=== PATIENT | male | born 1935 | race Caucasian/White ===

== ENCOUNTER 2019-06-30 13:07 | Inpatient (IN) | payer MEDICARE, SELFPAY ==
[2019-06-30] VITALS (10 sets, daily range): BP systolic 94–103; BP diastolic 43–60; PULSE 77–111; RESP 14–22; TEMP 36.8–37; O2SAT 92–97; BMI 26.3
--- NOTE | ~2019-06-30 | XR_ITS ---
XR chest 1V portable 06/30/2019 13:33 Indication: Shortness of breath Procedure: AP portable chest Comparison: Comparison to multiple prior studies sequentially, with oldest reviewed study dated 04/2019. Findings: Heart size normal. The lungs are hyperinflated which is consistent with, but not diagnostic of chronic obstructive pulmonary disease. There is atherosclerosis. Left basilar atelectasis/scarrin g. Impression: 1: Left basilar atelectasis/scarring. Reviewed, dictated and finalized at location B. [employer] INSTALLER Impression: 1: Left basilar atelectasis/scarring.
--- NOTE | 2019-06-30 13:13 | ED.SOB ---
HPI - SOB/Dyspnea General Chief Complaint: Shortness of Breath/Dyspnea Stated Complaint: SOB Time Seen by Provider: 06/30/19 13:09 Source: patient, EMS and RN notes reviewed Mode of arrival: EMS Limitations: no limitations History of Present Illness HPI Narrative: A 84 y/o male pt presents to the ED, via EMS from his nursing facility, with c/o sob and weakness x 2 days. Per RN, pt had a fever (102F) at the facility and was given Tylenol x 650mg and a nebulizer treatment prior to calling EMS. EMS also gave nebulizer en route to ED. Pt is complaining of a cough, but denies any CP, N/V/D or muscle aches, but notes he is paralyzed from the waist down. Pt recently had a surgery on his wound on his rt buttocks for mersa performed by Dr. Monroe and had a rectal tube placed. He notes having a PMHx of sepsis and notes NKA. Pt's temperature is 98.6F in the ED. MD elicited complaint: shortness of breath Pertinent past history: sepsis Onset (ago): day(s) (2) Associated symptoms: fever (102F prior to arrival), cough and other (weakness) Treatment prior to arrival: other (nebulizer treatment, Tylenol x 650mg) Related Data Home Medications Medication Instructions Recorded Confirmed Dakin's Solution 1 applic TOPICAL DAILY 04/28/19 06/30/19 Xarelto 20 mg PO DAILY 04/28/19 06/30/19 acetaminophen 325 mg PO Q4-6H PRN 04/28/19 06/30/19 albuterol sulfate See Rx Instructions .ROUTE 04/28/19 06/30/19 .COMPLEX PRN atorvastatin 10 mg PO HS 04/28/19 06/30/19 cyanocobalamin (vitamin B-12) 1,000 mcg PO DAILY 04/28/19 06/30/19 diphenhydramine HCl [Benadryl] 25 mg PO Q6-8H PRN 04/28/19 06/30/19 docusate sodium [Colace] 100 mg PO BID PRN 04/28/19 06/30/19 ergocalciferol (vitamin D2) 50,000 unit PO WEEKLY 04/28/19 06/30/19 [Vitamin D2] ferrous sulfate 325 mg PO DAILY 04/28/19 06/30/19 melatonin 5 mg PO HS 04/28/19 06/30/19 mirtazapine 15 mg PO DAILY 04/28/19 06/30/19 multivitamin 1 cap PO DAILY 04/28/19 06/30/19 sennosides [senna] 8.6 mg PO HS 04/28/19 06/30/19 tizanidine 2 mg PO BID 04/28/19 06/30/19 bisacodyl [Dulcolax (bisacodyl)] 10 mg PO BID 06/30/19 06/30/19 lactulose 10 g PO BID 06/30/19 06/30/19 polyethylene glycol 3350 [Miralax] 17 g PO DAILY 06/30/19 06/30/19 simethicone [Gas Relief 125 mg PO BID 06/30/19 06/30/19 (simethicone)] sulfamethoxazole-trimethoprim 1 tablet PO Q12H 06/30/19 06/30/19 [Bactrim DS] Allergies Allergy/AdvReac Type Severity Reaction Status Date / Time No Known Allergies Allergy Verified 04/26/19 16:06 Review of Systems Review of Systems: All systems reviewed & are unremarkable except as noted in HPI and below Constitutional: Constitutional: Reports fever(s) (102F prior to arrival) and Reports weakness (generalized) Cardiovascular: Cardiovascular: Denies chest pain Respiratory: Respiratory: Reports cough and Reports dyspnea Gastrointestinal: Gastrointestinal: Denies diarrhea, Denies nausea and Denies vomiting Musculoskeletal: Musculoskeletal: Denies myalgias (paralyzed from waist down) PMFSH Past Medical History Medical History (Reviewed 06/30/19 @ 17:33 by [facility] Arm fracture Bacteremia With peptostreptococcus December 2018 due to infected sacral wound Bladder tumor Status post transient urethral resection of bladder tumor (8 cm) August 2017 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
--- NOTE | 2019-06-30 13:22 | ECG_ITS ---
Measurements Intervals [place] Rate: 109 P: 109 WA: 190 QRS: 267 QRSD: 150 T: 54 QT: 360 QTc: 486 Interpretive Statements SINUS TACHYCARDIA RIGHT BUNDLE BRANCH BLOCK LEFT POSTERIOR FASCICULAR BLOCK BASELINE ARTIFACT- I, II, AVR, V3, V5 ABNORMAL ECG Electronically Signed On 06-30-2019 13:28:42 [employer]URN DOWN WORKER by Rodri Wilcox D.O.
[2019-06-30 13:36] LABS: Basophils Percent Auto 0.3 % (0.2-1.2); Eosinophils Percent Auto 0.6 % (0-4.4); Hematocrit 31.8 % (42.0-52.0); Hemoglobin 9.4 g/dL (14.0-18.0); Immature Granulocyte Absolute 0.02 K/mm3 (0.00-0.031); Immature Granulocyte Percent A 0.3 % (0-0.5); Lymphocytes Absolute Auto 1.32 K/mm3 (0.9-3.2); Lymphocytes Percent Auto 18.9 % (18.3-44.2); Mean Corpuscular HGB Conc 29.6 g/dl (32-36); Mean Corpuscular Hemoglobin 22.8 pg (26-34); Mean Corpuscular Volume 77.2 fl (80-100); Mean Platelet Volume 10.3 fl (7.4-10.4); Monocytes Percent Auto 14.8 % (2.6-8.5); Neutrophils Absolute Auto 4.5 K/mm3 (1.3-6.7); Neutrophils Percent Auto 65.1 % (45.5-73.1); Platelet Count Result 246 k/mm3 (150-375); Red Blood Count 4.12 M/mm3 (4.6-6.20); Red Cell Distribution Width 21.7 % (11.5-14.5)
[2019-06-30 13:47] LABS: Prothrombin Time 21.8 Seconds (11.1-14.7)
[2019-06-30 13:48] LABS: Lactic Acid Reflex 3.3 mmol/L (0.7-2.1)
[2019-06-30 13:50] LABS: Hypochromasia 1+ (NORMAL); Ovalocytes 1+ (NORMAL); Platelet Estimate Adequate (Adequate)
[2019-06-30 13:52] LABS: Alanine Aminotransferase 30 U/L (4-50); Alkaline Phosphatase 158 U/L (38-126); Aspartate Amino Transferase 43 U/L (17-59); Bilirubin,Total 0.5 mg/dL (0.2-1.3); Blood Urea Nitrogen 20 mg/dL (9-20); Calcium 7.8 mg/dL (8.4-10.2); Carbon Dioxide 23 mmol/L (22-30); Chloride 95 mmol/L (98-107); Estimated Glomerular Filt Rate > 60; Glucose 132 mg/dL (75-110); Potassium 4.2 mmol/L (3.4-5.0); Sodium 133 mmol/L (137-145)
[2019-06-30] MEDS: SODIUM CHLORIDE 0.9% IV 1,000 ML 999 ML IV CONT (14:22)
[2019-06-30 14:23] LABS: Add Urine Microscopic? YES; Appearance Urine Cloudy (Clear); Bacteria Urine 2+ /hpf; Bilirubin Urine Negative (Negative); Blood Urine 3+ (Negative); Color Urine Red (Yellow); Glucose Urine UA Negative (Negative); Ketones Urine Negative (Negative); Leukocyte Esterase Ur 2+ LEU/UL (Negative); Mucus Urine Few /lpf; Nitrate Urine Negative (Negative); Protein Urine 2+ mg/dL (Negative); RBC Urine >75 /hpf (0-2); Specific Grav Ur 1.021 (1.001-1.035); Urobilinogen Urine Negative mg/dL (<2.0); WBC Urine >75 /hpf
[2019-06-30] MEDS: OSELTAMIVIR PHOSPHATE 75 MG CAP PO ×2 (15:31→20:47)
--- NOTE | 2019-06-30 16:00 | ADMGEN ---
This patient, Wander Prescott, was admitted to Medical Room 249-01. Patient/family oriented to hospital policies and general routines including ID bracelet, bed and alarms, visiting hours, pain management, procedures, bathroom and other care routines, personal items, smoking policy, room service/diet, and visiting hours. Valuables list has been completed. Information on how to activate the Rapid Response Team has been discussed. Patient/Family are encouraged to report perceived risks to care and to ask questions if they do not understand what they are told or what they should do.
[2019-06-30] MEDS: LACTATED RINGERS 1,000 ML 125 ML IV CONT (16:27)
[2019-06-30 16:35] LABS: Reflex Lactic Acid Yes or No Add Lactic
[2019-06-30 17:10] LABS: Lactic Acid 2.8 mmol/L (0.7-2.1)
[2019-06-30] MEDS: methylPREDNISolone SOD SUCC 125 MG VIAL 60 MG IV PUSH ×2 (18:32→23:59)
--- NOTE | 2019-06-30 18:42 | PC.NURSE ---
Sepsis Assessment completed and showed high risk. Octavia Rico will be at bedside to assess patient.
--- NOTE | 2019-06-30 19:55 | PC.NURSE ---
On 06/30/19, the [place], [JUAN DIEGO Damico], provided care and completed [facility] documentation on this patient. I have reviewed her documentation and agree with the findings.
[2019-06-30 19:59] LABS: Glucose Point of Care 90 (65-105)
[2019-06-30 21:03] LABS: Glucose Point of Care 124 (65-105)
[2019-06-30] MEDS: ALBUTEROL SULFATE NEB 2.5 MG/0.5 ML INH 5 MG INHALATION (22:00)
[2019-06-30] MEDS: IPRATROPIUM BR 0.02% INH SOLN 0.5 MG/2.5 ML VIAL INHALATION (22:00)
--- NOTE | 2019-06-30 23:37 | PM.IMHP ---
H&P: HPI History of Present Illness Chief complaint: Acute on chronic respiratory failure/influenza Narrative: Wander Prescott is a 84 year old male who resides at [facility]. The patient came to the emergency room via EMS with complaints of shortness of breath and weakness for 2 days. The patient had T-max of 102? at the facility and was given Tylenol x2 the patient stated that this started about 2 days ago and has been very weak. He does have a history of paraplegia and basically bedbound. Patient has had multiple ulcerations and states that his down to about 2 now he sees a wound care nurse at the facility. He has had MRSA in the right buttocks but I believe that they felt that it was colonized his last admission. He also has a chronic indwelling Cheung catheter. Patient did receive ertapenem back in April. Patient was found to be positive for influenza A while at the hospital today. On IV fluids and Tamiflu. He was also given Tylenol fever. Date of service is 06/30/2019 Review of Systems Review of Systems: Narrative: The patient stated that he felt very fatigued. He also has chills. All systems reviewed & are unremarkable except as noted in HPI and below Constitutional: Constitutional: Reports as per HPI and Reports no additional constitutional complaints Eyes: Eyes: Reports as per HPI and Reports no additional eye complaints ENT: Reports system reviewed and no additional complaints, except as documented and Reports Normal hearing present Cardiovascular: Cardiovascular: Reports no additional cardiovascular complaints Respiratory: Respiratory: Reports no additional respiratory complaints and Reports no additional respiratory complaints Gastrointestinal: Gastrointestinal: Reports as per HPI and Reports no additional gastrointestinal complaints Musculoskeletal: Musculoskeletal: Reports no additional musculoskeletal complaints Integumentary/Breasts: Skin/Breast: Reports system reviewed and no additional complaints, except as docu and Reports as per HPI Neurologic: Reports system reviewed and no additional complaints, except as documented, Reports as per HPI and Reports Normal hearing present Psychiatric: Psychiatric: Reports no additional psychiatric complaints and Reports as per HPI Endocrine: Endocrine: Reports no additional endocrine complaints Hematologic/Lymphatic: Hematologic/Lymphatic: Reports no additional hematologic/lymphatic complaints Allergic/Immunologic: Allergic/Immunologic: Reports no additional allergic/immunologic complaints PMF Past Medical History Medical History (Updated 06/30/19 @ 23:43 by Octavia Rico NP) Arm fracture Asbestosis Bacteremia With peptostreptococcus December 2018 due to infected sacral wound Bladder tumor Status post transient urethral resection of bladder tumor (8 cm) August 2017 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 Julian) Catheter-associated urinary tract infection Chronic indwelling Cheung catheter Due to paraplegia/neurogenic bladder COPD (chronic obstructive pulmonary disease) Diastolic dysfunction without heart failure Echocardiogram March 2017 demonstrated normal left ventricular systolic function with no focal wall motion abnormalities, mild concentric left ventricular hypertrophy, EF of 60-65%, mild pulmonary hypertension with RVSP of 46, diastolic dysfunction, E. 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
[2019-07-01] VITALS (15 sets, daily range): BP systolic 91–96; BP diastolic 45–68; PULSE 68–94; RESP 16–18; TEMP 36.2–36.4; O2SAT 92–99
[2019-07-01] MEDS: LACTATED RINGERS 1,000 ML 125 ML IV CONT ×2 (00:49→13:01)
[2019-07-01] MEDS: MELATONIN 5 MG TABLET PO ×2 (01:26→20:46)
[2019-07-01] MEDS: IPRATROPIUM BR 0.02% INH SOLN 0.5 MG/2.5 ML VIAL INHALATION ×3 (02:40→22:27)
[2019-07-01] MEDS: ALBUTEROL SULFATE NEB 2.5 MG/0.5 ML INH 5 MG INHALATION ×3 (02:40→22:27)
[2019-07-01] MEDS: methylPREDNISolone SOD SUCC 125 MG VIAL 60 MG IV PUSH ×3 (05:20→23:05)
[2019-07-01 06:06] LABS: Hemoglobin 8.9 g/dL (14.0-18.0); Immature Granulocyte Absolute 0.03 K/mm3 (0.00-0.031); Immature Granulocyte Percent A 0.5 % (0-0.5); Lymphocytes Absolute Auto 0.44 K/mm3 (0.9-3.2); Mean Corpuscular HGB Conc 29.7 g/dl (32-36); Mean Corpuscular Hemoglobin 22.3 pg (26-34); Mean Corpuscular Volume 75.2 fl (80-100); Mean Platelet Volume 10.5 fl (7.4-10.4); Monocytes Absolute Auto 0.1 K/mm3 (0.1-0.6); Monocytes Percent Auto 1.3 % (2.6-8.5); Neutrophils Absolute Auto 4.9 K/mm3 (1.3-6.7); Neutrophils Percent Auto 90.2 % (45.5-73.1); Platelet Count Result 246 k/mm3 (150-375); Red Blood Count 3.99 M/mm3 (4.6-6.20); Red Cell Distribution Width 21.1 % (11.5-14.5); White Blood Count 5.5 K/mm3 (4.5-10.0)
[2019-07-01 06:08] LABS: Alanine Aminotransferase 26 U/L (4-50); Albumin Level 2.8 g/dL (3.5-5.1); Alkaline Phosphatase 146 U/L (38-126); Aspartate Amino Transferase 35 U/L (17-59); Bilirubin,Total 0.4 mg/dL (0.2-1.3); Blood Urea Nitrogen 17 mg/dL (9-20); Calcium 7.9 mg/dL (8.4-10.2); Carbon Dioxide 25 mmol/L (22-30); Chloride 96 mmol/L (98-107); Estimated CRCL calculation 79 ml/min; Estimated Glomerular Filt Rate > 60; Glucose 153 mg/dL (75-110); Magnesium 1.8 mg/dL (1.6-2.3); Potassium 4.6 mmol/L (3.4-5.0); Sodium 135 mmol/L (137-145)
[2019-07-01] MEDS: BISACODYL 5 MG TABLET EC 10 MG PO ×2 (08:32→16:54)
[2019-07-01] MEDS: TIZANIDINE HCL 2 MG TABLET PO ×2 (08:32→16:57)
[2019-07-01] MEDS: MIRTAZAPINE 15 MG TABLET PO (08:33)
[2019-07-01] MEDS: MULTIVITAMINS THERAPEUTIC TAB (*BKC) 1 TABLET PO (08:33)
[2019-07-01] MEDS: LACTULOSE 20 GM/30 ML UDC 10 GM PO ×2 (08:33→16:57)
[2019-07-01] MEDS: SIMETHICONE 125 MG CHEW TAB PO ×2 (08:33→16:58)
[2019-07-01] MEDS: polyethylene glycoL 3350 17 GM POWD.PACK PO (08:33)
[2019-07-01] MEDS: CYANOCOBALAMIN 1,000 MCG TABLET 1000 MCG PO (08:33)
[2019-07-01] MEDS: FERROUS SULFATE 324 MG TABLET PO (08:33)
[2019-07-01] MEDS: OSELTAMIVIR PHOSPHATE 75 MG CAP PO ×2 (08:34→20:46)
[2019-07-01] MEDS: COLLAGENASE OINT 30 GM TUBE 1 APPLIC TOPICAL (13:02)
[2019-07-01 15:35] LABS: Glucose Point of Care 154 (65-105)
[2019-07-01 15:35] LABS: Glucose Point of Care 144 (65-105)
--- NOTE | 2019-07-01 15:57 | PM.IMPN ---
Progress Note: A&P Assessment and Plan (1) Influenza A: Code(s): J10.1 - Influenza due to other identified influenza virus with other respiratory manifestations Status: Acute Assessment and Plan: The patient has been brought to the hospital due to 102 fever at his nursing facility. He was found to have influenza a and has been receiving supportive care. Today he reports feeling 100% better. He has been afebrile since arrival, not tachycardic, normal respiration, and resting 95% on room air. Will continue some breathing treatments, Tamiflu, continue with Tylenol for fever. IV fluids were discontinued today. Continue monitoring patient's symptoms. (2) Chronic hypoxemic respiratory failure: Code(s): J96.11 - Chronic respiratory failure with hypoxia Status: Acute Assessment and Plan: The patient was found to be hypoxic via EMS on the way to the ER. Today we have been weaning his oxygen down and he is resting comfortably 95% on room air He denies any shortness of breath, wheezing, chest tightness at this time. Will continue nebulizer treatments and decrease IV Solu-Medrol down over the next few days. (3) Type 2 diabetes mellitus: Qualifiers: Diabetes mellitus shelter insulin use: with shelter use Diabetes mellitus complication status: without complication Qualified Code(s): E11.9 - Type 2 diabetes mellitus without complications; Z79.4 - terminal block assembler (current) use of insulin Code(s): E11.9 - Type 2 diabetes mellitus without complications Status: Acute Assessment and Plan: The patient is not on any medications for his diabetes but the patient is on steroids at this time. Upon review of his past admission he was on Humalog. Serum glucose today was 153. Continue monitoring glucose Accu-Chek ACHS, hypoglycemia statement place. (4) Diastolic dysfunction without heart failure: Code(s): I51.89 - Other ill-defined heart diseases Status: Acute Assessment and Plan: Appears to be euvolemic. Continue with current medications. (5) COPD (chronic obstructive pulmonary disease): Qualifiers: COPD type: unspecified COPD Qualified Code(s): J44.9 - Chronic obstructive pulmonary disease, unspecified Code(s): J44.9 - Chronic obstructive pulmonary disease, unspecified Status: Acute Assessment and Plan: Patient was placed on Solu-Medrol and neb treatments. 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 (7) Essential hypertension: Code(s): I10 - Essential (primary) hypertension Status: Acute Assessment and Plan: Continue to monitor he does not appear to be on any medication at this time. Blood pressure has been stable today. (8) Pressure ulcer: Qualifiers: Laterality: right Pressure injury location: contiguous region involving back and buttock Pressure injury stage: stage 4 Qualified Code(s): L89.44 - Pressure ulcer of contiguous site of back, buttock and hip, stage 4 Code(s): L89.90 - Pressure ulcer of unspecified site, unspecified stage Status: Acute Assessment and Plan: He is receiving care at the wound care clinic. Patient was found to be colonized with MRSA in the past. Time Spent With Patient Time with patient: 25 - 35 minutes Subjective Date/time seen: 07/01/19 15:57 Interval history: Date of service 07/01/2019: The patient report
[2019-07-01] MEDS: RIVAROXABAN 20 MG TABLET PO (16:58)
--- NOTE | 2019-07-01 18:50 | PC.NURSE ---
Pt refused specialty bed. Pt informed of benefits of specialty bed and he said he was comfortable in his current bed.
[2019-07-01 19:06] LABS: Glucose Point of Care 170 (65-105)
[2019-07-01] MEDS: ATORVASTATIN 10 MG TABLET PO (20:45)
[2019-07-01] MEDS: ERTAPENEM 1 GM/NS 50 ML 1 GM/50 ML BAG IVPB (20:45)
[2019-07-01] MEDS: SENNOSIDES 8.6 MG TABLET PO (20:46)
[2019-07-01 21:10] LABS: Glucose Point of Care 217 (65-105)
[2019-07-02] VITALS (18 sets, daily range): BP systolic 96–107; BP diastolic 44–52; PULSE 66–84; RESP 16–20; TEMP 35.6–36.9; O2SAT 87–96; BMI 26.3
[2019-07-02] MEDS: IPRATROPIUM BR 0.02% INH SOLN 0.5 MG/2.5 ML VIAL INHALATION ×3 (03:36→19:47)
[2019-07-02] MEDS: ALBUTEROL SULFATE NEB 2.5 MG/0.5 ML INH 5 MG INHALATION ×3 (03:36→19:48)
[2019-07-02 05:26] LABS: Basophils Percent Auto 0.2 % (0.2-1.2); Hematocrit 31.9 % (42.0-52.0); Hemoglobin 9.5 g/dL (14.0-18.0); Immature Granulocyte Absolute 0.04 K/mm3 (0.00-0.031); Immature Granulocyte Percent A 0.6 % (0-0.5); Lymphocytes Absolute Auto 0.55 K/mm3 (0.9-3.2); Lymphocytes Percent Auto 8.4 % (18.3-44.2); Mean Corpuscular HGB Conc 29.8 g/dl (32-36); Mean Corpuscular Hemoglobin 22.6 pg (26-34); Monocytes Absolute Auto 0.3 K/mm3 (0.1-0.6); Monocytes Percent Auto 5.1 % (2.6-8.5); Neutrophils Absolute Auto 5.6 K/mm3 (1.3-6.7); Neutrophils Percent Auto 85.7 % (45.5-73.1); Platelet Count Result 268 k/mm3 (150-375); Red Cell Distribution Width 21.4 % (11.5-14.5); White Blood Count 6.5 K/mm3 (4.5-10.0)
[2019-07-02 05:49] LABS: Blood Urea Nitrogen 17 mg/dL (9-20); Calcium 8.4 mg/dL (8.4-10.2); Carbon Dioxide 28 mmol/L (22-30); Chloride 102 mmol/L (98-107); Estimated CRCL calculation 93 ml/min; Estimated Glomerular Filt Rate > 60; Glucose 160 mg/dL (75-110); Magnesium 1.9 mg/dL (1.6-2.3); Potassium 4.4 mmol/L (3.4-5.0); Sodium 135 mmol/L (137-145)
[2019-07-02 05:52] LABS: Microcytosis 1+ (NORMAL); Platelet Estimate Adequate (Adequate)
[2019-07-02 05:53] LABS: Macrocytosis 1+ (NORMAL)
[2019-07-02] MEDS: CYANOCOBALAMIN 1,000 MCG TABLET 1000 MCG PO (09:29)
[2019-07-02] MEDS: polyethylene glycoL 3350 17 GM POWD.PACK PO (09:30)
[2019-07-02] MEDS: LACTULOSE 20 GM/30 ML UDC 10 GM PO ×2 (09:30→16:42)
[2019-07-02] MEDS: MULTIVITAMINS THERAPEUTIC TAB (*BKC) 1 TABLET PO (09:30)
[2019-07-02] MEDS: OSELTAMIVIR PHOSPHATE 75 MG CAP PO ×2 (09:30→20:35)
[2019-07-02] MEDS: MIRTAZAPINE 15 MG TABLET PO (09:30)
[2019-07-02] MEDS: FERROUS SULFATE 324 MG TABLET PO (09:30)
[2019-07-02] MEDS: COLLAGENASE OINT 30 GM TUBE 1 APPLIC TOPICAL (09:31)
[2019-07-02] MEDS: BISACODYL 5 MG TABLET EC 10 MG PO ×2 (09:31→16:41)
[2019-07-02] MEDS: TIZANIDINE HCL 2 MG TABLET PO ×2 (09:31→16:41)
[2019-07-02] MEDS: SIMETHICONE 125 MG CHEW TAB PO ×2 (09:31→16:41)
[2019-07-02 11:08] LABS: Glucose Point of Care 138 (65-105)
--- NOTE | 2019-07-02 11:12 | PCRCNOTE ---
Window of time for administration has passed. See next scheduled administration.
[2019-07-02] MEDS: methylPREDNISolone SOD SUCC 125 MG VIAL 60 MG IV PUSH ×2 (11:53→22:41)
--- NOTE | 2019-07-02 12:44 | PM.IMPN ---
Progress Note: A&P Assessment and Plan (1) Influenza A: Code(s): J10.1 - Influenza due to other identified influenza virus with other respiratory manifestations Status: Acute Assessment and Plan: The patient has been brought to the hospital due to 102 fever at his nursing facility. He has been afebrile since admission. He was found to have influenza a and has been receiving supportive care. Today he has no respiratory complaints, but has been placed back on 1 L O2 NC. Will continue with breathing treatments, Tamiflu, continue with Tylenol for fever. Continue monitoring patient's symptoms. (2) Chronic hypoxemic respiratory failure: Code(s): J96.11 - Chronic respiratory failure with hypoxia Status: Acute Assessment and Plan: The patient was found to be hypoxic via EMS on the way to the ER. He is currently on 1L O2 NC. He denies any shortness of breath, wheezing, chest tightness at this time. Will continue nebulizer treatments and decrease IV Solu-Medrol down over the next few days. 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 The patient is not on any medications for his diabetes but the patient is on steroids at this time. Upon review of his past admission he was on Humalog. Continue monitoring glucose Accu-Chek ACHS, hypoglycemia protocol in place (4) Diastolic dysfunction without heart failure: Code(s): I51.89 - Other ill-defined heart diseases Status: Acute Assessment and Plan: Appears to be euvolemic. Continue with current medications. (5) COPD (chronic obstructive pulmonary disease): Qualifiers: COPD type: unspecified COPD Qualified Code(s): J44.9 - Chronic obstructive pulmonary disease, unspecified Code(s): J44.9 - Chronic obstructive pulmonary disease, unspecified Status: Acute Assessment and Plan: Patient was placed on Solu-Medrol and neb treatments. 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 Continue chronic Xarelto (7) Essential hypertension: Code(s): I10 - Essential (primary) hypertension Status: Acute Assessment and Plan: BP reviewed /6; 90s sys. 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 Patient was found to be colonized with MRSA in the past. Continue WC/wound management (9) Positive urine culture: Code(s): R82.79 - Other abnormal findings on microbiological examination of urine Status: Acute Assessment and Plan: Cultures grew ESBL K. pneumoniae. In setting of past
[2019-07-02 13:04] LABS: Glucose Point of Care 142 (65-105)
--- NOTE | 2019-07-02 15:31 | PCNSR ---
On 07/02/19, the student, Margie Betancur, provided care and completed [facility] documentation on this patient. I have reviewed the student's documentation and agree with the findings.
--- NOTE | 2019-07-02 16:27 | WPDINFPN2 ---
Progress Note: A&P Assessment and Plan (1) Influenza A: Code(s): J10.1 - Influenza due to other identified influenza virus with other respiratory manifestations Status: Acute Assessment and Plan: 1. Fever due to flu A 2. Chronic Cheung 3. Asymptomatic bacteriuria 4. Paraplegia REC 5 days oseltamavir. No antibacterials needed. Subjective Date/time seen: 07/02/19 16:27 Objective Data Vital Signs Vital Signs: Vital Signs - 24 hr 07/01/19 20:00 07/01/19 21:56 07/01/19 22:29 Temperature 36.3 C L Pulse Rate 72 72 69 Respiratory Rate 16 18 Blood Pressure 96/53 L Pulse Oximetry 97 07/01/19 22:31 07/01/19 22:40 07/02/19 00:00 Temperature Pulse Rate 73 75 Respiratory Rate 18 Blood Pressure Pulse Oximetry 94 07/02/19 03:39 07/02/19 03:50 07/02/19 04:00 Temperature Pulse Rate 70 72 69 Respiratory Rate 18 18 Blood Pressure Pulse Oximetry 07/02/19 06:28 07/02/19 08:00 07/02/19 12:00 Temperature 35.6 C L Pulse Rate 76 84 76 Respiratory Rate 16 Blood Pressure 96/49 L Pulse Oximetry 96 07/02/19 14:00 07/02/19 14:19 07/02/19 14:22 Temperature 36.4 C Pulse Rate 81 74 Respiratory Rate 16 18 Blood Pressure 97/44 L Pulse Oximetry 92 95 07/02/19 14:26 Temperature Pulse Rate 71 Respiratory Rate 18 Blood Pressure Pulse Oximetry Intake/Output Intake/Output: Intake & Output 06/29/19 06/30/19 07/01/19 07/02/19 23:59 23:59 23:59 23:59 Intake Total 1200 4170 600 Output Total 200 2400 1200 Balance 1000 1770 -600 Meds/Results Medications: Active Medications Generic Name Dose Route Start Last Admin Trade Name Freq PRN Reason Stop Dose Admin Albuterol 5 mg 06/30/19 14:00 07/02/19 14:18 Albuterol Sulf Neb 2.5mg/0.5ml INHALATION 5 mg Q6HRT KEMI Administration Atorvastatin Calcium 10 mg 07/01/19 21:00 07/01/19 20:45 Lipitor PO 10 mg HS KEMI Administration Bisacodyl 10 mg 07/01/19 09:00 07/02/19 09:31 Dulcolax Tab PO 10 mg BID KEMI Administration Collagenase 1 applic 07/01/19 09:00 07/02/19 09:31 Santyl Oint TOPICAL 1 applic DAILY KEMI Administration Cyanocobalamin 1,000 mcg 07/01/19 09:00 07/02/19 09:29 Vitamin B-12 Tab PO 1,000 mcg DAILY KEMI Administration Dextrose 12.5 gm 07/01/19 00:00 Dextrose 50% Syringe IV PUSH PRN PRN Hypoglycemia Protocol Diphenhydramine HCl 25 mg 06/30/19 23:49 Benadryl Cap PO Q6-8H PRN Itching Docusate Sodium 100 mg 06/30/19 23:49 Colace Capsule PO BID PRN Constipation Ergocalciferol 50,000 unit 07/08/19 09:00 Drisdol PO Th@0900 [facility] Ferrous Sulfate 324 mg 07/01/19 08:00 07/02/19 09:30 Ferrous Sulfate PO 324 mg DAILY@0800 [facility] Administration Glucagon 1 mg 07/01/19 00:00 Glucagon For Inj IM PRN PRN Hypoglycemia Protocol Glucose 15 gm 07/01/19 00:00 Glutose 15 PO PRN PRN Hypoglycemia Protocol Dextrose 1,000 mls @ 100 mls/hr 07/01/19 00:00 Dextrose 5% 1,000 Ml IVPB PRN PRN Hypoglycemia Protocol Ertapenem 1 gm in 50 mls @ 100 mls/hr 07/01/19 21:00 07/01/19 21:15 Invanz 1 Gm/Ns 50 Ml IVPB Infused Q24H [facility] Infusion Insulin Aspart 2 - 5 units 07/01/19 08:00 07/02/19 09:29 Novolog SUB-Q Not Given TIDWM [facility] Protocol Ipratropium [place] 0.5 mg 06/30/19 14:00 07/02/19 14:18 Atrovent Neb INHALATION 0.5 mg Q6HRT KEMI Administration Lactulose 10 gm 07/01/19 09:00 07/02/19 09:30 Lactulose PO 07/31/19 09:01 10 gm BID KEMI Administration Melatonin 5 mg 07/01/19 21:00 07/01/19 20:46 Melatonin PO 5 mg HS KEMI Administration Methylprednisolone Sodium Succinate 60 mg 07/01/19 23:30 07/02/19 11:53 Solu-Medrol IV PUSH 07/02/19 23:55 60 mg Q12H KEMI Administration Methylprednisolone Sodium Succinate 60 mg 07/03/19 09:00 Solu-Medrol IV PUSH
[2019-07-02] MEDS: RIVAROXABAN 20 MG TABLET PO (16:42)
[2019-07-02 18:26] LABS: Glucose Point of Care 149 (65-105)
[2019-07-02] MEDS: MELATONIN 5 MG TABLET PO (20:35)
[2019-07-02] MEDS: ATORVASTATIN 10 MG TABLET PO (20:35)
[2019-07-02] MEDS: SENNOSIDES 8.6 MG TABLET PO (20:36)
[2019-07-02 20:45] LABS: Glucose Point of Care 201 (65-105)
--- NOTE | 2019-07-02 22:14 | CONS_ITS ---
DATE OF CONSULTATION: 07/02/2019 REASON FOR CONSULTATION: Abnormal urine culture. 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 He has had a Cheung catheter in place since then. He is followed by Dr. Julian. Last year, he also was found to have bladder tumor and underwent intravesical chemotherapy completed about a year ago. He did have on cystoscopy followup, some mild hyperemia, but no evidence of residual tumor. He was recently here in the hospital with decubitus ulcers and had a rectal tube, flexible, which remains in place. He is a resident of [facility]. He was brought to the hospital here on June 29, with fever into the 39 range along with shortness of breath. Emergency room records here indicate he was found to have a positive swab for influenza A and started on oseltamivir. For unknown reasons, a urinalysis was also obtained, was positive and he was started on ertapenem last evening, consultation now requested. The patient has no further shortness of breath. No chills or sweats. He is unsure if he got the influenza vaccine this season. He has had no cough, sputum production, headache, sore throat. ALLERGIES: NONE KNOWN. PRESENT MEDICATIONS: He is on methylprednisolone here, not over the shelter. He was on prior to admission from the [facility]. HABITS: Quit smoking many years ago. No alcohol. FAMILY HISTORY: Lung cancer, stroke. PAST MEDICAL HISTORY: In addition to the above, appendectomy, lung biopsy, tonsillectomy, vitamin D deficiency, type 2 diabetes mellitus, lumbar and cervical spine stenosis, spinal cord infarction, PAF, MRSA colonization, asbestos exposure, hyperlipidemia, GI hemorrhage, hypertension, previous E coli bacteremia, diastolic heart failure, COPD, arm fracture. SOCIAL HISTORY: No family at the bedside presently. correction resident since his infarction in 2018. Retired from [employer]. 2 children. REVIEW OF SYSTEMS: 14-point review otherwise negative. PHYSICAL EXAMINATION: GENERAL: This is an elderly male, appears his actual age. No acute distress. VITAL SIGNS: He has been afebrile since arrival here 48 hours ago. 97/84, 81, 16, 95%, 1 L now on room air. SKIN: No generalized rashes. EENT: Conjunctivae are normal. Pupils equal, round, reactive. The oropharynx and oral mucosa normal. NECK: No adenopathy trachea deviation, meningismus. LUNGS: Clear to auscultation and percussion. CHEST: Equal expansion. Normal AP diameter. CARDIAC: Regular rate and rhythm. No murmur, gallop, or rub. ABDOMEN: Nontender, soft. No organomegaly. No masses. EXTREMITIES: Muscle wasting. No clubbing, cyanosis, edema. : Cheung catheter draining dark yellow urine with sediment. LABORATORY DATA: Urine culture with ESBL producing Klebsiella. His white count consistently normal. Hemoglobin 9.5, platelets are 268. Differential unremarkable. hyponatremia. Glucose 160. Accu-Cheks variable. Hemoglobin A1c from 6 months ago was 6.8%. CRP is 5.0. His urinalysis greater than 75 white and red cells, 2+ leukocyte esterase, 2+ bacteria, 3+ blood, 2+ protein, red, cloudy. Blood cultures, no growth so far. RADIOLOGY: Chest x-ray performed on admission, atelectasis scarring. ASSESSMENT: 1. Asymptomatic bacteriuria. 2. Chronic indwelling Cheung catheter. 3. Previous spinal cord infarction. 4. Acute influenza A without complication such as viral pneumonitis. RECOMMENDATIONS: 1. Can stop ertapenem. 2. Maintain isolation per protocol, contacted mask. 3. Five days of oseltamivir, then stop. 4. He can be discharged from my standpoint. Thank you very much for asking me to see him. ___
[2019-07-03] VITALS (13 sets, daily range): BP systolic 96–102; BP diastolic 47–56; PULSE 59–83; RESP 16–20; TEMP 36.1–36.6; O2SAT 95–97
[2019-07-03] MEDS: ALBUTEROL SULFATE NEB 2.5 MG/0.5 ML INH 5 MG INHALATION ×3 (02:42→15:23)
[2019-07-03] MEDS: IPRATROPIUM BR 0.02% INH SOLN 0.5 MG/2.5 ML VIAL INHALATION ×3 (02:42→15:24)
[2019-07-03 05:37] LABS: Hematocrit 32.8 % (42.0-52.0); Hemoglobin 9.8 g/dL (14.0-18.0); Immature Granulocyte Absolute 0.07 K/mm3 (0.00-0.031); Immature Granulocyte Percent A 0.9 % (0-0.5); Lymphocytes Absolute Auto 0.55 K/mm3 (0.9-3.2); Lymphocytes Percent Auto 6.9 % (18.3-44.2); Mean Corpuscular HGB Conc 29.9 g/dl (32-36); Mean Corpuscular Volume 76.8 fl (80-100); Mean Platelet Volume 10.5 fl (7.4-10.4); Monocytes Absolute Auto 0.2 K/mm3 (0.1-0.6); Monocytes Percent Auto 1.9 % (2.6-8.5); Neutrophils Absolute Auto 7.3 K/mm3 (1.3-6.7); Neutrophils Percent Auto 90.3 % (45.5-73.1); Platelet Count Result 294 k/mm3 (150-375); Red Blood Count 4.27 M/mm3 (4.6-6.20); Red Cell Distribution Width 21.6 % (11.5-14.5)
[2019-07-03 05:47] LABS: Blood Urea Nitrogen 18 mg/dL (9-20); Calcium 8.1 mg/dL (8.4-10.2); Carbon Dioxide 28 mmol/L (22-30); Chloride 101 mmol/L (98-107); Estimated CRCL calculation 93 ml/min; Estimated Glomerular Filt Rate > 60; Glucose 151 mg/dL (75-110); Potassium 4.1 mmol/L (3.4-5.0); Sodium 134 mmol/L (137-145)
[2019-07-03 07:11] LABS: Hypochromasia 1+ (NORMAL); Ovalocytes 1+ (NORMAL); Platelet Estimate Adequate (Adequate)
[2019-07-03 07:20] LABS: Glucose Point of Care 146 (65-105)
[2019-07-03] MEDS: methylPREDNISolone SOD SUCC 125 MG VIAL 60 MG IV PUSH (09:59)
[2019-07-03] MEDS: LACTULOSE 20 GM/30 ML UDC 10 GM PO (09:59)
[2019-07-03] MEDS: SIMETHICONE 125 MG CHEW TAB PO (10:00)
[2019-07-03] MEDS: polyethylene glycoL 3350 17 GM POWD.PACK PO (10:00)
[2019-07-03] MEDS: TIZANIDINE HCL 2 MG TABLET PO (10:00)
[2019-07-03] MEDS: OSELTAMIVIR PHOSPHATE 75 MG CAP PO (10:00)
[2019-07-03] MEDS: CYANOCOBALAMIN 1,000 MCG TABLET 1000 MCG PO (10:00)
[2019-07-03] MEDS: MIRTAZAPINE 15 MG TABLET PO (10:01)
[2019-07-03] MEDS: MULTIVITAMINS THERAPEUTIC TAB (*BKC) 1 TABLET PO (10:01)
[2019-07-03] MEDS: FERROUS SULFATE 324 MG TABLET PO (10:01)
[2019-07-03] MEDS: COLLAGENASE OINT 30 GM TUBE 1 APPLIC TOPICAL (10:04)
[2019-07-03] MEDS: BISACODYL 5 MG TABLET EC 10 MG PO (10:15)
[2019-07-03 12:43] LABS: Add Urine Microscopic? YES; Appearance Urine Cloudy (Clear); Bilirubin Urine Negative (Negative); Blood Urine 3+ (Negative); Color Urine Yellow (Yellow); Glucose Urine UA Negative (Negative); Ketones Urine Negative (Negative); Leukocyte Esterase Ur 2+ LEU/UL (NEGATIVE); Mucus Urine Rare /lpf; Nitrate Urine Positive (Negative); Protein Urine 2+ mg/dL (Negative); RBC Urine >75 /hpf (0-2); Urobilinogen Urine Negative mg/dL (<2.0); WBC Urine >75 /hpf (0-3)
[2019-07-03 13:03] LABS: Glucose Point of Care 163 (65-105)
--- NOTE | 2019-07-03 13:08 | PM.DS ---
DS: Diagnosis Admitting Diagnosis Admitting Diagnosis: Influenza due to other identified influenza virus with other respiratory manifestations Discharge Diagnosis (1) Positive urine culture: Code(s): R82.79 - Other abnormal findings on microbiological examination of urine Status: Acute Assessment and Plan: The patient's urine culture came back positive for Klebsiella ESBL. The patient recently had E coli ESBL infection April 2019. Infectious disease, Dr. Mayfield, evaluated the patient and believes that he is colonized with this bacteria since he is asymptomatic. The patient was discontinued on any antibiotics and is stable for discharge back to care home at this time for further monitoring of any fevers. (2) Influenza A: Code(s): J10.1 - Influenza due to other identified influenza virus with other respiratory manifestations Status: Acute Assessment and Plan: The patient has been brought to the hospital due to 102 fever at his nursing facility. He was found to have influenza A and has been receiving supportive care. Today he reports feeling much better without any fevers, chills, body aches or any other issues. He has been afebrile since arrival, not tachycardic, normal respiration, and resting 95% on room air. He will be discharged back to his care home to continue Tamiflu, Xopenex breathing treatments as needed for shortness of breath and symptomatic care. The patient understands and agrees with the plan at this time. (3) Chronic hypoxemic respiratory failure: Code(s): J96.11 - Chronic respiratory failure with hypoxia Status: Acute Assessment and Plan: The patient was found to be hypoxic via EMS on the way to the ER. Today the patient has been off oxygen and his saturation was 95% on room air. He denies any shortness of breath, wheezing, chest tightness at this time. Will discharge him on as needed Xopenex breathing treatments and prednisone taper. 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 Upon review of his past admission he was on Humalog. Serum glucose today was 151. Stable at this time while on steroids. (5) Diastolic dysfunction without heart failure: Code(s): I51.89 - Other ill-defined heart diseases Status: Acute Assessment and Plan: Appears to be euvolemic. Continue with current medications. (6) COPD (chronic obstructive pulmonary disease): Qualifiers: COPD type: unspecified COPD Qualified Code(s): J44.9 - Chronic obstructive pulmonary disease, unspecified Code(s): J44.9 - Chronic obstructive pulmonary disease, unspecified Status: Acute Assessment and Plan: Patient was placed on Solu-Medrol and neb treatments. He will continue with a prednisone taper upon discharge. (7) Paraplegic spinal paralysis: Code(s): G82.20 - Paraplegia, unspecified Status: Acute Assessment and Plan: Patient has spinal stroke and is on Xarelto. (8) Essential hypertension: Code(s): I10 - Essential (primary) hypertension Status: Acute Assessment and Plan: Continue to monitor he does not appear to be on any me
--- NOTE | 2019-07-03 15:35 | PC.NURSE ---
Called report to BAL Bermudez at [facility]. All questions and concerns answered at this time.
== END 2019-07-03 16:20 | DRG 193 ==
LOC: ANHED 13:37 → ANH2MED 15:03
PROVIDERS: Nurse Practitioner; Physician Assistant; Admitting Provider Internal Medicine; Emergency Provider Emergency Medicine; PCP Family Medicine; Visit Provider Physician Assistant
DX: J10.1 Influenza due to other identified influenza virus with other respiratory manifestations (principal); L89.44 Pressure ulcer of contiguous site of back, buttock and hip, stage 4; J96.21 Acute and chronic respiratory failure with hypoxia; J96.11 Chronic respiratory failure with hypoxia; I48.92 Unspecified atrial flutter; G82.20 Paraplegia, unspecified; E87.1 Hypo-osmolality and hyponatremia; R82.71 Bacteriuria; B96.1 Klebsiella pneumoniae [K. pneumoniae] as the cause of diseases classified elsewhere; Z22.322 Carrier or suspected carrier of Methicillin resistant Staphylococcus aureus; J44.9 Chronic obstructive pulmonary disease, unspecified; I10 Essential (primary) hypertension; E87.6 Hypokalemia; E11.9 Type 2 diabetes mellitus without complications; E55.9 Vitamin D deficiency, unspecified; Z79.01 Long term (current) use of anticoagulants; Z99.81 Dependence on supplemental oxygen; Z87.891 Personal history of nicotine dependence; Z66 Do not resuscitate; Z79.4 Long term (current) use of insulin; I51.89 Other ill-defined heart diseases; Z77.090 Contact with and (suspected) exposure to asbestos
CPT/HCPCS: 36415; 71045; 80048; 80053; 81001; 83605; 83735; 85025; 85610; 85730; 86140; 87040; 87077; 87081; 87086; 87088; 87186; 87804; 93005; 94640; 96360; 99291; A9270; J1335; J2930; J7030; J7120

== ENCOUNTER 2019-08-10 16:27 | Inpatient (IN) | payer MEDICARE, SELFPAY ==
--- NOTE | ~2019-08-10 | XR_ITS ---
EXAMINATION: XR chest 1V portable DATE: 08/13/2019 10:41 INDICATION: Decreased breath sounds in left lung. TECHNIQUE: A single frontal view of the chest was obtained. COMPARISON: Chest single view 06/30/2019, CT abdomen and pelvis 08/10/2019, chest CT 01/13/2013 FINDINGS: The lungs are hyperexpanded with chronic mild peripheral reticular opacities in the mid and lower lung zones, consistent with emphysema and mild chronic interstitial lung disease. No pleural e ffusion or pneumothorax. The heart size is normal. IMPRESSION: 1. Emphysema and mild chronic interstitial lung disease. Reviewed, dictated and finalized at location A.
--- NOTE | ~2019-08-10 | CT_ITS ---
EXAMINATION: CT abdomen pelvis w con EXAM DATE: 08/10/2019 18:06 INDICATION: Sacral decubitus ulceration. TECHNIQUE: Spiral CT of the abdomen and pelvis was performed following intravenous injection of 100 m L Omnipaque 350. Axial, coronal and sagittal images were reviewed. The dose-length product (DLP) fo r this examination was 1047.25 mGy-cm. The exposure was tailored according to patient size (auto mA exposure control), and iterative reconstruction (ASIR) was used as additional dose reduction techniqu e. Comparison is made to prior examination from 08/28/2017. FINDINGS: There is interval development of sacral decubitus. No adjacent sacral osseous erosion or ch kary identified. No focal abscess. The liver, spleen, adrenal glands and pancreas are unremarkable. Gallbladder is unremarkable. No biliary obstruction. Portal and splenic veins are patent. Kidneys enhance symmetrically. There is no hydronephrosis. There is a right renal cyst measuring 4.7 cm. The re is a left renal stone measuring 6 mm in maximal dimension, and a right inferior calyceal stones al so measuring about 6 mm. The prostate is unremarkable. The bladder is collapsed with Cheung catheter balloon anchor inside. 2 small bladder stones identified. There is no retroperitoneal or pelvic lym phadenopathy. There is moderate scattered arteriosclerotic disease. The appendix is normal. The stomach and small bowel are unremarkable. There is a rectal tube. There is colonic fluid, correlate for diarrhea. No free intraperitoneal gas. The heart is normal in siz e. There are no pericardial or pleural effusions. The lung bases are unremarkable. There are no os teoblastic or osteolytic lesions identified. IMPRESSION: 1. Sacral decubitus ulcer without underlying osseous erosion or abscess. 2. Bilateral nephrolithiasis. Bladder uroliths. 3. Colonic fluid, correlate for diarrhea. Reviewed, dictated and finalized at location A.
[2019-08-10 16:27] VITALS: BP 111/56; PULSE 87; RESP 19; TEMP 36.6; O2SAT 99
--- NOTE | 2019-08-10 16:29 | ED.WOUNDLAC ---
HPI - Wound/Laceration General Chief Complaint: Wound/Laceration Stated Complaint: Wound to buttock Source: patient and EMS Mode of arrival: EMS Limitations: no limitations History of Present Illness HPI narrative: Patient is an 84-year-old male, paraplegic due to spinal cord CVA, history of chronic sacral decubitus ulcers who presents for evaluation of fever, possible decubitus ulcer infection. Patient resides at [facility], reportedly has had low-grade fevers of 99.8 per facility, for which patient was given Tylenol earlier today. Patient has no sensation from his middle waist down, has history of chronic sacral decubitus ulcers which are dressed [facility]. Patient denies any sensation, no pain in this area. He has a chronic indwelling Cheung which intermittently has blood present, as well as a rectal tube to help with his ulcerations. Patient denies any chills, cough, shortness of breath, chest pain. Patient states he has wound care daily. He thought that initially 1 of the ulcers was improving. Patient has seen Dr. Monroe in the past for surgical debridement. Related Data Home Medications Medication Instructions Recorded Confirmed Dakin's Solution 1 applic TOPICAL DAILY 04/28/19 06/30/19 Xarelto 20 mg PO DAILY 04/28/19 06/30/19 acetaminophen 325 mg PO Q4-6H PRN 04/28/19 06/30/19 atorvastatin 10 mg PO HS 04/28/19 06/30/19 cyanocobalamin (vitamin B-12) 1,000 mcg PO DAILY 04/28/19 06/30/19 diphenhydramine HCl [Benadryl] 25 mg PO Q6-8H PRN 04/28/19 06/30/19 docusate sodium [Colace] 100 mg PO BID PRN 04/28/19 06/30/19 ergocalciferol (vitamin D2) 50,000 unit PO WEEKLY 04/28/19 06/30/19 [Vitamin D2] ferrous sulfate 325 mg PO DAILY 04/28/19 06/30/19 melatonin 5 mg PO HS 04/28/19 06/30/19 mirtazapine 15 mg PO DAILY 04/28/19 06/30/19 multivitamin 1 cap PO DAILY 04/28/19 06/30/19 sennosides [senna] 8.6 mg PO HS 04/28/19 06/30/19 tizanidine 2 mg PO BID 04/28/19 06/30/19 bisacodyl [Dulcolax (bisacodyl)] 10 mg PO BID 06/30/19 06/30/19 lactulose 10 g PO BID 06/30/19 06/30/19 polyethylene glycol 3350 [Miralax] 17 g PO DAILY 06/30/19 06/30/19 simethicone [Gas Relief 125 mg PO BID 06/30/19 06/30/19 (simethicone)] Allergies Allergy/AdvReac Type Severity Reaction Status Date / Time No Known Allergies Allergy Verified 04/26/19 16:06 Review of Systems Review of Systems: Narrative: CONSTITUTIONAL: Denies chills, or sweats. ENT: Denies rhinorrhea, congestion, sore throat, or otalgia. CARDIOVASCULAR: Denies chest pain, palpitations, or edema. RESPIRATORY: Denies cough or dyspnea. GASTROINTESTINAL: Denies abdominal pain, nausea, vomiting, or diarrhea. 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 Julian) Catheter-associated urinary tract infection Chronic indwelling Cheung catheter Due to paraplegia/neurogenic bladder COPD (chronic obstructive pulmonary disease) Diastolic dysfunction without heart failure Echocardiogram March 2017 demonstrated normal left ventricular systolic function with no focal wall motion abnormalities, mild concentric left ventricular hypertrophy, EF of 60-65%, mild pulmonary hypertension with RVSP of 46, diastolic dysfunction, E. 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
--- NOTE | 2019-08-10 16:37 | ECG_ITS ---
Measurements Intervals [place] Rate: 86 P: 66 MI: 156 QRS: 262 QRSD: 162 T: 59 QT: 420 QTc: 504 Interpretive Statements SINUS RHYTHM RIGHT BUNDLE BRANCH BLOCK LEFT POSTERIOR FASCICULAR BLOCK BASELINE ARTIFACT- I, III, AVL ABNORMAL ECG Electronically Signed On 08-11-2019 7:12:52 CDT by Rordi Wilcox D.O.
[2019-08-10 17:06] LABS: Basophils Absolute Auto 0.1 K/mm3 (0.0-0.1); Basophils Percent Auto 0.3 % (0.2-1.2); Eosinophils Absolute Auto 0.2 K/mm3 (0-0.3); Hematocrit 35.8 % (42.0-52.0); Hemoglobin 10.6 g/dL (14.0-18.0); Immature Granulocyte Absolute 0.18 K/mm3 (0.00-0.031); Immature Granulocyte Percent A 0.8 % (0-0.5); Lymphocytes Absolute Auto 2.05 K/mm3 (0.9-3.2); Lymphocytes Percent Auto 9.1 % (18.3-44.2); Mean Corpuscular HGB Conc 29.6 g/dl (32-36); Mean Corpuscular Hemoglobin 22.6 pg (26-34); Mean Corpuscular Volume 76.2 fl (80-100); Mean Platelet Volume 10.1 fl (7.4-10.4); Monocytes Absolute Auto 1.2 K/mm3 (0.1-0.6); Monocytes Percent Auto 5.4 % (2.6-8.5); Neutrophils Absolute Auto 18.8 K/mm3 (1.3-6.7); Neutrophils Percent Auto 83.4 % (45.5-73.1); Platelet Count Result 553 k/mm3 (150-375); Red Cell Distribution Width 20.2 % (11.5-14.5); White Blood Count 22.5 K/mm3 (4.5-10.0)
[2019-08-10 17:13] LABS: Platelet Estimate Increased (Adequate)
[2019-08-10 17:14] LABS: Ovalocytes 1+ (NORMAL)
[2019-08-10 17:15] LABS: Hypochromasia 1+ (NORMAL)
[2019-08-10 17:16] LABS: Lactic Acid Reflex 1.5 mmol/L (0.7-2.1)
[2019-08-10 17:17] LABS: Prothrombin Time 38.2 Seconds (11.1-14.7)
[2019-08-10 17:18] LABS: Partial Thromboplastin Time 72.7 SECONDS (22.3-36.8)
[2019-08-10 17:23] LABS: Alanine Aminotransferase 35 U/L (4-50); Albumin Level 3.4 g/dL (3.5-5.1); Alkaline Phosphatase 136 U/L (38-126); Aspartate Amino Transferase 47 U/L (17-59); Bilirubin,Total 0.5 mg/dL (0.2-1.3); Blood Urea Nitrogen 20 mg/dL (9-20); Calcium 8.5 mg/dL (8.4-10.2); Carbon Dioxide 26 mmol/L (22-30); Chloride 97 mmol/L (98-107); Estimated CRCL calculation 82 ml/min; Estimated Glomerular Filt Rate > 60; Glucose 119 mg/dL (75-110); Potassium 3.6 mmol/L (3.4-5.0); Sodium 132 mmol/L (137-145)
[2019-08-10 17:29] LABS: Troponin I < 0.012 ng/mL (0.000-0.034)
[2019-08-10 17:29] LABS: Erythrocyte Sedimentation Rate 35 mm/hr (0-20)
[2019-08-10 17:30] LABS: CRP 20.6 mg/dL (<1.0)
[2019-08-10 17:36] LABS: Add Urine Microscopic? YES; Appearance Urine Cloudy (Clear); Bilirubin Urine Negative (Negative); Blood Urine 3+ (Negative); Color Urine Red (Yellow); Glucose Urine UA Negative (Negative); Ketones Urine Trace mg/dL (Negative); Leukocyte Esterase Ur 2+ LEU/UL (Negative); Mucus Urine Rare /lpf; Nitrate Urine Negative (Negative); Protein Urine 2+ mg/dL (Negative); RBC Urine >75 /hpf (0-2); Specific Grav Ur 1.019 (1.001-1.035); Urobilinogen Urine Negative mg/dL (<2.0); WBC Urine >75 /hpf
[2019-08-10] MEDS: SODIUM CHLORIDE 0.9% IV 1,000 ML 999 ML IV CONT (17:47)
[2019-08-10 19:36] VITALS: BP 101/52; PULSE 88; RESP 18; TEMP 36.8; O2SAT 95
--- NOTE | 2019-08-10 19:42 | PC.NURSE ---
Patient report faxed to 3rd floor.
[2019-08-10 20:35] VITALS: BP 112/62; PULSE 86; RESP 16; TEMP 36.8; O2SAT 96
--- NOTE | 2019-08-10 20:51 | ADMGEN ---
This patient, Wander Prescott, was admitted to Medical Room 340-01. Patient/family oriented to hospital policies and general routines including ID bracelet, bed and alarms, visiting hours, pain management, procedures, bathroom and other care routines, personal items, smoking policy, room service/diet, and visiting hours. Valuables list has been completed. Information on how to activate the Rapid Response Team has been discussed. Patient/Family are encouraged to report perceived risks to care and to ask questions if they do not understand what they are told or what they should do.
[2019-08-10] MEDS: ACETAMINOPHEN 325 MG TABLET 650 MG PO (21:09)
[2019-08-10 22:00] VITALS: BP 100/48; PULSE 83; RESP 18; TEMP 36.7; O2SAT 92
--- NOTE | 2019-08-10 22:00 | PM.IMHP ---
H&P: HPI History of Present Illness Chief complaint: Sepsis/UTI/sacral decubitus ulcers Narrative: Wander Prescott is a 84 year old male who was last admitted here last month for influenza. He resides at [facility]. The patient does have chronic multiple ulcerations to his buttocks bilaterally. The patient stated that his right buttocks is healing but the left 1 is getting worse and has a foul smell. He has had MRSA in the right buttocks before but it was felt that maybe was colonized. The patient was previously here December of 2018 and he had a flexible cystoscopy by Dr. Julian and exchange of Cheung catheter. He does have a chronic indwelling Cheung catheter. He also had excisional debridement skin, subcutaneous muscle the right ischial decubitus ulcer by Dr. clement on January 05, 2019. He was seen by Dr. campos at that time. Patient also had blood cultures that were positive for peptostreptococcus species during that admission in 2018. Patient was found to have MRSA of the nares at that time. He was also here for UTI as well. The patient was discharged on IV Zosyn at that time. He is diabetic. The patient was brought here today to be evaluated for a fever for possible decubitus ulcer infection. He was running low-grade fevers in the 99 today. He has a rectal tube in place to help with the wounds and he has daily wound care. White count was noted to be 22.5. Abdominal CT with contrast was read as sacral decubitus ulcer without underlying osseous erosion or abscess. Bilateral nebulized this. Bladder uro lies. Colonic fluid, correlate for diarrhea. And vancomycin. IV fluids were started. Date of service 08/10/2019 Review of Systems Review of Systems: Narrative: The patient states that he is paraplegic and he can move his upper extremity. He could not tell if he had fever chills or body aches. He has a Cheung catheter that is chronic indwelling and a rectal tube as well. All systems reviewed & are unremarkable except as noted in HPI and below Constitutional: Constitutional: Reports as per HPI and Reports no additional constitutional complaints Eyes: Eyes: Reports as per HPI and Reports no additional eye complaints ENT: Reports system reviewed and no additional complaints, except as documented and Reports Normal hearing present Cardiovascular: Cardiovascular: Reports no additional cardiovascular complaints Respiratory: Respiratory: Reports no additional respiratory complaints and Reports no additional respiratory complaints Gastrointestinal: Gastrointestinal: Reports as per HPI and Reports no additional gastrointestinal complaints Musculoskeletal: Musculoskeletal: Reports no additional musculoskeletal complaints Integumentary/Breasts: Skin/Breast: Reports system reviewed and no additional complaints, except as docu and Reports as per HPI Neurologic: Reports system reviewed and no additional complaints, except as documented, Reports as per HPI and Reports Normal hearing present Psychiatric: Psychiatric: Reports no additional psychiatric complaints and Reports as per HPI Endocrine: Endocrine: Reports no additional endocrine complaints Hematologic/Lymphatic: Hematologic/Lymphatic: Reports no additional hematologic/lymphatic complaints Allergic/Immunologic: Allergic/Immunologic: Reports no additional allergic/immunologic complaints 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 Julian) Catheter-associated urinary tract infection Chronic indwelling Cheung catheter Due to paraplegia/neurogenic bladder COPD (chronic obstructive pulmonary disease) Diastolic dysfunction without heart failure
[2019-08-11 00:07] VITALS: BMI 25.6
[2019-08-11 06:00] VITALS: BP 104/44; PULSE 93; RESP 16; TEMP 36.8; O2SAT 94
[2019-08-11 06:06] LABS: Alanine Aminotransferase 28 U/L (4-50); Albumin Level 2.8 g/dL (3.5-5.1); Alkaline Phosphatase 111 U/L (38-126); Aspartate Amino Transferase 37 U/L (17-59); Basophils Absolute Auto 0.1 K/mm3 (0.0-0.1); Basophils Percent Auto 0.3 % (0.2-1.2); Bilirubin,Total 0.6 mg/dL (0.2-1.3); Blood Urea Nitrogen 15 mg/dL (9-20); Calcium 8.2 mg/dL (8.4-10.2); Carbon Dioxide 28 mmol/L (22-30); Chloride 99 mmol/L (98-107); Eosinophils Absolute Auto 0.3 K/mm3 (0-0.3); Eosinophils Percent Auto 1.7 % (0-4.4); Estimated CRCL calculation 82 ml/min; Estimated Glomerular Filt Rate > 60; Glucose 112 mg/dL (75-110); Hematocrit 32.1 % (42.0-52.0); Hemoglobin 9.6 g/dL (14.0-18.0); Immature Granulocyte Absolute 0.13 K/mm3 (0.00-0.031); Immature Granulocyte Percent A 0.8 % (0-0.5); Lymphocytes Absolute Auto 1.15 K/mm3 (0.9-3.2); Lymphocytes Percent Auto 6.9 % (18.3-44.2); Magnesium 1.9 mg/dL (1.6-2.3); Mean Corpuscular HGB Conc 29.9 g/dl (32-36); Mean Corpuscular Hemoglobin 22.6 pg (26-34); Mean Corpuscular Volume 75.7 fl (80-100); Mean Platelet Volume 10.3 fl (7.4-10.4); Monocytes Percent Auto 5.9 % (2.6-8.5); Neutrophils Absolute Auto 14.1 K/mm3 (1.3-6.7); Neutrophils Percent Auto 84.4 % (45.5-73.1); Platelet Count Result 474 k/mm3 (150-375); Potassium 3.4 mmol/L (3.4-5.0); Red Blood Count 4.24 M/mm3 (4.6-6.20); Red Cell Distribution Width 19.8 % (11.5-14.5); Sodium 134 mmol/L (137-145); White Blood Count 16.7 K/mm3 (4.5-10.0)
[2019-08-11 06:42] LABS: Hypochromasia 1+ (NORMAL); Ovalocytes 1+ (NORMAL); Platelet Estimate Adequate (Adequate)
[2019-08-11 08:02] LABS: Glucose Point of Care 133 (65-105)
[2019-08-11] MEDS: FERROUS SULFATE 324 MG TABLET PO (08:16)
[2019-08-11] MEDS: LACTULOSE 20 GM/30 ML UDC 10 GM PO ×2 (08:17→16:36)
[2019-08-11] MEDS: MULTIVITAMINS THERAPEUTIC TAB (*BKC) 1 TABLET PO (08:17)
[2019-08-11] MEDS: CYANOCOBALAMIN 1,000 MCG TABLET 1000 MCG PO (08:17)
[2019-08-11] MEDS: polyethylene glycoL 3350 17 GM POWD.PACK PO (08:17)
[2019-08-11] MEDS: RIVAROXABAN 20 MG TABLET PO (08:18)
[2019-08-11] MEDS: SIMETHICONE 125 MG CHEW TAB PO ×2 (08:18→16:36)
[2019-08-11] MEDS: TIZANIDINE HCL 2 MG TABLET PO ×2 (08:18→16:36)
[2019-08-11] MEDS: COLLAGENASE OINT 30 GM TUBE 1 APPLIC TOPICAL (08:20)
[2019-08-11] MEDS: SOD HYPOCHLORITE 1/4 STRENGTH 473 ML 1 APPLIC TOPICAL (08:20)
[2019-08-11] MEDS: BISACODYL 5 MG TABLET EC 10 MG PO ×2 (08:32→16:35)
[2019-08-11 10:40] LABS: INR 2.9; Prothrombin Time 29.8 Seconds (11.1-14.7)
[2019-08-11 10:41] LABS: Fibrinogen 478 mg/dl (215-510); Partial Thromboplastin Time 60.9 SECONDS (22.3-36.8)
[2019-08-11 10:44] LABS: D Dimer 1.77 ug/mL (<0.48)
[2019-08-11 11:35] LABS: Glucose Point of Care 117 (65-105)
--- NOTE | 2019-08-11 12:51 | PM.CNGS ---
Assessment and Plan Assessment and plan (1) Decubitus ulcer: Onset Date: Unknown Qualifiers: Laterality: unspecified laterality Pressure injury location: buttock Pressure injury stage: unspecified pressure injury stage Qualified Code(s): L89.309 - Pressure ulcer of unspecified buttock, unspecified stage Code(s): L89.90 - Pressure ulcer of unspecified site, unspecified stage Status: Acute Assessment and Plan: Continue current dressing on these. Will work with the wound care nurses and plan debridement of the left-sided ischial decubitus sometime in the next 2-3 days. This will depend on holding the Xarelto and his coags. Most likely this will be able to be a bedside debridement as the patient does not have feeling in the area. (2) UTI (urinary tract infection): Onset Date: ~08/10/19 Code(s): N39.0 - Urinary tract infection, site not specified Status: Acute Assessment and Plan: Cultures pending and ID consulted. (3) Leukocytosis: Onset Date: ~08/10/19 Qualifiers: Leukocytosis type: other Qualified Code(s): D72.828 - Other elevated white blood cell count Code(s): D72.829 - Elevated white blood cell count, unspecified Status: Acute Assessment and Plan: White count down some today. ID is consulted may be related to either the wounds or his UTI. (4) Pressure ulcer: Onset Date: Unknown Qualifiers: Pressure injury location: sacral region Pressure injury stage: stage 4 Qualified Code(s): L89.154 - Pressure ulcer of sacral region, stage 4 Code(s): L89.90 - Pressure ulcer of unspecified site, unspecified stage Status: Acute Assessment and Plan: See above under decubitus (5) Paroxysmal atrial flutter: Onset Date: Unknown Code(s): I48.92 - Unspecified atrial flutter Status: Chronic Assessment and Plan: I believe this is the reason that he is on Xarelto. History of Present Illness Consult details Consult date: 08/11/19 Reason for consult: wound care Requesting physician: Monica Paul PA-C Narrative: Wander Prescott is an 84 year old male who was last admitted here last month for influenza. He resides at [facility]. The patient does have chronic multiple ulcerations to his buttocks bilaterally. The patient stated that his right buttocks is healing but the wound on the left is getting worse and has a foul smell. He has had MRSA in the right buttock wound before but it was felt that maybe was colonized. The patient was previously here December of 2018 and he had a flexible cystoscopy by Dr. Julian and an exchange of the Cheung catheter. He does have a chronic indwelling Cheung catheter. He also had excisional debridement of skin, subcutaneous tissue , and muscle on the right ischial decubitus ulcer by Dr. Monroe on January 05, 2019. He was also seen by Dr. Mayfield at that time. Patient also had blood cultures that were positive for peptostreptococcus species during that admission in 2018. Patient was found to have MRSA of the nares at that time. He was also here for UTI as well. The patient was discharged on IV Zosyn at that time. He is diabetic. The patient was brought to the ED at [facility] yesterday to be evaluated for a fever possibly related to the decubitus ulcer infection. He was running low-grade fevers in the area of about 99 - 100 F . He has a rectal tube in place to help control his lquid stool and prevent contamination of the wounds. he has been getting daily wound care With dressing changes using Santyl debridement agent on the right and Dakin's solution on the left. His white count was noted to be 22.5. Abdominal CT with contrast was read as sacral decubitus ulcer without underlying osseous erosion or abscess. Patient denies any pain from these as he is paraplegic and does not have much feeling below level of his waist. He is single an
--- NOTE | 2019-08-11 13:18 | WPDINFPN2 ---
Progress Note: A&P Assessment and Plan (1) Leukocytosis: Qualifiers: Leukocytosis type: other Qualified Code(s): D72.828 - Other elevated white blood cell count Code(s): D72.829 - Elevated white blood cell count, unspecified Status: Acute Assessment and Plan: 1. Leukocytosis, C diff vs other 2. Chronic decubitus with superficial necrosis, probably not the cause of his leukocytosis 3. Chronic Cheung, there is no UTI REC PipTazo # 2, oral Vanc #1. Micro in process. Subjective Date/time seen: 08/11/19 13:18 Objective Data Vital Signs Vital Signs: Vital Signs - 24 hr 08/10/19 16:27 08/10/19 19:36 08/10/19 20:35 Temperature 36.6 C 36.8 C 36.8 C Pulse Rate 87 88 86 Respiratory Rate 19 18 16 Blood Pressure 111/56 L 101/52 L 112/62 Pulse Oximetry 99 95 96 08/10/19 22:00 08/11/19 06:00 Temperature 36.7 C 36.8 C Pulse Rate 83 93 Respiratory Rate 18 16 Blood Pressure 100/48 L 104/44 L Pulse Oximetry 92 94 Intake/Output Intake/Output: Intake & Output 08/08/19 08/09/19 08/10/19 08/11/19 23:59 23:59 23:59 23:59 Intake Total 1300 700 Output Total 375 Balance 1300 325 Meds/Results Medications: Active Medications Generic Name Dose Route Start Last Admin Trade Name Freq PRN Reason Stop Dose Admin Acetaminophen 650 mg 08/10/19 18:37 08/10/19 21:09 Tylenol Tablet PO 650 mg Q4H PRN Administration Mild Pain (1-3) or Fever Atorvastatin Calcium 10 mg 08/11/19 21:00 Lipitor PO HS KEMI Bisacodyl 10 mg 08/11/19 09:00 08/11/19 08:32 Dulcolax Tab PO 10 mg BID KEMI Administration Collagenase 1 applic 08/11/19 09:00 08/11/19 08:20 Santyl Oint TOPICAL 1 applic DAILY KEMI Administration Cyanocobalamin 1,000 mcg 08/11/19 09:00 08/11/19 08:17 Vitamin B-12 Tab PO 1,000 mcg DAILY KEMI Administration Dextrose 12.5 gm 08/10/19 22:19 Dextrose 50% Syringe IV PUSH PRN PRN Hypoglycemia Protocol Diphenhydramine HCl 25 mg 08/10/19 23:30 Benadryl Cap PO Q6-8H PRN Itching Docusate Sodium 100 mg 08/10/19 23:30 Colace Capsule PO BID PRN Constipation Ergocalciferol 50,000 unit 08/19/19 09:00 Drisdol PO Th@0900 KEMI Ferrous Sulfate 324 mg 08/11/19 08:00 08/11/19 08:16 Ferrous Sulfate PO 324 mg DAILY@0800 KEMI Administration Glucagon 1 mg 08/10/19 22:19 Glucagon For Inj IM PRN PRN Hypoglycemia Protocol Glucose 15 gm 08/10/19 22:19 Glutose 15 PO PRN PRN Hypoglycemia Protocol Piperacillin/Tazobactam/Dextrose 3.375 gm in 50 mls @ 100 mls/hr 08/11/19 00:00 08/11/19 11:48 Zosyn 3.375 Gm/D5w 50ml Pm IVPB Infused Q6HR KEMI Infusion Vancomycin HCl 1,250 mg in 250 mls @ 200 mls/hr 08/11/19 05:00 08/11/19 06:45 Vancomycin 1,250 Mg/D5w 250 Ml IVPB Infused Q12H KEMI Infusion Dextrose 1,000 mls @ 100 mls/hr 08/10/19 22:19 Dextrose 5% 1,000 Ml IVPB PRN PRN Hypoglycemia Protocol Insulin Aspart 2 - 5 units 08/11/19 08:00 08/11/19 11:22 Novolog SUB-Q Not Given [facility] Protocol Lactulose 10 gm 08/11/19 09:00 08/11/19 08:17 Lactulose PO 09/10/19 09:01 10 gm BID KEMI Administration Levalbuterol HCl 0.63 mg 08/10/19 23:30 Xopenex 1.25 Mg/3 Ml INHALATION Q8H PRN shortness of breath or wheezing Melatonin 5 mg 08/11/19 21:00 Melatonin PO HS [facility] Miconazole Nitrate 1 applic 08/11/19 09:00 08/11/19 08:17 Aloe [place] TOPICAL 1 applic Q12HR KEMI Administration Mirtazapine 30 mg 08/11/19 21:00 Remeron PO HS [facility] Multivitamins Therapeutic 1 tablet 08/11/19 09:00 08/11/19 08:17 Multivitamins Therapeutic(*Bkc PO 1 tablet DAILY KEMI Administration Ondansetron HCl 4 mg 08/10/19 18:37 Zofran Inj IV PUSH Q4H PRN Nausea Polyethylene Glycol 17 gm 08/11/19 09:00 08/11/19 08:17 Miralax PO 17 gm
[2019-08-11] MEDS: VANCOMYCIN ORAL 125 MG/2.5 ML SYRUP PO ×2 (13:56→17:14)
[2019-08-11 14:25] VITALS: BP 97/53; PULSE 90; RESP 20; TEMP 37.1; O2SAT 93
--- NOTE | 2019-08-11 14:25 | CONS_ITS ---
DATE OF CONSULTATION: 08/11/2019 REASON FOR CONSULTATION: Leukocytosis. HISTORY OF PRESENT ILLNESS: I was not notified of this consult until 2 hours ago, contrary to notation in medical record. The patient was here several weeks ago and I saw him then, at which point he had asymptomatic bacteriuria. I stopped his antibiotics. He was discharged the following day to his residential. He returned to the hospital yesterday with a temperature of 37.6. Treatment if any at his residential, or any additional testing, apparently was not done. Here, he was found to have new onset of leukocytosis. He was admitted. He has been given piperacillin and vancomycin. Consultation requested this morning. The patient has no sensation in his pelvic area. Since his discharge, he has had a rectal tube in place. He has no appetite. He denies chills or night sweats. He had no other recent antibiotics apparently. ALLERGIES: NONE KNOWN. PRESENT MEDICATIONS: List reviewed. No systemic immunosuppressants. HABITS: Ex-smoker. Ex-alcohol. 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 REVIEW OF SYSTEMS: Generalized weakness. 14-point review otherwise negative. FAMILY HISTORY: Not pertinent to his present illness. SOCIAL HISTORY: He is residential resident. Two children in [place] and [place], [place], retired. PHYSICAL EXAMINATION: GENERAL: This is an elderly male who appears chronically ill. No respiratory distress. VITAL SIGNS: Afebrile since arrival, 93, 16, 104/44, 94% on room air. SKIN: No generalized rashes. EENT: The conjunctivae are normal. Pupils equal, round, and reactive to light. The oral mucosa is also normal. No thrush. Well hydrated neck without mass, tenderness, meningismus. LUNGS: Clear to auscultation. CARDIAC: Regular rate and rhythm. No murmur, or gallop. ABDOMEN: Mildly distended. Hypoactive bowel sounds. Mildly tender diffusely. No guarding. EXTREMITIES: Some muscle wasting, lower extremities. No clubbing, cyanosis, or edema. BACK: He has a sacral decubitus, 2 cm in diameter with superficial necrosis. No odor. No drainage. No sinus tracts. No surrounding erythema nor tenderness. No warmth. He has scrotal edema and Cheung catheter draining dark yellow urine. LABORATORY DATA: Previous urine culture with Klebsiella pneumoniae. Blood cultures from yesterday, no growth after short incubation. Urine culture also in process. Wound culture also in process. C. diff essay in process. White count on 07/03/2019 was 8, yesterday 22.5, today 16.7, hemoglobin 9.6, platelets are 474. His differential minimal left shift. He has mild hyponatremia. Chemistry panel otherwise normal. Liver function tests normal, except for an albumin 2.8. Urinalysis, multiple abnormalities, which are reviewed. RADIOLOGY: Abdomen and pelvic CT, sacral decubitus ulcer without complication noted, bladder stones, atherosclerosis, kidney stones, pelvic fluid. ASSESSMENT: 1. Leukocytosis, I suspect C. diff infections. Cannot fully exclude infected decubitus ulcer, necrotic decubitus ulcer,noninfectious causes, or UTI as a cause of his elevated white blood cell count. 2. Chronic decubitus ulcer, now with superficial necrosis relatively limited and without abscess or osteomyelitis clinically or by CT. 3. Paraplegia. 4. Chronic Cheung. There is no urinary tract infection clinically. RECOMMENDATIONS: 1. St
--- NOTE | 2019-08-11 15:09 | PM.IMPN ---
Progress Note: A&P Assessment and Plan (1) Leukocytosis: Onset Date: ~08/10/19 Qualifiers: Leukocytosis type: other Qualified Code(s): D72.828 - Other elevated white blood cell count Code(s): D72.829 - Elevated white blood cell count, unspecified Status: Acute Assessment and Plan: -----UTI versus C diff versus wound infection. Patient has no sensation at the waist or below so unable to describe any UTI symptoms which complicates things. UA suspicious for UTI. Patient has a chronic catheter and we will await microbiology. C diff is a concern but the patient is also taking lactulose. C diff is pending. Wounds will likely be debrided per Dr. Pichardo. INR better today at 2.9. No evidence of DIC. Elevated D-dimer likely due to infection. Eliquis on hold. Dr. campos has been consulted and I have reviewed his recommendations. Will continue the oral vancomycin and Zosyn. White blood cell count is trending down. We will continue with those at this time. (2) UTI (urinary tract infection): Onset Date: ~08/10/19 Code(s): N39.0 - Urinary tract infection, site not specified Status: Acute Assessment and Plan: -----see above. (3) Decubitus ulcer: Onset Date: Unknown Qualifiers: Pressure injury location: buttock Pressure injury stage: unspecified pressure injury stage Laterality: unspecified laterality Qualified Code(s): L89.309 - Pressure ulcer of unspecified buttock, unspecified stage Code(s): L89.90 - Pressure ulcer of unspecified site, unspecified stage Status: Acute Assessment and Plan: -----wound care has seen the patient and surgery may do a debridement as stated above. Continue Zosyn. (4) Essential hypertension: Code(s): I10 - Essential (primary) hypertension Status: Acute Assessment and Plan: -----patient has had low blood pressure but looks like he has a history of this. He is asymptomatic. Will watch closely. Because of infection and hypotension I will start fluids but at 80 mils an hour. No indication of severe sepsis at this time. No mention of systolic CHF but will watch fluid balance closely. Echo 2017 showed diastolic dysfunction (5) Type 2 diabetes mellitus: Qualifiers: Diabetes mellitus retirement insulin use: with intermediate manager use Diabetes mellitus complication status: without complication Qualified Code(s): E11.9 - Type 2 diabetes mellitus without complications; Z79.4 - moth exterminator (current) use of insulin Code(s): E11.9 - Type 2 diabetes mellitus without complications Status: Acute Assessment and Plan: -----last glucose 117. A1c was 6.8 last December. Continue SSI (6) COPD (chronic obstructive pulmonary disease): Qualifiers: COPD type: unspecified COPD Qualified Code(s): J44.9 - Chronic obstructive pulmonary disease, unspecified Code(s): J44.9 - Chronic obstructive pulmonary disease, unspecified Status: Acute Assessment and Plan: -----no evidence of exacerbation. Inhalers as needed. (7) Paroxysmal atrial flutter: Onset Date: Unknown Code(s): I48.92 - Unspecified atrial flutter Status: Chronic Assessment and Plan: -----regular rate and rhythm today. Xarelto on hold at this time. 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 He has a chronic indwelling Cheung catheter. Time Spent With Patient Time with patient: 25 - 35 minutes Subjective Date/time seen: 08/11/19 15:09 Interval history: Pt is a 84-year-old male here for low-grade fevers and a history of ulcers. Patient was seen today and was tired and did not want to participate with the exam very much. He has no complaints but says he can't feel anythin
[2019-08-11] MEDS: LACTATED RINGERS 1,000 ML 80 ML IV CONT (16:33)
[2019-08-11 16:45] LABS: Glucose Point of Care 103 (65-105)
[2019-08-11] MEDS: MELATONIN 5 MG TABLET PO (21:59)
[2019-08-11] MEDS: SENNOSIDES 8.6 MG TABLET PO (21:59)
[2019-08-11] MEDS: ATORVASTATIN 10 MG TABLET PO (21:59)
[2019-08-11 22:00] VITALS: BP 110/54; PULSE 99; RESP 22; TEMP 37.3; O2SAT 99
[2019-08-11] MEDS: MIRTAZAPINE 30 MG TABLET PO (22:00)
[2019-08-12] MEDS: VANCOMYCIN ORAL 125 MG/2.5 ML SYRUP PO ×5 (00:45→23:35)
[2019-08-12] MEDS: LACTATED RINGERS 1,000 ML 80 ML IV CONT ×2 (05:34→23:34)
[2019-08-12 06:00] VITALS: BP 100/42; PULSE 88; RESP 20; TEMP 36.7; O2SAT 93
[2019-08-12 06:01] LABS: Alanine Aminotransferase 32 U/L (4-50); Albumin Level 2.6 g/dL (3.5-5.1); Alkaline Phosphatase 104 U/L (38-126); Aspartate Amino Transferase 44 U/L (17-59); Bilirubin,Total 0.5 mg/dL (0.2-1.3); Blood Urea Nitrogen 13 mg/dL (9-20); Calcium 7.8 mg/dL (8.4-10.2); Carbon Dioxide 28 mmol/L (22-30); Chloride 98 mmol/L (98-107); Estimated CRCL calculation 71 ml/min; Estimated Glomerular Filt Rate > 60; Glucose 108 mg/dL (75-110); Potassium 2.9 mmol/L (3.4-5.0); Sodium 131 mmol/L (137-145)
[2019-08-12 06:08] LABS: Prealbumin 5.3 mg/dL (17.6-36.0)
[2019-08-12 07:35] LABS: Glucose Point of Care 112 (65-105)
[2019-08-12 08:26] LABS: Free T4 Free Thyroxine Reflex 1.28 ng/dL (0.78-2.19)
[2019-08-12] MEDS: COLLAGENASE OINT 30 GM TUBE 1 APPLIC TOPICAL (08:55)
[2019-08-12] MEDS: SOD HYPOCHLORITE 1/4 STRENGTH 473 ML 1 APPLIC TOPICAL (08:55)
[2019-08-12] MEDS: MULTIVITAMINS THERAPEUTIC TAB (*BKC) 1 TABLET PO (08:57)
[2019-08-12] MEDS: TIZANIDINE HCL 2 MG TABLET PO ×2 (08:57→17:36)
[2019-08-12] MEDS: LACTULOSE 20 GM/30 ML UDC 10 GM PO (08:57)
[2019-08-12] MEDS: SIMETHICONE 125 MG CHEW TAB PO ×2 (08:57→17:36)
[2019-08-12] MEDS: FERROUS SULFATE 324 MG TABLET PO (08:57)
[2019-08-12] MEDS: POTASSIUM CHLORIDE 20 MEQ TABLET 40 MEQ PO (08:57)
[2019-08-12] MEDS: CYANOCOBALAMIN 1,000 MCG TABLET 1000 MCG PO (08:57)
[2019-08-12] MEDS: polyethylene glycoL 3350 17 GM POWD.PACK PO (08:58)
[2019-08-12] MEDS: BISACODYL 5 MG TABLET EC 10 MG PO ×2 (09:01→17:37)
[2019-08-12 09:33] LABS: Hematocrit 30.5 % (42.0-52.0); Mean Corpuscular HGB Conc 29.5 g/dl (32-36); Mean Corpuscular Hemoglobin 22.3 pg (26-34); Mean Corpuscular Volume 75.5 fl (80-100); Mean Platelet Volume 10.3 fl (7.4-10.4); Platelet Count Result 443 k/mm3 (150-375); Red Blood Count 4.04 M/mm3 (4.6-6.20); Red Cell Distribution Width 19.9 % (11.5-14.5); White Blood Count 13.4 K/mm3 (4.5-10.0)
[2019-08-12 09:39] LABS: Total Triiodothyronine (T3) 0.67 NG/ML (0.97-1.69)
[2019-08-12 11:31] LABS: Glucose Point of Care 106 (65-105)
--- NOTE | 2019-08-12 12:06 | PM.IMPN ---
Progress Note: A&P Assessment and Plan (1) Clostridioides difficile infection: Code(s): A49.8 - Other bacterial infections of unspecified site Status: Acute Assessment and Plan: -----testing came back positive for C diff. He has had leukocytosis and diarrhea. I have stopped his lactulose which could also worsen the diarrhea. Continue oral vancomycin at this time. (2) Leukocytosis: Onset Date: ~08/10/19 Qualifiers: Leukocytosis type: other Qualified Code(s): D72.828 - Other elevated white blood cell count Code(s): D72.829 - Elevated white blood cell count, unspecified Status: Acute Assessment and Plan: -----UTI versus C diff versus wound infection. Patient has no sensation at the waist or below so unable to describe any UTI symptoms which complicates things. UA suspicious for UTI but is only growing a small amount of yeast which is likely colonizer. C diff is also positive and I have stopped his b.i.d. lactulose. Wounds will likely be debrided per Dr. Pichardo. INR still pending today. No evidence of DIC. Elevated D-dimer likely due to infection. Xarelto on hold. Dr. campos has been consulted and I have reviewed his recommendations. Will continue the oral vancomycin and Zosyn. White blood cell count is trending down. We will continue with those at this time. (3) Decubitus ulcer: Onset Date: Unknown Qualifiers: Pressure injury location: buttock Pressure injury stage: unspecified pressure injury stage Laterality: unspecified laterality Qualified Code(s): L89.309 - Pressure ulcer of unspecified buttock, unspecified stage Code(s): L89.90 - Pressure ulcer of unspecified site, unspecified stage Status: Acute Assessment and Plan: -----wound care has seen the patient and surgery may do a debridement as stated above. Continue Zosyn. (4) Essential hypertension: Code(s): I10 - Essential (primary) hypertension Status: Acute Assessment and Plan: -----patient has had low blood pressure but looks like he has a history of this. He is asymptomatic. Will watch closely. Because of infection, hypotension, and diarrhea fluids were started 08/10. No indication of severe sepsis at this time. No mention of systolic CHF but will watch fluid balance closely. Echo 2017 showed diastolic dysfunction (5) Type 2 diabetes mellitus: Qualifiers: Diabetes mellitus [facility] insulin use: with termite inspector use Diabetes mellitus complication status: without complication Qualified Code(s): E11.9 - Type 2 diabetes mellitus without complications; Z79.4 - intermediate (current) use of insulin Code(s): E11.9 - Type 2 diabetes mellitus without complications Status: Acute Assessment and Plan: -----last glucose 106. A1c was 6.8 last December. Continue SSI (6) COPD (chronic obstructive pulmonary disease): Qualifiers: COPD type: unspecified COPD Qualified Code(s): J44.9 - Chronic obstructive pulmonary disease, unspecified Code(s): J44.9 - Chronic obstructive pulmonary disease, unspecified Status: Acute Assessment and Plan: -----no evidence of exacerbation. Inhalers as needed. (7) Paroxysmal atrial flutter: Onset Date: Unknown Code(s): I48.92 - Unspecified atrial flutter Status: Chronic Assessment and Plan: -----regular rate and rhythm today. Xarelto on hold at this time. 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 He has a chronic indwelling Cheung catheter. (9) Elevated INR: Code(s): R79.1 - Abnormal coagulation profile Status: Acute Assessment and Plan: -----INR initially 4.0. He is on Xarelto which can increase the INR but 4.0 cm about high.
--- NOTE | 2019-08-12 12:17 | PM.PNGS ---
Progress Note: A&P Assessment and Plan (1) Decubitus ulcer: Onset Date: Unknown Qualifiers: Laterality: unspecified laterality Pressure injury location: buttock Pressure injury stage: unspecified pressure injury stage Qualified Code(s): L89.309 - Pressure ulcer of unspecified buttock, unspecified stage Code(s): L89.90 - Pressure ulcer of unspecified site, unspecified stage Status: Acute Assessment and Plan: Right: improving with Santyl Left: significant necrotic material which will need further debridement. Will plan to do this tomorrow afternoon. (2) Poor nutrition: Onset Date: Unknown Code(s): E63.9 - Nutritional deficiency, unspecified Status: Acute Assessment and Plan: Pre-albumin checked today and is down to 5. I had an extensive discussion with the patient and encouraged him to begin forcing himself to eat if at all possible. We will add supplements such as the thrive ice cream and have the dietitian talk with him about preference is for the weekend. I hope he now realizes the importance of nutrition in the healing process. (3) Elevated INR: Code(s): R79.1 - Abnormal coagulation profile Status: Acute (4) Clostridioides difficile infection: Onset Date: ~08/12/19 Code(s): A49.8 - Other bacterial infections of unspecified site Status: Acute Assessment and Plan: Patient was already on empiric oral vancomycin. Appreciate ID help. (5) Type 2 diabetes mellitus: Onset Date: Unknown Qualifiers: Diabetes mellitus complication status: without complication Diabetes mellitus assisted insulin use: with intermodal customer service use Qualified Code(s): E11.9 - Type 2 diabetes mellitus without complications; Z79.4 - bed bug exterminator (current) use of insulin Code(s): E11.9 - Type 2 diabetes mellitus without complications Status: Acute Assessment and Plan: Hospitalist's continuing to treat. Additional Plan Will ask for permit and plan to debride down to healthy tissue the decubitus on the left ischial area tomorrow. Subjective Subjective Date/Time Seen: 08/12/19 12:17 Patient seen with his floor nurse. Patient states he does not have much of an appetite. Does not have much pain. Can't remember when his appetite went down at the half-way. Today I looked at his left-sided ischial decubitus. Review of Systems Constitutional: Constitutional: Reports no additional constitutional complaints ENT: Reports other (Mucous Membranes moist.) Cardiovascular: Cardiovascular: Denies dyspnea Respiratory: Respiratory: Denies pain on inspiration and Denies dyspnea Musculoskeletal: Musculoskeletal: Reports other (No calf swelling or edema) Integumentary/Breasts: Skin/Breast: Reports system reviewed and no additional complaints, except as docu Exam Const: General: cooperative, no acute distress, alert and awake Orientation/consciousness: patient oriented x3 HENMT: Mouth: Yes moist mucous membranes Neck: Neck: normal visual inspection GI: Inspection: scaphoid Auscultation: normal bowel sounds Rectal Exam: deferred and other ( Fecal containment system in place in the rectum.) Other: Mild leakage around the fecal containment system of liquid stool noted when turning the patient. Skin: Other: With the help of the nurse I carefully inspected the left ischial wound. This is about a 6 cm circular defect. It had a mushy black surface which probably indicates underlying necrosis. Today at the bedside I trimmed away the lower half of this eschar and excised some of the thick eschar without trying to get to more normal healthy tissue because of his elevated INR and being on Xarelto.(held this AM). This will allow the Dakin's solution to come into better contact with the underlying infected tissue. Mild grayish green pus was identified coming from underneath the eschar prior to the debridement mentioned above. [place]
[2019-08-12 12:48] VITALS: BMI 25.6
--- NOTE | 2019-08-12 12:56 | PCDIET ---
Nutrition kcal Complete for 08/11: Increased kcal and protein needs R/T wound healing and sacral decubitis ulcer as evidence by daily needs of 2000kcals and 97g protein PO intake of 75% of meals and supplements daily to aid in wound healing Goal: New goal started Pt has one intake of 75% in the last 24 hrs: turkey/ham/vietnamese cheese sandwich on wheat bread with applesauce and coke. Total kcal intake is 375kcals. Daily needs are 2000kcals. Ensure compact and Thrive offered BID to help meet needs. One serving of Ensure Clear provides 200 kcal, 7 g protein, and is a good source of 19 essential vitamins and minerals. Thrive provides 9 grams of protein, 24 vitamins and minerals, 6grams of fiber, and 270 kcal per serving. Following daily for kcal count.
[2019-08-12 13:31] LABS: INR 1.5; Prothrombin Time 17.3 Seconds (11.1-14.7)
[2019-08-12 14:55] VITALS: BP 105/65; PULSE 89; RESP 18; TEMP 37.3; O2SAT 95
--- NOTE | 2019-08-12 15:30 | WPDINFPN2 ---
Progress Note: A&P Assessment and Plan (1) Leukocytosis: Onset Date: ~08/10/19 Qualifiers: Leukocytosis type: other Qualified Code(s): D72.828 - Other elevated white blood cell count Code(s): D72.829 - Elevated white blood cell count, unspecified Status: Acute Assessment and Plan: 1. Leukocytosis due to C diff infection 2. Chronic decubitus with superficial necrosis, not the cause of his leukocytosis 3. Chronic Cheung, there is no UTI REC PipTazo # 3, oral Vanc #2 / 14. If no concerning deep space infection at operation tomorrow, stop PipTazo. Subjective Date/time seen: 08/12/19 15:30 Interval history: no new complaints Exam Narrative: Exam Narrative: afebrile Const: General: no acute distress Other: appears chronically ill Eyes: General: appearance normal, both eyes and all related structures Resp: Effort & Inspection: normal respiratory effort Auscultation: clear to auscultation bilaterally Cardio: Rate: regular rate Rhythm: regular rhythm GI: Inspection: non-distended GI Palp: Yes Soft to palpation and No Tenderness to palpation present (GI) Objective Data Vital Signs Vital Signs: Vital Signs - 24 hr 08/11/19 22:00 08/12/19 06:00 08/12/19 14:55 Temperature 37.3 C 36.7 C 37.3 C Pulse Rate 99 88 89 Respiratory Rate 22 H 20 18 Blood Pressure 110/54 L 100/42 L 105/65 Pulse Oximetry 99 93 95 Intake/Output Intake/Output: Intake & Output 08/09/19 08/10/19 08/11/19 08/12/19 23:59 23:59 23:59 23:59 Intake Total 1300 1000 1580 Output Total 700 1030 Balance 1300 300 550 Meds/Results Medications: Active Medications Generic Name Dose Route Start Last Admin Trade Name Freq PRN Reason Stop Dose Admin Acetaminophen 650 mg 08/10/19 18:37 08/10/19 21:09 Tylenol Tablet PO 650 mg Q4H PRN Administration Mild Pain (1-3) or Fever Atorvastatin Calcium 10 mg 08/11/19 21:00 08/11/19 21:59 Lipitor PO 10 mg HS KEMI Administration Bisacodyl 10 mg 08/11/19 09:00 04/16/20 09:01 Dulcolax Tab PO 10 mg BID KEMI Administration Collagenase 1 applic 08/11/19 09:00 08/12/19 08:55 Santyl Oint TOPICAL 1 applic DAILY KEMI Administration Cyanocobalamin 1,000 mcg 08/11/19 09:00 08/12/19 08:57 Vitamin B-12 Tab PO 1,000 mcg DAILY KEMI Administration Dextrose 12.5 gm 08/10/19 22:19 Dextrose 50% Syringe IV PUSH PRN PRN Hypoglycemia Protocol Diphenhydramine HCl 25 mg 08/10/19 23:30 Benadryl Cap PO Q6-8H PRN Itching Docusate Sodium 100 mg 08/10/19 23:30 Colace Capsule PO BID PRN Constipation Ergocalciferol 50,000 unit 08/19/19 09:00 Drisdol PO Th@0900 KEMI Ferrous Sulfate 324 mg 08/11/19 08:00 08/12/19 08:57 Ferrous Sulfate PO 324 mg DAILY@0800 K[facility]I Administration Glucagon 1 mg 08/10/19 22:19 Glucagon For Inj IM PRN PRN Hypoglycemia Protocol Glucose 15 gm 08/10/19 22:19 Glutose 15 PO PRN PRN Hypoglycemia Protocol Piperacillin/Tazobactam/Dextrose 3.375 gm in 50 mls @ 100 mls/hr 08/11/19 00:00 08/12/19 12:44 Zosyn 3.375 Gm/D5w 50ml Pm IVPB Infused Q6HR K[facility]I Infusion Dextrose 1,000 mls @ 100 mls/hr 08/10/19 22:19 Dextrose 5% 1,000 Ml IVPB PRN PRN Hypoglycemia Protocol Lactated Ringer's 1,000 mls @ 80 mls/hr 08/11/19 15:20 08/12/19 05:34 Lr - Lactated Ringers Iv IV CONT 80 mls/hr .[id number] KEMI Administration Insulin Aspart 2 - 5 units 08/11/19 08:00 08/12/19 11:29 Novolog SUB-Q Not Given TIDWM K[facility] Protocol Lactulose 10 gm 08/11/19 09:00 08/12/19 08:57 Lactulose PO 09/10/19 09:01 10 gm BID KEMI Administration Levalbuterol HCl 0.63 mg 08/10/19 23:30 Xopenex 1.25 Mg/3 Ml INHALATION Q8H PRN shortness of breath or wheezing Melatonin 5 mg 08/11/19 21:00 08/11/19 21:59 Melatonin PO 5 mg HS KEMI Administration
--- NOTE | 2019-08-12 16:45 | PC.NURSE ---
Pt refused blood sugar to be checked.
[2019-08-12] MEDS: SENNOSIDES 8.6 MG TABLET PO (20:18)
[2019-08-12] MEDS: MELATONIN 5 MG TABLET PO (20:18)
[2019-08-12] MEDS: ATORVASTATIN 10 MG TABLET PO (20:18)
[2019-08-12] MEDS: MIRTAZAPINE 30 MG TABLET PO (20:19)
--- NOTE | 2019-08-12 20:31 | PC.NURSE ---
I am comfortable and I will not move. You can let the Doctors and everyone know that I am refusing, but I will continue to refuse.
[2019-08-12 20:40] VITALS: BP 97/59; PULSE 89; RESP 18; TEMP 37.7; O2SAT 91
[2019-08-12 22:31] LABS: Glucose Point of Care 136 (65-105)
[2019-08-13 04:44] VITALS: BP 102/50; PULSE 83; RESP 18; TEMP 36.8; O2SAT 91
[2019-08-13] MEDS: VANCOMYCIN ORAL 125 MG/2.5 ML SYRUP PO ×3 (05:27→17:05)
[2019-08-13 05:31] LABS: Hematocrit 28.9 % (42.0-52.0); Hemoglobin 8.6 g/dL (14.0-18.0); Mean Corpuscular HGB Conc 29.8 g/dl (32-36); Mean Corpuscular Hemoglobin 22.3 pg (26-34); Mean Corpuscular Volume 74.9 fl (80-100); Mean Platelet Volume 10.3 fl (7.4-10.4); Platelet Count Result 434 k/mm3 (150-375); Red Blood Count 3.86 M/mm3 (4.6-6.20); Red Cell Distribution Width 19.9 % (11.5-14.5); White Blood Count 13.5 K/mm3 (4.5-10.0)
[2019-08-13 05:48] LABS: INR 1.4; Prothrombin Time 16.4 Seconds (11.1-14.7)
[2019-08-13 05:58] LABS: Blood Urea Nitrogen 9 mg/dL (9-20); Carbon Dioxide 28 mmol/L (22-30); Chloride 100 mmol/L (98-107); Estimated CRCL calculation 82 ml/min; Estimated Glomerular Filt Rate > 60; Glucose 121 mg/dL (75-110); Sodium 133 mmol/L (137-145)
[2019-08-13 08:24] LABS: Glucose Point of Care 127 (65-105)
[2019-08-13] MEDS: CYANOCOBALAMIN 1,000 MCG TABLET 1000 MCG PO (09:27)
[2019-08-13] MEDS: BISACODYL 5 MG TABLET EC 10 MG PO ×2 (09:27→17:06)
[2019-08-13] MEDS: SIMETHICONE 125 MG CHEW TAB PO ×2 (09:27→17:06)
[2019-08-13] MEDS: TIZANIDINE HCL 2 MG TABLET PO ×2 (09:28→17:07)
[2019-08-13] MEDS: MULTIVITAMINS THERAPEUTIC TAB (*BKC) 1 TABLET PO (09:28)
[2019-08-13] MEDS: polyethylene glycoL 3350 17 GM POWD.PACK PO (09:28)
[2019-08-13] MEDS: FERROUS SULFATE 324 MG TABLET PO (09:28)
[2019-08-13] MEDS: POTASSIUM CHLORIDE 20 MEQ TABLET 40 MEQ PO (09:28)
[2019-08-13] MEDS: KCL 20 MEQ/LR 1,000 ML 80 ML IV CONT (10:05)
--- NOTE | 2019-08-13 11:16 | PCNFU ---
Nutrition Follow-Up Complete: Increased kcal and protein needs R/T wound healing and sacral decubitis ulcer as evidence by daily needs of 2000kcals and 97g protein Goal: PO intake of 75% of meals and supplements daily to aid in wound healing Limited progress towards goal. Will continue current goal. Pt current nutrition is Regular . Nutrition recommendation:Agree Last recorded weight is 81 kg. Bowel Motility:Fecal Tube Labs Reviewed:Glu 121,Cr 0.6,Na 133,K 3.0 Meds Noted:Vanco, Remeron, Miralax, B12, MVI, Lactulose Additional Notes: Spoke with nursing today for nutrition follow up due to COVID 19 precautions. Calorie Count was initiated on 08/10. No tickets left to assess patients calorie count. Per diet office patient ordered 08/11 Lunch-Jello,peaches, pears and soda- 40% consumed. 08/11 Dinner-Chicken salad on WW bread, Potato chips, cola, Thrive Ice Cream and Ensure Compact- 80% consumed. 08/12 Breakfast-Refused meal. Banatrol TID was added today 05/30 to CDiff positive, spoke with DARIEL Anderson for diet order. PO intake is encouraged as we are not meeting patients caloric needs with oral intake. Monitoring: po intake, wt, skin, labs every 3 days.
[2019-08-13] MEDS: SOD HYPOCHLORITE 1/4 STRENGTH 473 ML 1 APPLIC TOPICAL (13:36)
[2019-08-13] MEDS: COLLAGENASE OINT 30 GM TUBE 1 APPLIC TOPICAL (13:36)
[2019-08-13 14:00] VITALS: BP 134/96; PULSE 75; RESP 16; TEMP 36.7; O2SAT 95
[2019-08-13] MEDS: SILVER NITRATE (*SP) STICK 1 EACH TOPICAL (14:12)
--- NOTE | 2019-08-13 14:24 | P.OP_ITS ---
Procedure Note - Detailed Date of procedure: 08/13/19 Pre-op diagnosis: Sepsis/UTI/sacral decubitus ulcers Left ischial decubitus pressure ulcer Post-op diagnosis: same Procedure performed: Excisional debridement of soft tissue and muscle but not bone, left ischial area. Description of procedure: Written permit was obtained. Time-out was performed in the room with the patient the wound care nurse, and the patient's floor nurse. Following this the area was prepped with chlorhexidine. With the patient Becky on his right side and the left ischial decubitus well exposed I carefully used sharp debridement with scissors and a scalpel to debride necrotic subcutaneous soft tissue and some underlying muscle that appeared necrotic. I did debride down to healthier somewhat perfused tissue with mild bleeding. Bleeding was controlled with silver nitrate sticks without problem. All areas of necrosis were debrided and I did take a culture of some brownish green purulence that was under some of the eschar. This was sent for a wound culture with Gram stain and C&S. At the end of the debridement the wound was approximately 5.5 x 5 cm in size with a depth of 3.5 cm. Implants: none Anesthesia: none Surgeon: Rafita Pichardo MD Carton Marker Machine: JUAN DIEGO Wagner,COMPUTER GAME PROGRAMMER Estimated blood loss (mL): 3 Drains: No Packing: No Pathology: none sent Complications: No immediate complications Condition: stable Disposition: floor Findings: Dressings to this area were reapplied by the wound care nurse. We will continue to use Dakin's solution unfolded 4 x 4 gauzes covered with a dry gauze and ABD. May consider switching to a standard wound VAC on FridayAugust 15 if the wound appears to be cleaning up further.
--- NOTE | 2019-08-13 14:52 | WPDINFPN2 ---
Progress Note: A&P Assessment and Plan (1) Leukocytosis: Onset Date: ~08/10/19 Qualifiers: Leukocytosis type: other Qualified Code(s): D72.828 - Other elevated white blood cell count Code(s): D72.829 - Elevated white blood cell count, unspecified Status: Acute Assessment and Plan: 1. Leukocytosis due to C diff infection. Flexiseal in, brown liquid. 2. Chronic decubitus with superficial necrosis, not the cause of his leukocytosis. Operative findings discussed 3. Chronic Cheung, there is no UTI REC PipTazo # 4, oral Vanc #3 / 14. Due to SQ fluid, maintain IV rx for 3 days more, until full culture results available. Consider Rx for depression. Subjective Date/time seen: 08/13/19 14:52 Interval history: just placed on his left side. Offers no complaints Exam Narrative: Exam Narrative: t max 37.7 Const: General: no acute distress Resp: Effort & Inspection: normal respiratory effort Auscultation: clear to auscultation bilaterally Cardio: Rate: regular rate Rhythm: regular rhythm Heart sounds: no gallops and Murmur heart sound present GI: Inspection: non-distended GI Palp: Yes Soft to palpation and No Tenderness to palpation present (GI) Objective Data Vital Signs Vital Signs: Vital Signs - 24 hr 08/12/19 14:55 08/12/19 20:40 08/13/19 04:44 Temperature 37.3 C 37.7 C H 36.8 C Pulse Rate 89 89 83 Respiratory Rate 18 18 18 Blood Pressure 105/65 97/59 L 102/50 L Pulse Oximetry 95 91 91 08/13/19 14:00 Temperature 36.7 C Pulse Rate 75 Respiratory Rate 16 Blood Pressure 134/96 H Pulse Oximetry 95 Intake/Output Intake/Output: Intake & Output 08/10/19 08/11/19 08/12/19 08/13/19 23:59 23:59 23:59 23:59 Intake Total 1300 1000 2870 859 Output Total 700 1330 700 Balance 6505 367 3595 159 Meds/Results Medications: Active Medications Generic Name Dose Route Start Last Admin Trade Name Freq PRN Reason Stop Dose Admin Acetaminophen 650 mg 08/10/19 18:37 08/10/19 21:09 Tylenol Tablet PO 650 mg Q4H PRN Administration Mild Pain (1-3) or Fever Atorvastatin Calcium 10 mg 08/11/19 21:00 08/12/19 20:18 Lipitor PO 10 mg HS KEMI Administration Bisacodyl 10 mg 08/11/19 09:00 08/13/19 09:27 Dulcolax Tab PO 10 mg BID KEMI Administration Collagenase 1 applic 08/11/19 09:00 08/13/19 13:36 Santyl Oint TOPICAL 1 applic DAILY KEMI Administration Cyanocobalamin 1,000 mcg 08/11/19 09:00 08/13/19 09:27 Vitamin B-12 Tab PO 1,000 mcg DAILY KEMI Administration Dextrose 12.5 gm 08/10/19 22:19 Dextrose 50% Syringe IV PUSH PRN PRN Hypoglycemia Protocol Diphenhydramine HCl 25 mg 08/10/19 23:30 Benadryl Cap PO Q6-8H PRN Itching Docusate Sodium 100 mg 08/10/19 23:30 Colace Capsule PO BID PRN Constipation Ergocalciferol 50,000 unit 08/19/19 09:00 Drisdol PO Th@0900 [facility] Ferrous Sulfate 324 mg 08/11/19 08:00 08/13/19 09:28 Ferrous Sulfate PO 324 mg DAILY@0800 KEMI Administration Glucagon 1 mg 08/10/19 22:19 Glucagon For Inj IM PRN PRN Hypoglycemia Protocol Glucose 15 gm 08/10/19 22:19 Glutose 15 PO PRN PRN Hypoglycemia Protocol Piperacillin/Tazobactam/Dextrose 3.375 gm in 50 mls @ 100 mls/hr 08/11/19 00:00 08/13/19 12:16 Zosyn 3.375 Gm/D5w 50ml Pm IVPB Infused Q6HR KEMI Infusion Dextrose 1,000 mls @ 100 mls/hr 08/10/19 22:19 Dextrose 5% 1,000 Ml IVPB PRN PRN Hypoglycemia Protocol Potassium Cl/Dextrose/Lact Ringer's 1,000 mls @ 80 mls/hr 08/13/19 09:00 08/13/19 10:05 Kcl 20 Meq/Lr IV CONT 80 mls/hr .[id number] KEMI Administration Insulin Aspart 2 - 5 units 08/11/19 08:00 08/13/19 11:46 Novolog SUB-Q Not Given TIDWM [facility] Protocol Lactulose 10 gm 08/11/19 09:00 08/12/19 08:57 Lactulose PO 09/10/19 09:01 10 gm BID KEMI Administration Levalbuter
--- NOTE | 2019-08-13 14:55 | PM.PNGS ---
Progress Note: A&P Assessment and Plan (1) Decubitus ulcer: Onset Date: Unknown Qualifiers: Pressure injury location: buttock Pressure injury stage: unspecified pressure injury stage Laterality: unspecified laterality Qualified Code(s): L89.309 - Pressure ulcer of unspecified buttock, unspecified stage Code(s): L89.90 - Pressure ulcer of unspecified site, unspecified stage Status: Acute Assessment and Plan: Right: improving with Santyl Left: significant necrotic material which was further debrided today. After thorough discussion of options with the wound care nurse we decided to continue with Dakin's solution dressings over the weekend and re-evaluate on Friday for possible use of a standard wound VAC to this area. (2) Poor nutrition: Onset Date: Unknown Code(s): E63.9 - Nutritional deficiency, unspecified Status: Acute Assessment and Plan: Pre-albumin checked yesterday and was down to 5. I encouraged him to begin forcing himself to eat if at all possible. We will add supplements such as the thrive ice cream and have the dietitian talk with him about preference is for the weekend. I hope he now realizes the importance of nutrition in the healing process. (3) Elevated INR: Code(s): R79.1 - Abnormal coagulation profile Status: Acute Assessment and Plan: INR normal today. Okay to resume his Xarelto tomorrow morning if there is not bleeding from the debrided wound in view of his paroxysmal atrial flutter. (4) Clostridioides difficile infection: Onset Date: ~08/12/19 Code(s): A49.8 - Other bacterial infections of unspecified site Status: Acute Assessment and Plan: Patient was already on empiric oral vancomycin. Appreciate ID help. (5) Type 2 diabetes mellitus: Onset Date: Unknown Qualifiers: Diabetes mellitus fci insulin use: with fci use Diabetes mellitus complication status: without complication Qualified Code(s): E11.9 - Type 2 diabetes mellitus without complications; Z79.4 - exterminator termite (current) use of insulin Code(s): E11.9 - Type 2 diabetes mellitus without complications Status: Acute Assessment and Plan: Hospitalist's continuing to treat. Additional Plan Will plan for Daily dressing changes this , & encourage patient's nutrition. Recheck pre-albumin on Friday and re-evaluate wound for possible use of standard wound VAC in the left ischial area if wound is cleaning up well. Discussed and agreed with Dr. Mayfield that we would continue Zosyn over the weekend until we get cultures back from this wound. I will be off over the weekend will ask Dr. Davenport to check patient 1 day this weekend. Please call if there is any surgical issues. Subjective Subjective Date/Time Seen: 08/13/19 14:55 Patient seen this date at the time of left ischial debridement. Patient states his appetite still was not very good. He did enjoy the thrive ice cream supplement last evening. Encouraged him to try to eat more over the weekend and we are doing a calorie count. Review of Systems Constitutional: Constitutional: Reports as per HPI, Reports no additional constitutional complaints and Denies headache(s) Eyes: Eyes: Denies loss of vision and Denies eye pain ENT: Reports Normal hearing present, Denies change in voice, Denies dizziness, Denies headache(s) and Reports other (Mucous Membranes moist.) Cardiovascular: Cardiovascular: Denies chest pain and Denies dyspnea Respiratory: Respiratory: Denies pain on inspiration, Denies dyspnea and Denies wheezing Gastrointestinal: Gastrointestinal: Denies abdominal pain and Reports fecal incontinence ( As a indwelling stool containment system in the rectum.) Musculoskeletal: Musculoskeletal: Denies back pain, Denies arthralgias and Reports other (No calf swelling or edema) Integumentary/Breasts: Skin/Breast: Reports system reviewed a
--- NOTE | 2019-08-13 15:04 | PC.NURSE ---
Patient requests information r/t hospice. Monica Paul notified, Daija Ibrahim notified, patient's sister Michelle notified. Monica updated that patient refuses IV access to be re-started and will not/cannot keep his arm straight, thus is not receiving IVF at present. Per Monica, staff is to continue to attempt keeping arm straight and to encourage patient to maintain this position to ensure that IVF can be infused. Multiple attempts to reposition by staff, all unsuccessful with current left side-lying position. RN will continue to attempt infusion.
--- NOTE | 2019-08-13 15:25 | PM.IMPN ---
Progress Note: A&P Assessment and Plan (1) Clostridioides difficile infection: Onset Date: ~08/12/19 Code(s): A49.8 - Other bacterial infections of unspecified site Status: Acute Assessment and Plan: -----testing came back positive for C diff. He has had leukocytosis and diarrhea. I have stopped his lactulose which could also worsen the diarrhea. Continue oral vancomycin at this time. Patient is also interested in speaking with hospice (2) Leukocytosis: Onset Date: ~08/10/19 Qualifiers: Leukocytosis type: other Qualified Code(s): D72.828 - Other elevated white blood cell count Code(s): D72.829 - Elevated white blood cell count, unspecified Status: Acute Assessment and Plan: -----C diff versus wound infection. Patient has no sensation at the waist or below so unable to describe any UTI symptoms which complicates things. Wounds to be managed by Dr. Pichardo. Elevated D-dimer likely due to infection. Allento on hold. Dr. campos has been consulted and I have reviewed his recommendations. Will continue the oral vancomycin and Zosyn. White blood cell count is trending down. (3) Decubitus ulcer: Onset Date: Unknown Qualifiers: Pressure injury location: buttock Pressure injury stage: unspecified pressure injury stage Laterality: unspecified laterality Qualified Code(s): L89.309 - Pressure ulcer of unspecified buttock, unspecified stage Code(s): L89.90 - Pressure ulcer of unspecified site, unspecified stage Status: Acute Assessment and Plan: -----wound debrided 08/12. Continue Zosyn. (4) Essential hypertension: Code(s): I10 - Essential (primary) hypertension Status: Acute Assessment and Plan: -----patient has had low blood pressure but looks like he has a history of this. He is asymptomatic. Will watch closely. Fluids were started and his blood pressure is better 134/96. (5) Type 2 diabetes mellitus: Onset Date: Unknown Qualifiers: Diabetes mellitus terminal make up operator insulin use: with terminal make up operator use Diabetes mellitus complication status: without complication Qualified Code(s): E11.9 - Type 2 diabetes mellitus without complications; Z79.4 - [facility] (current) use of insulin Code(s): E11.9 - Type 2 diabetes mellitus without complications Status: Acute Assessment and Plan: -----patient is refusing Accu-Cheks. A1c was 6.8 last December. (6) COPD (chronic obstructive pulmonary disease): Qualifiers: COPD type: unspecified COPD Qualified Code(s): J44.9 - Chronic obstructive pulmonary disease, unspecified Code(s): J44.9 - Chronic obstructive pulmonary disease, unspecified Status: Acute Assessment and Plan: -----no evidence of exacerbation. Inhalers as needed. (7) Paroxysmal atrial flutter: Onset Date: Unknown Code(s): I48.92 - Unspecified atrial flutter Status: Chronic Assessment and Plan: -----regular rate and rhythm today. Xarelto on hold at this time. 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 He has a chronic indwelling Cheung catheter. (9) Elevated INR: Code(s): R79.1 - Abnormal coagulation profile Status: Acute Assessment and Plan: -----improved now 1.4. (10) Poor nutrition: Onset Date: Unknown Code(s): E63.9 - Nutritional deficiency, unspecified Status: Acute Assessment and Plan: -----low Pre albumin. Supplements started (11) Hypokalemia: Code(s): E87.6 - Hypokalemia Status: Acute Assessment and Plan: -----patient is not eating. I have added potassium to his fluids and have given him oral potassium as well. Monitor daily
[2019-08-13] MEDS: MELATONIN 5 MG TABLET PO (21:58)
[2019-08-13] MEDS: ATORVASTATIN 10 MG TABLET PO (21:58)
[2019-08-13] MEDS: SENNOSIDES 8.6 MG TABLET PO (21:58)
[2019-08-13] MEDS: MIRTAZAPINE 30 MG TABLET PO (21:59)
[2019-08-13 22:11] VITALS: BP 97/48; PULSE 56; RESP 14; TEMP 36.8; O2SAT 97
--- NOTE | 2019-08-13 22:37 | PC.NURSE ---
Pt is refusing turning and accuchecks at this moment, will reevaluate in 2 hours.
[2019-08-14] MEDS: VANCOMYCIN ORAL 125 MG/2.5 ML SYRUP PO ×5 (00:09→23:03)
[2019-08-14 05:43] VITALS: BP 101/51; PULSE 84; RESP 13; TEMP 36.6; O2SAT 93
[2019-08-14] MEDS: KCL 20 MEQ/LR 1,000 ML 80 ML IV CONT (05:43)
[2019-08-14 05:54] LABS: Alanine Aminotransferase 35 U/L (4-50); Albumin Level 2.7 g/dL (3.5-5.1); Alkaline Phosphatase 105 U/L (38-126); Aspartate Amino Transferase 45 U/L (17-59); Bilirubin,Total 0.3 mg/dL (0.2-1.3); Blood Urea Nitrogen 6 mg/dL (9-20); Carbon Dioxide 28 mmol/L (22-30); Chloride 102 mmol/L (98-107); Estimated CRCL calculation 82 ml/min; Estimated Glomerular Filt Rate > 60; Glucose 107 mg/dL (75-110); Potassium 3.4 mmol/L (3.4-5.0); Sodium 134 mmol/L (137-145)
--- NOTE | 2019-08-14 06:19 | PC.NURSE ---
Pt refused turning all night. Pt states he will continue to refuse accuchecks and turns. He wishes to be left alone.
[2019-08-14] MEDS: FERROUS SULFATE 324 MG TABLET PO (09:14)
[2019-08-14] MEDS: CYANOCOBALAMIN 1,000 MCG TABLET 1000 MCG PO (09:14)
[2019-08-14] MEDS: BISACODYL 5 MG TABLET EC 10 MG PO ×2 (09:14→16:59)
[2019-08-14] MEDS: SIMETHICONE 125 MG CHEW TAB PO ×2 (09:14→17:00)
[2019-08-14] MEDS: TIZANIDINE HCL 2 MG TABLET PO ×2 (09:14→16:59)
[2019-08-14] MEDS: MULTIVITAMINS THERAPEUTIC TAB (*BKC) 1 TABLET PO (09:14)
[2019-08-14] MEDS: polyethylene glycoL 3350 17 GM POWD.PACK PO (09:15)
[2019-08-14] MEDS: COLLAGENASE OINT 30 GM TUBE 1 APPLIC TOPICAL (09:15)
[2019-08-14] MEDS: SOD HYPOCHLORITE 1/4 STRENGTH 473 ML 1 APPLIC TOPICAL (09:15)
[2019-08-14 09:20] LABS: Basophils Absolute Auto 0.1 K/mm3 (0.0-0.1); Basophils Percent Auto 0.4 % (0.2-1.2); Eosinophils Absolute Auto 0.3 K/mm3 (0-0.3); Hematocrit 30.1 % (42.0-52.0); Hemoglobin 8.8 g/dL (14.0-18.0); Immature Granulocyte Absolute 0.05 K/mm3 (0.00-0.031); Immature Granulocyte Percent A 0.4 % (0-0.5); Lymphocytes Percent Auto 11.6 % (18.3-44.2); Mean Corpuscular HGB Conc 29.2 g/dl (32-36); Mean Corpuscular Hemoglobin 22.4 pg (26-34); Mean Corpuscular Volume 76.6 fl (80-100); Mean Platelet Volume 10.8 fl (7.4-10.4); Monocytes Absolute Auto 0.8 K/mm3 (0.1-0.6); Monocytes Percent Auto 7.2 % (2.6-8.5); Neutrophils Absolute Auto 8.6 K/mm3 (1.3-6.7); Neutrophils Percent Auto 77.4 % (45.5-73.1); Platelet Count Result 430 k/mm3 (150-375); Red Blood Count 3.93 M/mm3 (4.6-6.20); Red Cell Distribution Width 19.8 % (11.5-14.5); White Blood Count 11.2 K/mm3 (4.5-10.0)
[2019-08-14 10:13] LABS: Ovalocytes 1+ (NORMAL); Platelet Estimate Adequate (Adequate)
--- NOTE | 2019-08-14 13:03 | PM.PNGS ---
Progress Note: A&P Assessment and Plan (1) Pressure ulcer: Onset Date: Unknown Qualifiers: Pressure injury location: sacral region Pressure injury stage: stage 4 Qualified Code(s): L89.154 - Pressure ulcer of sacral region, stage 4 Code(s): L89.90 - Pressure ulcer of unspecified site, unspecified stage Status: Acute Assessment and Plan: status post debridement yesterday, continue local wound care with daily dressing changes and Dankin's solution, await culture results Subjective Subjective Date/Time Seen: 08/14/19 13:03 Interval history: Patient sitting in bed eating without complaints of. Patient reports dressing change earlier today without issue. Review of Systems Constitutional: Constitutional: Denies chills and Denies night sweats Cardiovascular: Cardiovascular: Denies chest pain Respiratory: Respiratory: Denies dyspnea Exam Const: General: no acute distress Skin: Other: Left ischial wound dressing clean dry and intact Objective Data Vital Signs Vital Signs: Vital Signs - 24 hr 08/13/19 14:00 08/13/19 22:11 08/14/19 05:43 Temperature 36.7 C 36.8 C 36.6 C Pulse Rate 75 56 L 84 Respiratory Rate 16 14 13 Blood Pressure 134/96 H 97/48 L 101/51 L Pulse Oximetry 95 97 93 Intake/Output Intake/Output: Intake & Output 08/11/19 08/12/19 08/13/19 08/14/19 23:59 23:59 23:59 23:59 Intake Total 1000 2870 1289 950 Output Total 700 1330 870 400 Balance 300 1540 419 550 Meds/Results Medications: Active Medications Generic Name Dose Route Start Last Admin Trade Name Freq PRN Reason Stop Dose Admin Acetaminophen 650 mg 08/10/19 18:37 08/10/19 21:09 Tylenol Tablet PO 650 mg Q4H PRN Administration Mild Pain (1-3) or Fever Atorvastatin Calcium 10 mg 08/11/19 21:00 08/13/19 21:58 Lipitor PO 10 mg HS KEMI Administration Bisacodyl 10 mg 08/11/19 09:00 08/14/19 09:14 Dulcolax Tab PO 10 mg BID KEMI Administration Collagenase 1 applic 08/11/19 09:00 08/14/19 09:15 Santyl Oint TOPICAL 1 applic DAILY KEMI Administration Cyanocobalamin 1,000 mcg 08/11/19 09:00 08/14/19 09:14 Vitamin B-12 Tab PO 1,000 mcg DAILY KEMI Administration Dextrose 12.5 gm 08/10/19 22:19 Dextrose 50% Syringe IV PUSH PRN PRN Hypoglycemia Protocol Diphenhydramine HCl 25 mg 08/10/19 23:30 Benadryl Cap PO Q6-8H PRN Itching Docusate Sodium 100 mg 08/10/19 23:30 Colace Capsule PO BID PRN Constipation Ergocalciferol 50,000 unit 08/19/19 09:00 Drisdol PO Th@0900 KEMI Ferrous Sulfate 324 mg 08/11/19 08:00 08/14/19 09:14 Ferrous Sulfate PO 324 mg DAILY@0800 KEMI Administration Glucagon 1 mg 08/10/19 22:19 Glucagon For Inj IM PRN PRN Hypoglycemia Protocol Glucose 15 gm 08/10/19 22:19 Glutose 15 PO PRN PRN Hypoglycemia Protocol Piperacillin/Tazobactam/Dextrose 3.375 gm in 50 mls @ 100 mls/hr 08/11/19 00:00 08/14/19 11:53 Zosyn 3.375 Gm/D5w 50ml Pm IVPB 100 mls/hr Q6HR KEMI Administration Dextrose 1,000 mls @ 100 mls/hr 08/10/19 22:19 Dextrose 5% 1,000 Ml IVPB PRN PRN Hypoglycemia Protocol Potassium Cl/Dextrose/Lact Ringer's 1,000 mls @ 80 mls/hr 08/13/19 09:00 08/14/19 05:43 Kcl 20 Meq/Lr IV CONT 80 mls/hr .[id number] KEMI Administration Insulin Aspart 2 - 5 units 08/11/19 08:00 08/14/19 11:53 Novolog SUB-Q Not Given TIDWM KEMI Protocol Lactulose 10 gm 08/11/19 09:00 08/12/19 08:57 Lactulose PO 09/10/19 09:01 10 gm BID KEMI Administration Levalbuterol HCl 0.63 mg 08/10/19 23:30 Xopenex 1.25 Mg/3 Ml INHALATION Q8H PRN shortness of breath or wheezing Melatonin 5 mg 08/11/19 21:00 08/13/19 21:58 Melatonin PO 5 mg HS KEMI Administration Miconazole Nitrate 1 applic 08/11/19 09:00 08/14/19 09:15 [place] TOPICAL 1 appli
--- NOTE | 2019-08-14 13:25 | PM.IMPN ---
Progress Note: A&P Assessment and Plan (1) Clostridioides difficile infection: Onset Date: ~08/12/19 Code(s): A49.8 - Other bacterial infections of unspecified site Status: Acute Assessment and Plan: -----testing came back positive for C diff. He has had leukocytosis and diarrhea which is improving. His lactulose has been stopped earlier in the stay. Continue oral vancomycin. Patient is also interested in speaking with hospice on friday. (2) Leukocytosis: Onset Date: ~08/10/19 Qualifiers: Leukocytosis type: other Qualified Code(s): D72.828 - Other elevated white blood cell count Code(s): D72.829 - Elevated white blood cell count, unspecified Status: Acute Assessment and Plan: -----C diff versus wound infection. Wounds to be managed by Dr. Pichardo. Pt is still on zosyn. Elevated D-dimer likely due to infection. Xarelto on hold and will ask sx when okay to restart. Possibly tomorrow since he had a debridement yesterday. Dr. campos has been consulted and I have reviewed his recommendations. Will continue the oral vancomycin and Zosyn. White blood cell count is trending down. (3) Decubitus ulcer: Onset Date: Unknown Qualifiers: Pressure injury location: buttock Pressure injury stage: unspecified pressure injury stage Laterality: unspecified laterality Qualified Code(s): L89.309 - Pressure ulcer of unspecified buttock, unspecified stage Code(s): L89.90 - Pressure ulcer of unspecified site, unspecified stage Status: Acute Assessment and Plan: -----wound debrided 08/12. Continue Zosyn. (4) Essential hypertension: Code(s): I10 - Essential (primary) hypertension Status: Acute Assessment and Plan: -----patient has had low blood pressure but looks like he has a history of this. He is asymptomatic. Will watch closely. Fluids were started and his blood pressure is better 101/51. (5) Type 2 diabetes mellitus: Onset Date: Unknown Qualifiers: Diabetes mellitus intermediate project manager insulin use: with prison use Diabetes mellitus complication status: without complication Qualified Code(s): E11.9 - Type 2 diabetes mellitus without complications; Z79.4 - [facility] (current) use of insulin Code(s): E11.9 - Type 2 diabetes mellitus without complications Status: Acute Assessment and Plan: -----patient is refusing Accu-Cheks. Glucose on BMP 127. A1c was 6.8 last December. (6) COPD (chronic obstructive pulmonary disease): Qualifiers: COPD type: unspecified COPD Qualified Code(s): J44.9 - Chronic obstructive pulmonary disease, unspecified Code(s): J44.9 - Chronic obstructive pulmonary disease, unspecified Status: Acute Assessment and Plan: -----no evidence of exacerbation. Inhalers as needed. (7) Paroxysmal atrial flutter: Onset Date: Unknown Code(s): I48.92 - Unspecified atrial flutter Status: Chronic Assessment and Plan: -----regular rate and rhythm today. Xarelto on hold at this time. 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 He has a chronic indwelling Cheung catheter. (9) Elevated INR: Code(s): R79.1 - Abnormal coagulation profile Status: Acute Assessment and Plan: -----improved now 1.4. (10) Poor nutrition: Onset Date: Unknown Code(s): E63.9 - Nutritional deficiency, unspecified Status: Acute Assessment and Plan: -----low Pre albumin. Supplements started (11) Hypokalemia: Code(s): E87.6 - Hypokalemia Status: Acute Assessment and Plan: -----Poor appetite. Will continue K20 in LR. Monitor daily Subjective Date/time seen: 08/14/19
[2019-08-14 14:00] VITALS: BP 106/62; PULSE 68; RESP 16; TEMP 36.8; O2SAT 98
[2019-08-14] MEDS: SENNOSIDES 8.6 MG TABLET PO (20:04)
[2019-08-14] MEDS: MELATONIN 5 MG TABLET PO (20:05)
[2019-08-14] MEDS: ATORVASTATIN 10 MG TABLET PO (20:05)
[2019-08-14] MEDS: MIRTAZAPINE 30 MG TABLET PO (20:05)
[2019-08-14 20:06] VITALS: BP 101/50; PULSE 91; RESP 18; TEMP 36.8; O2SAT 95
[2019-08-15] MEDS: KCL 20 MEQ/LR 1,000 ML 80 ML IV CONT ×2 (02:20→17:33)
[2019-08-15] MEDS: VANCOMYCIN ORAL 125 MG/2.5 ML SYRUP PO ×4 (05:16→23:23)
[2019-08-15 06:13] LABS: Hematocrit 28.7 % (42.0-52.0); Hemoglobin 8.6 g/dL (14.0-18.0); Mean Corpuscular Hemoglobin 22.5 pg (26-34); Mean Corpuscular Volume 75.1 fl (80-100); Platelet Count Result 427 k/mm3 (150-375); Red Blood Count 3.82 M/mm3 (4.6-6.20); Red Cell Distribution Width 19.8 % (11.5-14.5); White Blood Count 12.5 K/mm3 (4.5-10.0)
[2019-08-15 06:14] LABS: INR 1.2; Prothrombin Time 14.4 Seconds (11.1-14.7)
[2019-08-15 06:27] LABS: Blood Urea Nitrogen 8 mg/dL (9-20); Carbon Dioxide 29 mmol/L (22-30); Chloride 102 mmol/L (98-107); Estimated CRCL calculation 82 ml/min; Estimated Glomerular Filt Rate > 60; Glucose 118 mg/dL (75-110); Phosphorus 2.9 mg/dL (2.5-4.5); Potassium 3.3 mmol/L (3.4-5.0); Sodium 135 mmol/L (137-145)
[2019-08-15] MEDS: SIMETHICONE 125 MG CHEW TAB PO ×2 (07:46→17:29)
[2019-08-15] MEDS: TIZANIDINE HCL 2 MG TABLET PO ×2 (07:46→17:29)
[2019-08-15] MEDS: MULTIVITAMINS THERAPEUTIC TAB (*BKC) 1 TABLET PO (07:46)
[2019-08-15] MEDS: CYANOCOBALAMIN 1,000 MCG TABLET 1000 MCG PO (07:46)
[2019-08-15] MEDS: FERROUS SULFATE 324 MG TABLET PO (07:46)
[2019-08-15] MEDS: SOD HYPOCHLORITE 1/4 STRENGTH 473 ML 1 APPLIC TOPICAL (07:47)
[2019-08-15] MEDS: polyethylene glycoL 3350 17 GM POWD.PACK PO (07:47)
[2019-08-15] MEDS: COLLAGENASE OINT 30 GM TUBE 1 APPLIC TOPICAL (07:48)
--- NOTE | 2019-08-15 09:24 | PC.NURSE ---
Pt continues to refuse turning and accuchecks.
[2019-08-15] MEDS: POTASSIUM CHLORIDE 20 MEQ TABLET PO (11:06)
--- NOTE | 2019-08-15 13:38 | PM.IMPN ---
Progress Note: A&P Assessment and Plan (1) Clostridioides difficile infection: Onset Date: ~08/12/19 Code(s): A49.8 - Other bacterial infections of unspecified site Status: Acute Assessment and Plan: -----testing came back positive for C diff. White blood cell count a little more elevated today 12.5. No fevers. His lactulose has been stopped earlier in the stay. Continue oral vancomycin. Patient is also interested in speaking with hospice on friday. (2) Leukocytosis: Onset Date: ~08/10/19 Qualifiers: Leukocytosis type: other Qualified Code(s): D72.828 - Other elevated white blood cell count Code(s): D72.829 - Elevated white blood cell count, unspecified Status: Acute Assessment and Plan: -----C diff versus wound infection. Wounds to be managed by Dr. Pichardo. Pt is still on zosyn. Elevated D-dimer likely due to infection. Xarelto will be restarted as does not appear that surgery is going to have any more interventions. Dr. campos has been consulted and I have reviewed his recommendations. Will continue the oral vancomycin and Zosyn. White blood cell count is trending down. (3) Decubitus ulcer: Onset Date: Unknown Qualifiers: Pressure injury location: buttock Pressure injury stage: unspecified pressure injury stage Laterality: unspecified laterality Qualified Code(s): L89.309 - Pressure ulcer of unspecified buttock, unspecified stage Code(s): L89.90 - Pressure ulcer of unspecified site, unspecified stage Status: Acute Assessment and Plan: -----wound debrided 08/12. Continue Zosyn. (4) Essential hypertension: Code(s): I10 - Essential (primary) hypertension Status: Acute Assessment and Plan: -----patient has had low blood pressure but looks like he has a history of this. He is asymptomatic. Will watch closely. He has been getting fluids and eating 100% of his meal. Last blood pressure 101/50. (5) Type 2 diabetes mellitus: Onset Date: Unknown Qualifiers: Diabetes mellitus shelter insulin use: with rodent exterminator use Diabetes mellitus complication status: without complication Qualified Code(s): E11.9 - Type 2 diabetes mellitus without complications; Z79.4 - emt intermediate (current) use of insulin Code(s): E11.9 - Type 2 diabetes mellitus without complications Status: Acute Assessment and Plan: -----patient is refusing Accu-Cheks. Glucose on BMP 118. A1c was 6.8 last December. (6) COPD (chronic obstructive pulmonary disease): Qualifiers: COPD type: unspecified COPD Qualified Code(s): J44.9 - Chronic obstructive pulmonary disease, unspecified Code(s): J44.9 - Chronic obstructive pulmonary disease, unspecified Status: Acute Assessment and Plan: -----no evidence of exacerbation. Inhalers as needed. (7) Paroxysmal atrial flutter: Onset Date: Unknown Code(s): I48.92 - Unspecified atrial flutter Status: Chronic Assessment and Plan: -----regular rate and rhythm today. 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 He has a chronic indwelling Cheung catheter. (9) Elevated INR: Code(s): R79.1 - Abnormal coagulation profile Status: Acute Assessment and Plan: -----improved now 1.2. (10) Poor nutrition: Onset Date: Unknown Code(s): E63.9 - Nutritional deficiency, unspecified Status: Acute Assessment and Plan: -----low Pre albumin. Supplements started (11) Hypokalemia: Code(s): E87.6 - Hypokalemia Status: Acute Assessment and Plan: -----low again today. Will continue K20 in LR. Monitor daily Subjective Date/
[2019-08-15 14:00] VITALS: BP 104/56; PULSE 68; RESP 16; TEMP 36.7; O2SAT 96
[2019-08-15] MEDS: RIVAROXABAN 20 MG TABLET PO (17:30)
[2019-08-15] MEDS: BISACODYL 5 MG TABLET EC 10 MG PO (17:30)
[2019-08-15 20:22] VITALS: BP 126/46; PULSE 83; RESP 16; TEMP 36.7; O2SAT 92
[2019-08-15] MEDS: MIRTAZAPINE 30 MG TABLET PO (21:12)
[2019-08-15] MEDS: ATORVASTATIN 10 MG TABLET PO (21:12)
[2019-08-15] MEDS: SENNOSIDES 8.6 MG TABLET PO (21:12)
[2019-08-15] MEDS: MELATONIN 5 MG TABLET PO (21:13)
[2019-08-16] MEDS: VANCOMYCIN ORAL 125 MG/2.5 ML SYRUP PO ×2 (05:14→11:15)
[2019-08-16 05:55] VITALS: BP 137/70; PULSE 79; RESP 16; TEMP 36.6; O2SAT 91
[2019-08-16] MEDS: KCL 20 MEQ/LR 1,000 ML 80 ML IV CONT (08:45)
[2019-08-16] MEDS: CYANOCOBALAMIN 1,000 MCG TABLET 1000 MCG PO (08:47)
[2019-08-16] MEDS: BISACODYL 5 MG TABLET EC 10 MG PO ×2 (08:47→16:31)
[2019-08-16] MEDS: MULTIVITAMINS THERAPEUTIC TAB (*BKC) 1 TABLET PO (08:47)
[2019-08-16] MEDS: FERROUS SULFATE 324 MG TABLET PO (08:47)
[2019-08-16] MEDS: SIMETHICONE 125 MG CHEW TAB PO ×2 (08:47→16:31)
[2019-08-16] MEDS: polyethylene glycoL 3350 17 GM POWD.PACK PO (08:48)
[2019-08-16] MEDS: COLLAGENASE OINT 30 GM TUBE 1 APPLIC TOPICAL (08:48)
[2019-08-16] MEDS: RIVAROXABAN 20 MG TABLET PO (08:49)
[2019-08-16] MEDS: SOD HYPOCHLORITE 1/4 STRENGTH 473 ML 1 APPLIC TOPICAL (08:49)
[2019-08-16] MEDS: TIZANIDINE HCL 2 MG TABLET PO ×2 (08:49→16:31)
--- NOTE | 2019-08-16 10:10 | PM.PNGS ---
Progress Note: A&P Assessment and Plan (1) Pressure ulcer: Onset Date: Unknown Qualifiers: Pressure injury location: sacral region Pressure injury stage: stage 4 Qualified Code(s): L89.154 - Pressure ulcer of sacral region, stage 4 Code(s): L89.90 - Pressure ulcer of unspecified site, unspecified stage Status: Acute Assessment and Plan: Status post debridement last Friday, continue local wound care with daily dressing changes to the right ischial area with Santyl debriding agent and will now use a wound VAC at the left ischial area. Will re-evaluate with wound VAC change and perhaps do a little bit more debridement on the edges of this wound. Final culture results from the area the left ischial decubitus are now available. Mixed jalyn was found at this site without a prominent pathogenic bacteria. I suspect that ID will now stop the Zosyn and continue treatment of the C diff. (2) Poor nutrition: Onset Date: Unknown Code(s): E63.9 - Nutritional deficiency, unspecified Status: Acute Assessment and Plan: Calorie count should be available soon Will recheck pre-albumin 5:00 p.m. this afternoon So that we can compare it to the one from last week. (Hopefully he will allow full bottom E to accesses vein at that time another labs will also be done then). (3) Clostridioides difficile infection: Onset Date: ~08/12/19 Code(s): A49.8 - Other bacterial infections of unspecified site Status: Acute Assessment and Plan: Seems to be improved. , appetite improved over the weekend some period patient still doing okay with supplement such as the thrive ice cream. Needs to complete treatment. (4) Type 2 diabetes mellitus: Onset Date: Unknown Qualifiers: Diabetes mellitus complication status: without complication Diabetes mellitus prison insulin use: with prison use Qualified Code(s): E11.9 - Type 2 diabetes mellitus without complications; Z79.4 - nursing home (current) use of insulin Code(s): E11.9 - Type 2 diabetes mellitus without complications Status: Acute Assessment and Plan: Although not allowing finger per X 4 blood glucose checking his standard labs usually show his glucose to be okay. Subjective Subjective Date/Time Seen: 08/16/19 10:10 Patient seen with wound care nurse. Patient states he is not having any significant pain. Feels like he ate better over the weekend. Appetite is returning to some degree. Nurses report that the stool contained the system had to be readjusted once over the last 24 hours. Otherwise still having loose stools. Review of Systems Constitutional: Constitutional: Reports as per HPI, Reports no additional constitutional complaints, Denies chills, Denies headache(s) and Denies night sweats Eyes: Eyes: Denies loss of vision and Denies eye pain ENT: Reports Normal hearing present, Denies change in voice, Denies dizziness, Denies headache(s) and Reports other (Mucous Membranes moist.) Cardiovascular: Cardiovascular: Denies chest pain and Denies dyspnea Respiratory: Respiratory: Denies pain on inspiration, Denies dyspnea and Denies wheezing Gastrointestinal: Gastrointestinal: Denies abdominal pain and Reports fecal incontinence ( As a indwelling stool containment system in the rectum.) Musculoskeletal: Musculoskeletal: Denies back pain, Denies arthralgias and Reports other (No calf swelling or edema) Integumentary/Breasts: Skin/Breast: Reports wounds ( Coccyx superficial, ischial decubiti, deep) Comments: patient does not note any pain related elated to his wounds. Neurologic: Reports Normal hearing present, Denies dizziness, Denies headache(s), Denies loss of vision and Denies memory loss Psychiatric: Psychiatric: Denies memory loss and Denies panic attacks Endocrine: Endocrine: Reports no additional endocrine complaints Hematologic/Lymphatic: Hematologic/Lympha
--- NOTE | 2019-08-16 11:19 | PCNFU ---
Nutrition Follow-Up Complete: Increased kcal and protein needs R/T wound healing and sacral decubitis ulcer as evidence by daily needs of 2000kcals and 97g protein Goal: PO intake of 75% of meals and supplements daily to aid in wound healing limited progress towards goal. Pt current nutrition is Regular. Nutrition recommendation: Agree Last recorded weight is 81 kg. Bowel Motility:Fecal Tube Labs Reviewed:Na 135,K 3.3,BUN 8,Cr 0.6,Glu 118 Meds Noted:Vanco, Remeron, B12, Lactulose. Additional Notes: Spoke with nursing today for patient's nutrition follow up due to COVID 19 precautions. Patient has a wound vac and is +CdIff. Diet order regular with Thrive Ice cream BID, Banatrol BID and Compact BID. Oral intakes vary from refusing to 100% of meals. Possible Hospice discussion today per MD notes. Agree with diet orders at this time and encourage PO intake. Monitor: po intake, wt, skin, labs every 3 days.
--- NOTE | 2019-08-16 12:37 | WPDINFPN2 ---
Progress Note: A&P Assessment and Plan (1) Leukocytosis: Onset Date: ~08/10/19 Qualifiers: Leukocytosis type: other Qualified Code(s): D72.828 - Other elevated white blood cell count Code(s): D72.829 - Elevated white blood cell count, unspecified Status: Acute Assessment and Plan: 1. Leukocytosis due to C diff infection. Flexiseal in, brown liquid. 2. Chronic decubitus with superficial necrosis, not the cause of his leukocytosis. Culture reveals no pathogens 3. Chronic Cheung, no UTI REC PipTazo # 7, stop. oral Vanc #6 / 14 minimum. He has been receiving Miralax, will stop. Following WBC over time. Local care of his ulcer. Ok discharge planning. If his diarrhea does not slow down without the Milralax, I am inclined to taper his Vancomycin over time, as he is at substantial risk for relapsed C diff infection otherwise. Subjective Date/time seen: 08/16/19 12:37 Interval history: flexiseal in place. No abd pain, no n/v. Poor appetite Exam Narrative: Exam Narrative: afebrile Const: General: no acute distress Eyes: General: appearance normal, both eyes and all related structures Resp: Effort & Inspection: normal respiratory effort Auscultation: clear to auscultation bilaterally Cardio: Rate: regular rate Rhythm: regular rhythm Heart sounds: no gallops GI: Inspection: non-distended GI Palp: Yes Soft to palpation, Yes Tenderness to palpation present (GI) and No Guarding due to palpation present (GI) Other: mild tenderness RLQ Skin: General skin exam: normal color and no rashes or lesions noted Objective Data Vital Signs Vital Signs: Vital Signs - 24 hr 08/15/19 14:00 08/15/19 20:22 08/16/19 05:55 Temperature 36.7 C 36.7 C 36.6 C Pulse Rate 68 83 79 Respiratory Rate 16 16 16 Blood Pressure 104/56 L 126/46 L 137/70 Pulse Oximetry 96 92 91 Intake/Output Intake/Output: Intake & Output 08/13/19 08/14/19 08/15/19 08/16/19 23:59 23:59 23:59 23:59 Intake Total 1289 3020 2160 1450 Output Total 870 032 044 0960 Balance 419 2320 1860 50 Meds/Results Medications: Active Medications Generic Name Dose Route Start Last Admin Trade Name Freq PRN Reason Stop Dose Admin Acetaminophen 650 mg 08/10/19 18:37 08/10/19 21:09 Tylenol Tablet PO 650 mg Q4H PRN Administration Mild Pain (1-3) or Fever Atorvastatin Calcium 10 mg 08/11/19 21:00 08/15/19 21:12 Lipitor PO 10 mg HS KEMI Administration Bisacodyl 10 mg 08/11/19 09:00 08/16/19 08:47 Dulcolax Tab PO 10 mg BID KEMI Administration Collagenase 1 applic 08/11/19 09:00 08/16/19 08:48 Santyl Oint TOPICAL 1 applic DAILY [facility] Administration Cyanocobalamin 1,000 mcg 08/11/19 09:00 08/16/19 08:47 Vitamin B-12 Tab PO 1,000 mcg DAILY [facility] Administration Dextrose 12.5 gm 08/10/19 22:19 Dextrose 50% Syringe IV PUSH PRN PRN Hypoglycemia Protocol Diphenhydramine HCl 25 mg 08/10/19 23:30 Benadryl Cap PO Q6-8H PRN Itching Docusate Sodium 100 mg 08/10/19 23:30 Colace Capsule PO BID PRN Constipation Ergocalciferol 50,000 unit 08/19/19 09:00 Drisdol PO Th@0900 [facility] Ferrous Sulfate 324 mg 08/11/19 08:00 08/16/19 08:47 Ferrous Sulfate PO 324 mg DAILY@0800 [facility] Administration Glucagon 1 mg 08/10/19 22:19 Glucagon For Inj IM PRN PRN Hypoglycemia Protocol Glucose 15 gm 08/10/19 22:19 Glutose 15 PO PRN PRN Hypoglycemia Protocol Dextrose 1,000 mls @ 100 mls/hr 08/10/19 22:19 Dextrose 5% 1,000 Ml IVPB PRN PRN Hypoglycemia Protocol Potassium Cl/Dextrose/Lact Ringer's 1,000 mls @ 80 mls/hr 08/13/19 09:00 08/16/19 11:13 Kcl 20 Meq/Lr IV CONT Not Given .[id number] [facility] Insulin Aspart 2 - 5 units 08/11/19 08:00 08/16/19 11:08 Novolog SUB-Q Not Given TIDWM [facility] Protocol Lactulose 10 gm 08/11/19 09:00 08/12/19 08:57 [place]
[2019-08-16 13:07] LABS: Basophils Percent Auto 0.4 % (0.2-1.2); Eosinophils Absolute Auto 0.3 K/mm3 (0-0.3); Hematocrit 30.3 % (42.0-52.0); Hemoglobin 8.8 g/dL (14.0-18.0); Immature Granulocyte Absolute 0.03 K/mm3 (0.00-0.031); Immature Granulocyte Percent A 0.3 % (0-0.5); Lymphocytes Absolute Auto 1.43 K/mm3 (0.9-3.2); Lymphocytes Percent Auto 15.4 % (18.3-44.2); Mean Corpuscular Hemoglobin 22.1 pg (26-34); Mean Corpuscular Volume 76.1 fl (80-100); Mean Platelet Volume 9.8 fl (7.4-10.4); Monocytes Absolute Auto 0.7 K/mm3 (0.1-0.6); Monocytes Percent Auto 7.4 % (2.6-8.5); Neutrophils Absolute Auto 6.8 K/mm3 (1.3-6.7); Neutrophils Percent Auto 73.5 % (45.5-73.1); Platelet Count Result 401 k/mm3 (150-375); Red Blood Count 3.98 M/mm3 (4.6-6.20); Red Cell Distribution Width 19.6 % (11.5-14.5); White Blood Count 9.3 K/mm3 (4.5-10.0)
[2019-08-16 13:29] LABS: Blood Urea Nitrogen 5 mg/dL (9-20); Calcium 7.9 mg/dL (8.4-10.2); Carbon Dioxide 29 mmol/L (22-30); Chloride 101 mmol/L (98-107); Estimated CRCL calculation 82 ml/min; Estimated Glomerular Filt Rate > 60; Glucose 101 mg/dL (75-110); Magnesium 1.6 mg/dL (1.6-2.3); Potassium 3.7 mmol/L (3.4-5.0); Sodium 134 mmol/L (137-145)
[2019-08-16 13:36] LABS: Prealbumin 5.5 mg/dL (17.6-36.0)
[2019-08-16 13:38] LABS: Hypochromasia 2+ (NORMAL); Ovalocytes 1+ (NORMAL); Platelet Estimate Increased (Adequate); Tear Drop Cells 1+ (NORMAL)
--- NOTE | 2019-08-16 14:12 | PM.IMPN ---
Progress Note: A&P Assessment and Plan (1) Comfort measures only status: Code(s): Z51.5 - Encounter for palliative care Status: Acute Assessment and Plan: -----Pt will discharge to [facility] with hospice tomorrow 08/16. We spoke about his home medications and which one he wanted to stay on. IV fluids, accuchecks, abx, and wound care will be stopped. (2) Clostridioides difficile infection: Onset Date: ~08/12/19 Code(s): A49.8 - Other bacterial infections of unspecified site Status: Acute Assessment and Plan: -----testing came back positive for C diff. WBC normal today. pt requests hospice. he understands the complications of not treating an infection and says he is 'ready to go'. (3) Leukocytosis: Onset Date: ~08/10/19 Qualifiers: Leukocytosis type: other Qualified Code(s): D72.828 - Other elevated white blood cell count Code(s): D72.829 - Elevated white blood cell count, unspecified Status: Acute Assessment and Plan: -----secondary to C diff, see above. (4) Decubitus ulcer: Onset Date: Unknown Qualifiers: Pressure injury location: buttock Pressure injury stage: unspecified pressure injury stage Laterality: unspecified laterality Qualified Code(s): L89.309 - Pressure ulcer of unspecified buttock, unspecified stage Code(s): L89.90 - Pressure ulcer of unspecified site, unspecified stage Status: Acute Assessment and Plan: -----wound debrided 08/12. abx stopped (5) Essential hypertension: Code(s): I10 - Essential (primary) hypertension Status: Acute Assessment and Plan: -----Comfort care measures (6) Type 2 diabetes mellitus: Onset Date: Unknown Qualifiers: Diabetes mellitus terminal press operator insulin use: with terminal press operator use Diabetes mellitus complication status: without complication Qualified Code(s): E11.9 - Type 2 diabetes mellitus without complications; Z79.4 - group home (current) use of insulin Code(s): E11.9 - Type 2 diabetes mellitus without complications Status: Acute Assessment and Plan: -----does not want his accuchecks evaluated. Comfort care only. (7) COPD (chronic obstructive pulmonary disease): Qualifiers: COPD type: unspecified COPD Qualified Code(s): J44.9 - Chronic obstructive pulmonary disease, unspecified Code(s): J44.9 - Chronic obstructive pulmonary disease, unspecified Status: Acute Assessment and Plan: -----no evidence of exacerbation. Inhalers as needed. (8) Paroxysmal atrial flutter: Onset Date: Unknown Code(s): I48.92 - Unspecified atrial flutter Status: Chronic Assessment and Plan: -----Xarelto stopped. (9) Paraplegic spinal paralysis: Code(s): G82.20 - Paraplegia, unspecified Status: Acute Assessment and Plan: ------Patient is able to move his upper extremities without difficulty. He has a chronic indwelling Cheung catheter. (10) Elevated INR: Code(s): R79.1 - Abnormal coagulation profile Status: Acute Assessment and Plan: -----improved (11) Poor nutrition: Onset Date: Unknown Code(s): E63.9 - Nutritional deficiency, unspecified Status: Acute Assessment and Plan: -----low Pre albumin. Supplements started (12) Hypokalemia: Code(s): E87.6 - Hypokalemia Status: Acute Assessment and Plan: -----comfort care. Subjective Date/time seen: 08/16/19 14:13 Interval history: Pt is a 84-year-old male here for C diff and chronic wounds. Patient was seen today with the hospice nurse. The patient's wishes are to stop everything that would prolong his life. He does not want anti-biotics or wound treatment specifically. He has not had a good quality of life since his stroke last year. He wants to keep the rectal tube in (since he can't f
[2019-08-16 14:15] VITALS: BP 134/51; PULSE 72; RESP 16; TEMP 36.2; O2SAT 95
--- NOTE | 2019-08-16 15:15 | PCWOUND ---
WOCN NOTE received call from Kira ADAMSON that patient has decided to go hospice at this time. Instructed RN to remove wound vac dressing and apply 1/4 Dakin's moistened gauze to wound. Wound vac picked up and brought back to wound center.
[2019-08-16 20:22] VITALS: BP 119/50; PULSE 81; RESP 16; TEMP 36.9; O2SAT 99
[2019-08-16] MEDS: MELATONIN 5 MG TABLET PO (20:38)
[2019-08-16] MEDS: MIRTAZAPINE 30 MG TABLET PO (20:38)
[2019-08-17] MEDS: SIMETHICONE 125 MG CHEW TAB PO (08:11)
[2019-08-17] MEDS: BISACODYL 5 MG TABLET EC 10 MG PO (08:11)
[2019-08-17] MEDS: SOD HYPOCHLORITE 1/4 STRENGTH 473 ML 1 APPLIC TOPICAL (08:11)
[2019-08-17] MEDS: COLLAGENASE OINT 30 GM TUBE 1 APPLIC TOPICAL (08:11)
[2019-08-17] MEDS: TIZANIDINE HCL 2 MG TABLET PO (08:11)
--- NOTE | 2019-08-17 10:57 | PM.DS ---
DS: Diagnosis Admitting Diagnosis Admitting Diagnosis: Other elevated white blood cell count Discharge Diagnosis (1) Comfort measures only status: Code(s): Z51.5 - Encounter for palliative care Status: Acute Assessment and Plan: Date of Service 08/17/19 Mr. Prescott is an 84yo M with history of paraplegia, chronic indwelling Cheung catheter, type 2 diabetes mellitus, history of bladder cancer, chronic sacral ulcer with previous excisional debridement who presented to the emergency department with possible infection of his chronic ulcers. General surgery was consulted and he was seen by Dr Pichardo. Infectious disease, Dr Mayfield was consulted as well. Patient also had diarrhea and stool was positive for C diff. He has a chronic indwelling Cheung catheter in addition to a rectal tube. He was treated with IV Zosyn and oral vancomycin. He did undergo excisional debridement of left ischial wound on 08/13/[address] Pichardo. Wound care was continued with Dakin solution dressings. Patient was interested and speaking with hospice and met with [facility] while here in the hospital. Patient opted to proceed with hospice and was discharged back to [facility] 08/17/2019 on hospice. Patient did not wish to be treated further with antibiotics at time of discharge. Prognosis is guarded. (2) Clostridioides difficile infection: Onset Date: ~08/12/19 Code(s): A49.8 - Other bacterial infections of unspecified site Status: Acute Assessment and Plan: Testing came back positive for C diff. WBC normal today. Pt requests hospice. He understands the complications of not treating an infection and says he is 'ready to go'. (3) Leukocytosis: Onset Date: ~08/10/19 Qualifiers: Leukocytosis type: other Qualified Code(s): D72.828 - Other elevated white blood cell count Code(s): D72.829 - Elevated white blood cell count, unspecified Status: Acute Assessment and Plan: Secondary to C diff. (4) Decubitus ulcer: Onset Date: Unknown Qualifiers: Pressure injury location: buttock Pressure injury stage: unspecified pressure injury stage Laterality: unspecified laterality Qualified Code(s): L89.309 - Pressure ulcer of unspecified buttock, unspecified stage Code(s): L89.90 - Pressure ulcer of unspecified site, unspecified stage Status: Chronic Assessment and Plan: -----wound debrided 08/12. abx stopped (5) Essential hypertension: Code(s): I10 - Essential (primary) hypertension Status: Chronic (6) Type 2 diabetes mellitus: Onset Date: Unknown Qualifiers: Diabetes mellitus [facility] insulin use: with longwall headgate operator use Diabetes mellitus complication status: without complication Qualified Code(s): E11.9 - Type 2 diabetes mellitus without complications; Z79.4 - solder leveler printed circuit boards (current) use of insulin Code(s): E11.9 - Type 2 diabetes mellitus without complications Status: Acute Assessment and Plan: Did not wish to continue Accu-Cheks. Comfort care only. (7) COPD (chronic obstructive pulmonary disease): Qualifiers: COPD type: unspecified COPD Qualified Code(s): J44.9 - Chronic obstructive pulmonary disease, unspecified Code(s): J44.9 - Chronic obstructive pulmonary disease, unspecified Status: Acute Assessment and Plan: No evidence of respiratory distress. Inhalers as needed. (8) Paroxysmal atrial flutter: Onset Date: Unknown Code(s): I48.92 - Unspecified atrial flutter Status: Chronic Assessment and Plan: Xarelto stopped. (9) Paraplegic spinal paralysis: Code(s): G82.20 - Paraplegia, unspecified Status: Chronic Assessment and Plan: Patient i
--- NOTE | 2019-08-17 12:43 | WPDINFPN2 ---
Progress Note: A&P Assessment and Plan (1) Leukocytosis: Onset Date: ~08/10/19 Qualifiers: Leukocytosis type: other Qualified Code(s): D72.828 - Other elevated white blood cell count Code(s): D72.829 - Elevated white blood cell count, unspecified Status: Acute Assessment and Plan: 1. Leukocytosis due to C diff infection. Flexiseal in, brown liquid. 2. Chronic decubitus with superficial necrosis, not the cause of his leukocytosis. Culture reveals no pathogens 3. Chronic Cheung, no UTI REC oral Vanc #7 / minimum. I think Vancomycin is palliative in this patient, but will defer to his Hospice team whether or not to continue. Ok discharge. Subjective Date/time seen: 08/17/19 12:43 Interval history: no abd pain Exam Narrative: Exam Narrative: afebrile Const: General: no acute distress GI: Inspection: non-distended GI Palp: Yes Soft to palpation, No Tenderness to palpation present (GI) and No Guarding due to palpation present (GI) Objective Data Vital Signs Vital Signs: Vital Signs - 24 hr 08/16/19 14:15 08/16/19 20:22 Temperature 36.2 C L 36.9 C Pulse Rate 72 81 Respiratory Rate 16 16 Blood Pressure 134/51 L 119/50 L Pulse Oximetry 95 99 Intake/Output Intake/Output: Intake & Output 08/14/19 08/15/19 08/16/19 08/17/19 23:59 23:59 23:59 23:59 Intake Total 3020 2160 2437 240 Output Total 193 070 3673 800 Balance 2320 1860 737 -560 Meds/Results Medications: Active Medications Generic Name Dose Route Start Last Admin Trade Name Freq PRN Reason Stop Dose Admin Acetaminophen 650 mg 08/10/19 18:37 08/10/19 21:09 Tylenol Tablet PO 650 mg Q4H PRN Administration Mild Pain (1-3) or Fever Bisacodyl 10 mg 08/11/19 09:00 08/17/19 08:11 Dulcolax Tab PO 10 mg BID KEMI Administration Collagenase 1 applic 08/11/19 09:00 08/17/19 08:11 Santyl Oint TOPICAL 1 applic DAILY KEMI Administration Dextrose 12.5 gm 08/10/19 22:19 Dextrose 50% Syringe IV PUSH PRN PRN Hypoglycemia Protocol Diphenhydramine HCl 25 mg 08/10/19 23:30 Benadryl Cap PO Q6-8H PRN Itching Docusate Sodium 100 mg 08/10/19 23:30 Colace Capsule PO BID PRN Constipation Glucagon 1 mg 08/10/19 22:19 Glucagon For Inj IM PRN PRN Hypoglycemia Protocol Glucose 15 gm 08/10/19 22:19 Glutose 15 PO PRN PRN Hypoglycemia Protocol Dextrose 1,000 mls @ 100 mls/hr 08/10/19 22:19 Dextrose 5% 1,000 Ml IVPB PRN PRN Hypoglycemia Protocol Levalbuterol HCl 0.63 mg 08/10/19 23:30 Xopenex 1.25 Mg/3 Ml INHALATION Q8H PRN shortness of breath or wheezing Melatonin 5 mg 08/11/19 21:00 08/16/19 20:38 Melatonin PO 5 mg HS KEMI Administration Miconazole Nitrate 1 applic 08/11/19 09:00 08/17/19 08:12 Aloe [place] TOPICAL 1 applic Q12HR KEMI Administration Mirtazapine 30 mg 08/11/19 21:00 08/16/19 20:38 Remeron PO 30 mg HS KEMI Administration Ondansetron HCl 4 mg 08/10/19 18:37 Zofran Inj IV PUSH Q4H PRN Nausea Simethicone 125 mg 08/11/19 09:00 08/17/19 08:11 Phazyme PO 125 mg BID KEMI Administration Sodium Hypochlorite 1 applic 08/11/19 09:00 08/17/19 08:11 Dakin's Quarter Strength TOPICAL 1 applic DAILY KEMI Administration Tizanidine HCl 2 mg 08/11/19 09:00 08/17/19 08:11 Zanaflex PO 2 mg BID KEMI Administration Radiology Results: ITS Impressions Abdomen/Pelvis CT 08/10/19 18:13 IMPRESSION: 1. Sacral decubitus ulcer without underlying osseous erosion or abscess. 2. Bilateral nephrolithiasis. Bladder uroliths. 3. Colonic fluid, correlate for diarrhea. Chest X-Ray 08/13/19 10:48 IMPRESSION: 1. Emphysema and mild chronic interstitial lung disease. Labs Labs: Laboratory Results - last 24 hr 08/16/19 08/16/19 13:01 13:01 WBC 9.3 RBC 3.98 L
== END 2019-08-17 14:22 | disposition hospice, home (50) | DRG 580 ==
LOC: ANHED 18:42 → ANH3MED 19:09
PROVIDERS: Nurse Practitioner; Physician Assistant; Surgery; Admitting Provider Internal Medicine; Emergency Provider Emergency Medicine; PCP Family Medicine; Visit Provider Physician Assistant
DX: L89.159 Pressure ulcer of sacral region, unspecified stage (principal); A04.72 Enterocolitis due to Clostridium difficile, not specified as recurrent; I48.92 Unspecified atrial flutter; G82.20 Paraplegia, unspecified; L89.324 Pressure ulcer of left buttock, stage 4; L89.314 Pressure ulcer of right buttock, stage 4; D72.828 Other elevated white blood cell count; E11.9 Type 2 diabetes mellitus without complications; J44.9 Chronic obstructive pulmonary disease, unspecified; I10 Essential (primary) hypertension; E87.6 Hypokalemia; E63.9 Nutritional deficiency, unspecified; R79.1 Abnormal coagulation profile; M48.02 Spinal stenosis, cervical region; M48.061 Spinal stenosis, lumbar region without neurogenic claudication; E55.9 Vitamin D deficiency, unspecified; Z85.51 Personal history of malignant neoplasm of bladder; I69.398 Other sequelae of cerebral infarction; Z99.81 Dependence on supplemental oxygen; Z79.01 Long term (current) use of anticoagulants; Z79.4 Long term (current) use of insulin; Z87.891 Personal history of nicotine dependence; Z66 Do not resuscitate
CPT/HCPCS: 36415; 71045; 74177; 80048; 80053; 81001; 83605; 83735; 84100; 84134; 84439; 84443; 84480; 84484; 85025; 85027; 85380; 85384; 85610; 85652; 85730; 86140; 87040; 87070; 87086; 87205; 87324; 93005; 96361; 96365; 96375; 99285; A9270; J2543; J3370; J7030; J7120; Q9967

== ENCOUNTER 2020-11-24 18:29 | Inpatient (IN) | payer MEDICARE, MEDICAID, SELFPAY ==
[2020-11-24] VITALS (9 sets, daily range): BP systolic 103–113; BP diastolic 51–58; PULSE 102–122; RESP 18–21; TEMP 37.1; O2SAT 90–93
--- NOTE | ~2020-11-24 | XR_ITS ---
EXAMINATION: XR chest 1V portable INDICATION: Shortness of breath TECHNIQUE: Portable AP chest at 1013 hours COMPARISON: 11/24/2020 FINDINGS: There are patchy opacities of right upper lung zone. Atelectasis is present in the lung bas es. There is no pleural effusion or pneumothorax. The cardiomediastinal silhouette is normal. IMPRESSION: 1. Right upper lobe airspace opacities, consistent with atelectasis versus pneumonia versus pulmonary edema. Reviewed, dictated and finalized at location A. IMPRESSION: 1. Right upper lobe airspace opacities, consistent with atelectasis versus pneu monia versus pulmonary edema.
--- NOTE | ~2020-11-24 | XR_ITS ---
EXAMINATION: XR chest 1V portable INDICATION: Cough TECHNIQUE: Portable AP chest at 1934 hours COMPARISON: 08/13/2019 FINDINGS: The lungs are free of acute opacities. There is no pleural effusion or pneumothorax. The he art size is normal. Subtle chronic peripheral reticular opacities are noted. IMPRESSION: 1. No acute cardiopulmonary abnormality. Reviewed, dictated and finalized at location A.
--- NOTE | ~2020-11-24 | XR_ITS ---
EXAMINATION: XR chest 1V portable DATE: 12/01/2020 05:51 INDICATION: Respiratory failure TECHNIQUE: frontal view of the chest was obtained. COMPARISON: Chest radiograph dated 11/30/2020 FINDINGS: No significant interval change in opacities throughout the right lung. Increasing opacities in the le ft lower lung zone with more dense retrocardiac opacity blunting the left cardiophrenic angle. Likely small bilateral pleural effusions. The cardiomediastinal silhouette is normal. Dense mitral annular calcification. IMPRESSION: 1. Increasing opacity at the medial left lower lung zone consistent with increasing atelectasis and/o r pneumonia in the right lower lobe. 2. Additional unchanged opacities scattered throughout the right lung also consistent with atelectasi s or pneumonia, pulmonary edema or some combination thereof. 3. Likely small bilateral pleural effusions. Reviewed, dictated and finalized at location A. IMPRESSION: 1. Increasing opacity at the medial left lower lung zone consistent with increa sing atelectasis and/or pneumonia in the right lower lobe. 2. Additional unchanged opacities scattered throughout the right lung also cons istent with atelectasis or pneumonia, pulmonary edema or some combination there of. 3. Likely small bilateral pleural effusions.
--- NOTE | ~2020-11-24 | XR_ITS ---
EXAMINATION: XR chest 1V portable DATE: 11/30/2020 05:55 INDICATION: Respiratory failure TECHNIQUE: frontal view of the chest was obtained. COMPARISON: Chest radiograph dated 11/29/2020 FINDINGS: No significant interval change in patchy airspace opacities scattered throughout the right lung and i n the left lower lung zone. No pneumothorax or definitive pleural effusion. The cardiomediastinal julián houette is normal. IMPRESSION: 1. Unchanged mild patchy airspace opacity throughout the right lung and in the left lower lung zone w hich could represent pneumonia, atelectasis, pulmonary edema or some combination thereof. Reviewed, dictated and finalized at location A. IMPRESSION: 1. Unchanged mild patchy airspace opacity throughout the right lung and in the left lower lung zone which could represent pneumonia, atelectasis, pulmonary ed rashid or some combination thereof.
--- NOTE | ~2020-11-24 | XR_ITS ---
EXAMINATION: XR chest 1V portable DATE: 11/29/2020 05:49 INDICATION: Respiratory failure TECHNIQUE: frontal view of the chest was obtained. COMPARISON: Chest radiograph dated 11/28/2020 FINDINGS: There is been some interval progression in patchy airspace opacities throughout the right lung and in the left lower lung zone. No pleural effusion or pneumothorax. The cardiomediastinal silhouette is n ormal. IMPRESSION: 1. Mild increase in patchy airspace opacities throughout the right lung and in the left lower lung zo ne which could represent pneumonia, atelectasis, pulmonary edema or some combination thereof. Reviewed, dictated and finalized at location A. IMPRESSION: 1. Mild increase in patchy airspace opacities throughout the right lung and in the left lower lung zone which could represent pneumonia, atelectasis, pulmonar y edema or some combination thereof.
--- NOTE | ~2020-11-24 | XR_ITS ---
XR chest 1V portable 12/02/2020 06:00 Indication: Respiratory failure Procedure: AP portable chest Comparison: Comparison to multiple prior studies sequentially, with oldest reviewed study dated 06/2020. Findings: Heart size normal. Diffuse bilateral airspace disease. Small pleural effusions. No pneumoth orax. No acute osseous abnormality. Impression: 1: Diffuse bilateral airspace disease which may represent edema or pneumonia. 2: Small pleural effusions. Reviewed, dictated and finalized at location A. Impression: 1: Diffuse bilateral airspace disease which may represent edema or pneumonia. 2: Small pleural effusions.
--- NOTE | ~2020-11-24 | XR_ITS ---
EXAMINATION: XR chest 1V portable DATE: 11/28/2020 05:44 INDICATION: Respiratory failure TECHNIQUE: frontal view of the chest was obtained. COMPARISON: Chest radiograph dated 11/27/2020 FINDINGS: Persistent opacities in the right upper lung zone and streaky opacities at the bilateral lung bases. No pleural effusion or pneumothorax. The cardiomediastinal silhouette is normal. IMPRESSION: 1. Persistent mild opacities in the right upper lung zone which could represent atelectasis or pneumo joshua. 2. More streaky opacities at the bilateral lung bases and favor atelectasis. Reviewed, dictated and finalized at location A. IMPRESSION: 1. Persistent mild opacities in the right upper lung zone which could represent atelectasis or pneumonia. 2. More streaky opacities at the bilateral lung bases and favor atelectasis.
--- NOTE | 2020-11-24 18:44 | ECG_ITS ---
Measurements Intervals [place] Rate: 102 P: 60 CA: 161 QRS: 269 QRSD: 157 T: 63 QT: 354 QTc: 463 Interpretive Statements SINUS TACHYCARDIA RIGHT AXIS DEVIATION RIGHT BUNDLE BRANCH BLOCK BASELINE ARTIFACT- II, III, AVR, AVF, V1, V3-V6 ABNORMAL ECG Electronically Signed On 11-25-2020 7:29:40 CDT by Rodri Wilcox D.O.
--- NOTE | 2020-11-24 19:29 | PC.NURSE ---
assumed care of pt at this time. Report from JUAN DIEGO Alberts.
--- NOTE | 2020-11-24 19:35 | ED.GENADULT ---
HPI - General Adult General Chief complaint: Recheck/Abnormal Lab/Rx Stated complaint: sepsis Time Seen by Provider: 11/24/20 18:34 History of Present Illness HPI narrative: Patient is an 85-year-old male who presents ER from his assisted with concerns for possible sepsis. Patient was found to have an outpatient white blood cell count of 20,000. Patient reports he has been feeling weak and fatigued. He has been having subjective fevers. No chills. Reports productive cough that has been chronic. No chest pain or chest pressure. 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 Patient has a known sacral decubitus ulcer. Related Data Home Medications Medication Instructions Recorded Confirmed Dakin's Solution 1 applic TOPICAL DAILY 04/28/19 08/10/19 acetaminophen 325 mg PO Q4-6H PRN 04/28/19 08/10/19 diphenhydramine HCl [Benadryl] 25 mg PO Q6-8H PRN 04/28/19 08/10/19 melatonin 5 mg PO HS 04/28/19 08/10/19 tizanidine 2 mg PO BID 04/28/19 08/10/19 acetaminophen 500 mg PO Q6H PRN 11/24/20 albuterol sulfate 11/24/20 ascorbic acid (vitamin C) 500 mg PO DAILY 11/24/20 bisacodyl 10 mg RECTAL DAILY PRN 11/24/20 collagenase clostridium histo. TOPICAL 11/24/20 [Santyl] cyanocobalamin (vitamin B-12) 1,000 mcg PO DAILY 11/24/20 dextromethorphan HBr 10 mg PO Q4-6H PRN 11/24/20 [Dextromethorphan Cough] ferrous sulfate 325 mg PO BID 11/24/20 furosemide [Lasix] 20 mg PO DAILY 11/24/20 gentamicin 1 applic TOPICAL DAILY 11/24/20 magnesium hydroxide [Milk of 400 mg PO DAILY PRN 11/24/20 Magnesia] mirtazapine 15 mg 11/24/20 algujnostefy-sdc-ptjv-FA-vit K tablet PO 11/24/20 [Adults Multivitamin] omeprazole 20 mg PO DAILY 11/24/20 ondansetron 4 mg PO Q6H PRN 11/24/20 Allergies Allergy/AdvReac Type Severity Reaction Status Date / Time No Known Allergies Allergy Verified 11/24/20 18:34 Review of Systems Review of Systems: All systems reviewed & are unremarkable except as noted in HPI and below Constitutional: Constitutional: Denies chills, Reports fatigue and Reports fever(s) ENT: Denies nasal congestion and Denies sore throat Cardiovascular: Cardiovascular: Denies chest pain and Denies radiating jaw, neck or arm pain Respiratory: Respiratory: Reports chest congestion, Reports cough, Denies dyspnea and Denies wheezing Gastrointestinal: Gastrointestinal: Denies abdominal pain, Denies nausea and Denies vomiting [facility] Past Medical History Medical History (Updated 11/24/20 @ 23:38 by Forrest Chacon MD) Anemia of chronic disease Arm fracture Asbestosis Bacteremia With peptostreptococcus December 2018 due to infected sacral wound Bladder tumor Status post transient urethral resection of bladder tumor (8 cm) August 2017 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 Julian) Catheter-associated urinary tract infection Chronic indwelling Cheung catheter Due to paraplegia/neurogenic bladder COPD (chronic obstructive pulmonary disease) Diastolic dysfunction without heart failure Echocardiogram March 2017 demonstrated normal left ventricular systolic function with no focal wall motion abnormalities, mild concentric left ventricular hypertrophy, EF of 60-65%, mild pulmonary hypertension with RVSP of 46, diastolic dysfunction, DNR (do not resuscitate) E. 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
[2020-11-24 19:59] LABS: Basophils Percent Auto 0.2 % (0.2-1.2); Eosinophils Absolute Auto 0.1 K/mm3 (0-0.3); Eosinophils Percent Auto 0.3 % (0-4.4); Hematocrit 28.6 % (42.0-52.0); Hemoglobin 8.5 g/dL (14.0-18.0); Immature Granulocyte Absolute 0.44 K/mm3 (0.00-0.031); Immature Granulocyte Percent A 1.9 % (0-0.5); Lymphocytes Absolute Auto 1.15 K/mm3 (0.9-3.2); Lymphocytes Percent Auto 4.9 % (18.3-44.2); Mean Corpuscular HGB Conc 29.7 g/dl (32-36); Mean Corpuscular Volume 77.3 fl (80-100); Mean Platelet Volume 11.2 fl (7.4-10.4); Monocytes Absolute Auto 1.8 K/mm3 (0.1-0.6); Monocytes Percent Auto 7.6 % (2.6-8.5); Neutrophils Percent Auto 85.1 % (45.5-73.1); Platelet Count Result 322 k/mm3 (150-375); White Blood Count 23.5 K/mm3 (4.5-10.0)
[2020-11-24 20:13] LABS: Lactic Acid Reflex 1.1 mmol/L (0.7-2.1)
[2020-11-24 20:14] LABS: Anion Gap 13 mmol/L (8-16); Blood Urea Nitrogen 63 mg/dL (9-20); Calcium 9.2 mg/dL (8.4-10.2); Carbon Dioxide 21 mmol/L (22-30); Chloride 96 mmol/L (98-107); Estimated CRCL calculation 30 ml/min; Estimated Glomerular Filt Rate 39; Glucose 105 mg/dL (65-110); Hypochromasia 1+ (NORMAL); Platelet Estimate Adequate (Adequate); Sodium 130 mmol/L (137-145)
[2020-11-24 20:15] LABS: Ovalocytes 1+ (NORMAL)
[2020-11-24] MEDS: SODIUM CHLORIDE 0.9% IV 1,000 ML 999 ML IV CONT (21:13)
--- NOTE | 2020-11-24 21:31 | PC.NURSE ---
urine sent down to lab
[2020-11-24 21:46] LABS: Add Urine Microscopic? YES; Appearance Urine Cloudy (Clear); Bacteria Urine Trace /hpf; Bilirubin Urine Negative (Negative); Blood Urine 1+ (Negative); Color Urine Yellow (Yellow); Glucose Urine UA Negative (Negative); Ketones Urine Negative (Negative); Leukocyte Esterase Ur 3+ LEU/UL (Negative); Mucus Urine Rare /lpf; Nitrate Urine Negative (Negative); Protein Urine 2+ mg/dL (Negative); Specific Grav Ur 1.016 (1.001-1.035); Urobilinogen Urine Negative mg/dL (<2.0); WBC Clumps Urine Present /HPF; WBC Urine >75 /hpf
--- NOTE | 2020-11-24 23:48 | PM.IMHP ---
H&P: HPI History of Present Illness Date/Time: 11/24/20 23:48 Chief Complaint: ABNORMAL LAB Narrative: THIS IS AN 85-YEAR-OLD MALE WITH PAST MEDICAL HISTORY SIGNIFICANT FOR PARAPLEGIA COMA NEUROGENIC BLADDER, CHRONIC INDWELLING BRODERICK CATHETER, CLOSTRIDIUM C DIFFICILE COLITIS, CHRONIC SACRAL DECUBITUS ULCER. 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 AT THE TIME OF MY VISIT PATIENT IS IN THE EMERGENCY ROOM IN THE [facility] AND HE DENIES ANY ISSUES HE KNOWS THAT HIS AT [facility]. PRELIMINARY WORKUP WAS SIGNIFICANT FOR URINALYSIS WITH SIGNIFICANT WBC'S. A REPEATED QUITE COUNT WAS AGAIN ELEVATED AT 23,000 BMP WAS SIGNIFICANT FOR ELEVATION OF BUN AND CREATININE AND MILD HYPONATREMIA. A CHEST X-RAY WAS CLEAR. Review of Systems Review of Systems: PATIENT CAN'T REALLY TELL ME WHY HIS IN THE EMERGENCY ROOM STATES THAT HE HAS BEEN THERE FOR 12 HOURS AND HE WANTS TO GO TO BED WHEN ASKED IF HE HAD ANY PAIN HE RESPONDED THAT THE ONLY PAIN WAS BEING THERE FOR SUCH A LONG TIME All systems reviewed & are unremarkable except as noted in HPI and below ( HPI) [facility] Past Medical History Medical History (Updated 11/25/20 @ 00:03 by Edna Tanner MD) Anemia of chronic disease Arm fracture Asbestosis Bacteremia With peptostreptococcus December 2018 due to infected sacral wound Bladder tumor Status post transient urethral resection of bladder tumor (8 cm) August 2017 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 Julian) Catheter-associated urinary tract infection Chronic indwelling Broderick catheter Due to paraplegia/neurogenic bladder COPD (chronic obstructive pulmonary disease) Diastolic dysfunction without heart failure Echocardiogram March 2017 demonstrated normal left ventricular systolic function with no focal wall motion abnormalities, mild concentric left ventricular hypertrophy, EF of 60-65%, mild pulmonary hypertension with RVSP of 46, diastolic dysfunction, DNR (do not resuscitate) E. 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 Clement. 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 On chronic anticoagulation with Xarelto Spinal stenosis in cervical region Severe C3-C4 Spinal stenosis of lumbar region Severe l3-L4 Type 2 diabetes mellitus (Unknown) With long-term insulin use hemoglobin A1c 6.03 January 2019 UTI (urinary tract infection) (~08/10/19) Vitamin D deficiency Surgical History Surgical History (Updated 08/10/19 @ 22:09 by Octavia Rico NP) H/O cystoscopy By Dr. Julian with exchange of Broderick catheter December 31, 2018 History of appendectomy 1951 History of lung biopsy for lung nodule History of rectal surgery Hx of tonsillectomy Hx of transurethral destruction of bladder lesion Trans urethral resection of bladder tumor August 2017 Status post debridement Excisional debridement of right ischial decubitus by Dr. clement on January 01, 2019. Excisional debridement skin, subcutaneous muscle of the right ischial decubitus ulcer by Dr. clement on January 05, 2019 Family History Family History (Reviewed 08/10/19 @
[2020-11-25] VITALS (8 sets, daily range): BP systolic 93–109; BP diastolic 43–59; PULSE 87–112; RESP 16–20; TEMP 35.9–37.2; O2SAT 92–94; BMI 26.9
--- NOTE | 2020-11-25 01:26 | PC.NURSE ---
This patient, Wander Prescott, was admitted to 2 Medical Room 254-01. Patient/family oriented to hospital policies and general routines including ID bracelet, bed and alarms, visiting hours, pain management, procedures, bathroom and other care routines, personal items, smoking policy, room service/diet, and visiting hours. Information on how to activate the Rapid Response Team has been discussed. Patient/Family are encouraged to report perceived risks to care and to ask questions if they do not understand what they are told or what they should do. Multiple wounds noted and photographed and culture of Rt and Lt buttock obtained with wet to dry dressings placed and wound consult placed.
[2020-11-25] MEDS: FERROUS SULFATE 324 MG TABLET PO ×2 (09:47→18:08)
[2020-11-25] MEDS: TIZANIDINE HCL 2 MG TABLET PO ×2 (09:47→18:08)
[2020-11-25] MEDS: ACETAMINOPHEN 500 MG TABLET PO (09:50)
[2020-11-25] MEDS: GENTAMICIN SULFATE 0.1% CR 15 GM TUBE 1 APPLIC TOPICAL (11:45)
[2020-11-25] MEDS: ACETAMINOPHEN 500 MG TABLET 1000 MG PO ×2 (15:32→23:03)
--- NOTE | 2020-11-25 16:27 | P.PNIM_ITS ---
Progress Note: A&P Assessment and Plan (1) Acute UTI: Code(s): N39.0 - Urinary tract infection, site not specified Status: Acute Assessment and Plan: * PATIENT STARTED ON ROCEPHIN * AWAIT CULTURES * deescalate antibiotics when cultures results * change antibiotics according to sensitivity report * SUPPORTIVE CARE (2) Chronic indwelling Cheung catheter: Code(s): Z97.8 - Presence of other specified devices Status: Acute Assessment and Plan: * CONTINUE CATHETER CARE * Desiree care q2hr (3) CIELO (acute kidney injury): Code(s): N17.9 - Acute kidney failure, unspecified Status: Acute Assessment and Plan: * BUN creatinine 63/1.7 * WILL HOLD LASIX * WILL GIVE FLUIDS NORMAL SALINE 0.9 AT 75 CC AN/HOUR * trend labs * labs in a.m. (4) Paroxysmal atrial flutter: Onset Date: Unknown Code(s): I48.92 - Unspecified atrial flutter Status: Chronic Assessment and Plan: * APPEARS TO BE ON NORMAL SINUS RHYTHM * EKG shows ST (5) Diastolic dysfunction without heart failure: Code(s): I51.89 - Other ill-defined heart diseases Status: Acute Assessment and Plan: * APPEARS TO BE DRY * CONTINUE TO MONITOR DAILY INTAKE AND OUTPUT * Holding diuretics for now * Will get BNP (6) Decubitus ulcer: Onset Date: Unknown Qualifiers: Laterality: unspecified laterality Pressure injury location: buttock Pressure injury stage: unspecified pressure injury stage Qualified Code(s): L89.309 - Pressure ulcer of unspecified buttock, unspecified stage Code(s): L89.90 - Pressure ulcer of unspecified site, unspecified stage Status: Chronic Assessment and Plan: * paraplegic at baseline * Refuses to get up to chair most days * AROUND THE CLOCK TURNING SCHEDULE * LOCAL CARE * Wound culture found E coli * Other wound cultures are pending * currently on Ceftriaxone 1gm * Will change antibiotics when sensitivities come back * Consider general surgery consult for possible debridement Subjective Date/time seen: 11/25/20 15:00 Interval history: 85-year-old male with past medical history significant for paraplegic, neurogenic bladder, chronic indwelling Cheung catheter, and sacral decubitus ulcer who presented to the ED due to elevated white count. It was also found that the patient was having some fevers with chills and sweats. Patient does have a cough that is clear patient also has many different decubitus ulcers that have been debrided and are currently still tunneling with a wet to dry dressing. Patient denies chest pain, shortness of breath, nausea vomiting diarrhea constipation. Review of Systems Review of Systems: All systems reviewed & are unremarkable except as noted in HPI and below Exam Const: General: comfortable, no acute distress, well developed, alert and awake Nutritional Appearance: average body habitus Orientation/consciousness: patient oriented x3 HENMT: Head: normal to inspection, normocephalic and atraumatic Ears: hearing grossly normal bilaterally General nose exam: Normal external nose present Face and sinus: normal facial exam Eyes: General: appearance normal, both eyes and all related structures Alignment and Position: alignment normal Sclera: sclerae normal Pupils: Equal, round and reactive pupils present EOM: EOMs intact bi
--- NOTE | 2020-11-25 16:27 | PM.IMPN ---
Progress Note: A&P Assessment and Plan (1) Acute UTI: Code(s): N39.0 - Urinary tract infection, site not specified Status: Acute Assessment and Plan: PATIENT STARTED ON ROCEPHIN AWAIT CULTURES deescalate antibiotics when cultures results change antibiotics according to sensitivity report SUPPORTIVE CARE (2) Chronic indwelling Cheung catheter: Code(s): Z97.8 - Presence of other specified devices Status: Acute Assessment and Plan: CONTINUE CATHETER CARE Desiree care q2hr (3) CIELO (acute kidney injury): Code(s): N17.9 - Acute kidney failure, unspecified Status: Acute Assessment and Plan: BUN creatinine 63/1.7 WILL HOLD LASIX WILL GIVE FLUIDS NORMAL SALINE 0.9 AT 75 CC AN/HOUR trend labs labs in a.m. (4) Paroxysmal atrial flutter: Onset Date: Unknown Code(s): I48.92 - Unspecified atrial flutter Status: Chronic Assessment and Plan: APPEARS TO BE ON NORMAL SINUS RHYTHM EKG shows ST (5) Diastolic dysfunction without heart failure: Code(s): I51.89 - Other ill-defined heart diseases Status: Acute Assessment and Plan: APPEARS TO BE DRY CONTINUE TO MONITOR DAILY INTAKE AND OUTPUT Holding diuretics for now Will get BNP (6) Decubitus ulcer: Onset Date: Unknown Qualifiers: Laterality: unspecified laterality Pressure injury location: buttock Pressure injury stage: unspecified pressure injury stage Qualified Code(s): L89.309 - Pressure ulcer of unspecified buttock, unspecified stage Code(s): L89.90 - Pressure ulcer of unspecified site, unspecified stage Status: Chronic Assessment and Plan: paraplegic at baseline Refuses to get up to chair most days AROUND THE CLOCK TURNING SCHEDULE LOCAL CARE Wound culture found E coli Other wound cultures are pending currently on Ceftriaxone 1gm Will change antibiotics when sensitivities come back Consider general surgery consult for possible debridement Subjective Date/time seen: 11/25/20 15:00 Interval history: 85-year-old male with past medical history significant for paraplegic, neurogenic bladder, chronic indwelling Cheung catheter, and sacral decubitus ulcer who presented to the ED due to elevated white count. It was also found that the patient was having some fevers with chills and sweats. Patient does have a cough that is clear patient also has many different decubitus ulcers that have been debrided and are currently still tunneling with a wet to dry dressing. Patient denies chest pain, shortness of breath, nausea vomiting diarrhea constipation. Review of Systems Review of Systems: All systems reviewed & are unremarkable except as noted in HPI and below Exam Const: General: comfortable, no acute distress, well developed, alert and awake Nutritional Appearance: average body habitus Orientation/consciousness: patient oriented x3 HENMT: Head: normal to inspection, normocephalic and atraumatic Ears: hearing grossly normal bilaterally General nose exam: Normal external nose present Face and sinus: normal facial exam Eyes: General: appearance normal, both eyes and all related structures Alignment and Position: alignment normal Sclera: sclerae normal Pupils: Equal, round and reactive pupils present EOM: EOMs intact bilaterally Neck: Neck: full ROM, no lymphadenopathy and no JVD Thyroid: thyroid normal Lymphatic: no lymphadenopathy noted Resp: Effort & Inspection: normal respiratory effort and able to speak in complete sentences Auscultation: clear to auscultation bilaterally, no crackles and no rales Cardio: Jugular venous distension: no JVD Rate: regular rate Rhythm: regular rhythm Heart sounds: S1 normal heart sound present and S2 normal heart sound present GI: Inspection: non-distended : General: Yes deferred Skin: General skin exam: nor
[2020-11-25 20:50] LABS: Glucose Point of Care 175 mg/dl (65-105)
[2020-11-25] MEDS: MELATONIN 5 MG TABLET PO (21:07)
[2020-11-25] MEDS: MIRTAZAPINE SOLTAB 15 MG TAB.DISPER BY MOUTH (21:07)
[2020-11-26] VITALS: BP 98/46; PULSE 67; RESP 18; TEMP 36.9; O2SAT 92
[2020-11-26] MEDS: guaiFENesin/DEXTROMETHORPHAN 10 ML UDC PO ×5 (01:22→23:24)
[2020-11-26 04:00] VITALS: BP 113/58; PULSE 55; RESP 18; TEMP 36.3; O2SAT 93
[2020-11-26] MEDS: ACETAMINOPHEN 500 MG TABLET 1000 MG PO ×2 (04:10→23:29)
[2020-11-26 04:52] VITALS: BP 115/66; PULSE 92; RESP 20; TEMP 36.1; O2SAT 96
[2020-11-26 05:25] LABS: Hemoglobin 8.6 g/dL (14.0-18.0); Mean Corpuscular HGB Conc 29.7 g/dl (32-36); Mean Corpuscular Hemoglobin 22.6 pg (26-34); Mean Corpuscular Volume 76.1 fl (80-100); Mean Platelet Volume 10.6 fl (7.4-10.4); Platelet Count Result 342 k/mm3 (150-375); Red Blood Count 3.81 M/mm3 (4.6-6.20); White Blood Count 18.7 K/mm3 (4.5-10.0)
[2020-11-26 05:40] LABS: Alanine Aminotransferase 24 U/L (4-50); Albumin Level 2.9 g/dL (3.5-5.1); Alkaline Phosphatase 150 U/L (38-126); Anion Gap 12 mmol/L (8-16); Aspartate Amino Transferase 37 U/L (17-59); Bilirubin,Total 0.3 mg/dL (0.2-1.3); Blood Urea Nitrogen 57 mg/dL (9-20); Calcium 8.9 mg/dL (8.4-10.2); Carbon Dioxide 20 mmol/L (22-30); Chloride 101 mmol/L (98-107); Estimated CRCL calculation 36 ml/min; Estimated Glomerular Filt Rate 48; Glucose 124 mg/dL (65-110); Magnesium 1.8 mg/dL (1.6-2.3); Potassium 4.8 mmol/L (3.4-5.0); Sodium 133 mmol/L (137-145)
[2020-11-26 08:00] VITALS: BP 134/67; PULSE 74; RESP 18; TEMP 36.1; O2SAT 94
[2020-11-26 08:13] LABS: NT Pro B Type Natriuretic Pept 4420 pg/mL (5-100)
[2020-11-26] MEDS: COLLAGENASE OINT 30 GM TUBE 1 APPLIC TOPICAL (08:24)
[2020-11-26] MEDS: GENTAMICIN SULFATE 0.1% CR 15 GM TUBE 1 APPLIC TOPICAL (08:24)
[2020-11-26] MEDS: FUROSEMIDE INJ 40 MG/4 ML VIAL IV PUSH (09:18)
[2020-11-26] MEDS: FERROUS SULFATE 324 MG TABLET PO ×2 (09:18→17:36)
[2020-11-26] MEDS: TIZANIDINE HCL 2 MG TABLET PO ×2 (09:18→17:36)
[2020-11-26] MEDS: ENOXAPARIN 40 MG/0.4 ML SYRINGE SUB-Q (09:19)
--- NOTE | 2020-11-26 10:31 | P.PNIM_ITS ---
Progress Note: A&P Assessment and Plan (1) Acute UTI: Code(s): N39.0 - Urinary tract infection, site not specified Status: Acute Assessment and Plan: * PATIENT STARTED ON ROCEPHIN in ed * E. Coli (ESBL) found in cultures * deescalate antibiotics when possible * Change antibiotics to imipenem 500mg Q6hr IV * SUPPORTIVE CARE (2) Chronic indwelling Cheung catheter: Code(s): Z97.8 - Presence of other specified devices Status: Acute Assessment and Plan: * CONTINUE CATHETER CARE * Desiree care q2hr (3) CIELO (acute kidney injury): Code(s): N17.9 - Acute kidney failure, unspecified Status: Acute Assessment and Plan: * BUN creatinine 57/1.40 * gave one dose of lasix 40mg IV once * DC'd fluids * trend labs * labs in a.m. (4) Paroxysmal atrial flutter: Onset Date: Unknown Code(s): I48.92 - Unspecified atrial flutter Status: Chronic Assessment and Plan: * APPEARS TO BE ON NORMAL SINUS RHYTHM * EKG shows ST (5) Diastolic dysfunction without heart failure: Code(s): I51.89 - Other ill-defined heart diseases Status: Acute Assessment and Plan: * BNP 4420 * 2+ pitting edema in the bilateral lower extremities * NA is 133, creatnine is a bit elevated but trending down * CONTINUE TO MONITOR DAILY INTAKE AND OUTPUT * trend labs * labs in the am (6) Decubitus ulcer: Onset Date: Unknown Qualifiers: Laterality: unspecified laterality Pressure injury location: buttock Pressure injury stage: unspecified pressure injury stage Qualified Code(s): L89.309 - Pressure ulcer of unspecified buttock, unspecified stage Code(s): L89.90 - Pressure ulcer of unspecified site, unspecified stage Status: Chronic Assessment and Plan: * paraplegic at baseline * Refuses to get up to chair most days * AROUND THE CLOCK TURNING SCHEDULE * LOCAL CARE * Wound culture found E coli * Other wound cultures are pending * Ceftriaxone 1gm changed to imipenem 300 mg IV * Will change antibiotics when sensitivities come back * Consider general surgery consult for possible debridement (7) Sepsis: Qualifiers: Sepsis acute organ dysfunction status: without acute organ dysfunction Sepsis type: sepsis due to unspecified organism Qualified Code(s): A41.9 - Sepsis, unspecified organism Code(s): A41.9 - Sepsis, unspecified organism Status: Acute Assessment and Plan: * white blood cell count upon admission was 23.5 * vital signs on 11/25/2020 show temperature of 36.1? C, heart rate 94, respiratory rate 18, and blood pressure 93/43 with a saturation 93% * source of infections include multiple wound sites, chronic urinary catheter * urine culture came up with E coli ESBL blood culture came back with E coli as well wound cultures are pending * lactate was 1.1 * BUN and creatinine was 63 and 1.7 * patient started on ceftriaxone which was changed to imipenem 300 mg IV q.6 * trend labs * trend vital signs Subjective Date/time seen: 11/26/20 09:25 Interval history: 85-year-old male with past medical history significant for paraplegic, neurogenic bladder, chronic indwelling Cheung catheter, and sacral decubitus ulcer who presented to the ED due to elevated white count. Patient stated that he is feeling a lot better today however he is tired. Is point of t
--- NOTE | 2020-11-26 10:31 | PM.IMPN ---
Progress Note: A&P Assessment and Plan (1) Acute UTI: Code(s): N39.0 - Urinary tract infection, site not specified Status: Acute Assessment and Plan: PATIENT STARTED ON ROCEPHIN in ed E. Coli (ESBL) found in cultures deescalate antibiotics when possible Change antibiotics to imipenem 500mg Q6hr IV SUPPORTIVE CARE (2) Chronic indwelling Cheung catheter: Code(s): Z97.8 - Presence of other specified devices Status: Acute Assessment and Plan: CONTINUE CATHETER CARE Desiree care q2hr (3) CIELO (acute kidney injury): Code(s): N17.9 - Acute kidney failure, unspecified Status: Acute Assessment and Plan: BUN creatinine 57/1.40 gave one dose of lasix 40mg IV once DC'd fluids trend labs labs in a.m. (4) Paroxysmal atrial flutter: Onset Date: Unknown Code(s): I48.92 - Unspecified atrial flutter Status: Chronic Assessment and Plan: APPEARS TO BE ON NORMAL SINUS RHYTHM EKG shows ST (5) Diastolic dysfunction without heart failure: Code(s): I51.89 - Other ill-defined heart diseases Status: Acute Assessment and Plan: BNP 4420 2+ pitting edema in the bilateral lower extremities NA is 133, creatnine is a bit elevated but trending down CONTINUE TO MONITOR DAILY INTAKE AND OUTPUT trend labs labs in the am (6) Decubitus ulcer: Onset Date: Unknown Qualifiers: Laterality: unspecified laterality Pressure injury location: buttock Pressure injury stage: unspecified pressure injury stage Qualified Code(s): L89.309 - Pressure ulcer of unspecified buttock, unspecified stage Code(s): L89.90 - Pressure ulcer of unspecified site, unspecified stage Status: Chronic Assessment and Plan: paraplegic at baseline Refuses to get up to chair most days AROUND THE CLOCK TURNING SCHEDULE LOCAL CARE Wound culture found E coli Other wound cultures are pending Ceftriaxone 1gm changed to imipenem 300 mg IV Will change antibiotics when sensitivities come back Consider general surgery consult for possible debridement (7) Sepsis: Qualifiers: Sepsis acute organ dysfunction status: without acute organ dysfunction Sepsis type: sepsis due to unspecified organism Qualified Code(s): A41.9 - Sepsis, unspecified organism Code(s): A41.9 - Sepsis, unspecified organism Status: Acute Assessment and Plan: white blood cell count upon admission was 23.5 vital signs on 11/25/2020 show temperature of 36.1? C, heart rate 94, respiratory rate 18, and blood pressure 93/43 with a saturation 93% source of infections include multiple wound sites, chronic urinary catheter urine culture came up with E coli ESBL blood culture came back with E coli as well wound cultures are pending lactate was 1.1 BUN and creatinine was 63 and 1.7 patient started on ceftriaxone which was changed to imipenem 300 mg IV q.6 trend labs trend vital signs Subjective Date/time seen: 11/26/20 09:25 Interval history: 85-year-old male with past medical history significant for paraplegic, neurogenic bladder, chronic indwelling Cheung catheter, and sacral decubitus ulcer who presented to the ED due to elevated white count. Patient stated that he is feeling a lot better today however he is tired. Is point of the patient coughed all night long which the patient states is chronic. He stated that he is also getting some stuff but could not tell me any characteristics or color was. Patient also had a large bowel movement this morning which was darker and brown formed in nature. Nursing stated that his to gluteal wounds are looking better have less drainage however they still tunnel pretty deep. The foot wounds also look better however the right foot wound is bleeding. Patient complains of no pain at this time but states that the 1000
[2020-11-26 12:00] VITALS: BP 139/55; PULSE 97; RESP 16; TEMP 36.1; O2SAT 93
--- NOTE | 2020-11-26 16:00 | PC.NURSE ---
Patient transferred to specialty air mattress.
[2020-11-26] MEDS: MIRTAZAPINE SOLTAB 15 MG TAB.DISPER BY MOUTH (21:39)
[2020-11-26] MEDS: MELATONIN 5 MG TABLET PO (21:39)
[2020-11-26 22:00] VITALS: BP 127/50; PULSE 100; RESP 16; TEMP 37.6; O2SAT 94
[2020-11-27] VITALS (31 sets, daily range): BP systolic 71–122; BP diastolic 36–77; PULSE 59–177; RESP 14–33; TEMP 36.1–37.9; O2SAT 92–100; BMI 26.9
--- NOTE | 2020-11-27 02:41 | ECG_ITS ---
Measurements Intervals [place] Rate: 81 P: 72 CT: 161 QRS: 269 QRSD: 154 T: 53 QT: 401 QTc: 466 Interpretive Statements SINUS RHYTHM FREQUENT ATRIAL COUPLETS RIGHT AXIS DEVIATION RIGHT BUNDLE BRANCH BLOCK ABNORMAL ECG Electronically Signed On 11-27-2020 8:31:44 CDT by Rodri Wilcox D.O.
--- NOTE | 2020-11-27 02:45 | PC.NURSE ---
Dr Chin came to assess patient. Lopressor given as ordered. Pt still has no complaints of chest pain,light headiness, dizziness. Pt alert and oriented.
[2020-11-27] MEDS: METOPROLOL TARTRATE INJ 5 MG/5 ML VIAL IV PUSH ×2 (02:48→10:47)
[2020-11-27] MEDS: SODIUM CHLORIDE 0.9% IV 500 ML (03:17)
[2020-11-27 03:25] LABS: Basophils Absolute Auto 0.1 K/mm3 (0.0-0.1); Basophils Percent Auto 0.4 % (0.2-1.2); Eosinophils Absolute Auto 0.2 K/mm3 (0-0.3); Eosinophils Percent Auto 1.5 % (0-4.4); Hematocrit 29.8 % (42.0-52.0); Hemoglobin 8.7 g/dL (14.0-18.0); Immature Granulocyte Absolute 0.26 K/mm3 (0.00-0.031); Immature Granulocyte Percent A 1.6 % (0-0.5); Lymphocytes Absolute Auto 1.54 K/mm3 (0.9-3.2); Lymphocytes Percent Auto 9.7 % (18.3-44.2); Mean Corpuscular HGB Conc 29.2 g/dl (32-36); Mean Corpuscular Hemoglobin 22.5 pg (26-34); Mean Platelet Volume 10.1 fl (7.4-10.4); Monocytes Absolute Auto 1.6 K/mm3 (0.1-0.6); Monocytes Percent Auto 10.2 % (2.6-8.5); Neutrophils Absolute Auto 12.1 K/mm3 (1.3-6.7); Neutrophils Percent Auto 76.6 % (45.5-73.1); Platelet Count Result 384 k/mm3 (150-375); Red Blood Count 3.87 M/mm3 (4.6-6.20); Red Cell Distribution Width 19.9 % (11.5-14.5); White Blood Count 15.8 K/mm3 (4.5-10.0)
[2020-11-27 03:44] LABS: Alanine Aminotransferase 32 U/L (4-50); Albumin Level 2.9 g/dL (3.5-5.1); Alkaline Phosphatase 149 U/L (38-126); Anion Gap 10 mmol/L (8-16); Aspartate Amino Transferase 45 U/L (17-59); Bilirubin,Total 0.5 mg/dL (0.2-1.3); Blood Urea Nitrogen 52 mg/dL (9-20); Carbon Dioxide 24 mmol/L (22-30); Chloride 97 mmol/L (98-107); Estimated CRCL calculation 39 ml/min; Estimated Glomerular Filt Rate 53; Glucose 134 mg/dL (65-110); Magnesium 1.8 mg/dL (1.6-2.3); Potassium 4.3 mmol/L (3.4-5.0); Sodium 131 mmol/L (137-145)
[2020-11-27 03:46] LABS: Troponin I < 0.012 ng/mL (0.000-0.034)
[2020-11-27] MEDS: METOPROLOL TARTRATE 12.5 MG TABLET PO (04:47)
[2020-11-27] MEDS: guaiFENesin/DEXTROMETHORPHAN 10 ML UDC PO (04:47)
[2020-11-27] MEDS: ACETAMINOPHEN 500 MG TABLET 1000 MG PO (06:52)
[2020-11-27] MEDS: FERROUS SULFATE 324 MG TABLET PO ×2 (08:41→16:57)
[2020-11-27] MEDS: TIZANIDINE HCL 2 MG TABLET PO ×2 (08:41→16:57)
[2020-11-27] MEDS: ENOXAPARIN 40 MG/0.4 ML SYRINGE SUB-Q (08:41)
[2020-11-27] MEDS: GENTAMICIN SULFATE 0.1% CR 15 GM TUBE 1 APPLIC TOPICAL (08:42)
[2020-11-27] MEDS: COLLAGENASE OINT 30 GM TUBE 1 APPLIC TOPICAL (08:42)
--- NOTE | 2020-11-27 09:52 | ECG_ITS ---
Measurements Intervals [place] Rate: 155 P: [place]: 0 QRS: 265 QRSD: 146 T: 73 QT: 298 QTc: 480 Interpretive Statements ATRIAL FIBRILLATION WITH RAPID VENTRICULAR RESPONSE RIGHT AXIS DEVIATION RIGHT BUNDLE BRANCH BLOCK BASELINE ARTIFACT- I, II, III, AVL, V1-V3 ABNORMAL ECG Electronically Signed On 11-27-2020 11:10:44 CDT by Rodri Wilcox D.O.
[2020-11-27 10:11] LABS: Alveolar/Arterial O2 Gradient 131.6 mmHg; Base Excess ABG -6.4 mEq/l (+/-2.0); Fractional Inspired Oxygen 36 %; HCO3 ABG 20.3 mEq/l (22.0-26.0); Oxygen Saturation ABG 92.5 % (95.0-100.0); Oxyhemoglobin 91.1 % THb (90.0-100.0); PCO2 ABG 45.2 mmHg (35.0-45.0); PO2 ABG 72.7 mmHg (80.0-100.0); PO2 FiO2 Ratio Arterial Blood 2.02 %; Total Hemoglobin 11.7 g/dL (12.0-18.0)
[2020-11-27 10:12] LABS: Device NASAL CANNULA; Modified Allen's Test Pass; Site Drawn LEFT RADIAL
[2020-11-27 10:20] LABS: Glucose Point of Care 159 mg/dl (65-105)
[2020-11-27] MEDS: AMIODARONE 360 MG/D5W 200 ML 360 MG/200 ML BAG 33.33 MG IV CONT (10:20)
--- NOTE | 2020-11-27 10:22 | WPDCNINT ---
Assessment and Plan Assessment and plan (1) Atrial fibrillation with rapid ventricular response: Code(s): I48.91 - Unspecified atrial fibrillation Status: Acute Assessment and Plan: patient currently in AFib with RVR. He was given 5 mg of Lopressor IV at the rapid response and started on amiodarone bolus continue amiodarone infusion add aspirin patient is not on anticoagulation at baseline (2) Acute respiratory failure: Code(s): J96.00 - Acute respiratory failure, unspecified whether with hypoxia or hypercapnia Status: Acute Assessment and Plan: patient appears in respiratory distress ABG shows hypoxia and mixed acidosis with hypercarbia appears to be in acute exacerbation of COPD + CHF will initiate BiPAP for work of breathing Lasix 40 mg IV short course of Solu-Medrol bronchodilators patient is already on broad-spectrum antibiotics for his sepsis (3) COPD exacerbation: Code(s): J44.1 - Chronic obstructive pulmonary disease with (acute) exacerbation Status: Acute Assessment and Plan: see above (4) Acute UTI: Code(s): N39.0 - Urinary tract infection, site not specified Status: Acute Assessment and Plan: PATIENT STARTED ON ROCEPHIN in ed E. Coli (ESBL) found in cultures patient is currently on imipenem 500mg Q6hr IV (5) Chronic indwelling Cheung catheter: Code(s): Z97.8 - Presence of other specified devices Status: Acute Assessment and Plan: CONTINUE CATHETER CARE Desiree care q2hr (6) CIELO (acute kidney injury): Code(s): N17.9 - Acute kidney failure, unspecified Status: Acute Assessment and Plan: BUN creatinine 57/1.40 on presentation and was given fluids of fluids will give Lasix at this time monitor urine output and electrolytes (7) Diastolic dysfunction without heart failure: Code(s): I51.89 - Other ill-defined heart diseases Status: Acute Assessment and Plan: BNP 4420 2+ pitting edema in the bilateral lower extremities chest x-ray reviewed Lasix IV (8) Decubitus ulcer: Onset Date: Unknown Qualifiers: Laterality: unspecified laterality Pressure injury location: buttock Pressure injury stage: unspecified pressure injury stage Qualified Code(s): L89.309 - Pressure ulcer of unspecified buttock, unspecified stage Code(s): L89.90 - Pressure ulcer of unspecified site, unspecified stage Status: Chronic Assessment and Plan: paraplegic at baseline and Refuses to get up to chair most days patient evaluated by wound care Wound culture growing staph aureus on vancomycin and imipenem 300 (9) Sepsis: Qualifiers: Sepsis acute organ dysfunction status: without acute organ dysfunction Sepsis type: sepsis due to unspecified organism Qualified Code(s): A41.9 - Sepsis, unspecified organism Code(s): A41.9 - Sepsis, unspecified organism Status: Acute Assessment and Plan: secondary to bacteremia with E coli which is secondary to UTI along with staph aureus in wound vancomycin and imipenem local wound care not on IV fluids at this time due to congestive heart failure Additional Plan DVT prophylaxis - SC lovenox Nutrition - NPO at this time Code Status - patient is DNR and DNI which I confirmed with patient Total Critical Care Time - 40 minutes Due to a high probability of clinically significant, life threatening deterioration, the patient required my highest level of preparedness to intervene emergently and I personally spent this critical care time directly and personally managing the patient. This critical care time included obtaining a history; examining the patient; pulse oximetry; ordering and review of studies; arranging urgent treatment with development of a management plan; evaluation of patient's response to treatment; frequent reasses
--- NOTE | 2020-11-27 10:45 | ECG_ITS ---
Measurements Intervals [place] Rate: 99 P: 68 [place]: 163 QRS: 266 QRSD: 145 T: 59 QT: 360 QTc: 462 Interpretive Statements SINUS RHYTHM RIGHT AXIS DEVIATION RIGHT BUNDLE BRANCH BLOCK BASELINE WANDER- V5 ABNORMAL ECG Electronically Signed On 11-27-2020 12:43:26 CDT by Rodri Wilcox D.O.
[2020-11-27] MEDS: AMIODARONE 150 MG/D5W 100 ML 150 MG/100 ML BAG 600 MG IV CONT (10:46)
[2020-11-27] MEDS: methylPREDNISolone SOD SUCC 125 MG VIAL 60 MG IV PUSH (11:04)
[2020-11-27] MEDS: FUROSEMIDE INJ 40 MG/4 ML VIAL IV PUSH (11:04)
[2020-11-27] MEDS: SODIUM CHLORIDE 0.9% IV 500 ML IV CONT ×3 (12:07→21:34)
--- NOTE | 2020-11-27 13:09 | PM.CNCAR ---
Assessment and Plan Additional Plan this is an 85-year-old man with complex medical problems stemming from the fact that he has a longstanding paraplegia condition has a deep sacral decubitus ulcer and some heel decubiti I as well. He enters the hospital with with looks like sepsis and has gram-negative rods growing in the blood. This morning he went atrial fibrillation with rapid ventricular response which has been converted back to sinus with intravenous amiodarone. He is currently in the ICU and receiving fluid resuscitation hopefully with quaker of sinus rhythm his blood pressure will improve. Because of his age comorbidities and DNR status it would seem that a conservative approach will be taken to his case. Jian Sanford MD [facility] History of Present Illness History of Present Illness Consult date/time: 11/27/20 13:09 Consult reason: atrial fibrillation Reason For Visit: uti Narrative: This is an unfortunate medically complex 85-year-old man I am seeing at the request of the hospitalist to assist with the management of atrial fibrillation with RVR that occurred earlier this morning. The patient was admitted to [facility] over the weekend with concern regarding infection because of an elevated white blood cell count that was noted at the long-term where he resides. 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 Sadly he has chronic relatively deep advanced sacral decubitus ulcer as well as a heel decubitus ulcer as well. He has multi bacterial growth from his decubiti I and has gram-negative rods growing from the blood. This morning he became more unstable when he was in sinus rhythm and then became very tachycardic with an irregular heart rate. I was contacted by the hospital staff and I was not immediately able to see him since of scrubbed into the procedure in the cardiac clinical lab specialist. I ordered some intravenous amiodarone. The patient was transferred to the ICU for further care and evaluation. He is currently in sinus rhythm with a right bundle branch block. Review of the electrocardiogram from the event earlier today demonstrated atrial fibrillation with rapid ventricular response. According to the chart he has a stated history of atrial flutter in the past the patient does not remember anything about this. He does also have DNR orders on his chart. His blood pressure in the ICU is low he is receiving some intravenous fluid at the moment. Despite hypotension he has a positive pressure mask in place but is responding and appropriately in asking me questions. He denies any symptoms of chest pain. 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
[2020-11-27 13:12] LABS: Alveolar/Arterial O2 Gradient 93.1 mmHg; Base Excess ABG -2.2 mEq/l (+/-2.0); Fractional Inspired Oxygen 30 %; Oxygen Content ABG 13.5 %vol (16.0-22.0); Oxygen Saturation ABG 95.9 % (95.0-100.0); Oxyhemoglobin 95.3 % THb (90.0-100.0); PCO2 ABG 35.4 mmHg (35.0-45.0); PO2 ABG 79.2 mmHg (80.0-100.0); PO2 FiO2 Ratio Arterial Blood 2.64 %; pH ABG 7.411 (7.350-7.450)
[2020-11-27 13:13] LABS: Device NON-INVASIVE VENT; Modified Allen's Test Pass; Site Drawn LEFT RADIAL
[2020-11-27 13:14] LABS: Non-Invasive Expiratory Pressure 6 CMH2O; Non-Invasive Inspiratory Pressure 12 CMH2O; Non-Invasive Vent Rate 12 /MIN
--- NOTE | 2020-11-27 14:52 | P.PNIM_ITS ---
Progress Note: A&P Assessment and Plan (1) Acute UTI: Code(s): N39.0 - Urinary tract infection, site not specified Status: Acute Assessment and Plan: * PATIENT STARTED ON ROCEPHIN in ed * E. Coli (ESBL) found in cultures * deescalate antibiotics when possible * Change antibiotics to imipenem 500mg Q6hr IV from sensitivities * SUPPORTIVE CARE (2) Chronic indwelling Cheung catheter: Code(s): Z97.8 - Presence of other specified devices Status: Acute Assessment and Plan: * CONTINUE CATHETER CARE * Desiree care q2hr (3) CIELO (acute kidney injury): Code(s): N17.9 - Acute kidney failure, unspecified Status: Acute Assessment and Plan: * BUN creatinine 52/1.30 * one dose of lasix 40mg IV * DC'd fluids * trend labs * labs in a.m. (4) Paroxysmal atrial flutter: Onset Date: Unknown Code(s): I48.92 - Unspecified atrial flutter Status: Chronic Assessment and Plan: * EKG shows ST * Patient went into afib rate of 170 overnight * 5mg IV Lopressor x 1 and 12.5mg PO Lopressor Q12 * Repeat EKG showed Afib rate of 200 * 5mg IV lopressor, amiodarone bolus given * IMU transfer * Telemonitor (5) Diastolic dysfunction without heart failure: Code(s): I51.89 - Other ill-defined heart diseases Status: Acute Assessment and Plan: * BNP 4420 * 2+ pitting edema in the bilateral lower extremities * NA is 131, creatnine is a bit elevated but trending down * CONTINUE TO MONITOR DAILY INTAKE AND OUTPUT * trend labs * labs in the am (6) Decubitus ulcer: Onset Date: Unknown Qualifiers: Pressure injury location: buttock Pressure injury stage: unspecified pressure injury stage Laterality: unspecified laterality Qualified Code(s): L89.309 - Pressure ulcer of unspecified buttock, unspecified stage Code(s): L89.90 - Pressure ulcer of unspecified site, unspecified stage Status: Chronic Assessment and Plan: * paraplegic at baseline * Refuses to get up to chair most days * AROUND THE CLOCK TURNING SCHEDULE * LOCAL CARE * Wound culture found E coli * Other wound cultures found staphylococcus aureus * Ceftriaxone 1gm changed to imipenem 300 mg IV * Vancomycin added per pharmacy * Will change antibiotics when sensitivities come back * Wound care consult * Dressing orders (7) Sepsis: Qualifiers: Sepsis acute organ dysfunction status: without acute organ dysfunction Sepsis type: sepsis due to unspecified organism Qualified Code(s): A41.9 - Sepsis, unspecified organism Code(s): A41.9 - Sepsis, unspecified organism Status: Acute Assessment and Plan: * white blood cell count upon admission was 23.5 * vital signs on 11/25/2020 show temperature of 36.1? C, heart rate 94, respiratory rate 18, and blood pressure 93/43 with a saturation 93% * source of infections include multiple wound sites, chronic urinary catheter * urine culture came up with E coli ESBL blood culture came back with E coli as well wound cultures staph aureus * lactate was 1.1 * BUN and creatinine was 52 and 1.3 * patient started on ceftriaxone which was changed to imipenem 300 mg IV q.6 Vancomycin added * trend labs * trend vital signs (8) COPD exacerbation: Code(s): J44.1 - Chronic obstructive pulmonary disease with (acute) exacerbation
--- NOTE | 2020-11-27 14:52 | PM.IMPN ---
Progress Note: A&P Assessment and Plan (1) Acute UTI: Code(s): N39.0 - Urinary tract infection, site not specified Status: Acute Assessment and Plan: PATIENT STARTED ON ROCEPHIN in ed E. Coli (ESBL) found in cultures deescalate antibiotics when possible Change antibiotics to imipenem 500mg Q6hr IV from sensitivities SUPPORTIVE CARE (2) Chronic indwelling Cheung catheter: Code(s): Z97.8 - Presence of other specified devices Status: Acute Assessment and Plan: CONTINUE CATHETER CARE Desiree care q2hr (3) CIELO (acute kidney injury): Code(s): N17.9 - Acute kidney failure, unspecified Status: Acute Assessment and Plan: BUN creatinine 52/1.30 one dose of lasix 40mg IV DC'd fluids trend labs labs in a.m. (4) Paroxysmal atrial flutter: Onset Date: Unknown Code(s): I48.92 - Unspecified atrial flutter Status: Chronic Assessment and Plan: EKG shows ST Patient went into afib rate of 170 overnight 5mg IV Lopressor x 1 and 12.5mg PO Lopressor Q12 Repeat EKG showed Afib rate of 200 5mg IV lopressor, amiodarone bolus given IMU transfer Telemonitor (5) Diastolic dysfunction without heart failure: Code(s): I51.89 - Other ill-defined heart diseases Status: Acute Assessment and Plan: BNP 4420 2+ pitting edema in the bilateral lower extremities NA is 131, creatnine is a bit elevated but trending down CONTINUE TO MONITOR DAILY INTAKE AND OUTPUT trend labs labs in the am (6) Decubitus ulcer: Onset Date: Unknown Qualifiers: Pressure injury location: buttock Pressure injury stage: unspecified pressure injury stage Laterality: unspecified laterality Qualified Code(s): L89.309 - Pressure ulcer of unspecified buttock, unspecified stage Code(s): L89.90 - Pressure ulcer of unspecified site, unspecified stage Status: Chronic Assessment and Plan: paraplegic at baseline Refuses to get up to chair most days AROUND THE CLOCK TURNING SCHEDULE LOCAL CARE Wound culture found E coli Other wound cultures found staphylococcus aureus Ceftriaxone 1gm changed to imipenem 300 mg IV Vancomycin added per pharmacy Will change antibiotics when sensitivities come back Wound care consult Dressing orders (7) Sepsis: Qualifiers: Sepsis acute organ dysfunction status: without acute organ dysfunction Sepsis type: sepsis due to unspecified organism Qualified Code(s): A41.9 - Sepsis, unspecified organism Code(s): A41.9 - Sepsis, unspecified organism Status: Acute Assessment and Plan: white blood cell count upon admission was 23.5 vital signs on 11/25/2020 show temperature of 36.1? C, heart rate 94, respiratory rate 18, and blood pressure 93/43 with a saturation 93% source of infections include multiple wound sites, chronic urinary catheter urine culture came up with E coli ESBL blood culture came back with E coli as well wound cultures staph aureus lactate was 1.1 BUN and creatinine was 52 and 1.3 patient started on ceftriaxone which was changed to imipenem 300 mg IV q.6 Vancomycin added trend labs trend vital signs (8) COPD exacerbation: Code(s): J44.1 - Chronic obstructive pulmonary disease with (acute) exacerbation Status: Acute Assessment and Plan: ABG showed Acidosis patient placed on CPAP (9) Acute respiratory failure: Code(s): J96.00 - Acute respiratory failure, unspecified whether with hypoxia or hypercapnia Status: Acute Assessment and Plan: CPAP Supplemental oxygen Subjective Date/time seen: 11/27/20 07:35 Interval history: 85-year-old male with past medical history significant for paraplegic, neurogenic bladder, chronic indwelling Cheung catheter, and sacral decubitus ulcer who presented to
[2020-11-27] MEDS: AMIODARONE 360 MG/D5W 200 ML 360 MG/200 ML BAG 16.67 MG IV CONT (16:55)
[2020-11-27] MEDS: ALBUMIN HUMAN 25% 25 GM/100 ML 100 ML IVPB (21:35)
[2020-11-27] MEDS: MELATONIN 5 MG TABLET PO (21:38)
[2020-11-27] MEDS: MIRTAZAPINE SOLTAB 15 MG TAB.DISPER BY MOUTH (21:38)
[2020-11-27] MEDS: SODIUM CHLORIDE 0.9% IV 1,000 ML 100 ML IV CONT (23:05)
[2020-11-28] VITALS (17 sets, daily range): BP systolic 92–137; BP diastolic 52–71; PULSE 57–100; RESP 17–26; TEMP 36.4–36.6; O2SAT 92–100
[2020-11-28] MEDS: ALBUMIN HUMAN 25% 25 GM/100 ML 100 ML IVPB ×5 (01:09→23:23)
[2020-11-28 04:17] LABS: Alveolar/Arterial O2 Gradient 19.1 mmHg; Base Excess ABG -2.7 mEq/l (+/-2.0); Carboxyhemoglobin 0.4 % THb (0-2.0); Fractional Inspired Oxygen 22 %; HCO3 ABG 23.8 mEq/l (22.0-26.0); Methemoglobin ABG 0.4 %THb (0-1.5); Oxygen Content ABG 19.1 %vol (16.0-22.0); Oxygen Saturation ABG 94.9 % (95.0-100.0); Oxyhemoglobin 94.1 % THb (90.0-100.0); PCO2 ABG 47.9 mmHg (35.0-45.0); PO2 ABG 80.5 mmHg (80.0-100.0); PO2 FiO2 Ratio Arterial Blood 3.66 %; Reduced Hemoglobin 5.1 %THb (0-5.0); Total Hemoglobin 14.4 g/dL (12.0-18.0); pH ABG 7.314 (7.350-7.450)
[2020-11-28 04:18] LABS: Device NASAL CANNULA; Liters per Minute 0.5 LPM; Modified Allen's Test Pass; Site Drawn RIGHT RADIAL
[2020-11-28 05:55] LABS: Alanine Aminotransferase 24 U/L (4-50); Albumin Level 3.9 g/dL (3.5-5.1); Alkaline Phosphatase 131 U/L (38-126); Anion Gap 17 mmol/L (8-16); Aspartate Amino Transferase 29 U/L (17-59); Bilirubin,Total 0.4 mg/dL (0.2-1.3); Blood Urea Nitrogen 52 mg/dL (9-20); Carbon Dioxide 21 mmol/L (22-30); Chloride 99 mmol/L (98-107); Estimated CRCL calculation 46 ml/min; Estimated Glomerular Filt Rate > 60; Glucose 138 mg/dL (65-110); Magnesium 1.7 mg/dL (1.6-2.3); Potassium 4.6 mmol/L (3.4-5.0); Sodium 137 mmol/L (137-145)
[2020-11-28 06:06] LABS: Hematocrit 30.5 % (42.0-52.0); Hemoglobin 8.8 g/dL (14.0-18.0); Mean Corpuscular HGB Conc 28.9 g/dl (32-36); Mean Corpuscular Hemoglobin 22.7 pg (26-34); Mean Corpuscular Volume 78.6 fl (80-100); Mean Platelet Volume 10.6 fl (7.4-10.4); Platelet Count Result 439 k/mm3 (150-375); Red Blood Count 3.88 M/mm3 (4.6-6.20); White Blood Count 21.8 K/mm3 (4.5-10.0)
[2020-11-28] MEDS: guaiFENesin/DEXTROMETHORPHAN 10 ML UDC PO ×4 (06:30→22:42)
[2020-11-28] MEDS: MAGNESIUM SULF 2 GM/WATER 50ML 2 GM/50 ML BAG IVPB (08:18)
[2020-11-28] MEDS: TIZANIDINE HCL 2 MG TABLET PO ×2 (08:24→17:12)
[2020-11-28] MEDS: ENOXAPARIN 40 MG/0.4 ML SYRINGE SUB-Q (08:24)
[2020-11-28] MEDS: ASPIRIN 325 MG TABLET PO (08:24)
[2020-11-28] MEDS: methylPREDNISolone SOD SUCC 125 MG VIAL 60 MG IV PUSH (08:24)
[2020-11-28] MEDS: FERROUS SULFATE 324 MG TABLET PO ×2 (08:24→17:12)
[2020-11-28] MEDS: GENTAMICIN SULFATE 0.1% CR 15 GM TUBE 1 APPLIC TOPICAL (08:30)
[2020-11-28] MEDS: SILVERGEL (ELTA) 45 ML 1 APPLIC TOPICAL (08:30)
[2020-11-28] MEDS: COLLAGENASE OINT 30 GM TUBE 1 APPLIC TOPICAL (08:30)
--- NOTE | 2020-11-28 09:59 | P.CDI_ITS ---
CDI Query Clarification Request -Acute UTI, E Coli (ESBL) has been documented -Chronic indwelling rajan catheter has been documented Please clarify if the UTI is: * Due to/associated with the chronic indwelling catheter * Not due to/ associated with the chronic indwelling catheter * Unable to determine <Macy Flowers RN - Last Filed: 11/28/20 10:02> Provider Comments please send to engineer byproduct, I am not managing yesterday or today <Srinivasa Whaley DO - Last Filed: 11/29/20 09:33>
--- NOTE | 2020-11-28 09:59 | WPDCDIQUERY2 ---
CDI Query Clarification Request -Acute UTI, E Coli (ESBL) has been documented -Chronic indwelling rajan catheter has been documented Please clarify if the UTI is: Due to/associated with the chronic indwelling catheter Not due to/ associated with the chronic indwelling catheter Unable to determine <Macy Flowers RN - Last Filed: 11/28/20 10:02> Provider Comments please send to [employer] network engineer, I am not managing yesterday or today <Srinivasa Whaley DO - Last Filed: 11/29/20 09:33>
[2020-11-28] MEDS: LACTATED RINGERS 1,000 ML 50 ML IV CONT (10:29)
--- NOTE | 2020-11-28 11:00 | PCFNICU ---
ICU Rounding Note: Patient reports feeling better today. Taking 90-100% of meals on heart healthy diet with Bj BID. Reports liking the Bj supplement in fruit punch flavor and says the food has been good. Last recorded weight is 85.2kg. Recommend obtaining new weight. Bowel Motility: Last documented BM on 11/26/20 x 1. 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 Sacral deep tissue ulcer. Right foot diabetic ulcer. Scrotal skin folds macerated. Following daily in ICU rounds. Assessing/reassessing every 3 days.
--- NOTE | 2020-11-28 11:08 | WPDINTPN ---
Progress Note: A&P Assessment and Plan (1) Atrial fibrillation with rapid ventricular response: Code(s): I48.91 - Unspecified atrial fibrillation Status: Acute Assessment and Plan: Converted to normal sinus rhythm overnight. Patient was on amiodarone infusion which was discontinued as patient is bradycardic Currently in normal sinus rhythm heart rate in 70s Monitor Continue aspirin patient is not on anticoagulation at baseline (2) Acute respiratory failure: Code(s): J96.00 - Acute respiratory failure, unspecified whether with hypoxia or hypercapnia Status: Acute Assessment and Plan: patient appears in respiratory distress ABG shows hypoxia and mixed acidosis with hypercarbia appears to be in acute exacerbation of COPD BiPAP has been weaned off will use p.r.n. as needed Continue short course of Solu-Medrol bronchodilators patient is already on broad-spectrum antibiotics for his sepsis (3) COPD exacerbation: Code(s): J44.1 - Chronic obstructive pulmonary disease with (acute) exacerbation Status: Acute Assessment and Plan: see above (4) Acute UTI: Code(s): N39.0 - Urinary tract infection, site not specified Status: Acute Assessment and Plan: PATIENT STARTED ON ROCEPHIN in ed E. Coli (ESBL) found in cultures patient is currently on imipenem 500mg Q6hr IV (5) Chronic indwelling Cheung catheter: Code(s): Z97.8 - Presence of other specified devices Status: Acute Assessment and Plan: CONTINUE CATHETER CARE Desiree care q2hr (6) CIELO (acute kidney injury): Code(s): N17.9 - Acute kidney failure, unspecified Status: Acute Assessment and Plan: BUN creatinine 57/1.40 on presentation and was given fluids Creatinine improved to 1.1 today Off Lasix and on cautious IV fluid monitor urine output and electrolytes (7) Diastolic dysfunction without heart failure: Code(s): I51.89 - Other ill-defined heart diseases Status: Acute Assessment and Plan: BNP 4420 2+ pitting edema in the bilateral lower extremities Lasix IV was given earlier yesterday but due to hypotension patient had to be given fluids (8) Decubitus ulcer: Onset Date: Unknown Qualifiers: Pressure injury location: buttock Pressure injury stage: unspecified pressure injury stage Laterality: unspecified laterality Qualified Code(s): L89.309 - Pressure ulcer of unspecified buttock, unspecified stage Code(s): L89.90 - Pressure ulcer of unspecified site, unspecified stage Status: Chronic Assessment and Plan: paraplegic at baseline and Refuses to get up to chair most days patient evaluated by wound care Wound culture growing MRSA Patient is on vancomycin and imipenem 300 (9) Sepsis: Qualifiers: Sepsis acute organ dysfunction status: without acute organ dysfunction Sepsis type: sepsis due to unspecified organism Qualified Code(s): A41.9 - Sepsis, unspecified organism Code(s): A41.9 - Sepsis, unspecified organism Status: Acute Assessment and Plan: secondary to bacteremia with E coli which is secondary to UTI along with staph aureus in wound vancomycin and imipenem local wound care Cautious IV for (10) Shock: Code(s): R57.9 - Shock, unspecified Status: Acute Assessment and Plan: Patient became hypotensive after given Lasix yesterday Patient was given IV fluid bolus and started on Mike-Synephrine infusion Patient is now on a very small rate and and will be weaned off. Continue to monitor I spoke to patient regarding central venous catheter. He does not want a central venous catheter at this time. He states that he does not want any aggressive or invasive procedure. I explained him and he verbalized understanding of risks of using vasopressors to peripheral IV and states that he is fine with
[2020-11-28] MEDS: MIRTAZAPINE SOLTAB 15 MG TAB.DISPER BY MOUTH (20:34)
[2020-11-28] MEDS: MELATONIN 5 MG TABLET PO (20:37)
[2020-11-29] VITALS (16 sets, daily range): BP systolic 100–155; BP diastolic 56–92; PULSE 78–110; RESP 14–27; TEMP 35.7–36.5; O2SAT 91–100
[2020-11-29 04:49] LABS: Hematocrit 27.3 % (42.0-52.0); Hemoglobin 7.7 g/dL (14.0-18.0); Mean Corpuscular HGB Conc 28.2 g/dl (32-36); Mean Corpuscular Hemoglobin 23.2 pg (26-34); Mean Corpuscular Volume 82.2 fl (80-100); Mean Platelet Volume 10.9 fl (7.4-10.4); Platelet Count Result 240 k/mm3 (150-375); Red Blood Count 3.32 M/mm3 (4.6-6.20); Red Cell Distribution Width 20.3 % (11.5-14.5); White Blood Count 15.8 K/mm3 (4.5-10.0)
[2020-11-29 05:00] LABS: Alanine Aminotransferase 18 U/L (4-50); Albumin Level 4.2 g/dL (3.5-5.1); Alkaline Phosphatase 103 U/L (38-126); Anion Gap 13 mmol/L (8-16); Aspartate Amino Transferase 25 U/L (17-59); Bilirubin,Total 0.2 mg/dL (0.2-1.3); Blood Urea Nitrogen 57 mg/dL (9-20); Calcium 9.2 mg/dL (8.4-10.2); Carbon Dioxide 22 mmol/L (22-30); Chloride 100 mmol/L (98-107); Estimated CRCL calculation 62 ml/min; Estimated Glomerular Filt Rate > 60; Glucose 135 mg/dL (65-110); Potassium 4.6 mmol/L (3.4-5.0); Sodium 135 mmol/L (137-145)
[2020-11-29] MEDS: ALBUMIN HUMAN 25% 25 GM/100 ML 100 ML IVPB (05:55)
[2020-11-29] MEDS: COLLAGENASE OINT 30 GM TUBE 1 APPLIC TOPICAL (08:14)
[2020-11-29] MEDS: SILVERGEL (ELTA) 45 ML 1 APPLIC TOPICAL (08:14)
[2020-11-29] MEDS: GENTAMICIN SULFATE 0.1% CR 15 GM TUBE 1 APPLIC TOPICAL (08:14)
[2020-11-29] MEDS: TIZANIDINE HCL 2 MG TABLET PO ×2 (08:14→17:44)
[2020-11-29] MEDS: FERROUS SULFATE 324 MG TABLET PO ×2 (08:14→17:44)
[2020-11-29] MEDS: ASPIRIN 325 MG TABLET PO (08:14)
[2020-11-29] MEDS: ENOXAPARIN 40 MG/0.4 ML SYRINGE SUB-Q (08:14)
[2020-11-29] MEDS: methylPREDNISolone SOD SUCC 125 MG VIAL 60 MG IV PUSH (08:17)
[2020-11-29] MEDS: FUROSEMIDE INJ 40 MG/4 ML VIAL IV PUSH (08:25)
--- NOTE | 2020-11-29 08:25 | WPDINTPN ---
Progress Note: A&P Assessment and Plan (1) Septic shock: Code(s): A41.9 - Sepsis, unspecified organism; R65.21 - Severe sepsis with septic shock Status: Acute Assessment and Plan: Patient was transferred from the medical floor for being hypotensive, tachycardia with AFib RVR - started on vasopressors in the ICU but has been off since the morning of 11/28/2020 -likely due to ESBL E coli in urine, MRSA in decubitus ulcer -continue imipenem and vancomycin - Dr Childress spoke to the patient regarding central venous catheter. He does not want a central venous catheter at this time. He states that he does not want any aggressive or invasive procedure. He explained to him and the pt verbalized understanding of risks of using vasopressors thru peripheral IV and states that he is fine with it. (2) Atrial fibrillation with rapid ventricular response: Code(s): I48.91 - Unspecified atrial fibrillation Status: Acute Assessment and Plan: Converted to normal sinus rhythm overnight. Patient was on amiodarone infusion which was discontinued as patient is bradycardic Currently in normal sinus rhythm heart rate in 90s Monitor Continue aspirin patient is not on anticoagulation at baseline -cardiology following the patient (3) Acute respiratory failure: Code(s): J96.00 - Acute respiratory failure, unspecified whether with hypoxia or hypercapnia Status: Acute Assessment and Plan: Upon admission to the ICU pt was in respiratory distress ABG shows hypoxia and mixed acidosis with hypercarbia appears to be in acute exacerbation of COPD BiPAP has been weaned off will use p.r.n. as needed Continue short course of Solu-Medrol patient is already on broad-spectrum antibiotics for his sepsis -patient had shortness of breath this morning, likely due to pulmonary edema, will diurese place patient on BiPAP (4) COPD exacerbation: Code(s): J44.1 - Chronic obstructive pulmonary disease with (acute) exacerbation Status: Acute Assessment and Plan: Continue Solu-Medrol, antibiotics, add bronchodilators (5) Acute UTI: Code(s): N39.0 - Urinary tract infection, site not specified Status: Acute Assessment and Plan: PATIENT STARTED ON ROCEPHIN in ed E. Coli (ESBL) found in cultures patient is currently on imipenem 500mg Q6hr IV (6) Chronic indwelling Cheung catheter: Code(s): Z97.8 - Presence of other specified devices Status: Acute Assessment and Plan: CONTINUE CATHETER CARE Desiree care q2hr (7) CIELO (acute kidney injury): Code(s): N17.9 - Acute kidney failure, unspecified Status: Acute Assessment and Plan: BUN creatinine 57/1.40 on presentation and was given fluids Creatinine improved to 0.8 today Off IV fluids monitor urine output and electrolytes (8) Diastolic dysfunction without heart failure: Code(s): I51.89 - Other ill-defined heart diseases Status: Acute Assessment and Plan: BNP 4420 2+ pitting edema in the bilateral lower extremities Given Lasix this morning (9) Decubitus ulcer: Onset Date: Unknown Qualifiers: Laterality: unspecified laterality Pressure injury location: buttock Pressure injury stage: unspecified pressure injury stage Qualified Code(s): L89.309 - Pressure ulcer of unspecified buttock, unspecified stage Code(s): L89.90 - Pressure ulcer of unspecified site, unspecified stage Status: Chronic Assessment and Plan: paraplegic at baseline and Refuses to get up to chair most days patient evaluated by wound care Wound culture growing MRSA Patient is on vancomycin and imipenem Additional Plan DVT prophylaxis - SC lovenox Nutrition -heart healthy diet Code Status - patient is DNR and DNI which I confirmed with patient Total Critical Care Time - 32 minutes Due to a high probability of clinically significant, life
--- NOTE | 2020-11-29 11:13 | PCDIET ---
ICU Rounding Note: Patient has been on bipap this morning. Consumed around 60% of recorded meals on 11/29/20 with Bj BID. Continues on heart healthy diet. Last recorded weight is 87.1kg which is increased from last review. Bowel Motility: +BM today x 1. Labs Reviewed: WBC (15.8), RBC (3.32), Hgb (7.7), Hct (27.3), Glu (135), BUN (57), Na (135) Meds Noted: Ferrous Sulfate, Imipenem, Solu Medrol, Remeron, Vancomycin, Lasix Additional Notes: No change in skin reported; patient with multiple wounds. Following daily in ICU rounds. Assessing/reassessing every 3 days.
--- NOTE | 2020-11-29 13:11 | PM.PNCARD ---
Progress Note: A&P Additional Plan 85-year-old man with: Paroxysmal atrial fib in the setting of stress of hemodynamic septic shock. The patient is back in sinus rhythm after being given amiodarone intravenously yesterday. Will observe him with you and if no arrhythmias recur we will not initiate long-term antiarrhythmic therapy in this setting. Jian Sanford MD [facility] Subjective Date/time seen: Date of service: 11/29/20 13:11 Interval history: Follow-up visit in this 85-year-old man with: Paroxysmal atrial fibrillation occurring in the setting of sepsis with hypotension and septic shock. This was corrected/restored to sinus rhythm with amiodarone. The IV infusion has been stopped he is now hemodynamically improving with antibiotics. Patient has both large sacral decubitus as well urosepsis as etiology of this. He is resting comfortably in ICU 11 appears to be in no distress today. Exam Const: General: comfortable and no acute distress Other: Chronically ill-appearing elderly man offers no complaints very weak in appearance HENMT: Mouth: Yes dry mucous membranes Eyes: Sclera: sclerae normal Pupils: Equal, round and reactive pupils present Neck: Neck: supple and no JVD Thyroid: thyroid normal Resp: Effort & Inspection: normal respiratory effort Cardio: Rate: regular rate Rhythm: regular rhythm GI: GI Palp: Yes Soft to palpation Auscultation: normal bowel sounds Skin: General skin exam: normal color Extrem: General: normal to inspection Objective Data Vital Signs Vital Signs: Vital Signs - 24 hr 11/28/20 14:00 11/28/20 16:00 11/28/20 18:00 Temperature 36.5 C Pulse Rate 80 100 99 Respiratory Rate 22 H 22 H 24 H Blood Pressure 117/65 126/64 137/68 Pulse Oximetry 98 98 95 11/28/20 20:00 11/28/20 22:00 11/29/20 00:00 Temperature 36.5 C 36.2 C L Pulse Rate 85 88 83 Respiratory Rate 21 H 19 16 Blood Pressure 112/68 121/71 117/66 Pulse Oximetry 96 96 99 11/29/20 01:16 11/29/20 02:00 11/29/20 04:00 Temperature 36.3 C L Pulse Rate 90 86 78 Respiratory Rate 19 16 14 Blood Pressure 120/69 117/70 Pulse Oximetry 96 100 97 11/29/20 06:00 11/29/20 08:00 11/29/20 08:02 Temperature 36.5 C Pulse Rate 90 110 H Respiratory Rate 22 H 27 H Blood Pressure 132/74 155/82 H Pulse Oximetry 98 91 91 11/29/20 10:00 11/29/20 12:00 Temperature 35.7 C L Pulse Rate 79 84 Respiratory Rate 17 20 Blood Pressure 120/56 L 122/78 Pulse Oximetry 94 100 Intake/Output Intake/Output: Intake & Output 11/26/20 11/27/20 11/28/20 11/29/20 23:59 23:59 23:59 23:59 Intake Total 1600 2303 3984.9 1404 Output Total 1999 1200 2275 2950 Balance -400 1103 1709.9 -1546 Meds/Results Medications: Active Medications Generic Name Dose Route Start Last Admin Trade Name Freq PRN Reason Stop Dose Admin Acetaminophen 1,000 mg 11/25/20 12:54 11/27/20 06:52 Acetaminophen 500 Mg Tablet PO 1,000 mg Q6H PRN Administration Pain Rated 1-3 Aspirin 325 mg 11/28/20 08:00 11/29/20 08:14 Aspirin 325 Mg Tablet PO 325 mg DAILY@0800 KEMI Administration Bisacodyl 10 mg 11/24/20 23:44 Bisacodyl 10 Mg Suppository RECTAL DAILY PRN Constipation Collagenase 1 applic 11/26/20 09:00 11/29/20 08:14 Collagenase Oint 30 Gm Tube TOPICAL 1 applic QAM KEMI Administration Enoxaparin Sodium 40 mg 11/26/20 09:00 11/29/20 08:14 Enoxaparin 40 Mg/0.4 Ml Syringe SUB-Q 40 mg DAILY KEMI Administration Ferrous Sulfate 324 mg 11/25/20 08:00 11/29/20 08:14 Ferrous Sulfate 324 Mg Tablet PO 324 mg BIDWM KEMI Administration Gentamicin Sulfate 1 applic 11/25/20 09:00 11/29/20 08:14 Gentamicin Sulfate 0.1% Cr 15 Gm Tube TOPICAL 1 applic DAILY KEMI Administration Guaifenesin/Dextromethorphan 10 ml 11/26/20 00:54 11/28/20 22:42 Guaifenesin/Dextromethorphan 10 Ml Udc PO 10 ml Q4H PRN Administration Cough Imipenem/Cilastatin Sodium 300
[2020-11-29] MEDS: MELATONIN 5 MG TABLET PO (20:09)
[2020-11-29] MEDS: MIRTAZAPINE SOLTAB 15 MG TAB.DISPER BY MOUTH (20:10)
[2020-11-29] MEDS: LEVALBUTEROL NEB 1.25 MG/3 ML 0.63 MG INHALATION (20:33)
[2020-11-29] MEDS: IPRATROPIUM BR 0.02% INH SOLN 0.5 MG/2.5 ML VIAL INHALATION (20:33)
[2020-11-29] MEDS: guaiFENesin/DEXTROMETHORPHAN 10 ML UDC PO (22:15)
--- NOTE | 2020-11-29 22:38 | PC.NURSE ---
This patient, Wander Prescott, was transferred to [241 ] on 11/29/20 at 2230. Personal belongings sent with patient. Report given to [ Terrie ADAMSON]. Appropriate documentation sent with patient.
--- NOTE | 2020-11-29 22:48 | PC.NURSE ---
GenieWander was transferred from ICU to room 241 at 22:49.
[2020-11-30] VITALS (17 sets, daily range): BP systolic 116–135; BP diastolic 50–74; PULSE 78–94; RESP 18–22; TEMP 36.2–36.8; O2SAT 91–100
[2020-11-30] MEDS: IPRATROPIUM BR 0.02% INH SOLN 0.5 MG/2.5 ML VIAL INHALATION ×4 (03:31→21:24)
[2020-11-30] MEDS: LEVALBUTEROL NEB 1.25 MG/3 ML 0.63 MG INHALATION ×4 (03:32→21:25)
[2020-11-30] MEDS: guaiFENesin/DEXTROMETHORPHAN 10 ML UDC PO ×4 (03:40→23:24)
[2020-11-30 04:31] LABS: Alanine Aminotransferase 16 U/L (4-50); Albumin Level 4.2 g/dL (3.5-5.1); Alkaline Phosphatase 92 U/L (38-126); Anion Gap 12 mmol/L (8-16); Aspartate Amino Transferase 21 U/L (17-59); Bilirubin,Total 0.4 mg/dL (0.2-1.3); Blood Urea Nitrogen 58 mg/dL (9-20); Calcium 9.6 mg/dL (8.4-10.2); Carbon Dioxide 24 mmol/L (22-30); Chloride 104 mmol/L (98-107); Estimated CRCL calculation 62 ml/min; Estimated Glomerular Filt Rate > 60; Glucose 155 mg/dL (65-110); Magnesium 1.7 mg/dL (1.6-2.3); Potassium 4.3 mmol/L (3.4-5.0); Sodium 140 mmol/L (137-145)
--- NOTE | 2020-11-30 04:33 | PCRCNOTE ---
Pt refuses a.m. ABG. Nurse notified.
[2020-11-30 04:40] LABS: Vancomycin Trough 17.2 ug/mL (10.0-20.0)
[2020-11-30] MEDS: ASPIRIN 325 MG TABLET PO (07:55)
[2020-11-30] MEDS: FERROUS SULFATE 324 MG TABLET PO ×2 (07:55→17:14)
[2020-11-30] MEDS: ENOXAPARIN 40 MG/0.4 ML SYRINGE SUB-Q (07:56)
[2020-11-30] MEDS: methylPREDNISolone SOD SUCC 125 MG VIAL 60 MG IV PUSH (07:56)
[2020-11-30] MEDS: TIZANIDINE HCL 2 MG TABLET PO ×2 (07:57→17:14)
[2020-11-30] MEDS: GENTAMICIN SULFATE 0.1% CR 15 GM TUBE 1 APPLIC TOPICAL (07:59)
[2020-11-30] MEDS: SILVERGEL (ELTA) 45 ML 1 APPLIC TOPICAL (07:59)
[2020-11-30] MEDS: COLLAGENASE OINT 30 GM TUBE 1 APPLIC TOPICAL (07:59)
--- NOTE | 2020-11-30 08:22 | PM.PNCARD ---
Progress Note: A&P Assessment and Plan (1) Atrial fibrillation with rapid ventricular response: Code(s): I48.91 - Unspecified atrial fibrillation Status: Acute Assessment and Plan: Paroxysmal atrial fib in the setting of stress of hemodynamic septic shock. He was given IV amiodarone and subsequently converted to sinus rhythm. He remains in normal sinus rhythm today. We will continue to monitor his rhythm during this hospitalization. Subjective Date/time seen: 11/30/20 08:22 Cardiology follow up for atrial fibrillation Interval history: Follow-up visit in this 85-year-old man with: Paroxysmal atrial fibrillation occurring in the setting of sepsis with hypotension and septic shock. This was corrected/restored to sinus rhythm with amiodarone. The IV infusion has been stopped he is now hemodynamically improving with antibiotics. Patient has both large sacral decubitus as well urosepsis as etiology of this. He is resting comfortably in ICU 11 appears to be in no distress today. Date of service 11/30/2020: He is resting comfortably in bed this morning. He is complaining of not being able to get any sleep last night. He denies any palpitations, shortness of breath. Breathing comfortably on 2 L oxygen per nasal cannula. Review of Systems Constitutional: Constitutional: Reports difficulty sleeping, Reports fatigue and Reports weakness Eyes: Eyes: Denies blurry vision and Denies change in vision ENT: Reports Normal hearing present Cardiovascular: Cardiovascular: Denies chest pain, Reports pedal edema and Denies palpitations Respiratory: Respiratory: Denies cough, Denies dyspnea and Denies dyspnea on exertion Gastrointestinal: Gastrointestinal: Denies abdominal pain, Denies nausea and Denies vomiting Genitourinary: Genitourinary: Denies hematuria Integumentary/Breasts: Skin/Breast: Reports wounds Neurologic: Denies confusion Psychiatric: Psychiatric: Denies confusion and Denies depression Endocrine: Endocrine: Denies excessive sweating, Reports fatigue and Denies palpitations Hematologic/Lymphatic: Hematologic/Lymphatic: Denies easy bleeding and Denies easy bruising Exam Const: General: comfortable and no acute distress HENMT: Head: normal to inspection Mouth: Yes dry mucous membranes Eyes: Sclera: sclerae normal Pupils: Equal, round and reactive pupils present Neck: Neck: supple and no JVD Resp: Effort & Inspection: normal respiratory effort Auscultation: wheezes expiratory wheezes Cardio: Rate: regular rate Rhythm: regular rhythm Heart sounds: no murmurs GI: GI Palp: Yes Soft to palpation Auscultation: normal bowel sounds Skin: General skin exam: normal color Wounds: wounds noted Other: Sacral decubitus ulcer Neuro: Cranial nerves: Yes Equal, round and reactive pupils present Cognition (Neuro): normal cognition Speech: normal speech Extrem: General: normal to inspection and edema bilateral Psych: Mental Status: mental status grossly normal Affect: normal affect Objective Data Vital Signs Vital Signs: Vital Signs - 24 hr 11/29/20 10:00 11/29/20 12:00 11/29/20 16:00 Temperature 35.7 C L 36.4 C L Pulse Rate 79 84 92 Respiratory Rate 17 20 22 H Blood Pressure 120/56 L 122/78 151/73 H Pulse Oximetry 94 100 100 11/29/20 20:00 11/29/20 20:33 11/29/20 20:35 Temperature 36.0 C L Pulse Rate 96 91 91 Respiratory Rate 21 H 17 17 Blood Pressure 127/92 H Pulse Oximetry 94 94 11/29/20 20:43 11/29/20 22:26 11/29/20 22:44 Temperature 36.1 C L Pulse Rate 87 90 88 Respiratory Rate 16 20 Blood Pressure 100/76 Pulse Oximetry 92 11/30/20 00:00 11/30/20 03:48 11/30/20 04:00 Temperature Pulse Rate 80 93 89 Respiratory Rate 20 Blood Pressure Pulse Oximetry 11/30/20 07:31 Temperature 36.2 C L Pulse Rate 84 Respiratory Rate 22 H Blood Pressure 116/50 L Pulse Oximetry 100 Intake/Output Intake/Output: Intake & Output
--- NOTE | 2020-11-30 09:23 | PM.IMPN ---
Progress Note: A&P Assessment and Plan (1) Septic shock: Code(s): A41.9 - Sepsis, unspecified organism; R65.21 - Severe sepsis with septic shock Status: Acute Assessment and Plan: -secondary to ESBL UTI and MRSA decubitus ulcers -antibiotics vancomycin for ulcers, imipenem for UTI -shock resolved moved out of ICU yesterday evening (2) Atrial fibrillation with rapid ventricular response: Code(s): I48.91 - Unspecified atrial fibrillation Status: Acute Assessment and Plan: cardiology was consulted, no recommendations for rate control medications as he converted to normal sinus and etiology was AFib was likely from infection which we are treating (3) COPD exacerbation: Code(s): J44.1 - Chronic obstructive pulmonary disease with (acute) exacerbation Status: Acute Assessment and Plan: - 60 mg daily Solu-Medrol plan to continue to the , then reconsider for weaning - DuoNebs breathing treatments q.6 hours scheduled - BiPAP p.r.n. (4) Acute respiratory failure: Code(s): J96.00 - Acute respiratory failure, unspecified whether with hypoxia or hypercapnia Status: Acute Assessment and Plan: secondary to COPD exacerbation, no home oxygen (5) MRSA (methicillin resistant Staphylococcus aureus) infection: Code(s): A49.02 - Methicillin resistant Staphylococcus aureus infection, unspecified site Status: Acute Assessment and Plan: From decubitus ulcers present on admission, continue vancomycin. (6) Infection due to ESBL-producing Escherichia coli: Code(s): A49.8 - Other bacterial infections of unspecified site; Z16.12 - Extended spectrum beta lactamase (ESBL) resistance Status: Acute Assessment and Plan: as above, on imipenem Additional Plan Diet:heart healthy DVT prophylaxis: Lovenox Code status: do not resuscitate, pressors were given peripherally Disposition: Pending clinical course Time Spent With Patient Time with patient: 25 - 35 minutes Subjective Date/time seen: 11/30/20 09:23 patient seen examined. He appears to be doing much better today thinner last couple days. He was temporarily on vasopressors from ESBL E coli UTI and MRSA decubitus on imipenem and vancomycin. He had been on atrial fibrillation thought to be secondary to sepsis, now currently converted to normal sinus rhythm. Cardiology did not recommend long-term rate control medications. Of note is also getting Solu-Medrol for COPD. 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 Review of Systems Review of Systems: All systems reviewed & are unremarkable except as noted in HPI and below Exam Narrative: - GENERAL: No acute distress. Well-nourished. supplemental oxygen - EYES: EOMI. Anicteric. - HENT: no pharyngeal erythema - LUNGS: coarse lung sounds, diminished lung bases, expiratory wheezes - CARDIOVASCULAR: Regular rate and rhythm. No murmur. - ABDOMEN: Soft, non-tender and non-distended. No palpable masses. - EXTREMITIES: trace edema. Paraplegic from waist down. - NEUROLOGIC: No focal neurological deficits. CN II-XII grossly intact. - PSYCHIATRIC: Awake, Alert and oriented. Appropriate mood and affect. - SKIN: No rashes or lesions. Warm. decubitus ulcers heels and sacrum which are dressed Objective Data Vital Signs Vital Signs: Vital Signs - 24 hr 11/29/20 10:00 11/29/20 12:00 11/29/20 16:00 Temperature 35.7 C L 36.4 C L Pulse Rate 79 84 92 Respiratory Rate 17 20 22 H Blood Pressure 120/56 L 122/78 151/73 H Pulse Oximetry 94 100 100 11/29/20 20:00 11/29/20 20:33 11/29/20 20:35 Temperature 36.0 C L Pulse Rate 96 91 91 Respiratory Rate 21 H 17 17 Blood Pressure 127/92 H Pulse Oximetry 94 94 11/29/20 20:43 11/29/20 22:26 11/29/20 22:44 Temperature 36.1 C L Pulse Rate 87 90 88 Respiratory Rate 16 20 Blood Pressure 100/76
[2020-11-30 13:49] LABS: Hematocrit 29.6 % (42.0-52.0); Hemoglobin 8.5 g/dL (14.0-18.0); Mean Corpuscular HGB Conc 28.7 g/dl (32-36); Mean Corpuscular Hemoglobin 22.6 pg (26-34); Mean Corpuscular Volume 78.7 fl (80-100); Mean Platelet Volume 10.3 fl (7.4-10.4); Platelet Count Result 409 k/mm3 (150-375); Red Blood Count 3.76 M/mm3 (4.6-6.20)
[2020-11-30] MEDS: MELATONIN 5 MG TABLET PO (21:39)
[2020-11-30] MEDS: MIRTAZAPINE SOLTAB 15 MG TAB.DISPER BY MOUTH (21:39)
[2020-12-01] VITALS (18 sets, daily range): BP systolic 133–150; BP diastolic 62–65; PULSE 73–91; RESP 16–20; TEMP 36.2–36.4; O2SAT 94–98
[2020-12-01] MEDS: LEVALBUTEROL NEB 1.25 MG/3 ML 0.63 MG INHALATION ×4 (03:00→20:03)
[2020-12-01] MEDS: IPRATROPIUM BR 0.02% INH SOLN 0.5 MG/2.5 ML VIAL INHALATION ×4 (03:00→20:03)
--- NOTE | 2020-12-01 07:11 | PCRCNOTE ---
patient continues to refuse use of NIV; also, patient refused abg; RN aware and stated that she would have the abg's cancelled
[2020-12-01 07:51] LABS: Hematocrit 27.9 % (42.0-52.0); Hemoglobin 8.2 g/dL (14.0-18.0); Mean Corpuscular HGB Conc 29.4 g/dl (32-36); Mean Corpuscular Hemoglobin 22.5 pg (26-34); Mean Corpuscular Volume 76.6 fl (80-100); Mean Platelet Volume 10.2 fl (7.4-10.4); Platelet Count Result 453 k/mm3 (150-375); Red Blood Count 3.64 M/mm3 (4.6-6.20); Red Cell Distribution Width 19.9 % (11.5-14.5); White Blood Count 17.3 K/mm3 (4.5-10.0)
[2020-12-01 08:02] LABS: Alanine Aminotransferase 13 U/L (4-50); Albumin Level 3.7 g/dL (3.5-5.1); Alkaline Phosphatase 78 U/L (38-126); Anion Gap 6 mmol/L (8-16); Aspartate Amino Transferase 16 U/L (17-59); Bilirubin,Total 0.4 mg/dL (0.2-1.3); Blood Urea Nitrogen 50 mg/dL (9-20); Calcium 9.4 mg/dL (8.4-10.2); Carbon Dioxide 32 mmol/L (22-30); Chloride 101 mmol/L (98-107); Estimated CRCL calculation 62 ml/min; Estimated Glomerular Filt Rate > 60; Glucose 146 mg/dL (65-110); Magnesium 1.5 mg/dL (1.6-2.3); Potassium 4.2 mmol/L (3.4-5.0); Sodium 139 mmol/L (137-145)
[2020-12-01 08:48] LABS: Vancomycin Trough 16.8 ug/mL (10.0-20.0)
--- NOTE | 2020-12-01 09:04 | ECG_ITS ---
Measurements Intervals [place] Rate: 95 P: 38 ND: 161 QRS: 267 QRSD: 155 T: 58 QT: 393 QTc: 496 Interpretive Statements SINUS RHYTHM RIGHT AXIS DEVIATION RIGHT BUNDLE BRANCH BLOCK ABNORMAL ECG Electronically Signed On 12-01-2020 10:01:55 CDT by Rodri Wilcox D.O.
[2020-12-01] MEDS: ENOXAPARIN 40 MG/0.4 ML SYRINGE SUB-Q (09:30)
[2020-12-01] MEDS: GENTAMICIN SULFATE 0.1% CR 15 GM TUBE 1 APPLIC TOPICAL (09:30)
[2020-12-01] MEDS: COLLAGENASE OINT 30 GM TUBE 1 APPLIC TOPICAL (09:30)
[2020-12-01] MEDS: methylPREDNISolone SOD SUCC 125 MG VIAL 60 MG IV PUSH (09:30)
[2020-12-01] MEDS: ASPIRIN 325 MG TABLET PO (09:30)
[2020-12-01] MEDS: FERROUS SULFATE 324 MG TABLET PO ×2 (09:30→17:12)
[2020-12-01] MEDS: SILVERGEL (ELTA) 45 ML 1 APPLIC TOPICAL (09:31)
[2020-12-01] MEDS: TIZANIDINE HCL 2 MG TABLET PO ×2 (09:31→17:12)
--- NOTE | 2020-12-01 09:38 | PC.NURSE ---
call to pharm for vanco dose due after trough result
--- NOTE | 2020-12-01 09:38 | PM.PNCARD ---
Progress Note: A&P Assessment and Plan (1) Atrial fibrillation with rapid ventricular response: Code(s): I48.91 - Unspecified atrial fibrillation Status: Acute Assessment and Plan: Paroxysmal atrial fib in the setting of stress of hemodynamic septic shock. He was given IV amiodarone and subsequently converted to sinus rhythm. On telemetry last night he had two episodes AFib with RVR with a rate in the 120s. low-dose IV metoprolol was ordered p.r.n. but it does not look like this was given and he converted back to sinus rhythm spontaneously. He remains in sinus rhythm today. We will continue to monitor his rhythm during this hospitalization - If he reverts back to a sustained tachyarrhythmia we will initiate anti arrhythmic therapy. Subjective Date/time seen: 12/01/20 09:38 Interval history: Follow-up visit in this 85-year-old man with: Paroxysmal atrial fibrillation occurring in the setting of sepsis with hypotension and septic shock. This was corrected/restored to sinus rhythm with amiodarone. The IV infusion has been stopped he is now hemodynamically improving with antibiotics. Patient has both large sacral decubitus as well urosepsis as etiology of this. He is resting comfortably in ICU 11 appears to be in no distress today. Date of service 11/30/2020: He is resting comfortably in bed this morning. He is complaining of not being able to get any sleep last night. He denies any palpitations, shortness of breath. Breathing comfortably on 2 L oxygen per nasal cannula. Date of service 12/01/2020: Overnight he had to episodes of AFib with RVR with a rate in the 120s. Currently, he is in normal sinus rhythm with a rate in the 90s. He denies having any awareness of tachycardia last night as this occurred around midnight and he was probably sleeping. Today, he denies any palpitations, chest pain, shortness of breath. Review of Systems Review of Systems: ROS unobtainable: Yes unobtainable due to medical condition Constitutional: Constitutional: Reports difficulty sleeping, Denies excessive sweating, Reports fatigue and Reports weakness Eyes: Eyes: Denies blurry vision and Denies change in vision ENT: Reports Normal hearing present Cardiovascular: Cardiovascular: Denies chest pain, Reports pedal edema, Denies palpitations, Denies dyspnea and Denies dyspnea on exertion Respiratory: Respiratory: Denies cough, Denies dyspnea and Denies dyspnea on exertion Gastrointestinal: Gastrointestinal: Denies abdominal pain, Denies nausea and Denies vomiting Genitourinary: Genitourinary: Denies hematuria Integumentary/Breasts: Skin/Breast: Reports wounds Neurologic: Reports Normal hearing present, Denies confusion and Reports weakness Psychiatric: Psychiatric: Denies confusion and Denies depression Endocrine: Endocrine: Denies excessive sweating, Reports fatigue and Denies palpitations Hematologic/Lymphatic: Hematologic/Lymphatic: Denies easy bleeding and Denies easy bruising Exam Const: General: comfortable and no acute distress; No confusion Orientation/consciousness: No confusion HENMT: Head: normal to inspection Mouth: Yes dry mucous membranes Eyes: Sclera: sclerae normal Pupils: Equal, round and reactive pupils present Neck: Neck: supple and no JVD Thyroid: thyroid normal Resp: Effort & Inspection: normal respiratory effort Auscultation: rhonchi (central) and wheezes expiratory wheezes Cardio: Rate: regular rate Rhythm: regular rhythm Heart sounds: no murmurs GI: GI Palp: Yes Soft to palpation Auscultation: normal bowel sounds Skin: General skin exam: normal color Wounds: wounds noted Other: Sacral decubitus ulcer Neuro: General: No confusion Cranial nerves: Yes Equal, round and reactive pupils present and Yes Normal hearing present Cognition (Neuro): normal cognition Speech: normal speech Extrem: General: normal to inspection, edema and pedal edema (mild) Psych: Mental S
--- NOTE | 2020-12-01 12:45 | PM.IMPN ---
Progress Note: A&P Assessment and Plan (1) Infection due to ESBL-producing Escherichia coli: Code(s): A49.8 - Other bacterial infections of unspecified site; Z16.12 - Extended spectrum beta lactamase (ESBL) resistance Status: Acute Assessment and Plan: continue imipenem (2) MRSA (methicillin resistant Staphylococcus aureus) infection: Code(s): A49.02 - Methicillin resistant Staphylococcus aureus infection, unspecified site Status: Acute Assessment and Plan: continue vancomycin (3) Septic shock: Code(s): A41.9 - Sepsis, unspecified organism; R65.21 - Severe sepsis with septic shock Status: Acute Assessment and Plan: shock resolved, continue antibiotics. persistent leukocytosis may be secondary to steroids as well. Clinically improving, no fevers. (4) Atrial fibrillation with rapid ventricular response: Code(s): I48.91 - Unspecified atrial fibrillation Status: Acute Assessment and Plan: converted to normal sinus rhythm, AFib appears to have resolved while treating infection - keeping potassium greater than 4, magnesium greater than 2. 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 He is doing well with no new complaints. Patient will complete his steroid short course tomorrow. clinically feels well. No problems with arrhythmias. He is continuing on vanc and imipenem antibiotics for his ESBL UTI and MRSA wounds. WBC about 17,000 partially secondary to steroids. His magnesium is low 1.5, will replete. Patient denies fever, chills, nausea, vomiting, diarrhea, chest pain, abdominal pain. Review of Systems Review of Systems: All systems reviewed & are unremarkable except as noted in HPI and below Exam Narrative: - GENERAL: No acute distress. Well-nourished. supplemental oxygen by nasal cannula - EYES: EOMI. Anicteric. - HENT: moist oral mucosa - LUNGS: persistent expiratory wheezes, diminished in lung bases. - CARDIOVASCULAR: Regular rate and rhythm. No murmur. - ABDOMEN: Soft, non-tender and non-distended. No palpable masses. - EXTREMITIES: trace edema. Paraplegic from waist down. - NEUROLOGIC: No new focal neurological deficits. CN II-XII grossly intact. - PSYCHIATRIC: Awake, Alert and oriented. Appropriate mood and affect. - SKIN: No rashes or lesions. Warm. decubitus ulcers heels and sacrum which are dressed Objective Data Vital Signs Vital Signs: Vital Signs - 24 hr 11/30/20 14:04 11/30/20 14:35 11/30/20 14:43 Temperature 36.4 C L Pulse Rate 85 90 88 Respiratory Rate 18 18 18 Blood Pressure 135/74 Pulse Oximetry 98 11/30/20 16:00 11/30/20 20:00 11/30/20 21:25 Temperature Pulse Rate 79 88 94 Respiratory Rate 20 Blood Pressure Pulse Oximetry 91 91 11/30/20 21:31 11/30/20 21:33 11/30/20 22:00 Temperature 36.8 C Pulse Rate 80 83 Respiratory Rate 20 20 Blood Pressure 129/65 Pulse Oximetry 91 98 12/01/20 00:00 12/01/20 03:01 12/01/20 04:00 Temperature Pulse Rate 82 79 79 Respiratory Rate 20 Blood Pressure Pulse Oximetry 97 12/01/20 07:28 12/01/20 07:29 12/01/20 07:39 Temperature Pulse Rate 80 76 Respiratory Rate 18 18 Blood Pressure Pulse
[2020-12-01] MEDS: MAGNESIUM SULF 4 GM/WATER100ML 4 GM/100 ML BAG IVPB (13:50)
[2020-12-01] MEDS: guaiFENesin/DEXTROMETHORPHAN 10 ML UDC PO (14:45)
--- NOTE | 2020-12-01 15:43 | PCDIET ---
Nutrition Follow-Up Complete: Increased protein needs as related to wounds as evidenced by Pressure Ulcers reported on buttock/coccyx. Adequate Intake of at least 75% of meals/supplements Goal:Goal met. Continue goal. Pt current nutrition is Heart Healthy with JEYSON BID Nutrition recommendation: agree Last recorded weight is 88.5 kg up from 85.2kg Bowel Motility: Labs Reviewed:Mg 1.5, AST 16, Glucose 146, Hgb/Hct 8.2, 27.9 Meds Noted: Solumedrol, Remeron, Lopressor, Vanc, Mg, Dulcolax, Fe Additional Notes: Pt is on heart healthy diet. PO intakes better at 100%, 50%, 50%. On JEYSON BID to aid in skin adventism. Remeron noted and should work to help increase appetite. We will continue to follow supplement compliance, skin, and PO intake every five days.
[2020-12-01] MEDS: MIRTAZAPINE SOLTAB 15 MG TAB.DISPER BY MOUTH (20:15)
[2020-12-01] MEDS: MELATONIN 5 MG TABLET PO (20:15)
[2020-12-02] VITALS (16 sets, daily range): BP systolic 126–143; BP diastolic 60–74; PULSE 73–93; RESP 14–20; TEMP 36.1–36.3; O2SAT 93–98
[2020-12-02] MEDS: LEVALBUTEROL NEB 1.25 MG/3 ML 0.63 MG INHALATION ×3 (02:21→20:03)
[2020-12-02] MEDS: IPRATROPIUM BR 0.02% INH SOLN 0.5 MG/2.5 ML VIAL INHALATION ×3 (02:21→20:04)
--- NOTE | 2020-12-02 03:49 | PC.NURSE ---
Pt refused to let Respiratory therapist draw ordered ABG this morning.
--- NOTE | 2020-12-02 03:50 | PCRCNOTE ---
Pt refused morning JOSE Pulido aware
[2020-12-02] MEDS: ASPIRIN 325 MG TABLET PO (08:22)
[2020-12-02] MEDS: TIZANIDINE HCL 2 MG TABLET PO ×2 (08:22→16:34)
[2020-12-02] MEDS: FERROUS SULFATE 324 MG TABLET PO ×2 (08:22→16:34)
[2020-12-02] MEDS: ENOXAPARIN 40 MG/0.4 ML SYRINGE SUB-Q (08:22)
[2020-12-02] MEDS: methylPREDNISolone SOD SUCC 125 MG VIAL 60 MG IV PUSH (08:22)
[2020-12-02] MEDS: guaiFENesin/DEXTROMETHORPHAN 10 ML UDC PO ×2 (08:27→16:34)
[2020-12-02] MEDS: COLLAGENASE OINT 30 GM TUBE 1 APPLIC TOPICAL (09:15)
[2020-12-02] MEDS: GENTAMICIN SULFATE 0.1% CR 15 GM TUBE 1 APPLIC TOPICAL (09:15)
[2020-12-02] MEDS: SILVERGEL (ELTA) 45 ML 1 APPLIC TOPICAL (09:16)
--- NOTE | 2020-12-02 10:47 | PCRCNOTE ---
Updraft treatment not given past window of treatment time..
--- NOTE | 2020-12-02 11:40 | PM.IMPN ---
Progress Note: A&P Assessment and Plan (1) Infection due to ESBL-producing Escherichia coli: Code(s): A49.8 - Other bacterial infections of unspecified site; Z16.12 - Extended spectrum beta lactamase (ESBL) resistance Status: Acute Assessment and Plan: Patient started imipenem on 11/26/2020, will re-evaluate tomorrow will be 1 week (2) Septic shock: Code(s): A41.9 - Sepsis, unspecified organism; R65.21 - Severe sepsis with septic shock Status: Acute Assessment and Plan: Unable to get lab state patient refused, blood pressure stable, no fevers. Antibiotics as above. (3) Atrial fibrillation with rapid ventricular response: Code(s): I48.91 - Unspecified atrial fibrillation Status: Acute Assessment and Plan: Heart rate regular rate, continue medications, no problems with RVR since leaving the ICU (4) COPD exacerbation: Code(s): J44.1 - Chronic obstructive pulmonary disease with (acute) exacerbation Status: Acute Assessment and Plan: -Last dose steroid today for COPD exacerbation, 5 day course -continue DuoNebs q.6 hours (5) MRSA (methicillin resistant Staphylococcus aureus) infection: Code(s): A49.02 - Methicillin resistant Staphylococcus aureus infection, unspecified site Status: Acute Assessment and Plan: On vancomycin q.36 hours, will re-evaluate tomorrow after a week of antibiotics Additional Plan Diet:heart healthy DVT prophylaxis: Lovenox Code status: do not resuscitate Disposition: Will continue watching over the weekend for COPD exacerbation, weaning oxygen and IV antibiotics for resistant organisms Time Spent With Patient Time with patient: 25 - 35 minutes Subjective Date/time seen: 12/02/20 11:40 Patient examined. He has no new complaints disease doing well, does not want labs today. We will give him through the weekend for IV antibiotics. 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 He is on any home oxygen therapy, will continue wean oxygen as tolerated. Patient denies fever, chills, nausea, vomiting, diarrhea, chest pain, abdominal pain. Review of Systems Review of Systems: All systems reviewed & are unremarkable except as noted in HPI and below Exam Narrative: - GENERAL: No acute distress,pleasant gentleman breathing comfortably with nasal cannula 2 L - EYES: EOMI. Anicteric. - HENT: moist oral mucosa - LUNGS: Persistent wheezing inspiratory and expiratory today, diminished in lung bases. - CARDIOVASCULAR: Regular rate and rhythm. No murmur. - ABDOMEN: Soft, non-tender and non-distended. No palpable masses. - EXTREMITIES: trace edema. Paraplegic from waist down. - NEUROLOGIC: No new focal neurological deficits. CN II-XII grossly intact. Chronic lower extremity paraplegia. - PSYCHIATRIC: Awake, Alert and oriented. Appropriate mood and affect. - SKIN: No rashes or lesions. Warm. decubitus ulcers heels and sacrum which are dressed Objective Data Vital Signs Vital Signs: Vital Signs - 24 hr 12/01/20 12:00 12/01/20 13:16 12/01/20 13:26 Temperature Pulse Rate 83 75 73 Respiratory Rate 20 20 Blood Pressure Pulse Oximetry 12/01/20 16:00 12/01/20 20:00 12/01/20 20:03 Temperature 36.3 C L Pulse Rate 87 87 73 Respiratory Rate 20 18 Blood Pressure 137/62 Pulse Oximetry 96 12/01/20 20:04 12/01/20 20:18 12/01/20 21:33 Temperature 36.4 C L Pulse Rate 77 91 Respiratory Rate 18 16 Blood Pressure 150/65 H Pulse Oximetry 96 97 12/02/20 00:00 12/02/20 02:22 12/02/20 02:32 Temperature Pulse Rate 77 73 75 Respiratory Rate 18 18 Blood Pressure Pulse Oximetry 12/02/20 02:38 12/02/20 04:00 12/02/20 05:32 Temperature 36.3 C L Pulse Rate 92 80 84 Respiratory Rate 16 Blood Pressure 126/60 Pulse Oximetry 98 12/02/20 08:00 12/02/20 10:42 12/02/20 10:45 Temperature 36.2 C
[2020-12-02] MEDS: MIRTAZAPINE SOLTAB 15 MG TAB.DISPER BY MOUTH (20:00)
[2020-12-02] MEDS: MELATONIN 5 MG TABLET PO (20:01)
[2020-12-03] VITALS (16 sets, daily range): BP systolic 117–153; BP diastolic 65–86; PULSE 77–189; RESP 14–20; TEMP 36–36.2; O2SAT 92–97
--- NOTE | 2020-12-03 | ECG_ITS ---
Measurements Intervals [place] Rate: 175 P: [place]: 0 QRS: 247 QRSD: 141 T: 20 QT: 284 QTc: 485 Interpretive Statements SUPRAVENTRICULAR TACHYCARDIA, CONSIDER ATRIAL TACHYCARDIA RIGHT AXIS DEVIATION RIGHT BUNDLE BRANCH BLOCK ABNORMAL ECG Electronically Signed On 12-03-2020 16:26:08 CDT by Rodri Wilcox D.O.
[2020-12-03] MEDS: IPRATROPIUM BR 0.02% INH SOLN 0.5 MG/2.5 ML VIAL INHALATION (08:03)
[2020-12-03] MEDS: LEVALBUTEROL NEB 1.25 MG/3 ML 0.63 MG INHALATION (08:03)
--- NOTE | 2020-12-03 09:04 | ECG_ITS ---
Measurements Intervals [place] Rate: 92 P: 50 [place]: 152 QRS: 261 QRSD: 155 T: 54 QT: 393 QTc: 488 Interpretive Statements SINUS RHYTHM ATRIAL COUPLET AND SUPRVENTRICULAR TRIGEMINY RIGHT AXIS DEVIATION RIGHT BUNDLE BRANCH BLOCK ABNORMAL ECG Electronically Signed On 12-03-2020 16:24:06 CDT by Rodri Wilcox D.O.
[2020-12-03] MEDS: TIZANIDINE HCL 2 MG TABLET PO (09:22)
[2020-12-03] MEDS: ASPIRIN 325 MG TABLET PO (09:23)
[2020-12-03] MEDS: ENOXAPARIN 40 MG/0.4 ML SYRINGE SUB-Q (09:23)
[2020-12-03] MEDS: FERROUS SULFATE 324 MG TABLET PO (09:23)
[2020-12-03] MEDS: MAGNESIUM SULF 2 GM/WATER 50ML 2 GM/50 ML BAG IVPB (09:37)
[2020-12-03 10:03] LABS: Vancomycin Trough 12.3 ug/mL (10.0-20.0)
[2020-12-03] MEDS: AMIODARONE 150 MG/D5W 100 ML 150 MG/100 ML BAG 600 MG IV CONT (11:04)
--- NOTE | 2020-12-03 11:59 | PC.NURSE ---
Rapid response called at 0900. Dr. Whaley and Rapid Response team came to the bedside. Patient HR was in 180s. See Rapid reponse note. Patient is a DNR/DNI. Dr. Whaley confirmed the patient wished to be DNR/DNI. See Dr. Whaley's note. At 0957 Spoke with Sister/POA and explained what had happened during the rapid response and the patients wishes. She would like to respect his wishes. Patient is OK with receiving the amiodarone bolus that was ordered by Dr. Whaley. ICU charge, Juaquin ADAMSON, administered this medication. Dr. Whaley notified of completion.
--- NOTE | 2020-12-03 12:11 | PC.NURSE ---
This RN administered amiodarone IV bolus to this patient. I was in the room for the entire administration and able to monitor telemetry and assessed blood pressure before and after. No adverse affects notified and both vitals and telemetry were stable for infusion.
--- NOTE | 2020-12-03 12:56 | PM.IMPN ---
Progress Note: A&P Assessment and Plan (1) Infection due to ESBL-producing Escherichia coli: Code(s): A49.8 - Other bacterial infections of unspecified site; Z16.12 - Extended spectrum beta lactamase (ESBL) resistance Status: Acute Assessment and Plan: completed 7 days of imipenem (2) MRSA (methicillin resistant Staphylococcus aureus) infection: Code(s): A49.02 - Methicillin resistant Staphylococcus aureus infection, unspecified site Status: Acute Assessment and Plan: completed 7 days of vanc (3) Septic shock: Code(s): A41.9 - Sepsis, unspecified organism; R65.21 - Severe sepsis with septic shock Status: Acute Assessment and Plan: result (4) Atrial fibrillation with rapid ventricular response: Code(s): I48.91 - Unspecified atrial fibrillation Status: Acute Assessment and Plan: resolved (5) COPD exacerbation: Code(s): J44.1 - Chronic obstructive pulmonary disease with (acute) exacerbation Status: Acute (6) Chronic indwelling Cheung catheter: Code(s): Z97.8 - Presence of other specified devices Status: Acute (7) Ventricular tachycardia, sustained: Code(s): I47.2 - Ventricular tachycardia Status: Acute Assessment and Plan: status post amiodarone bolus, no more intervention, goals hospice Additional Plan - comfort measures only, stopping non-essential medications. Only medications for symptom management - consulting [facility] for disposition hospice at the [facility] Time Spent With Patient Time with patient: Greater than 35 minutes Subjective Date/time seen: 12/03/20 12:56 Patient examined. He had a rapid response called for patient going into asymptomatic ventricular tachycardia sustained for 4 minutes. We do not have any lab work in the last 2 days because patient has been refusing. I ordered 2 g of magnesium and a amiodarone 150 mg bolus. I discussed extensively with patient that we either continue treatment with lab work in appropriate medications or to consider hospice. Family meeting was done with patient and sister and they decided to go to [facility] on hospice with [facility]. He was with [facility] in the past. Review of Systems Review of Systems: All systems reviewed & are unremarkable except as noted in HPI and below Exam Narrative: - GENERAL: No acute distress,pleasant gentleman breathing comfortably with nasal cannula 2 L - EYES: EOMI. Anicteric. - HENT: moist oral mucosa - LUNGS: diminished lung sounds, on 2 L oxygen breathing comfortably regular rate - CARDIOVASCULAR: went into ventricular tachycardic rhythm, tachycardic rate 180. - ABDOMEN: Soft, non-tender and non-distended. - : Chronic Cheung - EXTREMITIES: trace edema. Paraplegic from waist down. - NEUROLOGIC: No new focal neurological deficits. CN II-XII grossly intact. Chronic lower extremity paraplegia. - PSYCHIATRIC: Awake, Alert and oriented. Appropriate mood and affect. - SKIN: No rashes or lesions. Warm. decubitus ulcers heels and sacrum which are dressed Objective Data Vital Signs Vital Signs: Vital Signs - 24 hr 12/02/20 16:00 12/02/20 20:00 12/02/20 20:05 Temperature 36.3 C L Pulse Rate 93 86 81 Respiratory Rate 20 14 Blood Pressure 131/74 Pulse Oximetry 93 94 12/02/20 20:13 12/02/20 21:57 12/03/20 00:00 Temperature 36.1 C L Pulse Rate 80 85 77 Respiratory Rate 14 16 Blood Pressure 143/74 H Pulse Oximetry 95 12/03/20 04:00 12/03/20 05:12 12/03/20 08:00 Temperature 36.1 C L Pulse Rate 79 84 189 H Respiratory Rate 16 14 Blood Pressure 137/70 117/86 Pulse Oximetry 92 93 12/03/20 08:10 12/03/20 09:11 12/03/20 09:20 Temperature Pulse Rate 80 Respiratory Rate 14 Blood Pressure Pulse Oximetry 93 93 12/03/20 09:21 12/03/20 11:04 12/03/20 11:15 Temperature Pulse Rate 189 H 98 89 Respiratory Rate 18 Blood Pressure 119/76 125/67 131/66 Pulse
[2020-12-03] MEDS: GENTAMICIN SULFATE 0.1% CR 15 GM TUBE 1 APPLIC TOPICAL (14:22)
[2020-12-03] MEDS: SILVERGEL (ELTA) 45 ML 1 APPLIC TOPICAL (14:23)
[2020-12-03] MEDS: COLLAGENASE OINT 30 GM TUBE 1 APPLIC TOPICAL (14:30)
[2020-12-03] MEDS: MELATONIN 5 MG TABLET PO (20:59)
[2020-12-04 05:00] VITALS: BP 143/71; PULSE 97; RESP 16; TEMP 36.1; O2SAT 96
[2020-12-04 09:13] VITALS: PULSE 100; O2SAT 99
[2020-12-04] MEDS: TIZANIDINE HCL 2 MG TABLET PO (09:15)
[2020-12-04] MEDS: SILVERGEL (ELTA) 45 ML 1 APPLIC TOPICAL (10:30)
[2020-12-04] MEDS: GENTAMICIN SULFATE 0.1% CR 15 GM TUBE 1 APPLIC TOPICAL (10:30)
[2020-12-04] MEDS: COLLAGENASE OINT 30 GM TUBE 1 APPLIC TOPICAL (10:30)
--- NOTE | 2020-12-04 10:32 | PM.DS ---
DS: Admitting Diagnosis Admitting Diagnosis Urinary tract infection DS: Discharge Diagnosis Discharge Diagnosis (1) Ventricular tachycardia, sustained: Code(s): I47.2 - Ventricular tachycardia Status: Acute Assessment and Plan: Tachyarrhythmia, ventricular tachycardia for 4 minutes seen. Patient did not want any more intervention, hospice (2) Infection due to ESBL-producing Escherichia coli: Code(s): A49.8 - Other bacterial infections of unspecified site; Z16.12 - Extended spectrum beta lactamase (ESBL) resistance Status: Acute Assessment and Plan: Treated with 1 week of imipenem (3) MRSA (methicillin resistant Staphylococcus aureus) infection: Code(s): A49.02 - Methicillin resistant Staphylococcus aureus infection, unspecified site Status: Acute Assessment and Plan: Treated with 1 week of vancomycin (4) Septic shock: Code(s): A41.9 - Sepsis, unspecified organism; R65.21 - Severe sepsis with septic shock Status: Acute Assessment and Plan: Likely secondary to UTI and wound infections (5) Shock: Code(s): R57.9 - Shock, unspecified Status: Acute Assessment and Plan: Resolved (6) Atrial fibrillation with rapid ventricular response: Code(s): I48.91 - Unspecified atrial fibrillation Status: Acute Assessment and Plan: Secondary to sepsis, resolved (7) CHF (congestive heart failure): Code(s): I50.9 - Heart failure, unspecified Status: Acute Assessment and Plan: May admitted been overloaded with the IV fluids from shock (8) COPD exacerbation: Code(s): J44.1 - Chronic obstructive pulmonary disease with (acute) exacerbation Status: Acute Assessment and Plan: Treated with steroid taper for COPD exacerbation (9) Acute respiratory failure: Code(s): J96.00 - Acute respiratory failure, unspecified whether with hypoxia or hypercapnia Status: Acute Assessment and Plan: Secondary to COPD (10) Chronic indwelling Cheung catheter: Code(s): Z97.8 - Presence of other specified devices Status: Acute Assessment and Plan: Secondary to paraplegia from old stroke DS: Summary Hospital Course Reason for hospitalization: Sepsis from UTI and decubitus ulcers Hospital Course: Patient is an 85-year-old male past medical history of paraplegia from a CVA, neurogenic bladder with chronic indwelling Cheung catheter, history of C diff colitis, chronic sacral decubitus ulcers who presents to ED from retirement with leukocytosis. He was found to have ESBL UTI treated with imipenem, MRSA wound infections treated with IV vancomycin. He had a total of 1 week of IV antibiotics. He had developed septic shock and was moved into the ICU needing vasopressors peripherally. He explained he is do not resuscitate and do not intubate. He did not want central line or any aggressive measures. He went to an AFib rhythm which was secondary to sepsis which is treated with amiodarone. He appeared to improved and amiodarone was stopped. Later in his hospitalization he developed of V-tach episode with pulse for which he was bolused amiodarone. Patient had denied lab work and we read evaluated goals of care considering patient wants minimal treatments and now a new problematic rhythm. He decided along with sister at bedside that he would like to go comfort care measures only and to go home with hospice. [facility] was consulted and patient will go home on hospice with medications for comfort only. Patient was of sound mind making this decision and family was in agreement. Time of discharge patient appeared to be comfortable. Patient to be discharged today to [facility] with hospice. Status at Discharge Cognitive/behavioral status at discharge: Baseline Functional status at discharge: wheelchair bound Overall status at discharge: patient is not back to baseline Time Spent with Patient Time attes
[2020-12-04 12:00] VITALS: BP 146/74; PULSE 102; RESP 20; TEMP 36.1; O2SAT 94
== END 2020-12-04 12:15 | disposition hospice, inpatient (51) | DRG 871 ==
LOC: ANHED 23:38 → ANH2MED 23:40 → ANHICU 11-28 09:07 → ANH2MED 12-04 10:32 → ANHICU 12-07 09:58
PROVIDERS: Internal Medicine; Nurse Practitioner; Admitting Provider Internal Medicine; Emergency Provider Emergency Medicine; PCP Family Medicine; Visit Provider Student in an Organized Health Care Education/Training Program
DX: A41.9 Sepsis, unspecified organism (principal); J96.02 Acute respiratory failure with hypercapnia; J96.01 Acute respiratory failure with hypoxia; R65.21 Severe sepsis with septic shock; T83.511A Infection and inflammatory reaction due to indwelling urethral catheter, initial encounter; N17.9 Acute kidney failure, unspecified; N39.0 Urinary tract infection, site not specified; I48.92 Unspecified atrial flutter; E87.2 Acidosis; J44.1 Chronic obstructive pulmonary disease with (acute) exacerbation; I47.2 Ventricular tachycardia; Z16.12 Extended spectrum beta lactamase (ESBL) resistance; L89.159 Pressure ulcer of sacral region, unspecified stage; D63.8 Anemia in other chronic diseases classified elsewhere; E78.00 Pure hypercholesterolemia, unspecified; Z86.14 Personal history of Methicillin resistant Staphylococcus aureus infection; M48.02 Spinal stenosis, cervical region; M48.061 Spinal stenosis, lumbar region without neurogenic claudication; E11.9 Type 2 diabetes mellitus without complications; E55.9 Vitamin D deficiency, unspecified; F17.210 Nicotine dependence, cigarettes, uncomplicated; N31.9 Neuromuscular dysfunction of bladder, unspecified; Z66 Do not resuscitate; Z85.51 Personal history of malignant neoplasm of bladder; L89.309 Pressure ulcer of unspecified buttock, unspecified stage; B96.20 Unspecified Escherichia coli [E. coli] as the cause of diseases classified elsewhere; Y73.1 Therapeutic (nonsurgical) and rehabilitative gastroenterology and urology devices associated with adverse incidents; Y92.129 Unspecified place in nursing home as the place of occurrence of the external cause; I11.0 Hypertensive heart disease with heart failure; I50.9 Heart failure, unspecified; Z51.5 Encounter for palliative care; L89.609 Pressure ulcer of unspecified heel, unspecified stage; I48.0 Paroxysmal atrial fibrillation; I69.369 Other paralytic syndrome following cerebral infarction affecting unspecified side
CPT/HCPCS: 36415; 36600; 71045; 80048; 80053; 80202; 81001; 82375; 82805; 82948; 83050; 83605; 83735; 83880; 84484; 85025; 85027; 87040; 87070; 87077; 87086; 87088; 87147; 87186; 87205; 93005; 94002; 94003; 94640; 94660; 96361; 96365; 99285; A9270; G0378; J0282; J0696; J0743; J1650; J1940; J2370; J2930; J3370; J3475; J7030; J7040; J7060; J7120; P9047

== ENCOUNTER 2021-08-29 17:09 | Emergency (ER) | payer OTHER, SELFPAY ==
[2021-08-29] VITALS (21 sets, daily range): BP systolic 85–115; BP diastolic 50–64; PULSE 83–135; RESP 17–29; TEMP 37.4; O2SAT 90–96
--- NOTE | ~2021-08-29 | CT_ITS ---
EXAMINATION: CTA chest PE protocol DATE: 08/29/2021 19:32 INDICATION: Pulmonary embolism TECHNIQUE: Computed tomography angiography (CTA) of the chest was performed with 100 mL Omnipaque-350 intravenous contrast timed to evaluate the pulmonary arteries. Coronal maximum intensity projection 3D-reconstructions were created by the technologist. The dose-length product (DLP) was 722.20 mGy-cm. Automated exposure control and iterative reconstruction technique were employed. COMPARISON: None. FINDINGS: Study quality: Adequate. Pulmonary arteries: No pulmonary emboli detected. Thoracic aorta: Atherosclerosis. Lung parenchyma and airways: Apical scarring, senescent changes. Thoracic inlet, axillae and chest wall: Unremarkable. Mediastinum: Normal. Heart and pericardium: Mitral annulus calcification. Coronary artery calcifications: Heavy. Pleura: Unremarkable. Upper abdomen: No significant finding. Bones: No acute osseous finding. IMPRESSION: No CT evidence of acute pulmonary embolus. Reviewed, dictated and finalized at location K.
--- NOTE | ~2021-08-29 | XR_ITS ---
EXAMINATION: XR chest 1V portable Exam Date/Time: 08/29/2021 17:40 CDT CLINICAL HISTORY: SOB, HX HTN, HX COPD Comparison: 12/02/20. RESULT: Lines, tubes, and devices: None. Lungs and pleura: Clear. Cardiomediastinal silhouette: Stable cardiomediastinal silhouette. Other: No acute osseous or upper abdominal finding. IMPRESSION: No acute cardiopulmonary process Reviewed, dictated and finalized at location K.
--- NOTE | 2021-08-29 17:39 | ECG_ITS ---
Measurements Intervals [place] Rate: 133 P: [place]: 0 QRS: 258 QRSD: 146 T: 37 QT: 321 QTc: 479 Interpretive Statements SINUS OR ECTOPIC ATRIAL TACHYCARDIA FREQUENT ATRIAL PREMATURE COMPLEXES RIGHT AXIS DEVIATION RIGHT BUNDLE BRANCH BLOCK ABNORMAL ECG Electronically Signed On 08-29-2021 19:20:24 CDT by Rodri Wilcox D.O.
--- NOTE | 2021-08-29 18:14 | ED.SOB ---
HPI - SOB/Dyspnea General Chief Complaint: Shortness of Breath/Dyspnea Stated Complaint: SOB Time Seen by Provider: 08/29/21 17:58 Source: patient, EMS and RN notes reviewed Mode of arrival: EMS Limitations: no limitations History of Present Illness HPI Narrative: Patient is 86 years old white female came from [place] by ambulance for shortness of breath evaluation. Patient reports that he had a panic attack caused him sudden onset of shortness of breath resolved on arrival to the emergency room. Currently feeling much better and ready to go back home. He denies any fever, chills, nausea, vomiting, chest pain, back pain. History of A. fib, congestive heart failure, COPD on chronic 3 L oxygen by nasal cannula, chronic hypoxemic respiratory failure, paraplegic spinal paralysis, hypertension, decubitus ulcer, chronic indwelling Cheung catheter, renal failure, and DO NOT RESUSCITATE Related Data Home Medications Medication Instructions Recorded Confirmed Dakin's Solution 1 applic TOPICAL DAILY 04/28/19 11/25/20 acetaminophen 325 mg PO Q4-6H PRN 04/28/19 11/25/20 diphenhydramine HCl [Benadryl] 25 mg PO Q6-8H PRN 04/28/19 11/25/20 melatonin 5 mg PO HS 04/28/19 11/25/20 tizanidine 2 mg PO BID 04/28/19 11/25/20 Adults Multivitamin 1 tablet PO DAILY 11/24/20 11/25/20 Santyl See Rx Instructions .ROUTE .COMPLEX 11/24/20 11/25/20 acetaminophen 500 mg PO Q6H PRN 11/24/20 11/25/20 albuterol sulfate 2.5 mg INHALATION Q4H PRN 11/24/20 11/25/20 ascorbic acid (vitamin C) 500 mg PO DAILY 11/24/20 11/25/20 bisacodyl 10 mg RECTAL DAILY PRN 11/24/20 11/25/20 cyanocobalamin (vitamin B-12) 1,000 mcg PO DAILY 11/24/20 11/25/20 dextromethorphan HBr 10 mg PO Q4-6H PRN 11/24/20 11/25/20 ferrous sulfate 325 mg PO BID 11/24/20 11/25/20 furosemide [Lasix] 20 mg PO DAILY 11/24/20 11/25/20 gentamicin 1 applic TOPICAL DAILY 11/24/20 11/25/20 magnesium hydroxide [Milk of 400 mg PO DAILY PRN 11/24/20 11/25/20 Magnesia] mirtazapine 15 mg PO HS 11/24/20 11/25/20 omeprazole 20 mg PO DAILY 11/24/20 11/25/20 ondansetron 4 mg PO Q6H PRN 11/24/20 11/25/20 ergocalciferol (vitamin D2) 1,250 mcg PO WEEKLY 11/25/20 11/25/20 polyethylene glycol 3350 [Miralax] 17 g PO DAILY PRN 11/25/20 11/25/20 Allergies Allergy/AdvReac Type Severity Reaction Status Date / Time No Known Allergies Allergy Verified 08/29/21 17:36 Review of Systems Review of Systems: All systems reviewed & are unremarkable except as noted in HPI and below PMFSH Past Medical History Medical History Anemia of chronic disease Arm fracture Asbestosis Bacteremia With peptostreptococcus December 2018 due to infected sacral wound Bladder tumor Status post transient urethral resection of bladder tumor (8 cm) August 2017 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 Julian) Catheter-associated urinary tract infection Chronic indwelling Cheung catheter Due to paraplegia/neurogenic bladder COPD (chronic obstructive pulmonary disease) Diastolic dysfunction without heart failure Echocardiogram March 2017 demonstrated normal left ventricular systolic function with no focal wall motion abnormalities, mild concentric left ventricular hypertrophy, EF of 60-65%, mild pulmonary hypertension with RVSP of 46, diastolic dysfunction, DNR (do not resuscitate) E. 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
[2021-08-29 18:22] LABS: Alveolar/Arterial O2 Gradient 80.2 mmHg; Base Excess ABG 4.8 mEq/l (+/-2.0); Fractional Inspired Oxygen 28 %; HCO3 ABG 29.7 mEq/l (22.0-26.0); Oxygen Content ABG 12.9 %vol (16.0-22.0); Oxygen Saturation ABG 93.2 % (95.0-100.0); Oxyhemoglobin 91.4 % THb (90.0-100.0); PCO2 ABG 45.9 mmHg (35.0-45.0); PO2 ABG 65.3 mmHg (80.0-100.0); PO2 FiO2 Ratio Arterial Blood 2.33 %; pH ABG 7.429 (7.350-7.450)
[2021-08-29 18:23] LABS: Device NASAL CANNULA; Liters per Minute 2.5 LPM; Modified Allen's Test Pass; Site Drawn RIGHT RADIAL
[2021-08-29] MEDS: dilTIAZem HCl INJ 25 MG/5 ML VIAL 10 MG IV PUSH (18:25)
[2021-08-29] MEDS: dilTIAZem 100 MG/100 ML 100 MG/100 ML BAG IV CONT (18:27)
[2021-08-29 18:32] LABS: Basophils Absolute Auto 0.1 K/mm3 (0.0-0.1); Basophils Percent Auto 0.4 % (0.2-1.2); Eosinophils Absolute Auto 0.2 K/mm3 (0-0.3); Eosinophils Percent Auto 0.9 % (0-4.4); Hematocrit 31.7 % (42.0-52.0); Hemoglobin 8.9 g/dL (14.0-18.0); Immature Granulocyte Percent A 0.6 % (0-0.5); Lymphocytes Absolute Auto 0.53 K/mm3 (0.9-3.2); Lymphocytes Percent Auto 3.2 % (18.3-44.2); Mean Corpuscular HGB Conc 28.1 g/dl (32-36); Mean Corpuscular Hemoglobin 21.5 pg (26-34); Mean Corpuscular Volume 76.8 fl (80-100); Mean Platelet Volume 9.7 fl (7.4-10.4); Monocytes Absolute Auto 0.7 K/mm3 (0.1-0.6); Monocytes Percent Auto 4.5 % (2.6-8.5); Neutrophils Absolute Auto 14.7 K/mm3 (1.3-6.7); Neutrophils Percent Auto 90.4 % (45.5-73.1); Platelet Count Result 329 k/mm3 (150-375); Red Blood Count 4.13 M/mm3 (4.6-6.20); Red Cell Distribution Width 19.5 % (11.5-14.5); White Blood Count 16.3 K/mm3 (4.5-10.0)
[2021-08-29 18:34] LABS: SARS-CoV-2 RNA PCR Negative
[2021-08-29 18:46] LABS: Alanine Aminotransferase 16 U/L (4-50); Albumin Level 3.6 g/dL (3.5-5.1); Alkaline Phosphatase 195 U/L (38-126); Anion Gap 7 mmol/L (8-16); Aspartate Amino Transferase 28 U/L (17-59); Bilirubin,Total 0.4 mg/dL (0.2-1.3); Blood Urea Nitrogen 32 mg/dL (9-20); Calcium 8.7 mg/dL (8.4-10.2); Carbon Dioxide 32 mmol/L (22-30); Chloride 97 mmol/L (98-107); Estimated CRCL calculation 53 ml/min; Estimated Glomerular Filt Rate > 60; Glucose 179 mg/dL (65-110); Potassium 3.8 mmol/L (3.4-5.0); Sodium 136 mmol/L (137-145)
[2021-08-29 18:48] LABS: D Dimer 1.54 ug/mL (<0.48)
[2021-08-29 18:57] LABS: NT Pro B Type Natriuretic Pept 2270 pg/mL (5-100); Troponin I 0.032 ng/mL (0.000-0.034)
[2021-08-29 19:06] LABS: INR 1.3; Prothrombin Time 15.6 Seconds (11.1-14.7)
[2021-08-29 19:08] LABS: Partial Thromboplastin Time 39.3 SECONDS (22.3-36.8)
[2021-08-29 19:26] LABS: Anisocytosis 2+ (NORMAL); Hypochromasia 1+ (NORMAL); Platelet Estimate Adequate (Adequate)
[2021-08-29 20:49] LABS: Troponin I 0.068 ng/mL (0.000-0.034)
[2021-08-29 21:08] LABS: Appearance Urine Slightly Cloudy (Clear); Bilirubin Urine Negative (Negative); Color Urine Yellow (Yellow); Glucose Urine UA Negative (Negative); Ketones Urine Negative (Negative); Leukocyte Esterase Ur 1+ LEU/UL (Negative); Nitrate Urine Negative (Negative); Protein Urine 2+ mg/dL (Negative); Urobilinogen Urine 0.2 mg/dL (<2.0); pH Urine 5.5 (5.0-9.0)
[2021-08-29 21:08] LABS: Lactic Acid Reflex 1.5 mmol/L (0.7-2.0)
[2021-08-29 21:11] LABS: Add Urine Microscopic? YES; Blood Urine Trace-Intact (Negative)
[2021-08-29 21:13] LABS: Bacteria Urine 2+ /hpf; Mucus Urine Rare /lpf; Squamous Epithelial Cell Urine Rare /hpf (Few); WBC Urine >75 /hpf
== END 2021-08-29 22:22 ==
PROVIDERS: Emergency Medicine; Family Medicine; Emergency Provider Emergency Medicine; PCP Family Medicine
DX: R00.0 Tachycardia, unspecified (principal); Z20.822 Contact with and (suspected) exposure to COVID-19; I50.9 Heart failure, unspecified; I11.0 Hypertensive heart disease with heart failure; J44.9 Chronic obstructive pulmonary disease, unspecified; Z99.81 Dependence on supplemental oxygen; J96.11 Chronic respiratory failure with hypoxia; J61 Pneumoconiosis due to asbestos and other mineral fibers; G82.21 Paraplegia, complete; I48.91 Unspecified atrial fibrillation; E11.9 Type 2 diabetes mellitus without complications; I48.92 Unspecified atrial flutter; M48.02 Spinal stenosis, cervical region; M48.061 Spinal stenosis, lumbar region without neurogenic claudication; N19 Unspecified kidney failure; D63.8 Anemia in other chronic diseases classified elsewhere; E55.9 Vitamin D deficiency, unspecified; E78.00 Pure hypercholesterolemia, unspecified; Z79.4 Long term (current) use of insulin; Z79.01 Long term (current) use of anticoagulants; Z86.14 Personal history of Methicillin resistant Staphylococcus aureus infection; Z87.891 Personal history of nicotine dependence; Z66 Do not resuscitate; I45.10 Unspecified right bundle-branch block
CPT/HCPCS: 36415; 36600; 71045; 71275; 80053; 81001; 82805; 83605; 83880; 84484; 85025; 85380; 85610; 85730; 87040; 87086; 87088; 93005; 96374; 99284; C9803; Q9967; U0003; U0005

== ENCOUNTER 2021-12-10 11:20 | Inpatient (IN) | payer OTHER, SELFPAY ==
[2021-12-10] VITALS (65 sets, daily range): BP systolic 64–115; BP diastolic 23–82; PULSE 74–152; RESP 15–28; TEMP 36.4–36.5; O2SAT 89–100; BMI 28.0
--- NOTE | ~2021-12-10 | XR_ITS ---
EXAMINATION: XR retrograde pyelo w/stent RT DATE: 12/10/2021 15:55 INDICATION: Right ureteral stone. TECHNIQUE: 9 intraoperative fluoroscopic views of the abdomen and pelvis were obtained. I was not pre sent. Fluoroscopy exposure time was 32 seconds. COMPARISON: CT abdomen and pelvis 12/10/2021 FINDINGS: The right-sided retrograde pyelogram demonstrates a 7 mm filling defect, consistent with a stone. The final images demonstrate a right internal ureteral stent in expected position. IMPRESSION: 1. 7 mm stone in right ureter with right internal ureteral stent in expected position. Reviewed, dictated and finalized at location A. IMPRESSION: 1. 7 mm stone in right ureter with right internal ureteral stent in expected po sition.
--- NOTE | ~2021-12-10 | XR_ITS ---
XR chest 1V portable 12/10/2021 12:28 Indication: Cough. COPD. Procedure: AP portable chest Comparison: 08/29/2021 Findings: Heart size normal. Diffuse bilateral interstitial infiltrates. No pleural effusion or pneum othorax. No acute osseous abnormality. Impression: 1: Diffuse bilateral interstitial infiltrates may represent edema or pneumonia. Reviewed, dictated and finalized at location B. Impression: 1: Diffuse bilateral interstitial infiltrates may represent edema or pneumonia.
--- NOTE | ~2021-12-10 | XR_ITS ---
XR abdomen obstructive series 12/13/2021 11:12 Indication: Distended abdomen Procedure: Supine and upright views of abdomen Comparison: 07/07/2017 Findings: There is a nonobstructive bowel gas pattern. There is a right internal ureteral stent in ex pected position. There is a right femoral vascular catheter. There is bibasilar infiltrates with smal l pleural effusions. Moderate lumbar spondylosis with dextroscoliosis. Impression: 1: Nonobstructive bowel gas pattern. Reviewed, dictated and finalized at location B. Impression: 1: Nonobstructive bowel gas pattern.
--- NOTE | ~2021-12-10 | XR_ITS ---
EXAMINATION: XR chest 1V portable DATE: 12/15/2021 06:00 INDICATION: Hypoxia. TECHNIQUE: A single frontal view of the chest was obtained. COMPARISON: Chest single view 12/13/2021, CT abdomen and pelvis 12/10/2021, chest CT 08/29/2021 FINDINGS: There is chronic mild scarring in right upper lobe. There is a diffuse interstitial pattern in the lungs. There are airspace opacities at the lung bases. There are small pleural effusions. No pneumothorax. The heart size is normal. A right upper extremity peripherally inserted central venous catheter (PICC) is seen with tip at the superior cavoatrial junction. IMPRESSION: 1. Diffuse interstitial pattern in the lungs, consistent with mild pulmonary edema and/or chronic leanne g disease. 2. Small pleural effusions with improvement on the left. 3. Stable airspace opacities at the lung bases, consistent with atelectasis or less likely pneumonia. Reviewed, dictated and finalized at location A. IMPRESSION: 1. Diffuse interstitial pattern in the lungs, consistent with mild pulmonary ed rashid and/or chronic lung disease. 2. Small pleural effusions with improvement on the left. 3. Stable airspace opacities at the lung bases, consistent with atelectasis or less likely pneumonia.
--- NOTE | ~2021-12-10 | MR_ITS ---
EXAMINATION: MR pelvis wo/w con DATE: 12/14/2021 16:00 INDICATION: Pelvic osteomyelitis. TECHNIQUE: Magnetic resonance imaging (MRI) of the pelvis was performed without and with 17 mL MultiH ance intravenous contrast. COMPARISON: CT abdomen and pelvis 12/10/2021, 08/10/2019 FINDINGS: There are no dilated loops of bowel. The bladder is decompressed by a Cheung catheter. There is a righ t inguinal hernia containing fat. There are variable degrees of fatty atrophy of most of the musculat ure. There is increased T2-weighted signal intensity involving much of the musculature, consistent wi th subacute denervation. There are decubitus ulcers overlying the sacrum and bilateral ischia. There are erosions and sclerosis involving the posterior sacrum and ischial tuberosities, consistent with o steomyelitis. There is mild osteoarthritis of the hips. IMPRESSION: 1. Decubitus ulcers with osteomyelitis involving the posterior sacrum and ischial tuberosities. Reviewed, dictated and finalized at location A. IMPRESSION: 1. Decubitus ulcers with osteomyelitis involving the posterior sacrum and ischi al tuberosities.
--- NOTE | ~2021-12-10 | CT_ITS ---
EXAMINATION: CT abdomen pelvis wo con DATE: 12/10/2021 13:36 INDICATION: Hematuria TECHNIQUE: Computed tomography (CT) of the abdomen and pelvis was performed without intravenous contr ast. The dose-length product (DLP) was 973.85 mGy-cm. Automated exposure control and iterative recons truction technique were employed. COMPARISON: 08/10/2019 FINDINGS: Minimal dependent atelectasis is present in the lung bases. The heart size is normal. The l iver, spleen, pancreas, gallbladder, and adrenal glands are normal. There is an 8 mm nonobstructing s tone of the left kidney. A rim calcified cyst of the right kidney has collapsed since the prior exami [employer] [facility]. There is an 8 mm stone in the urinary bladder near the right ureterovesicular junction. There is mild right hydroureteronephrosis. Stones previously seen in the urinary bladder are no longer kavon dent. The bladder is decompressed by Cheung catheter. No pathologically enlarged abdominal or pelvic l ymph nodes are identified. There is no free intraperitoneal gas or evidence of bowel obstruction. The re is mild gaseous distention of the stomach. There is severe lumbar spondylosis. There are decubitus ulceration penetrating into the posterior ischii bilaterally. There is adjacent sclerosis of the isc hii. IMPRESSION: 1. 8 mm stone in the urinary bladder near the right ureterovesicular junction. Mild right hydroureter onephrosis suggests recent passage. 2. Nonobstructing left nephrolithiasis. 3. Bilateral sacral decubitus ulcers with possible underlying osteomyelitis of the ischii. Reviewed, dictated and finalized at location A. IMPRESSION: 1. 8 mm stone in the urinary bladder near the right ureterovesicular junction. Mild right hydroureteronephrosis suggests recent passage. 2. Nonobstructing left nephrolithiasis. 3. Bilateral sacral decubitus ulcers with possible underlying osteomyelitis of the ischii.
--- NOTE | ~2021-12-10 | XR_ITS ---
XR chest 1V portable 12/12/2021 09:15 Indication: Shortness of breath Procedure: AP portable chest Comparison: Comparison to multiple prior studies sequentially, with oldest reviewed study dated 09/2022. Findings: Heart size normal. Diffuse bilateral airspace disease has progressed since prior examinatio n. Small pleural effusions. No pneumothorax. Impression: 1: Interval progression of diffuse bilateral airspace disease which may represent edema or pneumonia. Reviewed, dictated and finalized at location B. Impression: 1: Interval progression of diffuse bilateral airspace disease which may represe nt edema or pneumonia.
--- NOTE | ~2021-12-10 | XR_ITS ---
EXAMINATION: XR chest 1V portable DATE: 12/13/2021 05:31 INDICATION: Bilateral pulmonary infiltrates TECHNIQUE: frontal view of the chest was obtained. COMPARISON: Chest radiograph dated 12/12/2021 FINDINGS: No significant change in diffuse bilateral interstitial prominent lung disease. Small bilateral pleur al effusions. No pneumothorax. The cardiomediastinal silhouette is normal with dense mitral annular c alcification. IMPRESSION: 1. No significant change in diffuse bilateral lung disease which could represent pulmonary edema or p neumonia. 2. Small bilateral pleural effusions. Reviewed, dictated and finalized at location A. IMPRESSION: 1. No significant change in diffuse bilateral lung disease which could represen t pulmonary edema or pneumonia. 2. Small bilateral pleural effusions.
--- NOTE | 2021-12-10 11:40 | ED.MALEGU ---
HPI - Male Genitourinary General Chief complaint: Urogenital-Male <Abraham Torres APRN - Last Filed: 12/10/21 13:15> Stated complaint: hematuria <Abraham Torres APRN - Last Filed: 12/10/21 13:15> Time Seen by Provider: 12/10/21 11:27 <Abraham Torres APRN - Last Filed: 12/10/21 13:15> History of Present Illness HPI Narrative: 86-year-old male with a history of paraplegia, neurogenic bladder, and chronic Cheung catheter presents emergency room for evaluation of bleeding around his Cheung catheter site. Patient states he gets his catheter changed monthly, and employee with inoculator changing Cheung catheter is changed since yesterday. Patient has a hypospadias, with the opening at the base of the penis. Patient presented to the emergency room with no Cheung catheter present. <Abraham Torres APRN - Last Filed: 12/10/21 13:15> Related Data Home medications: Home Medications Medication Instructions Recorded Confirmed acetaminophen 325 mg capsule 325 mg PO Q4-6H PRN Pain (Scale 04/28/19 11/25/20 Score 1-3) diphenhydramine HCl 25 mg capsule 25 mg PO Q6-8H PRN Itching 04/28/19 11/25/20 (Benadryl) melatonin 5 mg tablet 5 mg PO HS 04/28/19 11/25/20 sodium hypochlorite 0.125 % 1 applic topical DAILY 04/28/19 11/25/20 solution (Dakin's Solution) tizanidine 2 mg tablet 2 mg PO BID 04/28/19 11/25/20 acetaminophen 500 mg tablet 500 mg PO Q6H PRN Pain (Scale 11/24/20 11/25/20 Score 4-6) albuterol sulfate 2.5 mg/3 mL 2.5 mg inhalation Q4H PRN 11/24/20 11/25/20 (0.083 %) solution for nebulization Shortness Of Breath ascorbic acid (vitamin C) 500 mg 500 mg PO DAILY 11/24/20 11/25/20 tablet bisacodyl 10 mg rectal suppository 10 mg RECTAL DAILY PRN Constipation 11/24/20 11/25/20 collagenase clostridium histo. 250 See Rx Instructions .Route .COMPLEX 11/24/20 11/25/20 unit/gram topical ointment (Santyl) cyanocobalamin (vitamin B-12) 1,000 mcg PO DAILY 11/24/20 11/25/20 1,000 mcg capsule dextromethorphan HBr 10 mg/5 mL 10 mg PO Q4-6H PRN Cough 11/24/20 11/25/20 oral syrup ferrous sulfate 325 mg (65 mg 325 mg PO BID 11/24/20 11/25/20 iron) tablet furosemide 20 mg tablet (Lasix) 20 mg PO DAILY 11/24/20 11/25/20 gentamicin 0.1 % topical cream 1 applic topical DAILY 11/24/20 11/25/20 magnesium hydroxide 400 mg/5 mL 400 mg PO DAILY PRN Constipation 11/24/20 11/25/20 oral suspension (Milk of Magnesia) mirtazapine 30 mg tablet 15 mg PO HS 11/24/20 11/25/20 multivit with minerals-iron 18 1 tablet PO DAILY 11/24/20 11/25/20 mg-folic ac 400 mcg-vit K 25 mcg tablet (Adults Multivitamin) omeprazole 20 mg capsule,delayed 20 mg PO DAILY 11/24/20 11/25/20 release ondansetron 4 mg oral soluble film 4 mg PO Q6H PRN Vomiting 11/24/20 11/25/20 ergocalciferol (vitamin D2) 1,250 1,250 mcg PO WEEKLY 11/25/20 11/25/20 mcg (50,000 unit) capsule polyethylene glycol 3350 17 gram 17 g PO DAILY PRN Constipation 11/25/20 11/25/20 oral powder packet (Miralax) <Abraham Torres, CORPORATE RESPONSIBILITY OFFICER - Last Filed: 12/10/21 13:15> Allergies/Adverse reactions: Allergies Allergy/AdvReac Type Severity Reaction Status Date / Time No Known Allergies Allergy Verified 12/10/21 12:52 <Abraham Torres, CORPORATE RESPONSIBILITY OFFICER - Last Filed: 12/10/21 13:15> Review of Systems Review of Systems: CONSTITUTIONAL: Denies fever, chills, or sweats. EYES: Denies visual changes, redness, or discharge. ENT: Denies rhinorrhea, congestion, sore throat, or otalgia. CARDIOVASCULAR: Denies chest pain, palpitations, or edema. RESPIRATORY: Denies cough or dyspnea. GASTROINTESTINAL: Denies abdominal pain, nausea, vomiting, or diarrhea. GENITOURINARY: Reports hematuria. SKIN: Denies rash or itching. MUSCULOSKELETAL: Denies back pain, joint pain, or myalgia. NEUROLOGIC: Denies headache, numbness, dizziness, or weakness. PSYCHIATRIC: Denies anxiety or depression. <Abraham Torres, CORPORATE RESPONSIBILITY OFFICER - Last Filed: 12/10/21 13:15> FORMERLY [facility], 1928–1983 Past Medical History Medical
[2021-12-10] MEDS: SODIUM CHLORIDE 0.9% IV 1,000 ML 999 ML IV CONT ×4 (12:00→21:33)
[2021-12-10 12:02] LABS: Add Urine Microscopic? YES; Appearance Urine Cloudy (Clear); Bilirubin Urine 1+ (Negative); Blood Urine 3+ (Negative); Color Urine Red (Yellow); Glucose Urine UA Negative (Negative); Ketones Urine Trace mg/dL (Negative); Leukocyte Esterase Ur 3+ LEU/UL (Negative); Nitrate Urine Negative (Negative); Protein Urine 3+ mg/dL (Negative)
[2021-12-10 12:09] LABS: RBC Urine >75 /hpf (0-2); WBC Urine >75 /hpf
[2021-12-10 12:13] LABS: Hematocrit 31.1 % (42.0-52.0); Hemoglobin 8.7 g/dL (14.0-18.0); Mean Corpuscular Hemoglobin 22.3 pg (26-34); Mean Corpuscular Volume 79.7 fl (80-100); Platelet Count Result 357 k/mm3 (150-375); Red Cell Distribution Width 19.5 % (11.5-14.5); White Blood Count 19.1 K/mm3 (4.5-10.0)
[2021-12-10 12:33] LABS: Alanine Aminotransferase 43 U/L (6-50); Albumin Level 3.8 g/dL (3.5-5.1); Alkaline Phosphatase 208 U/L (38-126); Anion Gap 11 mmol/L (8-16); Aspartate Amino Transferase 48 U/L (17-59); Bilirubin,Total 0.5 mg/dL (0.2-1.3); Blood Urea Nitrogen 39 mg/dL (9-20); Calcium 8.8 mg/dL (8.4-10.2); Carbon Dioxide 34 mmol/L (22-30); Chloride 94 mmol/L (98-107); Estimated CRCL calculation 31 ml/min; Estimated Glomerular Filt Rate 41; Glucose 177 mg/dL (65-110); Lactic Acid Reflex 4.8 mmol/L (0.7-2.0); Potassium 3.6 mmol/L (3.4-5.0); Sodium 139 mmol/L (137-145)
--- NOTE | 2021-12-10 12:52 | PM.IMHP ---
H&P: HPI History of Present Illness Date/Time: 12/10/21 12:52 Chief Complaint: Hematuria Narrative: This is a 86-year-old male patient from [facility]. The patient has a history of paraplegia, neurogenic bladder and chronic Cheung catheter. The patient was bleeding from the Cheung catheter site the patient has hypo status and gets his catheter changed monthly. A new employee change the Cheung catheter yesterday. The patient presented to the emergency room with out any Cheung catheter present. Cheung catheter was placed here in the emergency room and then was switched to his CBI because of the hematuria. Patient's white counts 19.0 H&H is 8.6 and 30.9. Creatinine is 1.6 which is typically normal. Glucose 177. Lactic 4.8. Magnesium low at 1.5. Troponin was noted to be 0.344 but it had been 0.068 on 08/29/2021. Urine is positive for UTI and negative for COVID. Abdomen CT of the pelvis was read as the following 1. 8 mm stone in the urinary bladder near the right ureterovesicular junction. Mild right hydroureteronephrosis suggests recent passage. 2. Nonobstructing left nephrolithiasis. 3. Bilateral sacral decubitus ulcers with possible underlying osteomyelitis of the ischii. Urology has been consulted. The patient was started on Primaxin and vancomycin due to a past history of ESBL. The patient was started on amiodarone because he went into AFib with RVR. He also was started on vasopressin after started a central line due to a map less than 60. Last blood pressure 75/51. Patient would only temporarily respond to fluid boluses. The patient had 4 no most saline boluses. The cuffer has been consulted and has already came down to see the patient. Chest x-ray was read as diffuse bilateral interstitial infiltrates may represent edema or pneumonia. The patient was supplemented with magnesiumThe patient is being admitted to ICU observation status on 12/10/2021. Now the patient is changed to inpatient status on 12/10/2021. Review of Systems Review of Systems: See history of present illness All systems reviewed & are unremarkable except as noted in HPI and below Constitutional: Constitutional: Reports as per HPI and Reports no additional constitutional complaints Eyes: Eyes: Reports as per HPI and Reports no additional eye complaints ENT: Reports system reviewed and no additional complaints, except as documented and Reports Normal hearing present Cardiovascular: Cardiovascular: Reports no additional cardiovascular complaints Respiratory: Respiratory: Reports no additional respiratory complaints and Reports no additional respiratory complaints Gastrointestinal: Gastrointestinal: Reports as per HPI and Reports no additional gastrointestinal complaints Musculoskeletal: Musculoskeletal: Reports no additional musculoskeletal complaints Integumentary/Breasts: Skin/Breast: Reports system reviewed and no additional complaints, except as docu and Reports as per HPI Neurologic: Reports system reviewed and no additional complaints, except as documented, Reports as per HPI and Reports Normal hearing present Psychiatric: Psychiatric: Reports no additional psychiatric complaints and Reports as per HPI Endocrine: Endocrine: Reports no additional endocrine complaints Hematologic/Lymphatic: Hematologic/Lymphatic: Reports no additional hematologic/lymphatic complaints Allergic/Immunologic: Allergic/Immunologic: Reports no additional allergic/immunologic complaints PMFSH Past Medical History Medical History Anemia of chronic disease Anxiety disorder, unspecified Arm fracture Asbestosis Bacteremia With peptostreptococcus December 2018 due to infected sacral wound Bladder tumor Status post transient urethral resection of bladder tumor (8 cm) August 2017 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 Julian) Catheter-associated urinary tract infection Chr
[2021-12-10 13:03] LABS: Basophils Absolute Auto 0.1 K/mm3 (0.0-0.1); Basophils Percent Auto 0.3 % (0.2-1.2); Hematocrit 30.9 % (42.0-52.0); Hemoglobin 8.6 g/dL (14.0-18.0); Immature Granulocyte Percent A 0.5 % (0-0.5); Lymphocytes Absolute Auto 0.53 K/mm3 (0.9-3.2); Lymphocytes Percent Auto 2.8 % (18.3-44.2); Mean Corpuscular HGB Conc 27.8 g/dl (32-36); Mean Corpuscular Hemoglobin 22.3 pg (26-34); Mean Corpuscular Volume 80.3 fl (80-100); Mean Platelet Volume 10.2 fl (7.4-10.4); Monocytes Absolute Auto 0.2 K/mm3 (0.1-0.6); Monocytes Percent Auto 1.2 % (2.6-8.5); Neutrophils Absolute Auto 18.1 K/mm3 (1.3-6.7); Neutrophils Percent Auto 95.2 % (45.5-73.1); Platelet Count Result 359 k/mm3 (150-375); Red Blood Count 3.85 M/mm3 (4.6-6.20); Red Cell Distribution Width 19.6 % (11.5-14.5)
[2021-12-10 13:05] LABS: Anisocytosis 1+ (NORMAL); Hypochromasia 1+ (NORMAL); Platelet Estimate Adequate (Adequate)
--- NOTE | 2021-12-10 13:29 | ECG_ITS ---
Measurements Intervals [place] Rate: 116 P: MA: 0 QRS: 262 QRSD: 154 T: 61 QT: 394 QTc: 548 Interpretive Statements SINUS TACHYCARDIA WITH FREQUENT PACS MARKED RIGHT AXIS DEVIATION [QRS AXIS > 100] RIGHT BUNDLE BRANCH BLOCK [120+ ms QRS DURATION, UPRIGHT V1, 40+ ms S IN I/aVL/V4/V5/V6] POSSIBLE ANTERIOR MYOCARDIAL INFARCTION , PROBABLY OLD [30 ms Q WAVE IN V3/V4, OR R < 0.2 mV IN V4] COMPARED TO ECG 08/29/2021 17:18:16 MORE ATRIAL ECTOPIC ACTIVITY OTHERWISE NO DIFFERENCE Electronically Signed On 12-10-2021 14:13:10 CDT by Jian Sanford M.D.
[2021-12-10 13:51] LABS: SARS-CoV-2 RNA PCR Negative
[2021-12-10 14:23] LABS: Magnesium 1.5 mg/dL (1.6-2.3)
[2021-12-10] MEDS: AMIODARONE 150 MG/D5W 100 ML 150 MG/100 ML BAG 600 MG IV CONT (14:25)
--- NOTE | 2021-12-10 14:25 | WPDCNINT ---
Assessment and Plan Assessment and plan (1) Septic shock: Code(s): A41.9 - Sepsis, unspecified organism; R65.21 - Severe sepsis with septic shock Status: Acute Assessment and Plan: Septic shock secondary to UTI and possible osteomyelitis Patient has history of ESBL UTI Empiric broad spectrum antibiotics with imipenem and vancomycin CT abdomen pelvis review Blood and urine Cultures sent and pending. Patient received 3 L IV fluid bolus. Continue IV fluids but at lower rate considering history of congestive heart failure Phenylephrine and vasopressin drips ordered to maintain MAP CVC being placed in ER (2) Acute UTI: Code(s): N39.0 - Urinary tract infection, site not specified Status: Acute Assessment and Plan: See above (3) Kidney stone on right side: Code(s): N20.0 - Calculus of kidney Status: Acute Assessment and Plan: CT scan showed 1. 8 mm stone in the urinary bladder near the right ureterovesicular junction. Mild right hydroureteronephrosis suggests recent passage. 2. Nonobstructing left nephrolithiasis. Urology was consulted in the ER. He may be going to OR. (4) Acute kidney injury: Code(s): N17.9 - Acute kidney failure, unspecified Status: Acute Assessment and Plan: Likely secondary to sepsis possibly obstructing right stone Check CK CT scan reviewed IV fluids Monitor urine output electrolytes and creatinine (5) Atrial fibrillation with RVR: Code(s): I48.91 - Unspecified atrial fibrillation Status: Acute Assessment and Plan: Patient has history of proximal AFib Amiodarone bolus and infusion No anticoagulation due to hematuria (6) CHF (congestive heart failure): Code(s): I50.9 - Heart failure, unspecified Status: Acute Assessment and Plan: Conservative IV fluids history of congestive heart failure (7) Chronic indwelling Cheung catheter: Code(s): Z97.8 - Presence of other specified devices Status: Acute Assessment and Plan: Cheung was replaced with [address] way Cheung for CBI (8) Hematuria: Code(s): R31.9 - Hematuria, unspecified Status: Acute Assessment and Plan: Likely traumatic from Cheung insertion Three way Cheung placed and CBI ordered Urology consulted Monitor hemoglobin Hold anticoagulation (9) Decubitus ulcer: Onset Date: Unknown Qualifiers: Laterality: unspecified laterality Pressure injury location: buttock Pressure injury stage: unspecified pressure injury stage Qualified Code(s): L89.309 - Pressure ulcer of unspecified buttock, unspecified stage Code(s): L89.90 - Pressure ulcer of unspecified site, unspecified stage Status: Chronic Assessment and Plan: Patient has a decubitus ulcer which is chronic. CT scan suggests possible underlying osteomyelitis Consult wound care service evaluation of the wound Local wound care Check blood cultures Check MRI once patient is stabilized Empiric vancomycin and imipenem at this time (10) Osteomyelitis: Code(s): M86.9 - Osteomyelitis, unspecified Status: Acute Assessment and Plan: See above Plan DVT prophylaxis -SCDs at this time due to hematuria Stress ulcer prophylaxis -continue home PPI Nutrition -heart healthy diet Code Status -patient is DNR DNI which I confirmed again with patient on this admission Total Critical Care Time - 35 minutes Due to a high probability of clinically significant, life threatening deterioration, the patient required my highest level of preparedness to intervene emergently and I personally spent this critical care time directly and personally managing the patient. This critical care time included obtaining a history; examining the patient; pulse oximetry; ordering and review of studies; arranging urgent treatment with development of a management plan; evaluation of patient's response to treatment; frequent reassessment; and discu
[2021-12-10 14:38] LABS: NT Pro B Type Natriuretic Pept 11000 pg/mL (5-100); Troponin I 0.344 ng/mL (0.000-0.034)
[2021-12-10] MEDS: AMIODARONE 360 MG/D5W 200 ML 360 MG/200 ML BAG 33.33 MG IV CONT (14:39)
[2021-12-10 14:50] LABS: Hemoglobin A1C 6.1 % (<5.7)
--- NOTE | 2021-12-10 14:52 | WPDANESEPPF ---
Anes - Initial Pre Proc Eval Procedure: Operation Date: 12/10/21 15:00 Proposed Procedures p Cystoscopy, Right Stent Placement - Adama Guo MD Date/Time: 12/10/21 14:52 Pre Op Diagnosis: Severe Sepsis/UTI Patient Data Age: 86 Gender: M Height: 1.78 m Weight: 83.63 kg Last Vital Signs Temp 36.4 C L 12/10/21 12:56 Pulse 112 H 12/10/21 14:40 Resp 27 H 12/10/21 14:01 BP 75/51 L 12/10/21 14:40 Pulse Ox 98 12/10/21 14:01 O2 Del Method Room Air 12/10/21 11:22 Allergies Allergy/AdvReac Type Severity Reaction Status Date / Time No Known Allergies Allergy Verified 12/10/21 12:52 Home Medications Medication Instructions Recorded Confirmed Type acetaminophen 325 mg capsule 325 mg PO Q4H PRN Pain (Scale 04/28/19 12/10/21 History Score 1-3) diphenhydramine HCl 25 mg capsule 25 mg PO Q6H PRN Itching 04/28/19 12/10/21 History (Benadryl) melatonin 5 mg tablet 5 mg PO HS 04/28/19 12/10/21 History tizanidine 2 mg tablet 2 mg PO BID 04/28/19 12/10/21 History acetaminophen 500 mg tablet 500 mg PO Q6H PRN Pain (Scale 11/24/20 12/10/21 History Score 4-6) albuterol sulfate 2.5 mg/3 mL 2.5 mg inhalation Q4H PRN 11/24/20 12/10/21 History (0.083 %) solution for nebulization Shortness Of Breath ascorbic acid (vitamin C) 500 mg 500 mg PO DAILY 11/24/20 12/10/21 History tablet bisacodyl 10 mg rectal suppository 10 mg RECTAL DAILY PRN Constipation 11/24/20 12/10/21 History ferrous sulfate 325 mg (65 mg 325 mg PO BID 11/24/20 12/10/21 History iron) tablet furosemide 20 mg tablet (Lasix) 40 mg PO DAILY 11/24/20 12/10/21 History magnesium hydroxide 400 mg/5 mL 400 mg PO DAILY PRN Constipation 11/24/20 12/10/21 History oral suspension (Milk of Magnesia) mirtazapine 30 mg tablet 15 mg PO HS 11/24/20 12/10/21 History multivit with minerals-iron 18 1 tablet PO DAILY 11/24/20 12/10/21 History mg-folic ac 400 mcg-vit K 25 mcg tablet (Adults Multivitamin) omeprazole 20 mg capsule,delayed 20 mg PO DAILY 11/24/20 12/10/21 History release ondansetron 4 mg oral soluble film 4 mg PO Q6H PRN Vomiting 11/24/20 12/10/21 History polyethylene glycol 3350 17 gram 17 g PO DAILY PRN Constipation 11/25/20 12/10/21 History oral powder packet (Miralax) albuterol sulfate 90 mcg/actuation 2 puff inhalation Q4H PRN sob 12/10/21 12/10/21 History aerosol inhaler calcium carbonate 320 mg calcium 600 mg PO DAILY 12/10/21 12/10/21 History (750 mg) chewable tablet hyoscyamine sulfate 0.125 mg tablet 0.125 mg PO Q6H PRN Secretions 12/10/21 12/10/21 History metoprolol succinate 25 mg 25 mg PO DAILY 12/10/21 12/10/21 History tablet,extended release 24 hr tamsulosin 0.4 mg capsule 0.4 mg PO DAILY 12/10/21 12/10/21 History Laboratory Tests 12/10/21 12/10/21 12/10/21 11:50 12:07 12:08 WBC 19.1 K/mm3 H K/mm3 (4.5-10.0) RBC 3.90 M/mm3 L M/mm3 (4.6-6.20) Hgb 8.7 g/dL L g/dL (14.0-18.0) Hct 31.1 % L % (42.0-52.0) MCV 79.7 fl L fl (80-100) MCH 22.3 pg L pg (26-34) MCHC 28.0 g/dl L g/dl (32-36) RDW 19.5 % H % (11.5-14.5) Plt Count 357 k/mm3 k/mm3 (150-375) MPV 10.0 fl fl (7.4-10.4) Immature Gran % (Auto) Not Reportable Neut % (Auto) Not Reportable Lymph % (Auto) Not Reportable [place] % (Auto) Not Reportable Eos % (Auto) Not Reportable Baso % (Auto) Not Reportable Lymph # (Auto) Not Reportable [place] # (Auto) Not Reportable Eos # (Auto) Not Reportable Baso # (Auto) Not Reportable Abs Immat Gran (auto) Not Reportable Absolute Neuts (auto) Not Reportable Absolute Nucleated RBC Not Reportable Nucleated RBC % Not Reportable Platelet Estimate Hypochromasia Anisocytosis Sodium
[2021-12-10] MEDS: VASOPRESSIN INJ 100 UNITS in DEXTROSE 5% 95 ML IV CONT (14:54)
--- NOTE | 2021-12-10 15:00 | WPDURCON ---
Assessment and Plan Assessment and plan (1) Septic shock: Code(s): A41.9 - Sepsis, unspecified organism; R65.21 - Severe sepsis with septic shock Status: Acute (2) Infection due to ESBL-producing Escherichia coli: Code(s): A49.8 - Other bacterial infections of unspecified site; Z16.12 - Extended spectrum beta lactamase (ESBL) resistance Status: Acute (3) Septic shock: Code(s): A41.9 - Sepsis, unspecified organism; R65.21 - Severe sepsis with septic shock Status: Acute (4) Kidney stone on right side: Code(s): N20.0 - Calculus of kidney Status: Acute Plan He looks to have a right ureteral stone versus bladder stone. At any rate if he has ureteral stone I cannot leave this under evaluated. If he has obstructive uropathy due to ureteral stone he will get worsening sepsis it is very likely of a poor outcome. I will plan on cystoscopy to evaluate his bladder. If a stone is present in the bladder then it will be extracted. If no stone is seen I will attempt to place a right ureteral stent. Due to his spinal cord injury anesthesia does not intend to provide any significant sedation and less necessary. Patient understands the risks of clinical deterioration. He also understands risks of bleeding, infection, inability to place the stent. This may be a difficult case due to the bladder this morphologies due to chronic indwelling Cheung catheter. Urology Consult Note HPI Date Seen: 12/10/21 Requesting Physician: Emergency room Primary Care Provider: Rudolph Cueto MD Consult Narrative Narrative: Wander Prescott is a 86 year old male. He resides in a shelter. 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 He has a chronic indwelling catheter for years. He gets catheter changes at his shelter. They had some issues change his catheter yesterday he was brought to the emergency room for hematuria. He also endorses not feeling well. Vital signs showed him to be hypotensive and tachycardic consistent with sepsis. Urinalysis is positive for possible infection. He has no decubitus ulcers. All this prompted a CT scan which shows an 8 mm calcification in the pelvis. It is very difficult to discern whether this is in the right distal ureter or already in the bladder. He does have mild right hydronephrosis which would be suspicious to be still in the ureter. I reviewed the CT scan myself and honestly I cannot tell the exact location of this stone. In light of the fact that he is hypotensive and tachycardic I do not feel that I can leave him with a possible ureteral stone as this will likely lead to worsening sepsis and possible . I will plan on cystoscopy to see if the stone is in the bladder. If no stone is seen in the bladder I will plan on a right ureteral stent. The patient is awake and conversive. He agrees to this plan. He understands that manipulation of his urinary tract could actually worsen his clinical condition before he improves. 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
[2021-12-10 15:11] LABS: Reflex Lactic Acid Yes or No Add Lactic
--- NOTE | 2021-12-10 15:17 | WPDPROCEDUR ---
Procedures Central Line Placement Right Femoral: Central Line Date: 12/10/21 Central Line Time: 14:20 The patient/family/POA understand(s) and acknowledge(s) the need to proceed with central venous catheter insertion as an important element of the patient's clinical management.: Yes Consent: I have discussed with the patient and/or surrogate, the non-emergent placement of a central venous catheter, including its clinical necessity/indication and associated potential risks and complications. The patient and/or surrogate understand(s) and acknowledge(s) the need to proceed with central venous catheter insertion as an important element of the patient's clinical management. Time Out Performed: Yes Patient Position: supine Patient placed on monitor/pulse ox: Yes Provider Prep: Max. sterile barrier precautions Central line prep: 2% Chlorhexidine scrub Local anesthesia used: lidocaine 1% Amount of anesthesia used (ml): 10 Sterile US Technique with sterile gel/sterile probe covers: Yes Central line lumen inserted: triple Czech: 7 Length (cm): 16 Depth of Insertion (cm): 15 Post Procedure: sutured in place, good blood return, all ports aspirated, flushed, capped, transparent dressing and antimicrobial product Post procedure x-ray: other (Not needed as this is a femoral central line) Patient tolerated procedure: well Additional comments: I had the patient's power employment attorney Michelle on speaker when we discussed the central line. Both the patient and the power employment attorney agreed to the central line.
--- NOTE | 2021-12-10 15:28 | PC.NURSE ---
Patient report called to [facility]. Patient in the OR at this time.
--- NOTE | 2021-12-10 15:56 | W.PM.PROC2 ---
Procedure Note - Detailed Date of Procedure 12/10/21 Pre-op Diagnosis Severe Sepsis/UTI Right ureteral stone Post-op Diagnosis Same Procedure Performed Cystoscopy, right retrograde pyelogram, right ureteral stent Surgeon Adama Guo MD Word Processor Technician None Anesthesia None Indications This is a gentleman who presented the emergency room with sepsis. CT scan shows a possible right distal ureteral stone versus bladder stone. There is mild hydronephrosis. He is acutely ill and will plan on intervention for this possible right ureteral stone Findings No stone in bladder. Stone in distal ureter. Stent placed Description of Procedure His correctly identified. Informed consent obtained. From the operating room. He was placed in dorsal thigh position. He was prepped and draped in a sterile fashion. Time-out performed. He is insensate and we did this under no anesthesia. I performed cystoscopy. He is extremely high bladder neck. The cystoscopy was difficult due to his high bladder neck and his iatrogenic hypospadias. He had mild trabeculations. I difficulty evaluating the dome of the bladder. There was no stone within the bladder. Identified his right ureteral orifice. I placed a guidewire into the right ureteral orifice. There was some resistance to guidewire placement. I placed a open-ended ureteral catheter over the guidewire. I shot a retrograde pyelogram to define anatomy. There was mild hydronephrosis. I placed a guidewire back into the kidney. I then placed a variable length ureteral stent. The size was 4.8 Monegasque. There was purulent urine seen to be coming from the ureteral orifice. I then placed a 20 Monegasque Chenug catheter. 20 cc were placed in the balloon. It was placed to gravity drainage. He was awakened transferred to PACU in stable condition. Implants Ureteral stent Estimated Blood Loss 0 Drains Yes (Ureteral stent) Pathology None sent Complications No immediate complications
--- NOTE | 2021-12-10 16:17 | PC.NURSE ---
This patient, Wander Prescott, was admitted to Intensive Care Unit-2. Patient/family oriented to hospital policies and general routines including ID bracelet, bed and alarms, visiting hours, pain management, procedures, bathroom and other care routines, personal items, smoking policy, room service/diet, and visiting hours. Information on how to activate the Rapid Response Team has been discussed. Patient/Family are encouraged to report perceived risks to care and to ask questions if they do not understand what they are told or what they should do.
[2021-12-10] MEDS: SODIUM CHLORIDE 0.9% IV 1,000 ML 80 ML IV CONT (16:54)
[2021-12-10] MEDS: MAGNESIUM SULF 2 GM/WATER 50ML 2 GM/50 ML BAG IVPB (16:54)
[2021-12-10 16:55] LABS: Glucose Point of Care 149 mg/dl (65-105)
[2021-12-10] MEDS: POTASSIUM CHLORIDE 20 MEQ PACKET (FOR LIQUID) PO (16:55)
[2021-12-10 17:24] LABS: Hemoglobin 8.5 g/dL (14.0-18.0)
[2021-12-10 17:37] LABS: Lactic Acid Reflex 2.9 mmol/L (0.7-2.0)
[2021-12-10 17:51] LABS: Troponin I 0.584 ng/mL (0.000-0.034)
[2021-12-10] MEDS: ACETAMINOPHEN 325 MG TABLET 650 MG PO (18:20)
[2021-12-10] MEDS: INSULIN ASPART (*BKC) 100 UNITS/ML SUB-Q (20:24)
[2021-12-10 20:25] LABS: Glucose Point of Care 232 mg/dl (65-105)
[2021-12-10 22:40] LABS: Hematocrit 28.5 % (42.0-52.0); Hemoglobin 7.8 g/dL (14.0-18.0)
[2021-12-10 23:15] LABS: Troponin I 0.706 ng/mL (0.000-0.034)
[2021-12-11] VITALS (16 sets, daily range): BP systolic 76–105; BP diastolic 46–64; PULSE 72–87; RESP 15–24; TEMP 36.3–36.9; O2SAT 95–100; BMI 29.4
--- NOTE | 2021-12-11 | ECHO_ITS ---
Patient Info Name: Wander Prescott Age: 86 years : 1935 Gender: Male Ht: 69 in Wt: 199 lbs BSA: 2.12 m2 HR: 75 bpm BP: 76 / 54 mmHg Heart Rhythm: Sinus Rhythm Exam Date: 12/11/2021 11:20 AM Exam Location: [facility] Patient Status: Inpatient Admit Date: 12/10/2021 Staff Ordering Physician: Janet Verma MD Blow Mold Operator: Jhony Camarillo RDCS, RT Attending Provider: Ivna Chin MD Referring Physician: Luci BERRIOS; Exam Type: CA echo dop color flow w con Study Info Indications R65.21 - Severe sepsis with septic shock Complete two-dimensional, color flow and Doppler transthoracic echocardiogram is performed with contrast to opacify the left ventricle and to improve the deliniation of the left ventricle endocardial borders. Strain analysis performed. Summary 1. Left ventricular chamber dimension is normal. 2. Left ventricular systolic function is mildly reduced, estimated at 45-50%. 3. There is mildly increased left ventricular wall thickness. 4. The left ventricular diastolic function is normal. 5. Global longitudinal strain is abnormal at -11 %. 6. The apical cap is hypokinetic. 7. Right ventricular chamber dimension is moderately enlarged. 8. Right ventricular systolic function is reduced. 9. Right atrial chamber dimension is mildly enlarged. 10. Left atrial chamber dimension is mildly enlarged. 11. The mitral valve has thickened leaflets and calcified annulus. 12. There is moderate mitral valve regurgitation. 13. There is moderate tricuspid valve regurgitation. 14. Severe pulmonary hypertension, estimated pulmonary arterial systolic pressure is 64 mmHg. 15. There is mild pulmonic regurgitation. 16. The aortic root size at the sinus of Valsalva is mildly dilated. Left Ventricle Left ventricular chamber dimension is normal. Left ventricular systolic function is mildly reduced, estimated at 45-50%. There is mildly increased left ventricular wall thickness. The left ventricular diastolic function is normal. Global longitudinal strain is abnormal at -11 %. The apical cap is hypokinetic. Right Ventricle Right ventricular chamber dimension is moderately enlarged. Right ventricular systolic function is reduced. Left Atria Left atrial chamber dimension is mildly enlarged. Right Atria Right atrial chamber dimension is mildly enlarged. Atrial Septum Intact interatrial septum visualized by color flow imaging. Aortic Valve The aortic valve is trileaflet. There is mild aortic valve sclerosis. There is no aortic valve stenosis. There is trace aortic valve regurgitation. Pulmonic Valve The pulmonic valve is normal. There is no pulmonic valve stenosis. There is mild pulmonic regurgitation. Mitral Valve The mitral valve has thickened leaflets and calcified annulus. There is no mitral valve stenosis. There is moderate mitral valve regurgitation. Tricuspid Valve The tricuspid valve leaflets are normal. There is no significant tricuspid valve stenosis. There is moderate tricuspid valve regurgitation. Severe pulmonary hypertension, estimated pulmonary arterial systolic pressure is 64 mmHg. Pericardium/Pleural The pericardium appears normal. There is no pericardial effusion. Inferior Vena Cava Dilated inferior vena cava with <50% collapse upon inspiration consistent with elevated right atrial pressure, 15 mmHg. Aorta The aortic root size at the sinus of Valsalva is mildly dilated. Left Ve
[2021-12-11 05:23] LABS: Basophils Percent Auto 0.2 % (0.2-1.2); Eosinophils Percent Auto 0.2 % (0-4.4); Hematocrit 27.6 % (42.0-52.0); Hemoglobin 7.7 g/dL (14.0-18.0); Immature Granulocyte Absolute 0.22 K/mm3 (0.00-0.031); Immature Granulocyte Percent A 1.3 % (0-0.5); Lymphocytes Absolute Auto 1.09 K/mm3 (0.9-3.2); Lymphocytes Percent Auto 6.2 % (18.3-44.2); Mean Corpuscular HGB Conc 27.9 g/dl (32-36); Mean Corpuscular Hemoglobin 22.4 pg (26-34); Mean Corpuscular Volume 80.5 fl (80-100); Mean Platelet Volume 9.7 fl (7.4-10.4); Monocytes Absolute Auto 1.3 K/mm3 (0.1-0.6); Monocytes Percent Auto 7.2 % (2.6-8.5); Neutrophils Absolute Auto 14.9 K/mm3 (1.3-6.7); Neutrophils Percent Auto 84.9 % (45.5-73.1); Platelet Count Result 214 k/mm3 (150-375); Red Blood Count 3.43 M/mm3 (4.6-6.20); Red Cell Distribution Width 19.5 % (11.5-14.5); White Blood Count 17.6 K/mm3 (4.5-10.0)
[2021-12-11 05:44] LABS: Alanine Aminotransferase 36 U/L (6-50); Albumin Level 3.1 g/dL (3.5-5.1); Alkaline Phosphatase 185 U/L (38-126); Anion Gap 7 mmol/L (8-16); Aspartate Amino Transferase 53 U/L (17-59); Bilirubin,Total 0.3 mg/dL (0.2-1.3); Blood Urea Nitrogen 43 mg/dL (9-20); Carbon Dioxide 29 mmol/L (22-30); Chloride 99 mmol/L (98-107); Estimated CRCL calculation 40 ml/min; Estimated Glomerular Filt Rate 58; Glucose 148 mg/dL (65-110); Magnesium 2.1 mg/dL (1.6-2.3); Potassium 3.7 mmol/L (3.4-5.0); Sodium 135 mmol/L (137-145)
[2021-12-11 05:52] LABS: CRP 25.6 mg/dL (<1.0)
[2021-12-11 06:03] LABS: Troponin I 0.544 ng/mL (0.000-0.034)
[2021-12-11 07:21] LABS: Glucose Point of Care 137 mg/dl (65-105)
[2021-12-11 08:00] LABS: Lactic Acid Reflex 1.1 mmol/L (0.7-2.0)
[2021-12-11 08:15] LABS: INR 1.4; Prothrombin Time 16.2 Seconds (11.1-14.7)
[2021-12-11 08:16] LABS: Partial Thromboplastin Time 43.8 SECONDS (22.3-36.8)
--- NOTE | 2021-12-11 08:55 | WPDANESPN ---
Anes - Prog Note Post-Op Date/Time: 12/11/21 08:55 Vital Signs: Last Vital Signs Temp 36.5 C 12/11/21 06:00 Pulse 73 12/11/21 06:00 Resp 16 12/11/21 06:00 BP 76/54 L 12/11/21 06:00 Pulse Ox 100 12/11/21 08:03 O2 Del Method Nasal Cannula 12/11/21 08:03 O2 Flow Rate 2 12/11/21 08:03 Pain Score (VAS): 0 I/O: Intake & Output 12/10/21 12/11/21 12/11/21 23:59 07:59 15:59 Intake Total 1640 Output Total 100 275 Balance 1540 -275 Laboratory Tests 12/11/21 05:11 12/11/21 05:11 12/10/21 12/10/21 12/10/21 11:50 12:07 12:08 WBC 19.1 H RBC 3.90 L Hgb 8.7 L Hct 31.1 L MCV 79.7 L MCH 22.3 L MCHC 28.0 L RDW 19.5 H Plt Count 357 MPV 10.0 Immature Gran % (Auto) Not Reportable Neut % (Auto) Not Reportable Lymph % (Auto) Not Reportable [place] % (Auto) Not Reportable Eos % (Auto) Not Reportable Baso % (Auto) Not Reportable Lymph # (Auto) Not Reportable [place] # (Auto) Not Reportable Eos # (Auto) Not Reportable Baso # (Auto) Not Reportable Abs Immat Gran (auto) Not Reportable Absolute Neuts (auto) Not Reportable Absolute Nucleated RBC Not Reportable Nucleated RBC % Not Reportable Platelet Estimate Hypochromasia Anisocytosis PT INR APTT Sodium Potassium Chloride Carbon Dioxide Anion Gap BUN Creatinine Estim Creat Clear Calc Estimated GFR Glucose POC Capillary Glucose Hemoglobin A1c 6.1 H Lactic Acid Calcium Magnesium Total Bilirubin AST ALT Alkaline Phosphatase Troponin I C-Reactive Protein NT-Pro-B Natriuret Pep Total Protein Albumin Urine Color Red H Urine Appearance Cloudy H Urine pH 6.0 Ur Specific [place] 1.010 Urine Protein 3+ H Urine Glucose (UA) Negative Urine Ketones Trace Ur Blood (Man) 3+ H Urine Nitrate Negative Urine Bilirubin 1+ H Urine Urobilinogen 1.0 Leukocyte Esterase Rfl 3+ H Urine RBC >75 H Urine WBC >75 H SARS-CoV-2 RNA (RT-PCR) Blood Type Antibody Screen 12/10/21 12/10/21 12/10/21 12:08 12:08 12:08 WBC 19.0 H RBC 3.85 L Hgb 8.6 L Hct 30.9 L MCV 80.3 MCH 22.3 L MCHC 27.8 L RDW 19.6 H Plt Count 359 MPV 10.2 Immature Gran % (Auto) 0.5 Neut % (Auto) 95.2 H Lymph % (Auto) 2.8 L [place] % (Auto) 1.2 L Eos % (Auto) 0.0 Baso % (Auto) 0.3 Lymph # (Auto) 0.53 L [place] # (Auto) 0.2 Eos # (Auto) 0.0 Baso # (Auto) 0.1 Abs Immat Gran (auto) 0.10 H Absolute Neuts (auto) 18.1 H Absolute Nucleated RBC 0.0 Nucleated RBC % 0.0 Platelet Estimate Adequate Hypochromasia 1+ Anisocytosis 1+ PT INR APTT Sodium 139 Potassium 3.6 Chloride 94 L Carbon Dioxide 34 H Anion Gap 11 BUN 39 H Creatinine 1.60 H Estim Creat Clear Calc 31 Estimated GFR 41 L Glucose 177 H POC Capillary Glucose Hemoglobin A1c Lactic Acid 4.8 H* Calcium 8.8 Magnesium Total Bilirubin 0.5 AST 48 ALT 43 Alkaline Phosphatase 208 H Troponin I C-Reactive Protein NT-Pro-B Natriuret Pep Total Protein 8.0 Albumin 3.8 Urine Color Urine Appearance Urine pH Ur Specific [place] Urine Protein Urine Glucose (UA) Urine Ketones Ur Blood (Man) Urine Nitrate Urine Bilirubin Urine Urobilinogen Leukocyte Esterase Rfl Urine RBC Urine WBC SARS-CoV-2 RNA (RT-PCR) Blood Type Antibody Screen 12/10/21 12/10/21 12/10/21 12:08 13:00 13:00 WBC RBC Hgb Hct MCV MCH MCHC RDW Plt Count MPV Immature Gran % (Auto) Neut % (Auto) Lymph % (Auto) [place] % (Auto) Eos % (Auto) Baso % (Auto) Lymph # (Auto) [place] # (Auto) Eos # (Auto) Baso # (Auto) Abs Immat Gran (auto) Absolute Neuts (auto) Abs
[2021-12-11] MEDS: FERROUS SULFATE 324 MG TABLET PO ×2 (09:33→18:19)
[2021-12-11] MEDS: PANTOPRAZOLE 40 MG TABLET PO (09:34)
[2021-12-11 09:44] LABS: Hematocrit 26.7 % (42.0-52.0); Hemoglobin 7.4 g/dL (14.0-18.0)
[2021-12-11] MEDS: SODIUM CHLORIDE 0.9% IV 1,000 ML 75 ML IV CONT ×2 (10:21→23:44)
--- NOTE | 2021-12-11 10:25 | PM.IMPN ---
Progress Note: A&P Assessment and Plan (1) Elevated troponin: Code(s): R77.8 - Other specified abnormalities of plasma proteins Status: Acute (2) Low magnesium level: Code(s): R79.0 - Abnormal level of blood mineral Status: Acute (3) Bladder stone: Code(s): N21.0 - Calculus in bladder Status: Acute (4) Pneumonia: Code(s): J18.9 - Pneumonia, unspecified organism Status: Acute (5) Osteomyelitis: Code(s): M86.9 - Osteomyelitis, unspecified Status: Acute (6) Hematuria: Code(s): R31.9 - Hematuria, unspecified Status: Acute (7) Atrial fibrillation with RVR: Code(s): I48.91 - Unspecified atrial fibrillation Status: Acute (8) Acute UTI: Code(s): N39.0 - Urinary tract infection, site not specified Status: Acute (9) Acute kidney injury: Code(s): N17.9 - Acute kidney failure, unspecified Status: Acute (10) Septic shock: Code(s): A41.9 - Sepsis, unspecified organism; R65.21 - Severe sepsis with septic shock Status: Acute (11) Kidney stone on right side: Code(s): N20.0 - Calculus of kidney Status: Acute (12) Anemia: Code(s): D64.9 - Anemia, unspecified Status: Acute (13) Anxiety disorder, unspecified: Code(s): F41.9 - Anxiety disorder, unspecified Status: Acute (14) CHF (congestive heart failure): Code(s): I50.9 - Heart failure, unspecified Status: Acute (15) COPD exacerbation: Code(s): J44.1 - Chronic obstructive pulmonary disease with (acute) exacerbation Status: Acute (16) Acute UTI: Code(s): N39.0 - Urinary tract infection, site not specified Status: Acute (17) Decubitus ulcer: Onset Date: Unknown Qualifiers: Pressure injury location: buttock Pressure injury stage: unspecified pressure injury stage Laterality: unspecified laterality Qualified Code(s): L89.309 - Pressure ulcer of unspecified buttock, unspecified stage Code(s): L89.90 - Pressure ulcer of unspecified site, unspecified stage Status: Chronic (18) Essential hypertension: Code(s): I10 - Essential (primary) hypertension Status: Chronic (19) 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 Patient required a central line due to hypotension. -lactic was noted to be 4.8.? Patient was given 4 L of normal saline. -patient is going to be placed on amiodarone for Afib rVR. -repeat lactic -patient had fluid boluses x4 without any improvement and his blood pressure. -blood and urine cultures pending -the patient is on Primaxin and vancomycin. -the patient test the 3 way CBI. -urology has been consulted and the patient may require surgery.? See Urology note. -monitor H&H every 6 hours -gently hydrate the patient as he has a history of CHF -avoid nephrotoxic substances -anemia of chronic disease microcytic -patient's blood pressure is low at this time.? We will not be able to give him any lorazepam at this time.? The patient is calm and does not appear to be anxious at this time. -patient is hypotensive sore not able to give him any Lasix at this time. -the patient is chronically on oxygen at 2 L per nasal cannula -resume inhaler -Hold antihypertensive medications. -Accu-Cheks AC and HS with sliding scale insulin -patient has no complaints of chest pain at this time. 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
--- NOTE | 2021-12-11 10:58 | WPDUROPN2 ---
Progress Note: A&P Assessment and Plan (1) Bladder stone: Code(s): N21.0 - Calculus in bladder Status: Acute Assessment and Plan: NO stone seen on Cystoscopy. Will need a repeat cystoscopy, with right ureteroscopy and possible right stent exchange when he is more stable and infection is improved/resolved. (2) Acute kidney injury: Code(s): N17.9 - Acute kidney failure, unspecified Status: Acute Assessment and Plan: Improving with stent placement, continue to monitor creatinine. (3) Acute UTI: Code(s): N39.0 - Urinary tract infection, site not specified Status: Acute Assessment and Plan: Continue IV antibiotics, urine cultures pending, tailor antibiotics to culture results. Subjective Subjective Date/Time Seen: 12/11/21 10:58 Cystoscopy, right retrograde pyelogram, right ureteral stent The patient is in stable condition today in the ICU. He is alert and responsive to my exam and questions. He states his pain is tolerable at this time and he is not bothered by his stent. Post Op day: 1 Review of Systems Cardiovascular: Cardiovascular: Denies chest pain Respiratory: Respiratory: Reports no additional respiratory complaints Gastrointestinal: Gastrointestinal: Denies abdominal pain, Denies nausea and Denies vomiting Genitourinary: Genitourinary: Denies hematuria and Denies flank pain Exam Const: General: cooperative Resp: Effort & Inspection: normal respiratory effort Cardio: Rate: bradycardic GI: GI Palp: Yes Soft to palpation and No Tenderness to palpation present (GI) : General: Yes no CVA tenderness Urinary Catheter: Urinary Catheter: patent and draining, urine clear and urine with clots Extrem: Right lower extremity: edema Details: 1+ Left lower extremity: edema Details: 1+ Objective Data Vital Signs Vital Signs: Vital Signs - 24 hr 12/10/21 11:22 12/10/21 11:36 12/10/21 11:42 Temperature 97.5 F L Pulse Rate 92 Respiratory Rate 16 Blood Pressure 89/47 L Pulse Oximetry 100 99 100 Oxygen Delivery Room Air Oxygen Flow Rate 12/10/21 11:43 12/10/21 11:45 12/10/21 11:46 Temperature Pulse Rate Respiratory Rate Blood Pressure 103/82 69/47 L Pulse Oximetry 89 L 100 99 Oxygen Delivery Oxygen Flow Rate 12/10/21 11:55 12/10/21 12:00 12/10/21 12:01 Temperature Pulse Rate 88 87 Respiratory Rate 18 20 Blood Pressure 64/23 L 82/49 L 76/45 L Pulse Oximetry 99 97 96 Oxygen Delivery Oxygen Flow Rate 12/10/21 12:02 12/10/21 12:08 12/10/21 12:11 Temperature Pulse Rate 87 88 87 Respiratory Rate 26 H 17 19 Blood Pressure 76/46 L 82/46 L Pulse Oximetry 96 97 98 Oxygen Delivery Oxygen Flow Rate 12/10/21 12:38 12/10/21 12:12 12/10/21 12:15 Temperature Pulse Rate 89 87 Respiratory Rate 17 18 Blood Pressure 88/56 L Pulse Oximetry 98 98 Oxygen Delivery Oxygen Flow Rate 12/10/21 12:21 12/10/21 12:24 12/10/21 12:30 Temperature Pulse Rate 88 87 87 Respiratory Rate 22 H 18 19 Blood Pressure 85/52 L 84/52 L Pulse Oximetry 98 100 95 Oxygen Delivery Oxygen Flow Rate 12/10/21 12:31 12/10/21 12:32 12/10/21 12:41 Temperature Pulse Rate 85 89 88 Respiratory Rate 17 20 19 Blood Pressure 86/52 L 83/45 L Pulse Oximetry 98 96 99 Oxygen Delivery Oxygen Flow Rate 12/10/21 12:45 12/10/21 12:56 12/10/21 13:02 Temperature 97.5 F L Pulse Rate 91 94 Respiratory Rate 24 H 26 H Blood Pressure Pulse Oximetry 99 Oxygen Delivery Oxygen Flow Rate 12/10/21 13:04 12/10/21 13:15 12/10/21 13:21 Temperature Pulse Rate 93 150 H 152 H Respiratory Rate 18 21 H 26 H Blood Pressure 89/47 L 115/64 Pulse Oximetry Oxygen Delivery Oxygen Flow Rate 12/10/21 13:37 12/10/21 13:38 12/10/21 13:41 Temperature Pulse Rate 147 H 147 H 140 H Respiratory Rate 27 H 22 H 19 Blood Pressure 88/51 L 83/50 L Pulse Oxim
[2021-12-11] MEDS: PERFLUTREN LIPID MICROSPHERES 1.5 ML VIAL DILUTED TO 10 ML TOTAL VOLUME IV PUSH (11:30)
[2021-12-11 11:39] LABS: Glucose Point of Care 222 mg/dl (65-105)
--- NOTE | 2021-12-11 12:28 | PM.CNCAR ---
Assessment and Plan Assessment and plan (1) Elevated troponin: Code(s): R77.8 - Other specified abnormalities of plasma proteins Status: Acute Assessment and Plan: Likely secondary to a combination of atrial fibrillation with rapid ventricular response in addition to marked hypotension from shock (2) Low magnesium level: Code(s): R79.0 - Abnormal level of blood mineral Status: Acute Assessment and Plan: Replaced. Will repeat a magnesium in the morning (3) Atrial fibrillation with RVR: Code(s): I48.91 - Unspecified atrial fibrillation Status: Acute Assessment and Plan: DC amiodarone. Back in sinus rhythm. No anticoagulation secondary to hematuria. From a cardiac perspective supportive care. Resume metoprolol when able (4) CIELO (acute kidney injury): Code(s): N17.9 - Acute kidney failure, unspecified Status: Acute (5) Chronic indwelling Cheung catheter: Code(s): Z97.8 - Presence of other specified devices Status: Acute Assessment and Plan: Secondary to neurogenic bladder (6) Acute UTI: Code(s): N39.0 - Urinary tract infection, site not specified Status: Acute Assessment and Plan: With associated shock. Improved today. (7) Septic shock: Code(s): A41.9 - Sepsis, unspecified organism; R65.21 - Severe sepsis with septic shock Status: Acute Assessment and Plan: Still on pressors but titrate down as able. History of Present Illness History of Present Illness Consult date/time: 12/11/21 12:28 Requesting physician: Wander Rebolledo DO Consult reason: atrial fibrillation Reason For Visit: Severe Sepsis/UTI Narrative: Date of service 12/11/2021 Reason consultation: Atrial fibrillation Requesting provider: Dr. Rebolledo History: Patient 86-year-old male who resides at [facility]. He has a history of paraplegia, neurogenic bladder and chronic indwelling Cheung. Patient was bleeding from the Cheung catheter. He was brought to the hospital because continuous bleeding, urosepsis. He was also found to be in atrial fibrillation with rapid ventricular response and started on amiodarone. He was given boluses of normal saline for hypotension. He was started on pressor agents and admitted to the ICU. He has since converted back to sinus rhythm. He has a history of atrial fibrillation not on anticoagulation previously because recurrent hematuria. Patient is chronically short of breath but denies any chest pain. No syncope, presyncope, paroxysmal nocturnal dyspnea, orthopnea. Review of Systems Review of Systems: All systems reviewed & are unremarkable except as noted in HPI and below Constitutional: Constitutional: Denies body ache(s) and Reports weakness Eyes: Eyes: Denies blurry vision ENT: Reports Normal hearing present Cardiovascular: Cardiovascular: Denies chest pain Respiratory: Respiratory: Reports dyspnea Gastrointestinal: Gastrointestinal: Denies abdominal pain Genitourinary: Genitourinary: Reports hematuria Musculoskeletal: Musculoskeletal: Denies back pain Integumentary/Breasts: Skin/Breast: Denies unusual bruising Neurologic: Denies Abnormal speech present and Reports abnormal gait Psychiatric: Psychiatric: Denies anxiety and Denies confusion Endocrine: Endocrine: Denies excessive sweating Hematologic/Lymphatic: Hematologic/Lymphatic: Denies easy bleeding Allergic/Immunologic: Allergic/Immunologic: Denies GI upset with certain foods PMFSH Past Medical History Medical History Anemia of chronic disease Anxiety disorder, unspecified Arm fracture Asbestosis Bacteremia With peptostreptococcus December 2018 due to infected sacral wound Bladder tumor Status post transient urethral resection of bladder tumor (8 cm) August 2017 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 Calvo
--- NOTE | 2021-12-11 12:37 | WPDINTPN ---
Progress Note: A&P Assessment and Plan (1) Septic shock: Code(s): A41.9 - Sepsis, unspecified organism; R65.21 - Severe sepsis with septic shock Status: Acute Assessment and Plan: Septic shock secondary to UTI and possible pyelonephritis Patient has history of ESBL UTI Empiric broad spectrum antibiotics with imipenem and vancomycin CT abdomen pelvis reviewed -lactic acid has normalized 12/10/2021: Blood cultures growing Gram-negative bacilli 1/2 bottles, urine cultures pending. Patient did receive adequate amount of IV fluids in the ER and OR. Urine output has been good Phenylephrine is off -continue vasopressin, maintain MAP > 65 mmHg for adequate end organ perfusion CVC was placed in the ER (2) Acute UTI: Code(s): N39.0 - Urinary tract infection, site not specified Status: Acute Assessment and Plan: See above (3) Kidney stone on right side: Code(s): N20.0 - Calculus of kidney Status: Acute Assessment and Plan: CT scan showed 1. 8 mm stone in the urinary bladder near the right ureterovesicular junction. Mild right hydroureteronephrosis suggests recent passage. 2. Nonobstructing left nephrolithiasis. -12/10/2021: Status post Cystoscopy, right retrograde pyelogram, right ureteral stent -Urology following the patient. (4) Acute kidney injury: Code(s): N17.9 - Acute kidney failure, unspecified Status: Acute Assessment and Plan: Likely secondary to sepsis possibly obstructing right stone, pyelonephritis Patient has received adequate IV fluids, urine output has been good -creatinine is improved -will start maintenance IV fluids -Monitor urine output electrolytes and renal function (5) Atrial fibrillation with RVR: Code(s): I48.91 - Unspecified atrial fibrillation Status: Acute Assessment and Plan: Patient has history of paroxysmal AFib -patient had an episode of AFib RVR likely related to septic shock, patient was given amiodarone bolus and infusion. Was bradycardic, immune infusion was stopped .-currently in sinus rhythm, rate controlled -No anticoagulation due to hematuria (6) CHF (congestive heart failure): Code(s): I50.9 - Heart failure, unspecified Status: Acute Assessment and Plan: Conservative IV fluids history of congestive heart failure 12/11/2021: Echocardiogram shows EF of 45-50%, left ventricular diastolic function is normal, LV dimension is normal, RV dimension is moderately enlarged, moderate mitral valve regurg, moderate tricuspid valve regurg severe pulmonary hypertension with RVSP of 64 mmHg Will be gentle in hydrating the patient (7) Chronic indwelling Cheung catheter: Code(s): Z97.8 - Presence of other specified devices Status: Acute Assessment and Plan: Cheung was replaced with 3 way Cheung for CBI (8) Hematuria: Code(s): R31.9 - Hematuria, unspecified Status: Acute Assessment and Plan: Likely traumatic from Cheung insertion Three way Cheung placed and CBI ordered Urology following the patient Monitor hemoglobin Hold anticoagulation (9) Decubitus ulcer: Onset Date: Unknown Qualifiers: Laterality: unspecified laterality Pressure injury location: buttock Pressure injury stage: unspecified pressure injury stage Qualified Code(s): L89.309 - Pressure ulcer of unspecified buttock, unspecified stage Code(s): L89.90 - Pressure ulcer of unspecified site, unspecified stage Status: Chronic Assessment and Plan: Patient has a decubitus ulcer which is chronic. CT scan suggests possible underlying osteomyelitis Consult wound care service evaluation of the wound Local wound care Check blood cultures Check MRI once patient is stabilized Empiric vancomycin and imipenem at this time (10) Osteomyelitis: Code(s): M86.9 - Osteomyelitis, unspecified Status: Acute Assessment and Plan: See above Plan DVT prophy
[2021-12-11] MEDS: ALBUMIN HUMAN 25% 25 GM/100 ML 100 ML IVPB ×3 (12:45→23:35)
[2021-12-11] MEDS: INSULIN ASPART (*BKC) 100 UNITS/ML SUB-Q (13:35)
[2021-12-11] MEDS: CENTRAL LINE FLUSH 10 ML IV PUSH ×2 (14:23→20:41)
[2021-12-11 16:07] LABS: Glucose Point of Care 148 mg/dl (65-105)
[2021-12-11] MEDS: ACETAMINOPHEN 325 MG TABLET 650 MG PO (18:20)
[2021-12-11] MEDS: guaiFENesin/DEXTROMETHORPHAN 10 ML UDC PO (20:40)
[2021-12-11 20:57] LABS: Glucose Point of Care 150 mg/dl (65-105)
[2021-12-11] MEDS: ACETAMINOPHEN 500 MG TABLET PO (23:40)
[2021-12-12] VITALS (36 sets, daily range): BP systolic 87–130; BP diastolic 49–83; PULSE 74–144; RESP 14–26; TEMP 35.6–36.7; O2SAT 91–100
[2021-12-12] MEDS: ALBUTEROL SULFATE NEB 2.5 MG/3 ML INH INHALATION ×4 (02:22→19:50)
[2021-12-12] MEDS: CENTRAL LINE FLUSH 10 ML IV PUSH ×4 (05:07→21:29)
[2021-12-12] MEDS: ALBUMIN HUMAN 25% 25 GM/100 ML 100 ML IVPB (05:07)
[2021-12-12 05:37] LABS: Basophils Percent Auto 0.2 % (0.2-1.2); Eosinophils Absolute Auto 0.1 K/mm3 (0-0.3); Eosinophils Percent Auto 0.9 % (0-4.4); Immature Granulocyte Percent A 0.8 % (0-0.5); Lymphocytes Absolute Auto 0.64 K/mm3 (0.9-3.2); Lymphocytes Percent Auto 4.8 % (18.3-44.2); Mean Corpuscular Hemoglobin 22.4 pg (26-34); Mean Corpuscular Volume 80.1 fl (80-100); Mean Platelet Volume 10.9 fl (7.4-10.4); Monocytes Absolute Auto 0.7 K/mm3 (0.1-0.6); Monocytes Percent Auto 5.2 % (2.6-8.5); Neutrophils Absolute Auto 11.7 K/mm3 (1.3-6.7); Neutrophils Percent Auto 88.1 % (45.5-73.1); Nucleated Red Blood Cells Perc 0.2 % (0.0-0.2); Platelet Count Result 203 k/mm3 (150-375); Red Blood Count 3.12 M/mm3 (4.6-6.20); Red Cell Distribution Width 19.5 % (11.5-14.5); White Blood Count 13.3 K/mm3 (4.5-10.0)
[2021-12-12 05:52] LABS: Alanine Aminotransferase 25 U/L (6-50); Albumin Level 3.6 g/dL (3.5-5.1); Alkaline Phosphatase 123 U/L (38-126); Anion Gap 9 mmol/L (8-16); Aspartate Amino Transferase 34 U/L (17-59); Bilirubin,Total 0.4 mg/dL (0.2-1.3); Blood Urea Nitrogen 43 mg/dL (9-20); Calcium 8.4 mg/dL (8.4-10.2); Carbon Dioxide 29 mmol/L (22-30); Chloride 98 mmol/L (98-107); Estimated CRCL calculation 59 ml/min; Estimated Glomerular Filt Rate > 60; Glucose 149 mg/dL (65-110); Magnesium 2.1 mg/dL (1.6-2.3); Potassium 3.4 mmol/L (3.4-5.0); Sodium 136 mmol/L (137-145)
[2021-12-12 05:57] LABS: Hypochromasia 1+ (NORMAL); Platelet Estimate Adequate (Adequate)
[2021-12-12] MEDS: VASOPRESSIN INJ 100 UNITS in DEXTROSE 5% 95 ML IV CONT (06:51)
[2021-12-12] MEDS: SODIUM CHLORIDE 0.9% IV 250 ML 30 ML IV CONT (08:38)
[2021-12-12] MEDS: FERROUS SULFATE 324 MG TABLET PO ×2 (08:39→16:40)
[2021-12-12] MEDS: PANTOPRAZOLE 40 MG TABLET PO (08:39)
[2021-12-12 08:44] LABS: Glucose Point of Care 133 mg/dl (65-105)
[2021-12-12] MEDS: FUROSEMIDE INJ 40 MG/4 ML VIAL 20 MG IV PUSH (09:10)
--- NOTE | 2021-12-12 09:25 | PM.PNCARD ---
Progress Note: A&P Assessment and Plan (1) Elevated troponin: Code(s): R77.8 - Other specified abnormalities of plasma proteins Status: Acute Assessment and Plan: Likely secondary to a combination of atrial fibrillation with rapid ventricular response in addition to marked hypotension from shock (2) Low magnesium level: Code(s): R79.0 - Abnormal level of blood mineral Status: Acute Assessment and Plan: Replaced. (3) Atrial fibrillation with RVR: Code(s): I48.91 - Unspecified atrial fibrillation Status: Acute Assessment and Plan: Back in sinus rhythm. No anticoagulation secondary to hematuria. From a cardiac perspective supportive care. Resume metoprolol when able (4) CIELO (acute kidney injury): Code(s): N17.9 - Acute kidney failure, unspecified Status: Deleted (5) Chronic indwelling Cheung catheter: Code(s): Z97.8 - Presence of other specified devices Status: Acute Assessment and Plan: Secondary to neurogenic bladder (6) Acute UTI: Code(s): N39.0 - Urinary tract infection, site not specified Status: Acute Assessment and Plan: With associated shock. Improved today. (7) Septic shock: Code(s): A41.9 - Sepsis, unspecified organism; R65.21 - Severe sepsis with septic shock Status: Deleted (8) Volume overload: Code(s): E87.70 - Fluid overload, unspecified Status: Acute Assessment and Plan: Volume overload from fluid resuscitation. Will DC IV fluids. KCL 40 mg p.o. x1. Will diurese with furosemide 40 mg IV x1. Subjective Date/time seen: 12/12/21 09:25 Interval history: Reason for consult: Septic shock, UTI, status post right ureteral stent on 12/10/2021, AFib RVR Date of service 12/12/2021: He is more short of breath today. No chest pain. Swelling is also worsened Review of Systems Review of Systems: All systems reviewed & are unremarkable except as noted in HPI and below Constitutional: Constitutional: Denies body ache(s), Denies excessive sweating and Reports weakness Eyes: Eyes: Denies blurry vision ENT: Reports Normal hearing present Cardiovascular: Cardiovascular: Denies chest pain and Reports dyspnea Respiratory: Respiratory: Reports dyspnea Comments: Will more dyspneic today and worsening edema Gastrointestinal: Gastrointestinal: Denies abdominal pain Genitourinary: Genitourinary: Reports hematuria Musculoskeletal: Musculoskeletal: Reports abnormal gait and Denies back pain Integumentary/Breasts: Skin/Breast: Denies unusual bruising Neurologic: Reports Normal hearing present, Denies Abnormal speech present, Reports abnormal gait, Denies confusion and Reports weakness Psychiatric: Psychiatric: Denies anxiety and Denies confusion Endocrine: Endocrine: Denies excessive sweating Hematologic/Lymphatic: Hematologic/Lymphatic: Denies easy bleeding Allergic/Immunologic: Allergic/Immunologic: Denies GI upset with certain foods Exam Narrative: Awake alert. Appears stated age Const: General: comfortable; No in distress or confusion Orientation/consciousness: No confusion HENMT: General nose exam: Normal nares present Mouth: Yes moist mucous membranes Eyes: Sclera: sclerae normal EOM: EOMs intact bilaterally Neck: Neck: supple Carotids: no bruits Chest: Other: No chest wall pain to palpate Resp: Effort & Inspection: normal respiratory effort Auscultation: diminished lung sounds Cardio: Rate: regular rate and not tachycardic GI: Auscultation: normal bowel sounds Urinary Catheter: Urinary Catheter: patent and draining Skin: General skin exam: normal color Neuro: General: No gait normal and No confusion Cranial nerves: Yes Normal hearing present Speech: normal speech and No Abnormal speech present Extrem: General: edema Other: 2+ bilateral lower extremity edema Psych: Mental Status: mental status grossly normal Objecti
[2021-12-12] MEDS: FUROSEMIDE INJ 40 MG/4 ML VIAL IV PUSH (10:37)
[2021-12-12] MEDS: POTASSIUM CHLORIDE 20 MEQ TABLET 40 MEQ PO (10:37)
[2021-12-12 10:45] LABS: Glucose Point of Care 126 mg/dl (65-105)
--- NOTE | 2021-12-12 10:52 | PCFNICU ---
ICU Rounding Note: Pt current nutrition is DBCC. Last recorded weight is 90 kg , stable Bowel Motility: +Bm reported 12/11 Labs Reviewed:Glu 149, BUN 43, Na 136, Hct 25.0,Hgb 7.0 Meds Noted:Protonix, Ferrous Sulfate Skin: Stage III Pressure Ulcer-left/right ischium, Deep Tissue-left foot Additional Notes: Patient remains on Diabetic diet, eating 100% of meals. Diet supplement of Bj BID ordered for wound healing providing an additional 90 kcals and 2.5 gms protein. Agree with diet orders. Following daily in ICU rounds. RD will monitor weight, labs, oral intake every 7 days.
--- NOTE | 2021-12-12 11:13 | WPDINTPN ---
Progress Note: A&P Assessment and Plan (1) Septic shock: Code(s): A41.9 - Sepsis, unspecified organism; R65.21 - Severe sepsis with septic shock Status: Acute Assessment and Plan: Septic shock secondary to UTI and possible pyelonephritis Patient has history of ESBL UTI Empiric broad spectrum antibiotics with imipenem and vancomycin White blood cell count is improving 12/10/2021: Blood cultures growing Gram-negative bacilli 2/2 bottles, urine cultures negative. -seem to be fluid overload Off phenylephrine, vasopressin is being weaned, maintain MAP > 65 mmHg for adequate end organ perfusion CVC was placed in the ER -patient with shortness of breath, likely fluid overloaded, will diurese patient today (2) Bacteremia: Code(s): R78.81 - Bacteremia Status: Acute Assessment and Plan: As above, continue antibiotics (3) Acute UTI: Code(s): N39.0 - Urinary tract infection, site not specified Status: Acute Assessment and Plan: See above, continue antibiotics (4) Kidney stone on right side: Code(s): N20.0 - Calculus of kidney Status: Acute Assessment and Plan: CT scan showed 1. 8 mm stone in the urinary bladder near the right ureterovesicular junction. Mild right hydroureteronephrosis suggests recent passage. 2. Nonobstructing left nephrolithiasis. -12/10/2021: Status post Cystoscopy, right retrograde pyelogram, right ureteral stent -Urology following the patient. (5) Acute kidney injury: Code(s): N17.9 - Acute kidney failure, unspecified Status: Acute Assessment and Plan: Likely secondary to sepsis possibly obstructing right stone, pyelonephritis Patient has received adequate IV fluids, urine output has been good -creatinine has normalized -will start maintenance IV fluids -Monitor urine output electrolytes and renal function (6) Atrial fibrillation with RVR: Code(s): I48.91 - Unspecified atrial fibrillation Status: Acute Assessment and Plan: Patient has history of paroxysmal AFib -patient had an episode of AFib RVR likely related to septic shock, patient was given amiodarone bolus and infusion. Was bradycardic, immune infusion was stopped .-currently in sinus rhythm, rate controlled -No anticoagulation due to hematuria (7) CHF (congestive heart failure): Code(s): I50.9 - Heart failure, unspecified Status: Acute Assessment and Plan: Conservative IV fluids history of congestive heart failure 12/11/2021: Echocardiogram shows EF of 45-50%, left ventricular diastolic function is normal, LV dimension is normal, RV dimension is moderately enlarged, moderate mitral valve regurg, moderate tricuspid valve regurg severe pulmonary hypertension with RVSP of 64 mmHg -IV fluids have been discontinued -12/12 chest x-ray: Interval progression of diffuse bilateral airspace disease which may represent edema or pneumonia -diurese patient (8) Chronic indwelling Cheung catheter: Code(s): Z97.8 - Presence of other specified devices Status: Acute Assessment and Plan: Cheung in place (9) Hematuria: Code(s): R31.9 - Hematuria, unspecified Status: Acute Assessment and Plan: Likely traumatic from Cheung insertion Three way Cheung placed Urology following the patient Monitor hemoglobin Hold anticoagulation -urine is clear (10) Decubitus ulcer: Onset Date: Unknown Qualifiers: Pressure injury location: buttock Pressure injury stage: unspecified pressure injury stage Laterality: unspecified laterality Qualified Code(s): L89.309 - Pressure ulcer of unspecified buttock, unspecified stage Code(s): L89.90 - Pressure ulcer of unspecified site, unspecified stage Status: Chronic Assessment and Plan: Patient has a decubitus ulcer which is chronic. CT scan suggests possible underlying osteomyelitis Consult wound care service evaluation of the wound Local
[2021-12-12 12:53] LABS: Glucose Point of Care 121 mg/dl (65-105)
--- NOTE | 2021-12-12 13:07 | WPDUROPN2 ---
Progress Note: A&P Assessment and Plan (1) Bacteremia: Code(s): R78.81 - Bacteremia Status: Acute Assessment and Plan: Improving, I suspect his urine culture is negative d/t contaminiation, although his blood cultures grew E-Coli. He appears to be responding to antibiotic therapy as his WBC is improved and he remains afebrile and more alert. (2) Bladder stone: Code(s): N21.0 - Calculus in bladder Status: Acute Assessment and Plan: The patient will need a cystoscopy, right ureteroscopy with possible stone extraction, right retrograde pyelogram, possible right stent exchange/removal as an outpatient when his infection resolves and he is discharged home. No further evaluation at this time. (3) Hematuria: Code(s): R31.9 - Hematuria, unspecified Status: Acute Assessment and Plan: Resolved (4) Kidney stone on right side: Code(s): N20.0 - Calculus of kidney Status: Acute (5) Acute kidney injury: Code(s): N17.9 - Acute kidney failure, unspecified Status: Acute Assessment and Plan: Resolved. Creatinine is 0.80. Subjective Subjective Date/Time Seen: 12/12/21 13:07 Cystoscopy, right stent placement, right retrograde pyelogram. Patient is slowly improving, WBC is down to 13.3, creatinine 0.80 and blood cultures are growing E-Coli, urine culture is contaminated. He is afebrile but tachycardic. His hypotension is responding to pressors, and he is being weaned from them. He is having shortness of breath, but is being diuresed. Post Op day: 2 Review of Systems Cardiovascular: Cardiovascular: Denies chest pain Respiratory: Respiratory: Reports dyspnea Genitourinary: Genitourinary: Denies hematuria and Denies flank pain Exam Resp: Effort & Inspection: labored, pursed lip breathing and tachypneic Cardio: Rate: tachycardic GI: GI Palp: Yes Soft to palpation and No Tenderness to palpation present (GI) : General: Yes no CVA tenderness Urinary Catheter: Urinary Catheter: patent and draining and urine clear Extrem: Right lower extremity: no edema Left lower extremity: no edema Objective Data Vital Signs Vital Signs: Vital Signs - 24 hr 12/11/21 14:00 12/11/21 14:00 12/11/21 16:00 Temperature 97.8 F Pulse Rate 78 76 80 Respiratory Rate 24 H Blood Pressure 93/53 L Pulse Oximetry 100 Oxygen Delivery Oxygen Flow Rate 12/11/21 18:00 12/11/21 16:00 12/11/21 18:00 Temperature Pulse Rate 87 80 Respiratory Rate 21 H Blood Pressure 105/62 Pulse Oximetry 95 95 Oxygen Delivery Nasal Cannula Oxygen Flow Rate 2 12/11/21 20:00 12/11/21 20:00 12/11/21 20:00 Temperature 97.4 F L Pulse Rate 81 81 81 Respiratory Rate 21 H 21 H Blood Pressure 96/53 L Pulse Oximetry 100 100 Oxygen Delivery Nasal Cannula Oxygen Flow Rate 2 12/11/21 22:00 12/11/21 22:00 12/12/21 00:00 Temperature Pulse Rate 80 80 82 Respiratory Rate 20 Blood Pressure 98/57 L Pulse Oximetry 100 Oxygen Delivery Oxygen Flow Rate 12/12/21 00:00 12/12/21 00:00 12/11/21 21:15 Temperature 97.6 F Pulse Rate 82 82 Respiratory Rate 19 19 Blood Pressure 106/61 Pulse Oximetry 100 100 99 Oxygen Delivery Nasal Cannula Nasal Cannula Oxygen Flow Rate 2 2 12/12/21 02:23 12/12/21 02:33 12/12/21 02:00 Temperature Pulse Rate 74 77 76 Respiratory Rate 14 14 Blood Pressure Pulse Oximetry Oxygen Delivery Oxygen Flow Rate 12/12/21 02:00 12/12/21 04:00 12/12/21 04:00 Temperature Pulse Rate 76 80 80 Respiratory Rate 18 16 Blood Pressure 110/61 Pulse Oximetry 100 98 Oxygen Delivery Nasal Cannula Oxygen Flow Rate 2 12/12/21 04:00 12/12/21 06:00 12/12/21 06:00 Temperature 97.9 F Pulse Rate 80 76 76 Respiratory Rate 16 14 Blood Pressure 107/53 L 110/50 L Pulse Oximetry 98 100 Oxygen Delivery Oxygen Flow Rate 12/12/21 06:51 12/12/21 06:51 08
--- NOTE | 2021-12-12 13:32 | WPDCNINT ---
Assessment and Plan Assessment and plan Plan DVT prophylaxis: Stress ulcer prophylaxis: Nutrition: Code Status: Critical Care Time Spent: Due to a high probability of clinically significant, life threatening deterioration, the patient required my highest level of preparedness to intervene emergently and I personally spent this critical care time directly and personally managing the patient. This critical care time included obtaining a history; examining the patient; pulse oximetry; ordering and review of studies; arranging urgent treatment with development of a management plan; evaluation of patient's response to treatment; frequent reassessment; and discussions with other providers. It was exclusive of separately billable procedures and treating other patients and teaching time. 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 Clement. 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 On chronic anticoagulation with Xarelto Spinal stenosis in cervical region Severe C3-C4 Spinal stenosis of lumbar region Severe l3-L4 Type 2 diabetes mellitus (Unknown) With long-term insulin use hemoglobin A1c 6.03 January 2019 Vitamin D deficiency Surgical History Surgical History H/O cystoscopy By Dr. Julian with exchange of Cheung catheter December 31, 2018 History of appendectomy 1951 History of lung biopsy for lung nodule History of rectal surgery Hx of tonsillectomy Hx of transurethral destruction of bladder lesion Trans urethral resection of bladder tumor August 2017 Status post debridement Excisional debridement of right ischial decubitus by Dr. clement on January 01, 2019. Excisional debridement skin, subcutaneous muscle of the right ischial decubitus ulcer by Dr. clement on January 05, 2019 Family History Family History Father Lung cancer Mother , of natural causes Cerebrovascul
[2021-12-12] MEDS: ACETAMINOPHEN 325 MG TABLET 650 MG PO (13:48)
[2021-12-12] MEDS: IPRATROPIUM BR 0.02% INH SOLN 0.5 MG/2.5 ML VIAL INHALATION ×2 (14:16→19:50)
[2021-12-12 16:38] LABS: Glucose Point of Care 128 mg/dl (65-105)
[2021-12-12 17:13] LABS: Glucose Point of Care 146 mg/dl (65-105)
--- NOTE | 2021-12-12 17:40 | PM.IMPN ---
Progress Note: A&P Assessment and Plan (1) Septic shock: Code(s): A41.9 - Sepsis, unspecified organism; R65.21 - Severe sepsis with septic shock Status: Acute (2) Bacteremia: Code(s): R78.81 - Bacteremia Status: Acute (3) CHF (congestive heart failure): Code(s): I50.9 - Heart failure, unspecified Status: Acute (4) Acute UTI: Code(s): N39.0 - Urinary tract infection, site not specified Status: Acute (5) Kidney stone on right side: Code(s): N20.0 - Calculus of kidney Status: Acute (6) Acute kidney injury: Code(s): N17.9 - Acute kidney failure, unspecified Status: Acute (7) Atrial fibrillation with RVR: Code(s): I48.91 - Unspecified atrial fibrillation Status: Acute (8) Chronic indwelling Cheung catheter: Code(s): Z97.8 - Presence of other specified devices Status: Acute (9) Hematuria: Code(s): R31.9 - Hematuria, unspecified Status: Acute (10) Decubitus ulcer: Onset Date: Unknown Qualifiers: Pressure injury location: buttock Pressure injury stage: unspecified pressure injury stage Laterality: unspecified laterality Qualified Code(s): L89.309 - Pressure ulcer of unspecified buttock, unspecified stage Code(s): L89.90 - Pressure ulcer of unspecified site, unspecified stage Status: Chronic (11) Osteomyelitis: Code(s): M86.9 - Osteomyelitis, unspecified Status: Acute Plan Patient presents to the emergency room with complaints of hematuria. Patient normally has chronic indwelling Cheung but presented emergency room without Cheung catheter in place. Cheung catheter was placed and he was started on CBI. He was severely hypotensive requiring central line placement and pressors. Was placed in the ICU. Blood cultures are positive. Is also found to have a large decubitus ulcer with possibly also myelitis. Wound Care has been consulted. He has developed CHF related to the IV fluids. His EF is 45-50% with moderate MR and TR as well as severe pulmonary hypertension. This is probably contributing to his diffuse anasarca. He was found to have right obstructing kidney stone and underwent cystoscopy with right retrograde pyelogram and stent placement. patient was able to come off vasopressin today. Blood pressure remaining stable. He was on albumin and now he has been given a couple doses of Lasix IV which he has tolerated well. He has put out over 5 L of urine today. He is still coarse with wheezing. Continue nebulizer treatments as well. Continue current IV antibiotics. Awaiting final blood culture results. Although his urine culture showed mixed genital jalyn, suspect the positive blood cultures are from a urinary source. Consider ileus but having BMs and no n/v so will monitor for now. Continue current care plan. Subjective Date/time seen: 12/12/21 17:40 Interval history: 86yo male with history of paraplegia, neurogenic bladder and chronic Cheung catheter presents emergency room with hematuria. Assuming care. Chart reviewed. Patient had a rough morning. He was more short of breath but better after breathing treatment. Denies chest pain. No nausea or vomiting. He states he has not had any flatus or bowel movements but nurse states patient having multiple stools over the past 2 days. Not eating much. Vasopressin off this morning. Exam Narrative: AF 96.7 110/65 99 21 98% ra Gen - NARD lying semi-recumbent in bed Chest - coarse with expiratory audible wheezes appreciated. nml RR but mildly tachypneic with conversation. CV - RRR S1/S2. Tele showing wide complex sinus rhythm with occas PVCs Abd - Soft, firm but not tense, tympanitic. high pitched +BS. - Cheung secured draining clear yellow urine. Ext - 2++ pitting bilateral LE edema. Right femoral TLC in place. Neuro - Alert, answers questions appropriately. [place]. Paraplegic Skin - cool and dry Objective Johnson
[2021-12-12 21:35] LABS: Glucose Point of Care 119 mg/dl (65-105)
--- NOTE | 2021-12-12 21:35 | ECG_ITS ---
Measurements Intervals [place] Rate: 127 P: NE: 0 QRS: 258 QRSD: 156 T: 68 QT: 332 QTc: 484 Interpretive Statements ATRIAL FIBRILLATION WITH RAPID VENTRICULAR RESPONSE MARKED RIGHT AXIS DEVIATION [QRS AXIS > 100] RIGHT BUNDLE BRANCH BLOCK [120+ ms QRS DURATION, UPRIGHT V1, 40+ ms S IN I/aVL/V4/V5/V6] POSSIBLE ANTERIOR MYOCARDIAL INFARCTION [30 ms Q WAVE IN V3/V4, OR R < 0.2 mV IN V4], PROBABLY OLD ABNORMAL ECG COMPARED TO ECG 12/10/2021 14:01:54 ATRIAL FIBRILLATION NOW PRESENT Electronically Signed On 12-13-2021 9:36:51 CDT by Abraham Ruano M.D.
[2021-12-12] MEDS: AMIODARONE 150 MG/D5W 100 ML 150 MG/100 ML BAG 600 MG IV CONT (21:57)
[2021-12-12] MEDS: AMIODARONE 360 MG/D5W 200 ML 360 MG/200 ML BAG 33.33 MG IV CONT (22:08)
[2021-12-13] VITALS (27 sets, daily range): BP systolic 95–114; BP diastolic 52–64; PULSE 8–138; RESP 15–26; TEMP 36.3–36.7; O2SAT 88–100
[2021-12-13] MEDS: ACETAMINOPHEN 325 MG TABLET 650 MG PO ×2 (00:09→13:11)
[2021-12-13] MEDS: IPRATROPIUM BR 0.02% INH SOLN 0.5 MG/2.5 ML VIAL INHALATION ×6 (00:35→20:20)
[2021-12-13] MEDS: ALBUTEROL SULFATE NEB 2.5 MG/3 ML INH INHALATION ×6 (00:35→20:20)
[2021-12-13] MEDS: AMIODARONE 360 MG/D5W 200 ML 360 MG/200 ML BAG 33.33 MG IV CONT (03:32)
[2021-12-13] MEDS: guaiFENesin/DEXTROMETHORPHAN 10 ML UDC PO (05:49)
[2021-12-13] MEDS: CENTRAL LINE FLUSH 10 ML IV PUSH ×4 (05:50→22:07)
[2021-12-13 06:09] LABS: Basophils Percent Auto 0.2 % (0.2-1.2); Eosinophils Absolute Auto 0.2 K/mm3 (0-0.3); Hemoglobin 8.2 g/dL (14.0-18.0); Immature Granulocyte Absolute 0.07 K/mm3 (0.00-0.031); Immature Granulocyte Percent A 0.7 % (0-0.5); Lymphocytes Absolute Auto 0.69 K/mm3 (0.9-3.2); Lymphocytes Percent Auto 6.9 % (18.3-44.2); Mean Corpuscular HGB Conc 29.3 g/dl (32-36); Mean Corpuscular Hemoglobin 23.3 pg (26-34); Mean Corpuscular Volume 79.5 fl (80-100); Mean Platelet Volume 9.8 fl (7.4-10.4); Monocytes Absolute Auto 0.6 K/mm3 (0.1-0.6); Monocytes Percent Auto 6.2 % (2.6-8.5); Neutrophils Absolute Auto 8.4 K/mm3 (1.3-6.7); Platelet Count Result 207 k/mm3 (150-375); Red Blood Count 3.52 M/mm3 (4.6-6.20); Red Cell Distribution Width 19.3 % (11.5-14.5)
[2021-12-13 06:32] LABS: Alanine Aminotransferase 19 U/L (6-50); Albumin Level 3.7 g/dL (3.5-5.1); Alkaline Phosphatase 116 U/L (38-126); Anion Gap 10 mmol/L (8-16); Aspartate Amino Transferase 27 U/L (17-59); Bilirubin,Total 0.5 mg/dL (0.2-1.3); Blood Urea Nitrogen 32 mg/dL (9-20); Calcium 8.6 mg/dL (8.4-10.2); Carbon Dioxide 30 mmol/L (22-30); Chloride 96 mmol/L (98-107); Estimated CRCL calculation 59 ml/min; Estimated Glomerular Filt Rate > 60; Glucose 114 mg/dL (65-110); Magnesium 1.8 mg/dL (1.6-2.3); Phosphorus 2.4 mg/dL (2.5-4.5); Potassium 3.3 mmol/L (3.4-5.0); Sodium 136 mmol/L (137-145)
[2021-12-13 06:58] LABS: Hypochromasia 3+ (NORMAL); Ovalocytes 1+ (NORMAL); Platelet Estimate Adequate (Adequate)
[2021-12-13 06:59] LABS: Anisocytosis 2+ (NORMAL); Microcytosis 2+ (NORMAL); Poikilocytosis 1+ (NORMAL)
[2021-12-13 07:38] LABS: Glucose Point of Care 130 mg/dl (65-105)
[2021-12-13] MEDS: MAGNESIUM SULF 2 GM/WATER 50ML 2 GM/50 ML BAG IVPB (08:27)
[2021-12-13] MEDS: POTASSIUM CHLORIDE 20 MEQ TABLET 40 MEQ PO (08:28)
[2021-12-13] MEDS: FUROSEMIDE 20 MG TABLET PO (08:29)
[2021-12-13] MEDS: METOPROLOL TARTRATE 12.5 MG TABLET PO ×2 (08:29→20:48)
[2021-12-13] MEDS: PANTOPRAZOLE 40 MG TABLET PO (08:31)
[2021-12-13] MEDS: polyethylene glycoL 3350 17 GM POWD.PACK PO (08:31)
[2021-12-13] MEDS: FERROUS SULFATE 324 MG TABLET PO ×2 (08:31→16:26)
--- NOTE | 2021-12-13 08:56 | PM.PNCARD ---
Progress Note: A&P Assessment and Plan (1) Elevated troponin: Code(s): R77.8 - Other specified abnormalities of plasma proteins Status: Acute Assessment and Plan: Likely secondary to a combination of atrial fibrillation with rapid ventricular response in addition to marked hypotension from shock (2) Low magnesium level: Code(s): R79.0 - Abnormal level of blood mineral Status: Acute Assessment and Plan: Replaced. (3) Atrial fibrillation with RVR: Code(s): I48.91 - Unspecified atrial fibrillation Status: Acute Assessment and Plan: Went back into atrial fibrillation for a period of time last night and was given IV amiodarone. Back in sinus rhythm this morning. No anticoagulation secondary to hematuria. From a cardiac perspective supportive care. Resume metoprolol when able. Cardiology will follow on an as needed basis at this point. Please do not hesitate to contact us with any questions or concerns. (4) Chronic indwelling Cheung catheter: Code(s): Z97.8 - Presence of other specified devices Status: Acute Assessment and Plan: Secondary to neurogenic bladder (5) Acute UTI: Code(s): N39.0 - Urinary tract infection, site not specified Status: Acute Assessment and Plan: With associated shock. Improved. (6) Volume overload: Code(s): E87.70 - Fluid overload, unspecified Status: Acute Assessment and Plan: Still has significant bilateral LE edema. Give 40mg IV furosemide x 1. Check potassium this evening. Increase p.o. dose of furosemide starting tomorrow. Subjective Date/time seen: 12/13/21 08:56 Cardiology follow up for atrial fibrillation Reverted to atrial fibrillation last night with RVR. Was given IV amiodarone and has converted back to sinus rhythm at this point. Feels ok this morning and offers no complaints. He was unaware of his tachycardia overnight. Review of Systems Review of Systems: All systems reviewed & are unremarkable except as noted in HPI and below Constitutional: Constitutional: Denies body ache(s), Denies excessive sweating and Reports weakness Eyes: Eyes: Denies blurry vision ENT: Reports Normal hearing present Cardiovascular: Cardiovascular: Denies chest pain and Reports dyspnea Respiratory: Respiratory: Reports dyspnea Gastrointestinal: Gastrointestinal: Denies abdominal pain Genitourinary: Genitourinary: Reports hematuria Musculoskeletal: Musculoskeletal: Reports abnormal gait and Denies back pain Integumentary/Breasts: Skin/Breast: Denies unusual bruising Neurologic: Reports Normal hearing present, Denies Abnormal speech present, Reports abnormal gait, Denies confusion and Reports weakness Psychiatric: Psychiatric: Denies anxiety and Denies confusion Endocrine: Endocrine: Denies excessive sweating Hematologic/Lymphatic: Hematologic/Lymphatic: Denies easy bleeding Allergic/Immunologic: Allergic/Immunologic: Denies GI upset with certain foods Exam Narrative: Awake alert. Appears stated age Const: General: comfortable; No in distress or confusion Orientation/consciousness: No confusion HENMT: General nose exam: Normal nares present Mouth: Yes moist mucous membranes Eyes: Sclera: sclerae normal EOM: EOMs intact bilaterally Neck: Neck: supple Carotids: no bruits Resp: Effort & Inspection: normal respiratory effort Auscultation: rhonchi, wheezes and diminished lung sounds Cardio: Rate: regular rate and tachycardic Rhythm: regular rhythm GI: Auscultation: normal bowel sounds Urinary Catheter: Urinary Catheter: patent and draining Skin: General skin exam: normal color Neuro: General: No gait normal and No confusion Cranial nerves: Yes Normal hearing present Speech: normal speech and No Abnormal speech present Extrem: General: edema Other: 2+ bilateral lower extremity edema Psych: Mental Status: mental status grossly normal Object
--- NOTE | 2021-12-13 11:40 | PCFNICU ---
ICU Rounding Note: Pt current nutrition is DBCC. Last recorded weight is 87.6 kg, down from 90.3 kg on admit. Bowel Motility:+Bm reported 12/12 Labs Reviewed: Glu 149, Na 136, Hct 25.0,Hgb 7.0 Meds Noted:Protonix, Ferrous Sulfate Skin: WNL Additional Notes: Patient remains on a DBCC. Oral intake fair about 50% reported. Obstructive Series ordered. Patient is weak-PT/OT ordered. Diet supplements of Glucerna shakes added BID providing an additional 220 kcals and 10 gms protein. Bj BID for wound healing providing and additional 90 kcals and 2.5 gms protein. Agree with diet orders. Following daily in ICU rounds. RD will monitor weight, labs, oral intake every 5 days.
--- NOTE | 2021-12-13 11:57 | WPDINTPN ---
Progress Note: A&P Assessment and Plan (1) Atrial fibrillation with RVR: Code(s): I48.91 - Unspecified atrial fibrillation Status: Acute Assessment and Plan: Patient has history of paroxysmal AFib -patient had an episode of AFib RVR likely related to septic shock, patient was given amiodarone bolus and infusion.? .-currently in sinus rhythm, rate controlled -No anticoagulation due to hematuria -started patient on metoprolol -also started on Lasix (2) Septic shock: Code(s): A41.9 - Sepsis, unspecified organism; R65.21 - Severe sepsis with septic shock Status: Acute Assessment and Plan: Septic shock secondary to UTI and possible pyelonephritis Patient has history of ESBL UTI Empiric broad spectrum antibiotics with imipenem and vancomycin White blood cell count is improving 12/10/2021: Blood cultures growing ESBL E coli 12/10/2021: Urine culture negative so far -off all pressors -CVC was placed in the ER (3) Bacteremia: Code(s): R78.81 - Bacteremia Status: Acute Assessment and Plan: As above, continue antibiotics (4) Acute UTI: Code(s): N39.0 - Urinary tract infection, site not specified Status: Acute Assessment and Plan: As above, continue antibiotics (5) Kidney stone on right side: Code(s): N20.0 - Calculus of kidney Status: Acute Assessment and Plan: CT scan showed ?1. 8 mm stone in the urinary bladder near the right ureterovesicular junction. Mild right hydroureteronephrosis suggests recent passage. 2. Nonobstructing left nephrolithiasis. -12/10/2021:? Status post Cystoscopy, right retrograde pyelogram, right ureteral stent -Urology following the patient. (6) Acute kidney injury: Code(s): N17.9 - Acute kidney failure, unspecified Status: Acute Assessment and Plan: Likely secondary to sepsis possibly obstructing right stone, pyelonephritis Patient has received adequate IV fluids, urine output has been good -creatinine has normalized -will start maintenance IV fluids -Monitor urine output electrolytes and renal function (7) CHF (congestive heart failure): Code(s): I50.9 - Heart failure, unspecified Status: Acute Assessment and Plan: Conservative IV fluids history of congestive heart failure 12/11/2021: Echocardiogram shows EF of 45-50%, left ventricular diastolic function is normal, LV dimension is normal, RV dimension is moderately enlarged, moderate mitral valve regurg, moderate tricuspid valve regurg severe pulmonary hypertension with RVSP of 64 mmHg -IV fluids have been discontinued -12/12 chest x-ray:? Interval progression of diffuse bilateral airspace disease which may represent edema or pneumonia -diurese patient (8) Chronic indwelling Cheung catheter: Code(s): Z97.8 - Presence of other specified devices Status: Acute Assessment and Plan: Cheung in place (9) Hematuria: Code(s): R31.9 - Hematuria, unspecified Status: Acute Assessment and Plan: Resolved, Likely traumatic from Cheung insertion Three way Cheung placed Urology following the patient Monitor hemoglobin Hold anticoagulation -urine is clear (10) Decubitus ulcer: Onset Date: Unknown Qualifiers: Pressure injury location: buttock Pressure injury stage: unspecified pressure injury stage Laterality: unspecified laterality Qualified Code(s): L89.309 - Pressure ulcer of unspecified buttock, unspecified stage Code(s): L89.90 - Pressure ulcer of unspecified site, unspecified stage Status: Chronic Assessment and Plan: Patient has a decubitus ulcer which is chronic.? CT scan suggests possible underlying osteomyelitis Consult wound care service evaluation of the wound Local wound care Blood cultures growing Gram-negative bacilli 2/2 bottles Check MRI once patient is stabilized Empiric vancomycin and imipenem at this time (11) Osteomyelitis:
[2021-12-13 12:09] LABS: Glucose Point of Care 161 mg/dl (65-105)
[2021-12-13] MEDS: FLUTICASONE PROPIONATE 0.05% NA SPR 16 GM BTL (*BKC) 1 SPRAY NASAL ×2 (13:11→20:47)
--- NOTE | 2021-12-13 14:09 | PCOTNOTE ---
Spoke with Dr. Verma, agreeable to discharge patient from OT without completing OT evaluation due to patient being at current baseline of dependent for all ADLs and mobility tasks. No skilled OT indicated.
--- NOTE | 2021-12-13 14:15 | PCPTNOTE ---
Addendum entered by Shanti Patel, PT 12/13/21 14:16: No skilled PT needed. Original Note: Per OT: Spoke with Dr. Verma, agreeable to discharge patient from PT without completing PT evaluation due to patient being at current baseline of dependent for all ADLs and mobility tasks. No skilled OT indicated.
[2021-12-13] MEDS: FUROSEMIDE INJ 40 MG/4 ML VIAL IV PUSH (16:25)
[2021-12-13 16:47] LABS: Potassium 3.9 mmol/L (3.4-5.0)
[2021-12-13 16:51] LABS: Glucose Point of Care 107 mg/dl (65-105)
--- NOTE | 2021-12-13 17:07 | PM.IMPN ---
Progress Note: A&P Assessment and Plan (1) Septic shock: Code(s): A41.9 - Sepsis, unspecified organism; R65.21 - Severe sepsis with septic shock Status: Acute Assessment and Plan: Patient presents to the emergency room with complaints of hematuria and found to have UTI with obstructing stone. He was severely hypotensive requiring central line placement and pressors and Abx started. Patient had cystoscopy with right retrograde pyelogram and stent placement. BP improved. Patient was able to come off vasopressin 12/12. BCx growing ESBL EColi. UCx negative but suspect urinary source. Sepsis resolving. (2) Bacteremia: Code(s): R78.81 - Bacteremia Status: Acute Assessment and Plan: As above. Blood cultures both growing ESBL EColi. Although his urine culture showed mixed genital jalyn, suspect the positive blood cultures are from a urinary source. Continue Primaxin. If remains stable, will change to Ertapenem tomorrow. (3) CHF (congestive heart failure): Code(s): I50.9 - Heart failure, unspecified Status: Acute Assessment and Plan: Patient has developed CHF related to the IV fluids. Echo with EF is 45-50% with moderate MR and TR as well as severe pulmonary hypertension. This is probably contributing to his diffuse anasarca. Blood pressure remaining stable. He was on albumin and was able to tolerate a couple doses of Lasix IV. UOP 5.2L yesterday (only 925ml today). CXR today showing no signifincant change in the diffuse bilateral interstitial lung disease pneumonia versus edema. Lasix to be repeated today. (4) Acute UTI: Code(s): N39.0 - Urinary tract infection, site not specified Status: Acute Assessment and Plan: As above, continue antibiotics (5) Kidney stone on right side: Code(s): N20.0 - Calculus of kidney Status: Acute Assessment and Plan: Patient presents to the emergency room with complaints of hematuria. Patient normally has chronic indwelling Cheung but presented emergency room without Cheung catheter in place. Cheung catheter was placed and he was started on CBI. CT scan showing 8mm stone in the blader near the right UVJ and mild right hydroureteronephrosis. He underwent cystoscopy with right retrograde pyelogram and stent placement 12/10/21. Urology following the patient. (6) Acute kidney injury: Code(s): N17.9 - Acute kidney failure, unspecified Status: Acute Assessment and Plan: Cr 1.6 felt secondary to ATN from sepsis and possibly obstructing right stone, pyelonephritis. Patient received adequate IV fluids with good urine output. Creatinine has normalized. Tolerating Lasix. Continue to follow. (7) Atrial fibrillation with RVR: Code(s): I48.91 - Unspecified atrial fibrillation Status: Acute Assessment and Plan: Patient has history of paroxysmal AFib. Patient had an episode of AFib/RVR last night likely related to sepsis. Patient was given amiodarone bolus and infusion.?He converted to normal sinus rhythm. Continue Metoprolol. No anticoagulation due to hematuria. Continue to monitor on telemetry. Cardiology following and appreciate their input. (8) Chronic indwelling Cheung catheter: Code(s): Z97.8 - Presence of other specified devices Status: Acute Assessment and Plan: Patient has chronic indwelling Cheung for neurogenic bladder. Patient presents to the emergency room with complaints of hematuria. Patient normally has chronic indwelling Cheung but presented emergency room without Cheung catheter in place. Cheung catheter was placed and he was started on CBI. Converted to regular Cheung now. (9) Hematuria: Code(s): R31.9 - Hematuria, unspecified Status: Acute Assessment and Plan: As above (10) Decubitus ulcer: Onset Date: Unknown Qualifiers: Pressure injury location: buttock Pressure injury stage: unspecified pres
[2021-12-13 17:12] LABS: Vancomycin Trough 8.4 ug/mL (10.0-20.0)
[2021-12-13] MEDS: MIRTAZAPINE SOLTAB 15 MG TAB.DISPER PO (20:48)
[2021-12-13 20:59] LABS: Glucose Point of Care 119 mg/dl (65-105)
[2021-12-13] MEDS: ACETAMINOPHEN 500 MG TABLET PO (22:09)
[2021-12-14] VITALS (18 sets, daily range): BP systolic 90–124; BP diastolic 59–68; PULSE 69–100; RESP 12–23; TEMP 35.7–36.7; O2SAT 87–97
[2021-12-14] MEDS: IPRATROPIUM BR 0.02% INH SOLN 0.5 MG/2.5 ML VIAL INHALATION ×6 (00:12→20:11)
[2021-12-14] MEDS: ALBUTEROL SULFATE NEB 2.5 MG/3 ML INH INHALATION ×6 (00:12→20:11)
[2021-12-14] MEDS: guaiFENesin/DEXTROMETHORPHAN 10 ML UDC PO ×2 (00:42→05:00)
[2021-12-14] MEDS: ACETAMINOPHEN 500 MG TABLET PO ×2 (05:00→18:31)
[2021-12-14] MEDS: CENTRAL LINE FLUSH 10 ML IV PUSH ×3 (05:00→21:50)
[2021-12-14 05:47] LABS: Basophils Percent Auto 0.2 % (0.2-1.2); Eosinophils Absolute Auto 0.2 K/mm3 (0-0.3); Eosinophils Percent Auto 2.7 % (0-4.4); Hematocrit 28.1 % (42.0-52.0); Hemoglobin 8.2 g/dL (14.0-18.0); Immature Granulocyte Absolute 0.05 K/mm3 (0.00-0.031); Immature Granulocyte Percent A 0.6 % (0-0.5); Lymphocytes Percent Auto 9.5 % (18.3-44.2); Mean Corpuscular HGB Conc 29.2 g/dl (32-36); Mean Corpuscular Hemoglobin 23.1 pg (26-34); Mean Corpuscular Volume 79.2 fl (80-100); Mean Platelet Volume 10.6 fl (7.4-10.4); Monocytes Absolute Auto 0.8 K/mm3 (0.1-0.6); Monocytes Percent Auto 9.1 % (2.6-8.5); Neutrophils Absolute Auto 6.5 K/mm3 (1.3-6.7); Neutrophils Percent Auto 77.9 % (45.5-73.1); Platelet Count Result 244 k/mm3 (150-375); Red Blood Count 3.55 M/mm3 (4.6-6.20); Red Cell Distribution Width 19.9 % (11.5-14.5); White Blood Count 8.4 K/mm3 (4.5-10.0)
[2021-12-14 06:07] LABS: Alanine Aminotransferase 15 U/L (6-50); Albumin Level 3.4 g/dL (3.5-5.1); Alkaline Phosphatase 112 U/L (38-126); Anion Gap 6 mmol/L (8-16); Aspartate Amino Transferase 21 U/L (17-59); Bilirubin,Total 0.6 mg/dL (0.2-1.3); Blood Urea Nitrogen 32 mg/dL (9-20); Calcium 8.7 mg/dL (8.4-10.2); Carbon Dioxide 38 mmol/L (22-30); Chloride 94 mmol/L (98-107); Estimated CRCL calculation 66 ml/min; Estimated Glomerular Filt Rate > 60; Glucose 116 mg/dL (65-110); Magnesium 1.7 mg/dL (1.6-2.3); Potassium 3.4 mmol/L (3.4-5.0); Sodium 138 mmol/L (137-145)
[2021-12-14 07:02] LABS: Anisocytosis 1+ (NORMAL); Ovalocytes 1+ (NORMAL); Platelet Estimate Adequate (Adequate)
[2021-12-14 07:59] LABS: Glucose Point of Care 103 mg/dl (65-105)
[2021-12-14] MEDS: FERROUS SULFATE 324 MG TABLET PO ×2 (07:59→17:09)
[2021-12-14] MEDS: FUROSEMIDE 40 MG TABLET PO (08:00)
[2021-12-14] MEDS: METOPROLOL TARTRATE 12.5 MG TABLET PO ×2 (08:00→20:00)
[2021-12-14] MEDS: FLUTICASONE PROPIONATE 0.05% NA SPR 16 GM BTL (*BKC) 1 SPRAY NASAL ×2 (08:00→20:00)
[2021-12-14] MEDS: PANTOPRAZOLE 40 MG TABLET PO (08:01)
[2021-12-14] MEDS: polyethylene glycoL 3350 17 GM POWD.PACK PO (08:01)
--- NOTE | 2021-12-14 09:49 | PM.PNCARD ---
Progress Note: A&P Assessment and Plan (1) Atrial fibrillation with RVR: Code(s): I48.91 - Unspecified atrial fibrillation Status: Acute Plan 86-year-old man with paroxysmal atrial fibrillation he is on metoprolol and is in sinus rhythm. Patient is chronic paraplegic and poor overall condition not anticoagulated Jian Sanford MD [facility] Subjective Date/time seen: Date of service:12/14/21 09:49 Interval history: Follow-up visit in this 86-year-old man with: Paroxysmal atrial fibrillation in the setting of a urosepsis. Currently in sinus rhythm after being treated with metoprolol. Resting comfortably in bed no cardiovascular complaints. Sleeping when I entered the room upon awaking no cardiovascular complaints Exam Const: General: comfortable and no acute distress Other: frail elderly man no distress HENMT: Mouth: Yes moist mucous membranes Eyes: Sclera: sclerae normal Pupils: Equal, round and reactive pupils present Neck: Neck: supple and no JVD Resp: Effort & Inspection: normal respiratory effort Auscultation: clear to auscultation bilaterally Cardio: Rate: regular rate Rhythm: regular rhythm GI: GI Palp: Yes Soft to palpation Auscultation: normal bowel sounds Skin: General skin exam: normal color Neuro: Other: responsive and answers questions appropriately Objective Data Vital Signs Vital Signs: Vital Signs - 24 hr 12/13/21 10:00 12/13/21 11:45 12/13/21 11:53 Temperature Pulse Rate 8 L 81 81 Respiratory Rate 21 H 19 17 Blood Pressure 104/52 L Pulse Oximetry 98 Oxygen Delivery Oxygen Flow Rate 12/13/21 12:00 12/13/21 16:37 12/13/21 16:52 Temperature 36.6 C Pulse Rate 87 85 80 Respiratory Rate 26 H 19 18 Blood Pressure 111/57 L Pulse Oximetry 91 Oxygen Delivery Oxygen Flow Rate 12/13/21 20:20 12/13/21 20:38 12/13/21 20:30 Temperature Pulse Rate 90 88 Respiratory Rate 17 20 Blood Pressure Pulse Oximetry 95 Oxygen Delivery Nasal Cannula Oxygen Flow Rate 3 12/13/21 20:00 12/13/21 20:48 12/13/21 20:00 Temperature 36.3 C L Pulse Rate 98 100 Respiratory Rate 20 Blood Pressure 114/58 L Pulse Oximetry 100 94 Oxygen Delivery Nasal Cannula Oxygen Flow Rate 3 12/13/21 23:26 12/14/21 00:00 12/14/21 00:11 Temperature Pulse Rate 85 Respiratory Rate 23 H Blood Pressure 90/64 L Pulse Oximetry 88 L 90 87 L Oxygen Delivery Nasal Cannula Nasal Cannula Oxygen Flow Rate 3 3 12/14/21 00:13 12/14/21 00:19 12/14/21 04:08 Temperature Pulse Rate 85 81 83 Respiratory Rate 22 H 16 17 Blood Pressure Pulse Oximetry Oxygen Delivery Oxygen Flow Rate 12/14/21 07:29 12/14/21 07:31 12/14/21 07:40 Temperature Pulse Rate 92 85 Respiratory Rate 16 15 Blood Pressure Pulse Oximetry 96 Oxygen Delivery Nasal Cannula Oxygen Flow Rate 3 12/14/21 08:00 12/14/21 08:00 12/14/21 08:00 Temperature 35.7 C L Pulse Rate 93 83 Respiratory Rate 21 H Blood Pressure 124/68 Pulse Oximetry 97 92 Oxygen Delivery Nasal Cannula Oxygen Flow Rate 5 Intake/Output Intake/Output: Intake & Output 12/11/21 12/12/21 12/13/21 12/14/21 23:59 23:59 23:59 23:59 Intake Total 3230 2235 1797.4 620 Output Total 825 5225 3025 3850 Balance 2405 -2990 -1227.6 -3230 Meds/Results Medications: Active Medications Generic Name Dose Route Start Last Admin Trade Name Freq PRN Reason Stop Dose Admin Acetaminophen 500 mg 12/10/21 20:07 12/14/21 05:00 Acetaminophen 500 Mg Tablet PO 500 mg Q6H PRN Administration Pain (Scale Score 4-6) Albuterol 2 puff 12/10/21 20:07 Albuterol Sulfate (*Sp) Aerosol 1 Puff INHALATION Q4H PRN sob Albuterol 2.5 mg 12/12/21 14:00 12/14/21 07:28 Albuterol Sulfate Neb 2.5 Mg/3 Ml Inh INHALATION 2.5 mg Q4HRT KEMI Administration Bisacodyl 10 mg 12/10/21 14:17 Bisacodyl 10 Mg Suppository
--- NOTE | 2021-12-14 11:59 | PM.IMPN ---
Progress Note: A&P Assessment and Plan (1) Hypoxia: Code(s): R09.02 - Hypoxemia Status: Acute Assessment and Plan: Patient normally wears 2 L of oxygen but now up to 5 L. chest x-ray showed no significant change in the diffuse bilateral lung disease. He is on Lasix orally with excellent UOP. He remains on antibiotics. Repeat chest x-ray. Check sputum. Add incentive spirometry. Consider aspiration so will have speech therapy assess. (2) Septic shock: Code(s): A41.9 - Sepsis, unspecified organism; R65.21 - Severe sepsis with septic shock Status: Acute Assessment and Plan: Patient presents to the emergency room with complaints of hematuria and found to have UTI with obstructing stone. He was severely hypotensive requiring central line placement and pressors and Abx started. Patient had cystoscopy with right retrograde pyelogram and stent placement. BP improved. Patient was able to come off vasopressin 12/12. BCx growing ESBL EColi. UCx negative but suspect urinary source. Sepsis resolving. Okay to remove central line. Narrow antibiotics. (3) Bacteremia: Code(s): R78.81 - Bacteremia Status: Acute Assessment and Plan: As above. Blood cultures both growing ESBL EColi. Although his urine culture showed mixed genital jalyn, suspect the positive blood cultures are from a urinary source. Currently on Primaxin.Will change to Ertapenem. Place PICC line. (4) CHF (congestive heart failure): Code(s): I50.9 - Heart failure, unspecified Status: Acute Assessment and Plan: Patient has developed CHF related to the IV fluids. Echo with EF is 45-50% with moderate MR and TR as well as severe pulmonary hypertension. This is probably contributing to his diffuse anasarca. Blood pressure soft at times. He was on albumin and was able to tolerate a couple doses of Lasix IV. UOP 3L yesterday (and 5.4L today). Continue oral Lasix. Continue metoprolol. Consider ACEI. (5) Acute UTI: Code(s): N39.0 - Urinary tract infection, site not specified Status: Acute Assessment and Plan: UA noted. UCx as mentioned above but still concern for UTI. As above, continue antibiotics (6) Kidney stone on right side: Code(s): N20.0 - Calculus of kidney Status: Acute Assessment and Plan: Patient presents to the emergency room with complaints of hematuria. Patient normally has chronic indwelling Cheung but presented emergency room without Cheung catheter in place. Cheung catheter was placed and he was started on CBI. CT scan showing 8mm stone in the blader near the right UVJ and mild right hydroureteronephrosis. He underwent cystoscopy with right retrograde pyelogram and stent placement 12/10/21. Urology following the patient. (7) Acute kidney injury: Code(s): N17.9 - Acute kidney failure, unspecified Status: Acute Assessment and Plan: Cr 1.6 felt secondary to ATN from sepsis and possibly obstructing right stone, pyelonephritis. Patient received adequate IV fluids with good urine output. Creatinine has normalized. Tolerating Lasix. Continue to follow. (8) Atrial fibrillation with RVR: Code(s): I48.91 - Unspecified atrial fibrillation Status: Acute Assessment and Plan: Patient has history of paroxysmal AFib. Patient had an episode of AFib/RVR last night likely related to sepsis. Patient was given amiodarone bolus and infusion.?He converted to normal sinus rhythm. Continue Metoprolol. No anticoagulation due to hematuria. Continue to monitor on telemetry. Cardiology following and appreciate their input. (9) Chronic indwelling Cheung catheter: Code(s): Z97.8 - Presence of other specified devices Status: Acute Assessment and Plan: Patient has chronic indwelling Cheung for neurogenic bladder. Patient presents to the emergency room with complaints of hematuria. Patient normally has chronic indwelling
--- NOTE | 2021-12-14 12:00 | PC.NURSE ---
Received from via bed.
[2021-12-14 12:31] LABS: Glucose Point of Care 116 mg/dl (65-105)
[2021-12-14] MEDS: LIDOCAINE HCL 1% PF INJ 5 ML VIAL INFILTRATE (14:30)
[2021-12-14 17:20] LABS: Glucose Point of Care 97 mg/dl (65-105)
[2021-12-14] MEDS: MIRTAZAPINE SOLTAB 15 MG TAB.DISPER PO (20:00)
[2021-12-14 20:11] LABS: Glucose Point of Care 171 mg/dl (65-105)
[2021-12-15] VITALS (18 sets, daily range): BP systolic 101–122; BP diastolic 57–63; PULSE 60–125; RESP 16–20; TEMP 36.3–37.2; O2SAT 94–99
[2021-12-15] MEDS: ALBUTEROL SULFATE NEB 2.5 MG/3 ML INH INHALATION ×5 (00:26→19:56)
[2021-12-15] MEDS: IPRATROPIUM BR 0.02% INH SOLN 0.5 MG/2.5 ML VIAL INHALATION ×5 (00:27→19:56)
[2021-12-15] MEDS: ACETAMINOPHEN 500 MG TABLET PO ×2 (03:25→21:01)
[2021-12-15] MEDS: CENTRAL LINE FLUSH 10 ML IV PUSH ×3 (05:40→20:57)
[2021-12-15 05:49] LABS: Basophils Percent Auto 0.4 % (0.2-1.2); Eosinophils Absolute Auto 0.2 K/mm3 (0-0.3); Eosinophils Percent Auto 2.7 % (0-4.4); Hematocrit 30.7 % (42.0-52.0); Hemoglobin 8.9 g/dL (14.0-18.0); Immature Granulocyte Absolute 0.05 K/mm3 (0.00-0.031); Immature Granulocyte Percent A 0.6 % (0-0.5); Lymphocytes Absolute Auto 1.35 K/mm3 (0.9-3.2); Lymphocytes Percent Auto 16.1 % (18.3-44.2); Mean Corpuscular Hemoglobin 22.9 pg (26-34); Mean Corpuscular Volume 79.1 fl (80-100); Mean Platelet Volume 10.2 fl (7.4-10.4); Monocytes Percent Auto 11.5 % (2.6-8.5); Neutrophils Absolute Auto 5.8 K/mm3 (1.3-6.7); Neutrophils Percent Auto 68.7 % (45.5-73.1); Platelet Count Result 260 k/mm3 (150-375); Red Blood Count 3.88 M/mm3 (4.6-6.20); Red Cell Distribution Width 19.9 % (11.5-14.5); White Blood Count 8.4 K/mm3 (4.5-10.0)
[2021-12-15 06:00] LABS: Alanine Aminotransferase 12 U/L (6-50); Albumin Level 3.5 g/dL (3.5-5.1); Alkaline Phosphatase 111 U/L (38-126); Anion Gap 7 mmol/L (8-16); Aspartate Amino Transferase 21 U/L (17-59); Bilirubin,Total 0.7 mg/dL (0.2-1.3); Blood Urea Nitrogen 29 mg/dL (9-20); Calcium 8.8 mg/dL (8.4-10.2); Carbon Dioxide 39 mmol/L (22-30); Chloride 90 mmol/L (98-107); Estimated CRCL calculation 59 ml/min; Estimated Glomerular Filt Rate > 60; Glucose 124 mg/dL (65-110); Magnesium 1.6 mg/dL (1.6-2.3); Potassium 3.3 mmol/L (3.4-5.0); Sodium 136 mmol/L (137-145)
--- NOTE | 2021-12-15 06:11 | ECG_ITS ---
Measurements Intervals [place] Rate: 94 P: 41 MS: 164 QRS: 266 QRSD: 157 T: 35 QT: 389 QTc: 488 Interpretive Statements SINUS RHYTHM WITH OCCASIONAL SUPRAVENTRICULAR PREMATURE COMPLEXES MARKED RIGHT AXIS DEVIATION [QRS AXIS > 100] RIGHT BUNDLE BRANCH BLOCK [120+ ms QRS DURATION, UPRIGHT V1, 40+ ms S IN I/aVL/V4/V5/V6] COMPARED TO ECG 12/12/2021 20:38:19 SINUS RHYTHM HAS BEEN RESTORED. Electronically Signed On 12-15-2021 13:40:12 CDT by Maylin Santiago M.D.
[2021-12-15 08:41] LABS: Glucose Point of Care 115 mg/dl (65-105)
[2021-12-15] MEDS: MAGNESIUM SULF 2 GM/WATER 50ML 2 GM/50 ML BAG IVPB (08:47)
[2021-12-15] MEDS: POTASSIUM CHLORIDE 20 MEQ TABLET 40 MEQ PO (08:48)
[2021-12-15] MEDS: polyethylene glycoL 3350 17 GM POWD.PACK PO (08:49)
[2021-12-15] MEDS: MAGNESIUM OXIDE 400 MG TABLET PO (08:49)
[2021-12-15] MEDS: FERROUS SULFATE 324 MG TABLET PO ×2 (08:50→17:54)
[2021-12-15] MEDS: FLUTICASONE PROPIONATE 0.05% NA SPR 16 GM BTL (*BKC) 1 SPRAY NASAL ×2 (08:50→21:01)
[2021-12-15] MEDS: FUROSEMIDE 40 MG TABLET PO (08:50)
[2021-12-15] MEDS: METOPROLOL TARTRATE 12.5 MG TABLET PO ×2 (08:50→20:56)
[2021-12-15] MEDS: PANTOPRAZOLE 40 MG TABLET PO (08:50)
--- NOTE | 2021-12-15 09:25 | PM.IMPN ---
Progress Note: A&P Assessment and Plan (1) Osteomyelitis: Code(s): M86.9 - Osteomyelitis, unspecified Status: Acute Assessment and Plan: Patient has a decubitus ulcer which is chronic. He has had multiple debridements and this has not every completely healed.? CT scan suggests possible underlying osteomyelitis. Wound care service was consulted for evaluation of the wound. MR Pelvis shows decubitus ulcers with osteomyelitis involving the posterior sacrum and ischial tuberosities. Continue local wound care. Blood cultures growing ESBL EColi but feel this is from urinary source and not from the osteomyelitis. Vanco added and will consult GenSurg about the likelihood of ulcer healing and the benefit of intermediate Vanco for treatment in hopes of resolving this. Continue current abx. GenSurg note reviewed. Not felt to have OM. Will stop Vanco. Appreciate their input and the wound care instructions. To clarify: Patient left here one year ago on hospice but did not stay on hospice very long. (2) Hypoxia: Code(s): R09.02 - Hypoxemia Status: Acute Assessment and Plan: Patient normally wears 2-3 L of oxygen but now up to 4.5 L. CXR today showing diffuse bilateral lung disease but improved. He is on Lasix orally with excellent (excessive?) UOP; 6.3L UOP yesterday. Cough better. He remains on antibiotics. Continue incentive spirometry. Speech therapy to assess. Weano2 as tolerated. (3) Septic shock: Code(s): A41.9 - Sepsis, unspecified organism; R65.21 - Severe sepsis with septic shock Status: Acute Assessment and Plan: Patient presents to the emergency room with complaints of hematuria and found to have UTI with obstructing stone. He was severely hypotensive requiring central line placement and pressors and Abx started. Patient had cystoscopy with right retrograde pyelogram and stent placement. BP improved. Patient was able to come off vasopressin 12/12. BCx growing ESBL EColi. UCx negative but suspect urinary source. Sepsis resolving. Antibiotics narrowed. (4) Bacteremia: Code(s): R78.81 - Bacteremia Status: Acute Assessment and Plan: As above. Blood cultures both growing ESBL EColi. Although his urine culture showed mixed genital jalyn, suspect the positive blood cultures are from a urinary source. Was on Primaxin (12/10 at 1343) but now changed to Ertapenem. PICC line placed. (5) CHF (congestive heart failure): Code(s): I50.9 - Heart failure, unspecified Status: Acute Assessment and Plan: Patient has developed acute/chronic systolic CHF. Echo with EF is 45-50% with moderate MR and TR as well as severe pulmonary hypertension. Pulm HTN probably contributing to his diffuse anasarca. Blood pressure was soft but better now. He was on albumin and was able to tolerate a couple doses of Lasix IV. UOP 6.3L yesterday. Toelrating the oral Lasix. Renal function remains normal. Serum bicarb 39 so need to watch this. He is on lasix at home and on home dose. Continue metoprolol. (6) Acute UTI: Code(s): N39.0 - Urinary tract infection, site not specified Status: Acute Assessment and Plan: UA noted. UCx as mentioned above but still concern for UTI. Continue antibiotics (7) Kidney stone on right side: Code(s): N20.0 - Calculus of kidney Status: Acute Assessment and Plan: Patient presents to the emergency room with complaints of hematuria. Patient normally has chronic indwelling Cheung but presented emergency room without Cheung catheter in place. Cheung catheter was placed and he was started on CBI. CT scan showing 8mm stone in the blader near the right UVJ and mild right hydroureteronephrosis. He underwent cystoscopy with right retrograde pyelogram and stent placement 12/10/21. Urology following the patient. (8) Acute kidney injury: Code(s): N17.9 - Acute kidney failure, unspecified Status: Acute Asse
[2021-12-15 12:12] LABS: Glucose Point of Care 134 mg/dl (65-105)
--- NOTE | 2021-12-15 13:11 | PM.CNGS ---
Assessment and Plan Assessment and plan (1) Abnormal magnetic resonance imaging of pelvis: Code(s): R93.5 - Abnormal findings on diagnostic imaging of other abdominal regions, including retroperitoneum Status: Acute Assessment and Plan: despite MRI report, I see no evidence of active infection of the sacral or ischial areas. I do not feel osteomyelitis is playing a role in his current infectious condition. The sacral area was opened and has healed with no evidence of an underlying infection by examination. The 2 ischial decubiti I are clean with no tissue and no gross evidence of bony infection either. I would not recommend additional antibiotics for osteomyelitis and would only treat with local wound care to the open wounds. Additional decubitus precautions would also be advisable after discharge. (2) Decubitus ulcer of right ischial tuberosity region: Code(s): L89.319 - Pressure ulcer of right buttock, unspecified stage Status: Acute Assessment and Plan: will add Santyl to the right ischial decubitus to facilitate additional in some attic debridement. Continue Silver rope and gauze as before. (3) Decubitus ulcer of left perineal ischial region: Code(s): L89.329 - Pressure ulcer of left buttock, unspecified stage Status: Acute Assessment and Plan: Add Santyl to this ulcer as well. Continue Silver rope and gauze. (4) Sepsis due to gram-negative urinary tract infection: Code(s): A41.50 - Gram-negative sepsis, unspecified; N39.0 - Urinary tract infection, site not specified Status: Acute Assessment and Plan: Present illness and admission and due to obstructing right ureteral stone and urosepsis. Improving after obstruction relieved with urinary stent. (5) Right ureteral calculus: Code(s): N20.1 - Calculus of ureter Status: Acute Assessment and Plan: Still in place and urology following. Has been stented on the day of admission. (6) Infection due to ESBL-producing Escherichia coli: Code(s): A49.8 - Other bacterial infections of unspecified site; Z16.12 - Extended spectrum beta lactamase (ESBL) resistance Status: Acute Assessment and Plan: On antibiotics at present. 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 Unclear why patient left on hospice with comfort measures but this rescinded after returned to the hospital on day of admission. History of Present Illness Consult details Consult date: 12/15/21 Reason for consult: wound care ( And MRI findings of osteomyelitis sacrum and ischial tuberosity) Requesting physician: Ernesto Abebe MD Narrative: patient is an 86-year-old gentleman who is paraplegic due to a spinal stroke he suffered in 2019. I had seen him before in 2018 and did extensive debridement of bilateral ischial decubiti in December of that year. Patient has had resolution of necrotic debris and had been on dressing changes with a clean wound following that. It is doubtful that these wounds ever actually healed and goals were to keep them clean and without evidence of infection. Patient has had continued problems and multiple medical conditions. He was actually discharged December 04 of this year after suffering septic shock due to ESBL E coli infection. He had AFib with RVR as well as V-tach and CHF during that admission. He was discharged back to [facility] hospice with comfort measures only. During that admission in early November, he was seen by the wound nurses who noted his decubiti I to be clean and only requiring wound care. Patient came back to the emergency room 6 days after discharge, on 12/10/2021. He came with no Cheung catheter in place and a history of having had bleeding from around the Cheung site. Evaluation however showed that the patient was having
[2021-12-15 17:11] LABS: Glucose Point of Care 99 mg/dl (65-105)
[2021-12-15] MEDS: MELATONIN 5 MG TABLET PO (20:56)
[2021-12-15] MEDS: MIRTAZAPINE SOLTAB 15 MG TAB.DISPER PO (20:57)
[2021-12-15 21:06] LABS: Glucose Point of Care 113 mg/dl (65-105)
[2021-12-16] VITALS (22 sets, daily range): BP systolic 106–111; BP diastolic 51–59; PULSE 70–92; RESP 16–18; TEMP 36.4–36.8; O2SAT 91–98
[2021-12-16] MEDS: IPRATROPIUM BR 0.02% INH SOLN 0.5 MG/2.5 ML VIAL INHALATION ×4 (02:05→20:04)
[2021-12-16] MEDS: ALBUTEROL SULFATE NEB 2.5 MG/0.5 ML INH (02:05)
[2021-12-16] MEDS: ACETAMINOPHEN 500 MG TABLET PO (03:55)
[2021-12-16] MEDS: CENTRAL LINE FLUSH 10 ML IV PUSH ×3 (05:28→20:54)
[2021-12-16] MEDS: PHARMACIST COMMUNICATION ORDER 1 EACH XX (05:30)
[2021-12-16 05:43] LABS: Hematocrit 30.1 % (42.0-52.0); Hemoglobin 8.8 g/dL (14.0-18.0); Mean Corpuscular HGB Conc 29.2 g/dl (32-36); Mean Corpuscular Hemoglobin 23.3 pg (26-34); Mean Corpuscular Volume 79.8 fl (80-100); Mean Platelet Volume 9.5 fl (7.4-10.4); Platelet Count Result 263 k/mm3 (150-375); Red Blood Count 3.77 M/mm3 (4.6-6.20); Red Cell Distribution Width 19.9 % (11.5-14.5); White Blood Count 8.4 K/mm3 (4.5-10.0)
[2021-12-16 05:57] LABS: Albumin Level 3.5 g/dL (3.5-5.1); Blood Urea Nitrogen 26 mg/dL (9-20); Calcium 8.5 mg/dL (8.4-10.2); Carbon Dioxide > 40 mmol/L (22-30); Chloride 90 mmol/L (98-107); Estimated CRCL calculation 66 ml/min; Estimated Glomerular Filt Rate > 60; Glucose 106 mg/dL (65-110); Magnesium 1.9 mg/dL (1.6-2.3); Phosphorus 3.5 mg/dL (2.5-4.5); Potassium 4.2 mmol/L (3.4-5.0); Sodium 136 mmol/L (137-145)
[2021-12-16] MEDS: ALBUTEROL SULFATE NEB 2.5 MG/3 ML INH INHALATION ×4 (07:40→20:06)
[2021-12-16 08:40] LABS: Glucose Point of Care 103 mg/dl (65-105)
[2021-12-16] MEDS: FLUTICASONE PROPIONATE 0.05% NA SPR 16 GM BTL (*BKC) 1 SPRAY NASAL ×2 (09:34→20:54)
[2021-12-16] MEDS: FERROUS SULFATE 324 MG TABLET PO ×2 (09:34→17:27)
[2021-12-16] MEDS: COLLAGENASE OINT 30 GM TUBE 1 APPLIC TOPICAL (09:34)
[2021-12-16] MEDS: METOPROLOL TARTRATE 12.5 MG TABLET PO ×2 (09:35→20:50)
[2021-12-16] MEDS: polyethylene glycoL 3350 17 GM POWD.PACK PO (09:35)
[2021-12-16] MEDS: PANTOPRAZOLE 40 MG TABLET PO (09:35)
[2021-12-16] MEDS: MAGNESIUM OXIDE 400 MG TABLET PO (09:35)
[2021-12-16] MEDS: FUROSEMIDE 40 MG TABLET PO (09:35)
--- NOTE | 2021-12-16 09:55 | PM.PNCARD ---
Progress Note: A&P Assessment and Plan (1) Atrial fibrillation with RVR: Code(s): I48.91 - Unspecified atrial fibrillation Status: Acute Assessment and Plan: PAF in the setting of urosepsis, maintaining sinus rhythm. Remains in sinus rhythm on his usual home dose of metoprolol. Not anticoagulated due to hematuria. (2) Acute on chronic systolic and diastolic heart failure, NYHA class 2: Code(s): I50.43 - Acute on chronic combined systolic (congestive) and diastolic (congestive) heart failure Status: Acute Assessment and Plan: Mild cardiomyopathy and CHF, EF 45%. Diuresing. Back to usual O2, 2 L Back on his usual home furosemide 40 mg daily. Cont metoprolol BP soft so will not add ARB at this time Volume status probably near baseline. (3) Septic shock: Code(s): A41.9 - Sepsis, unspecified organism; R65.21 - Severe sepsis with septic shock Status: Acute Assessment and Plan: Septic shock and bacteremia Secondary to UTI resolving Plan Will sign off, please call if we can be of further assistance. Subjective Date/time seen: ? Follow-up visit in this 86-year-old man with: 86-year-old man with paroxysmal atrial fibrillation in the setting of urosepsis. 12/14/2021: Currently in sinus rhythm after being treated with metoprolol.? Resting comfortably in bed no cardiovascular complaints.? Sleeping when I entered the room upon awaking no cardiovascular complaint. He is on metoprolol and is in sinus rhythm.? Patient is chronic paraplegic and poor overall condition not anticoagulated 12/16/21 09:55 Pt w/o complaints. Diuresed another liter yesterday on just po Lasix. O2 reduced to 2 L NC. Tele shows NSR, sometimes w/ frequ APCs. Review of Systems Review of Systems: Patient denies any chest pain, abdominal pain, shortness of breath, dizziness, back pain. Exam Narrative: Sleepy older male, arouses easily and answers questions. Const: General: cooperative, comfortable and confusion; No healthy appearing Orientation/consciousness: oriented to person, patient oriented x3 and No confusion Resp: Effort & Inspection: normal respiratory effort Auscultation: clear to auscultation bilaterally Cardio: Rate: regular rate Rhythm: regular rhythm GI: Inspection: normal to inspection GI Palp: No abdominal tenderness Neuro: General: oriented to person and confusion Extrem: Right lower extremity: edema Left lower extremity: edema Other: Pretibial edema has resolved but patient has persistent pedal edema, which may be his baseline. Psych: Appearance: grossly abnormal Mental Status: mental status grossly abnormal Objective Data Vital Signs Vital Signs: Vital Signs - 24 hr 12/15/21 14:00 12/15/21 14:00 12/15/21 14:07 Temperature Pulse Rate 74 81 Respiratory Rate 18 18 Blood Pressure Pulse Oximetry 99 Oxygen Delivery Nasal Cannula Oxygen Flow Rate 4 12/15/21 14:49 12/15/21 12:00 12/15/21 16:00 Temperature 97.4 F L Pulse Rate 85 88 81 Respiratory Rate 16 Blood Pressure 110/63 Pulse Oximetry 97 Oxygen Delivery Oxygen Flow Rate 12/15/21 19:43 12/15/21 19:50 12/15/21 19:50 Temperature 98.3 F Pulse Rate 89 84 84 Respiratory Rate 20 18 Blood Pressure 122/58 L Pulse Oximetry 94 94 Oxygen Delivery Nasal Cannula Oxygen Flow Rate 2 12/15/21 19:59 12/15/21 19:59 12/15/21 20:56 Temperature Pulse Rate 82 60 Respiratory Rate 18 Blood Pressure Pulse Oximetry 94 Oxygen Delivery Oxygen Flow Rate 12/15/21 20:00 12/16/21 00:00 12/16/21 02:05 Temperature Pulse Rate 86 79 79 Respiratory Rate 18 Blood Pressure Pulse Oximetry Oxygen Delivery Oxygen Flow Rate 12/16/21 02:16 12/16/21 04:00 12/16/21 07:41 Temperature Pulse Rate 77 84 81 Respiratory Rate 18 18 Blood Pressure Pulse Oximetry Oxygen Delivery Oxygen Flow Rate 12/16/21
[2021-12-16 12:14] LABS: Glucose Point of Care 138 mg/dl (65-105)
--- NOTE | 2021-12-16 13:48 | PM.IMPN ---
Progress Note: A&P Assessment and Plan (1) Osteomyelitis: Code(s): M86.9 - Osteomyelitis, unspecified Status: Acute Assessment and Plan: Patient has a decubitus ulcer which is chronic. He has had multiple debridements and this has not every completely healed.? CT scan suggests possible underlying osteomyelitis. Wound care service was consulted for evaluation of the wound. Wound does not appear infected. MR Pelvis shows decubitus ulcers with osteomyelitis involving the posterior sacrum and ischial tuberosities. Continue local wound care. Blood cultures growing ESBL EColi but feel this is from urinary source and not from the osteomyelitis. Vanco added and will GenSurg consulted. GenSurg did not feel the patient had OM so Vanco stopped. Appreciate their input and the wound care instructions. (2) Hypoxia: Code(s): R09.02 - Hypoxemia Status: Acute Assessment and Plan: Patient normally wears 2-3 L of oxygen. He was up to 4-5 L. CXR showing diffuse bilateral lung disease but improved overall. Probably CHF. He is on Lasix orally with excellent UOP. Cough better. Speech therapy had no concerns. He remains on antibiotics. Continue incentive spirometry. Able to wean O2 back to baseline 2L. (3) Septic shock: Code(s): A41.9 - Sepsis, unspecified organism; R65.21 - Severe sepsis with septic shock Status: Acute Assessment and Plan: Patient presents to the emergency room with complaints of hematuria and found to have UTI with obstructing stone. He was severely hypotensive requiring central line placement and pressors and Abx started. Patient had cystoscopy with right retrograde pyelogram and stent placement. BP improved. Patient was able to come off vasopressin 12/12. BCx growing ESBL EColi. UCx negative but suspect urinary source. Sepsis resolved. Antibiotics narrowed. (4) Bacteremia: Code(s): R78.81 - Bacteremia Status: Acute Assessment and Plan: As above. Blood cultures both growing ESBL EColi. Although his urine culture showed mixed genital jalyn, suspect the positive blood cultures are from a urinary source. Was on Primaxin (12/10 at 1343) but now changed to Ertapenem. PICC line placed. To longterm on Ertapenem tomorrow. (5) CHF (congestive heart failure): Code(s): I50.9 - Heart failure, unspecified Status: Acute Assessment and Plan: Patient developed acute/chronic systolic CHF. Echo with EF is 45-50% with moderate MR and TR as well as severe pulmonary hypertension. Pulm HTN probably contributing to his diffuse anasarca. Blood pressure was soft but better now. He was on albumin and was able to tolerate a couple doses of Lasix IV. UOP was brisk and his hypoxia improved. Tolerating the oral Lasix. Renal function remains normal but serum bicarb 40 so need to watch this. He is on Lasix at home and on home dose. Continue metoprolol. (6) Kidney stone on right side: Code(s): N20.0 - Calculus of kidney Status: Acute Assessment and Plan: Patient presents to the emergency room with complaints of hematuria. Patient normally has chronic indwelling Cheung but presented emergency room without Cheung catheter in place. Cheung catheter was placed and he was started on CBI. CT scan showing 8mm stone in the blader near the right UVJ and mild right hydroureteronephrosis. He underwent cystoscopy with right retrograde pyelogram and stent placement 12/10/21. Urology following the patient. (7) Acute kidney injury: Code(s): N17.9 - Acute kidney failure, unspecified Status: Acute Assessment and Plan: Cr 1.6 felt secondary to ATN from sepsis and possibly obstructing right stone, pyelonephritis. Patient received adequate IV fluids with good urine output. Creatinine has normalized. Tolerating Lasix. Continue to follow. (8) Acute UTI: Code(s): N39.0 - Urinary tract infection, site not specified Status: Acute
[2021-12-16] MEDS: guaiFENesin/DEXTROMETHORPHAN 10 ML UDC PO ×2 (16:52→20:56)
[2021-12-16 17:26] LABS: Glucose Point of Care 131 mg/dl (65-105)
[2021-12-16] MEDS: MELATONIN 5 MG TABLET PO (20:44)
[2021-12-16] MEDS: MIRTAZAPINE SOLTAB 15 MG TAB.DISPER PO (20:54)
[2021-12-16 22:21] LABS: Glucose Point of Care 139 mg/dl (65-105)
[2021-12-17] VITALS (10 sets, daily range): BP systolic 106; BP diastolic 49; PULSE 68–87; RESP 14–18; TEMP 36.4; O2SAT 94–96
[2021-12-17] MEDS: IPRATROPIUM BR 0.02% INH SOLN 0.5 MG/2.5 ML VIAL INHALATION ×2 (02:32→09:14)
[2021-12-17] MEDS: ALBUTEROL SULFATE NEB 2.5 MG/0.5 ML INH (02:32)
[2021-12-17] MEDS: CENTRAL LINE FLUSH 10 ML IV PUSH (06:13)
[2021-12-17] MEDS: ACETAMINOPHEN 500 MG TABLET PO (06:13)
[2021-12-17 08:26] LABS: Glucose Point of Care 105 mg/dl (65-105)
[2021-12-17] MEDS: FERROUS SULFATE 324 MG TABLET PO (08:27)
[2021-12-17] MEDS: FLUTICASONE PROPIONATE 0.05% NA SPR 16 GM BTL (*BKC) 1 SPRAY NASAL (08:27)
[2021-12-17] MEDS: FUROSEMIDE 40 MG TABLET PO (08:27)
[2021-12-17] MEDS: MAGNESIUM OXIDE 400 MG TABLET PO (08:28)
[2021-12-17] MEDS: METOPROLOL TARTRATE 12.5 MG TABLET PO (08:28)
[2021-12-17] MEDS: PANTOPRAZOLE 40 MG TABLET PO (08:28)
[2021-12-17] MEDS: polyethylene glycoL 3350 17 GM POWD.PACK PO (08:29)
[2021-12-17] MEDS: ALBUTEROL SULFATE NEB 2.5 MG/3 ML INH INHALATION (09:14)
[2021-12-17] MEDS: COLLAGENASE OINT 30 GM TUBE 1 APPLIC TOPICAL (10:07)
--- NOTE | 2021-12-17 10:28 | PM.DS ---
DS: Admitting Diagnosis Discharge Date 12/17/21 Admitting Diagnosis Hematuria DS: Discharge Diagnosis Discharge Diagnosis (1) Osteomyelitis: Code(s): M86.9 - Osteomyelitis, unspecified Status: Acute (2) Hypoxia: Code(s): R09.02 - Hypoxemia Status: Acute (3) Septic shock: Code(s): A41.9 - Sepsis, unspecified organism; R65.21 - Severe sepsis with septic shock Status: Acute (4) Bacteremia: Code(s): R78.81 - Bacteremia Status: Acute (5) CHF (congestive heart failure): Code(s): I50.9 - Heart failure, unspecified Status: Acute (6) Kidney stone on right side: Code(s): N20.0 - Calculus of kidney Status: Acute (7) Acute kidney injury: Code(s): N17.9 - Acute kidney failure, unspecified Status: Acute (8) Acute UTI: Code(s): N39.0 - Urinary tract infection, site not specified Status: Acute (9) Atrial fibrillation with RVR: Code(s): I48.91 - Unspecified atrial fibrillation Status: Acute (10) Chronic indwelling Cheung catheter: Code(s): Z97.8 - Presence of other specified devices Status: Acute (11) Hematuria: Code(s): R31.9 - Hematuria, unspecified Status: Acute (12) Decubitus ulcer: Onset Date: Unknown Qualifiers: Laterality: unspecified laterality Pressure injury location: buttock Pressure injury stage: unspecified pressure injury stage Qualified Code(s): L89.309 - Pressure ulcer of unspecified buttock, unspecified stage Code(s): L89.90 - Pressure ulcer of unspecified site, unspecified stage Status: Chronic (13) 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 Please see H&P for details. Hospital Course: Patient presents to the emergency room with complaints of hematuria and found to have UTI with obstructing stone. He was severely hypotensive requiring central line placement and pressors and Abx started.? Patient had cystoscopy with right retrograde pyelogram and stent placement. BP improved. Patient was able to come off vasopressin 12/12. BCx growing ESBL EColi. UCx negative but suspect urinary source for bacteremia. Sepsis resolved.? Antibiotics narrowed. Patient normally wears 2-3 L of oxygen. He was up to 4-5 L. CXR showing diffuse bilateral lung disease but improved overall. Probably CHF.? He was resumed on Lasix orally with excellent UOP.? Cough better.? Speech therapy had no concerns. Able to wean O2 back to baseline 2L. Patient developed acute/chronic systolic CHF. Echo with EF is 45-50% with moderate MR and TR as well as severe pulmonary hypertension. Pulm HTN probably contributing to his diffuse anasarca. Once his blood pressure improved, able to add back Lasix.? UOP was brisk and his hypoxia improved. Renal function remained normal. Blood cultures both growing ESBL EColi. Although his urine culture showed mixed genital jalyn, suspect the positive blood cultures are from a urinary source. Was on Primaxin (12/10 at 1343) but now changed to Ertapenem. PICC line placed. [facility]rt[facility] Patient has a decubitus ulcer which is chronic. He has had multiple debridements and this has not every completely healed.? CT scan suggests possible underlying osteomyelitis. Wound care service was consulted for evaluation of the wound. Wound does not appear infected. MR Pelvis shows decubitus ulcers with osteomyelitis involving the posterior sacrum and ischial tuberosities. Blood cultures growing ESBL EColi but feel this is from urinary source and not from the osteomyelitis. Vanco added but GenSurg did not feel the patient had OM so Vanco stopped. Patient presents to the emergency room with complaints of hematuria.? Deshawn
[2021-12-17 11:33] LABS: EDCOVIDSCREEN Negative (Negative)
[2021-12-17 11:50] LABS: Glucose Point of Care 120 mg/dl (65-105)
[2021-12-17] MEDS: guaiFENesin/DEXTROMETHORPHAN 10 ML UDC PO (12:42)
== END 2021-12-17 13:31 | DRG 698 ==
LOC: ANHED 14:24 → ANHICU 15:20 → ANH2MED 12-14 11:55
PROVIDERS: Emergency Medicine; Internal Medicine; Nurse Practitioner; Urology; Admitting Provider Internal Medicine; Emergency Provider Nurse Practitioner Family; PCP Family Medicine; Visit Provider Internal Medicine
PROC: 0T9680Z Drainage of Right Ureter with Drainage Device, Via Natural or Artificial Opening Endoscopic (ICD-10-PCS; CPT 52352; principal; 2021-12-10 15:00)
DX: T83.511A Infection and inflammatory reaction due to indwelling urethral catheter, initial encounter (principal); A41.51 Sepsis due to Escherichia coli [E. coli]; L89.313 Pressure ulcer of right buttock, stage 3; L89.323 Pressure ulcer of left buttock, stage 3; R65.21 Severe sepsis with septic shock; J18.9 Pneumonia, unspecified organism; I50.23 Acute on chronic systolic (congestive) heart failure; N13.6 Pyonephrosis; Z16.12 Extended spectrum beta lactamase (ESBL) resistance; I48.92 Unspecified atrial flutter; G82.21 Paraplegia, complete; N17.9 Acute kidney failure, unspecified; J44.1 Chronic obstructive pulmonary disease with (acute) exacerbation; N20.1 Calculus of ureter; D63.8 Anemia in other chronic diseases classified elsewhere; J61 Pneumoconiosis due to asbestos and other mineral fibers; N20.0 Calculus of kidney; N21.0 Calculus in bladder; N31.9 Neuromuscular dysfunction of bladder, unspecified; Z20.822 Contact with and (suspected) exposure to COVID-19; Z66 Do not resuscitate; R77.8 Other specified abnormalities of plasma proteins; I11.0 Hypertensive heart disease with heart failure; I48.0 Paroxysmal atrial fibrillation; I27.20 Pulmonary hypertension, unspecified; I95.9 Hypotension, unspecified; E55.9 Vitamin D deficiency, unspecified; E11.9 Type 2 diabetes mellitus without complications; E78.00 Pure hypercholesterolemia, unspecified; E83.42 Hypomagnesemia; M48.061 Spinal stenosis, lumbar region without neurogenic claudication; M48.02 Spinal stenosis, cervical region; R09.02 Hypoxemia; F41.9 Anxiety disorder, unspecified; Q54.1 Hypospadias, penile; Z99.81 Dependence on supplemental oxygen; Z87.891 Personal history of nicotine dependence; Z85.51 Personal history of malignant neoplasm of bladder
CPT/HCPCS: 36415; 36430; 36569; 51702; 71045; 72197; 74019; 74176; 74420; 80053; 80069; 80202; 81001; 82948; 83036; 83605; 83735; 83880; 84100; 84132; 84484; 85014; 85018; 85025; 85027; 85610; 85730; 86140; 86850; 86900; 86901; 86920; 87040; 87070; 87077; 87086; 87088; 87186; 87205; 87426; 92610; 93005; 94640; 96361; 96365; 96375; 99285; A9270; A9577; C1751; C1758; C1769; C2617; C8929; C9803; J0282; J0743; J1335; J1815; J1940; J2370; J3370; J3475; J7030; J7050; J7060; P9016; P9047; Q9957; U0003; U0005

== ENCOUNTER 2022-04-11 14:47 | Outpatient (CLI) | payer OTHER, SELFPAY ==
--- NOTE | ~2022-04-11 | XR_ITS ---
Supine and upright views of the abdomen Clinical history: Bladder stone COMPARISON: 12/13/2021 Findings: Bowel gas pattern is nonspecific. No evidence for obstruction or free air. Right ureteral s tent present. Cheung catheter also in place. 8 mm round radiodensity present centrally in the pelvis, suspicious for urinary bladder stone. Osseous structures are intact. Impression: Suspect a 8 mm urinary bladder stone. Right ureteral stent and Cheung catheter in place. Reviewed, dictated and finalized at location [] NT TECHNICAL SUPPORT ASSOCIATE Impression: Suspect a 8 mm urinary bladder stone. Right ureteral stent and Cheung catheter in place.
--- NOTE | ~2022-04-11 | CT_ITS ---
EXAMINATION: CT abdomen pelvis wo con DATE: 04/11/2022 15:16 INDICATION: Bladder stone TECHNIQUE: Computed tomography (CT) of the abdomen and pelvis was performed without intravenous contr ast. The dose-length product (DLP) was 754.76 mGy-cm. Automated exposure control and iterative recons truction technique were employed. COMPARISON: 12/10/2021 FINDINGS: There is asymmetric gynecomastia, left greater than right. The heart size is normal. Minima l dependent atelectasis is present in the lung bases. There is a small sliding hiatal hernia. The karen er, spleen, pancreas, gallbladder, and adrenal glands are normal. Nonobstructing stones of the left k idney measure 7 mm and 2 mm. A right internal ureteral stent is in expected position. The bladder is decompressed by Cheung catheter. There is a 7 mm stone in the urinary bladder adjacent to the internal ureteral stent. A rim calcified cyst is noted in the right kidney. There is calcified atherosclerosi s of the aorta and many of the other arteries. No pathologically enlarged abdominal or pelvic lymph n odes are identified. There is no free intraperitoneal gas or evidence of bowel obstruction. A moderat e volume of colonic stool is present. Again noted are bilateral decubitus ulcerations penetrating int o the posterior ischii. Underlying sclerosis is again seen and could reflect osteomyelitis. There is severe lumbar spondylosis. IMPRESSION: 1. Right internal ureteral stent in expected position with 7 mm stone in the urinary bladder. 2. Nonobstructing left nephrolithiasis. 3. Chronic bilateral sacral decubitus ulcers with possible underlying osteomyelitis of the ischii. Reviewed, dictated and finalized at location A. CTOR OF BUSINESS OPERATIONS IMPRESSION: 1. Right internal ureteral stent in expected position with 7 mm stone in the ur inary bladder. 2. Nonobstructing left nephrolithiasis. 3. Chronic bilateral sacral decubitus ulcers with possible underlying osteomyel itis of the ischii.
== END 2022-04-11 14:48 | disposition home or self-care (01) ==
PROVIDERS: PCP Family Medicine; Visit Provider Nurse Practitioner Adult Health
DX: N20.0 Calculus of kidney (principal); N21.0 Calculus in bladder
CPT/HCPCS: 74018; 74176

== ENCOUNTER 2023-03-07 23:04 | Observation (INO) | payer OTHER, MEDICAID, SELFPAY ==
[2023-03-07] VITALS (10 sets, daily range): BP systolic 104–147; BP diastolic 61–104; PULSE 40–140; RESP 21–32; TEMP 35.8; O2SAT 86–100
--- NOTE | ~2023-03-07 | XR_ITS ---
EXAMINATION: XR chest 1V portable DATE: 03/07/2023 23:31 INDICATION: Dyspnea. TECHNIQUE: A single frontal view of the chest was obtained. COMPARISON: Chest single view 12/15/2021, chest CT 08/29/2021 FINDINGS: There is mild scarring in right upper lobe and in the lower lung zones. No pleural effusion or pneumothorax. The heart size is normal. IMPRESSION: 1. Mild scarring in right upper lobe and in the lower lung zones. Reviewed, dictated and finalized at location E. ISTICAL TYPIST
--- NOTE | 2023-03-07 23:11 | ECG_ITS ---
Measurements Intervals [place] Rate: 135 P: ND: 0 QRS: 247 QRSD: 183 T: 80 QT: 382 QTc: 573 Interpretive Statements ATRIAL FLUTTER/TACHYCARDIA WITH RAPID VENTRICULAR RESPONSE RIGHT AXIS DEVIATION RIGHT BUNDLE BRANCH BLOCK BASELINE ARTIFACT- V1-V3 ABNORMAL ECG NO PREVIOUS ECG AVAILABLE FOR COMPARISON Electronically Signed On 03-08-2023 7:01:44 OPTICAL DISPENSER by Rodri Wilcox D.O.
[2023-03-07 23:31] LABS: Basophils Absolute Auto 0.1 K/mm3 (0.0-0.1); Basophils Percent Auto 0.6 % (0.2-1.2); Eosinophils Absolute Auto 0.6 K/mm3 (0-0.3); Eosinophils Percent Auto 2.6 % (0-4.4); Hematocrit 30.8 % (42.0-52.0); Hemoglobin 8.2 g/dL (14.0-18.0); Immature Granulocyte Absolute 0.92 K/mm3 (0.00-0.031); Immature Granulocyte Percent A 4.3 % (0-0.5); Lymphocytes Absolute Auto 7.39 K/mm3 (0.9-3.2); Lymphocytes Percent Auto 34.6 % (18.3-44.2); Mean Corpuscular HGB Conc 26.6 g/dl (32-36); Mean Corpuscular Hemoglobin 24.9 pg (26-34); Mean Corpuscular Volume 93.6 fl (80-100); Mean Platelet Volume 10.8 fl (7.4-10.4); Monocytes Absolute Auto 1.6 K/mm3 (0.1-0.6); Monocytes Percent Auto 7.7 % (2.6-8.5); Neutrophils Absolute Auto 10.7 K/mm3 (1.3-6.7); Neutrophils Percent Auto 50.2 % (45.5-73.1); Nucleated Red Blood Cells Absolute Auto 0.4 K/mm3 (0.0-0.012); Nucleated Red Blood Cells Perc 1.7 % (0.0-0.2); Platelet Count Result 457 k/mm3 (150-375); Red Blood Count 3.29 M/mm3 (4.6-6.20); Red Cell Distribution Width 18.9 % (11.5-14.5); White Blood Count 21.4 K/mm3 (4.5-10.0)
[2023-03-07 23:43] LABS: INR 1.4; Prothrombin Time 18.3 Seconds (11.1-14.7)
[2023-03-07 23:44] LABS: Partial Thromboplastin Time 39.2 SECONDS (22.3-36.8)
[2023-03-07 23:46] LABS: Alanine Aminotransferase 98 U/L (6-50); Albumin Level 3.3 g/dL (3.5-5.1); Alkaline Phosphatase 228 U/L (38-126); Anion Gap 19 mmol/L (8-16); Aspartate Amino Transferase 71 U/L (17-59); Bilirubin,Total 0.3 mg/dL (0.2-1.3); Blood Urea Nitrogen 57 mg/dL (9-20); Calcium 8.5 mg/dL (8.4-10.2); Carbon Dioxide 22 mmol/L (22-30); Chloride 92 mmol/L (98-107); Estimated CRCL calculation 33 ml/min; Estimated Glomerular Filt Rate 41; Glucose 291 mg/dL (65-110); Magnesium 2.1 mg/dL (1.6-2.3); Potassium 4.2 mmol/L (3.4-5.0); Sodium 133 mmol/L (137-145)
[2023-03-07 23:58] LABS: Troponin I < 0.012 ng/mL (0.000-0.034)
[2023-03-08] VITALS (40 sets, daily range): BP systolic 68–111; BP diastolic 50–79; PULSE 127–147; RESP 14–37; TEMP 36.2–36.6; O2SAT 94–100; BMI 27.6
--- NOTE | 2023-03-08 00:45 | ED.GENADULT ---
HPI - General Adult General Chief complaint: Altered Mental Status Stated complaint: AMS Time Seen by Provider: 03/07/23 23:09 History of Present Illness HPI narrative: Patient is a 87-year-old gentleman who presents the emergency department with chief complaint of altered mental status. [facility] is a [facility] a local [facility] and has been on hospice care previously and the patient has been removed from hospice as he continued to live. The patient is DNR comfort measures only tonight the patient was found to be minimally responsive had agonal respirations and was bradycardic. The patient was intermittently conscious at the facility EMS assisted ventilations with a [id number] and the patient had a rapid heart rate in the 20s upon arrival to the emergency department patient did have a brief episode where he became bradycardic had a few seconds of what appeared to be ventricular fibrillation the patient did not require any kind of intervention and then proceeded to go into a tachycardic rhythm. Patient is now alert and able to answer questions Related Data Home Medications Medication Instructions Recorded Confirmed acetaminophen 325 mg capsule 325 mg PO Q4H PRN Pain (Scale 04/28/19 12/10/21 Score 1-3) melatonin 5 mg tablet 5 mg PO HS 04/28/19 12/10/21 acetaminophen 500 mg tablet 500 mg PO Q6H PRN Pain (Scale 11/24/20 12/10/21 Score 4-6) albuterol sulfate 2.5 mg/3 mL 2.5 mg inhalation Q4H PRN 11/24/20 12/10/21 (0.083 %) solution for nebulization Shortness Of Breath ascorbic acid (vitamin C) 500 mg 500 mg PO DAILY 11/24/20 12/10/21 tablet bisacodyl 10 mg rectal suppository 10 mg RECTAL DAILY PRN Constipation 11/24/20 12/10/21 ferrous sulfate 325 mg (65 mg 325 mg PO BID 11/24/20 12/10/21 iron) tablet furosemide 20 mg tablet (Lasix) 40 mg PO DAILY 11/24/20 12/10/21 magnesium hydroxide 400 mg/5 mL 400 mg PO DAILY PRN Constipation 11/24/20 12/10/21 oral suspension (Milk of Magnesia) mirtazapine 30 mg tablet 15 mg PO HS 11/24/20 12/10/21 multivit with minerals-iron 18 1 tablet PO DAILY 11/24/20 12/10/21 mg-folic ac 400 mcg-vit K 25 mcg tablet (Adults Multivitamin) omeprazole 20 mg capsule,delayed 20 mg PO DAILY 11/24/20 12/10/21 release ondansetron 4 mg oral soluble film 4 mg PO Q6H PRN Vomiting 11/24/20 12/10/21 polyethylene glycol 3350 17 gram 17 g PO DAILY PRN Constipation 11/25/20 12/10/21 oral powder packet (Miralax) albuterol sulfate 90 mcg/actuation 2 puff inhalation Q4H PRN sob 12/10/21 12/10/21 aerosol inhaler calcium carbonate 320 mg calcium 600 mg PO DAILY 12/10/21 12/10/21 (750 mg) chewable tablet metoprolol succinate 25 mg 25 mg PO DAILY 12/10/21 12/10/21 tablet,extended release 24 hr Allergies Allergy/AdvReac Type Severity Reaction Status Date / Time No Known Allergies Allergy Verified 04/16/22 14:54 Review of Systems Review of Systems: A 10 system review of systems was completed on the patient and is negative except for what is stated in the HPI. Nursing and ancillary documentation was reviewed. 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 coli septi
--- NOTE | 2023-03-08 01:03 | ECG_ITS ---
Measurements Intervals [place] Rate: 143 P: VA: 0 QRS: 264 QRSD: 178 T: 71 QT: 363 QTc: 561 Interpretive Statements ATRIAL FLUTTER/TACHYCARDIA WITH RAPID VENTRICULAR RESPONSE RIGHT AXIS DEVIATION RIGHT BUNDLE BRANCH BLOCK ABNORMAL ECG COMPARED TO ECG 03/07/2023 23:17:56 NO SIGNIFICANT CHANGES Electronically Signed On 03-08-2023 7:02:45 SALES SERVICE ROUTE MANAGER by Rodri Wilcox D.O.
--- NOTE | 2023-03-08 03:53 | ADMGEN ---
This patient, Wander Prescott, was admitted to Medical Room 246-01. Patient/family oriented to hospital policies and general routines including ID bracelet, bed and alarms, visiting hours, pain management, procedures, bathroom and other care routines, personal items, smoking policy, room service/diet, and visiting hours. Information on how to activate the Rapid Response Team has been discussed. Patient/Family are encouraged to report perceived risks to care and to ask questions if they do not understand what they are told or what they should do.
[2023-03-08 04:59] LABS: Appearance Urine Clear (Clear); Bacteria Urine None Seen /hpf; Bilirubin Urine Negative (Negative); Blood Urine 2+ (Negative); Color Urine Yellow (Yellow); Glucose Urine UA Negative (Negative); Ketones Urine Negative (Negative); Leukocyte Esterase Ur 1+ LEU/UL (Negative); Need Manual Microscopic Reviewed; Nitrate Urine Negative (Negative); Protein Urine 1+ mg/dL (Negative); RBC Urine 21-50 /hpf (0-2); Specific Grav Ur 1.016 (1.001-1.035); Squamous Epithelial Cell Urine None seen /hpf (Few); Urobilinogen Urine 0.2 mg/dL (<2.0); WBC Urine 21-50 /hpf; pH Urine 5.5 (5.0-9.0)
[2023-03-08 05:02] LABS: Add Urine Microscopic? YES
--- NOTE | 2023-03-08 10:18 | PM.IMHP ---
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 Patient lives at [facility]. He has been on hospice in the past but has recovered thus not needing hospice care any more. he has not been in hospice care for some time now. According to patient's sister who is his power of patent prosecution attorney he does not have any pain and [facility] staff manage him appropriately. In the ED patient was found to have agonal respirations and bradycardia that then reversed into VFib but did not require any kind of intervention that then went back into tachycardia rhythm. Once patient went back into sinus tachycardia he was alert and oriented x3. Patient does remain on a DNR code status but is not on comfort measures at this time. He was found to have a white count of 21.4, creatinine of 1.6, BUN of 57 and elevated LFTs. Chest x-ray with no focal infiltrates. His EKG revealed atrial flutter with heart rate of 135. UA with 1+ leukocyte esterase, 21-50 rbc's, 21-50 wbc's and 2+ blood. Patient was admitted to the floor in thoughts of going comfort measure although after I spoke to the patient's power of patent prosecution attorney they are wanting to treat the patient for his acute illness. He does have a history of E coli ESBL and was started on ertapenem. Blood cultures drawn. Admitted for treatment of UTI sepsis. 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 Julian) Catheter-associated urinary tract infection Chronic indwelling Cheung catheter Due to paraplegia/neurogenic bladder Diastolic dysfunction without heart failure Echocardiogram March 2017 demonstrated normal left ventricular systolic function with no focal wall motion abnormalities, mild concentric left ventricular hypertrophy, EF of 60-65%, mild pulmonary hypertension with RVSP of 46, diastolic dysfunction, DNR (do not resuscitate) E. 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 Monroe. 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 On chronic anticoagulation with Xarelto Spinal stenosis in cervical region Severe C3-C4 Spinal stenosis of lumbar region Severe l3-L4 Type 2 diabetes mellitus (Unknown) With long-term insulin use hemoglobin A1c 6.03 January 2019 Vitamin D deficiency Surgical History Surgical History H/O cystoscopy By Dr. Julian with exchange of Cheung ca
[2023-03-08] MEDS: ERTAPENEM 1 GM/NS 50 ML 1 GM/50 ML BAG IVPB (11:08)
[2023-03-08] MEDS: LEVOTHYROXINE SODIUM 50 MCG TABLET PO (11:25)
[2023-03-08] MEDS: ENOXAPARIN 40 MG/0.4 ML SYRINGE SUB-Q (11:25)
[2023-03-08] MEDS: SODIUM CHLORIDE 0.9% IV 1,000 ML 100 ML IV CONT ×2 (11:27→17:49)
[2023-03-08] MEDS: PANTOPRAZOLE 40 MG TABLET PO (12:30)
[2023-03-08 12:37] LABS: Glucose Point of Care 167 mg/dl (65-105)
[2023-03-08 14:53] LABS: Hemoglobin A1C 5.7 % (<5.7)
[2023-03-08 15:34] LABS: Basophils Absolute Auto 0.1 K/mm3 (0.0-0.1); Basophils Percent Auto 0.3 % (0.2-1.2); Eosinophils Absolute Auto 0.1 K/mm3 (0-0.3); Eosinophils Percent Auto 0.7 % (0-4.4); Hematocrit 28.5 % (42.0-52.0); Hemoglobin 7.8 g/dL (14.0-18.0); Immature Granulocyte Absolute 0.15 K/mm3 (0.00-0.031); Lymphocytes Absolute Auto 1.32 K/mm3 (0.9-3.2); Lymphocytes Percent Auto 8.8 % (18.3-44.2); Mean Corpuscular HGB Conc 27.4 g/dl (32-36); Mean Corpuscular Hemoglobin 24.6 pg (26-34); Mean Corpuscular Volume 89.9 fl (80-100); Mean Platelet Volume 10.1 fl (7.4-10.4); Monocytes Absolute Auto 1.1 K/mm3 (0.1-0.6); Monocytes Percent Auto 7.4 % (2.6-8.5); Neutrophils Absolute Auto 12.2 K/mm3 (1.3-6.7); Neutrophils Percent Auto 81.8 % (45.5-73.1); Nucleated Red Blood Cells Absolute Auto 0.1 K/mm3 (0.0-0.012); Nucleated Red Blood Cells Perc 0.3 % (0.0-0.2); Platelet Count Result 385 k/mm3 (150-375); Red Blood Count 3.17 M/mm3 (4.6-6.20); Red Cell Distribution Width 18.6 % (11.5-14.5); White Blood Count 14.9 K/mm3 (4.5-10.0)
[2023-03-08 15:47] LABS: Anion Gap 8 mmol/L (8-16); Blood Urea Nitrogen 56 mg/dL (9-20); Calcium 8.6 mg/dL (8.4-10.2); Carbon Dioxide 33 mmol/L (22-30); Chloride 95 mmol/L (98-107); Estimated CRCL calculation 43 ml/min; Estimated Glomerular Filt Rate 57; Glucose 103 mg/dL (65-110); Lactic Acid Reflex 0.9 mmol/L (0.7-2.0); Sodium 136 mmol/L (137-145)
[2023-03-08 15:58] LABS: Schistocytes None Seen (NORMAL)
[2023-03-08 15:59] LABS: Hypochromasia 1+ (NORMAL)
[2023-03-08 16:00] LABS: Anisocytosis 3+ (NORMAL); Macrocytosis 1+ (NORMAL)
[2023-03-08] MEDS: VANCOMYCIN 1,250 MG/NS 250 ML 1,250 MG/250 ML BAG 166.67 MG IVPB (16:20)
[2023-03-08] MEDS: SODIUM CHLORIDE 0.9% IV 500 ML IV CONT ×2 (16:20→19:00)
[2023-03-08] MEDS: METOPROLOL TARTRATE INJ 5 MG/5 ML VIAL IV PUSH (17:18)
[2023-03-08] MEDS: MIDODRINE HCL 10 MG TABLET PO (17:26)
--- NOTE | 2023-03-08 17:43 | PC.NURSE ---
03/08 1642 Pt transferred to IMU 207, report given to JUAN DIEGO Amanda at bedside.
[2023-03-08] MEDS: AMIODARONE 150 MG/D5W 100 ML 150 MG/100 ML BAG 300 MG IV CONT (18:08)
[2023-03-08] MEDS: AMIODARONE 360 MG/D5W 200 ML 360 MG/200 ML BAG 33.33 MG IV CONT (18:09)
[2023-03-08 18:20] LABS: Glucose Point of Care 99 mg/dl (65-105)
--- NOTE | 2023-03-08 19:16 | PC.NURSE ---
notified dr. butler of consistent low blood pressures. telephone orders for 500 bolus obtained and given. Dr. butler to talk to sister about how aggressive we are treating blood pressure.
[2023-03-08] MEDS: VANCOMYCIN 1,000 MG/NS 250 ML 1,000 MG/250 ML BAG 250 MG IVPB (20:00)
[2023-03-08 20:27] LABS: Glucose Point of Care 121 mg/dl (65-105)
--- NOTE | 2023-03-08 20:40 | PC.NURSE ---
Cheetah performed with a result of 19% showing the patient is fluid responsive.
[2023-03-08] MEDS: SODIUM CHLORIDE 0.9% IV 1,000 ML 999 ML IV CONT ×2 (21:00→22:31)
[2023-03-08] MEDS: MEROPENEM 1 GM/NS 100 ML 1 GM/100 ML BAG IVPB (21:02)
[2023-03-08] MEDS: MIDODRINE HCL 2.5 MG TABLET 5 MG PO (22:30)
[2023-03-08] MEDS: DIGOXIN INJ 250 MCG/ML 2 ML AMP (*BKC) 500 MCG IV PUSH (22:32)
--- NOTE | 2023-03-08 22:56 | PC.NURSE ---
2252-Attempted to contact Pt's emergency contact/POMichelle Hays to updated with patient's current condition. No answer received. Left message to return phone call.
[2023-03-09] VITALS (7 sets, daily range): BP systolic 92–98; BP diastolic 53–58; PULSE 0–128; RESP 16–20; TEMP 36.4; O2SAT 98–100
[2023-03-09] MEDS: AMIODARONE 360 MG/D5W 200 ML 360 MG/200 ML BAG 33.33 MG IV CONT (00:27)
--- NOTE | 2023-03-09 02:35 | P.PNCROSS_ITS ---
Event Note Event Note Event Note: I received report in sign-out patient was hypotensive. The patient was receivi ng a L of isotonic fluids. After fluid administration patient was still hypotensive with blood pressures in the 80s. I requested nursing staff completed cheetah score which demonstrated the patient was fluid responsive with 19% change. Subsequently patient received another 2 L in fluid bolus to complete 30 mL/kilos bolus. Patient also received increased dose of midodrine from the cardiology service and a dose of digoxin. After these interventions the patient's blood pressures had improved with systolic blood pressures greater than 90. And heart rates have improved marginally down to the 120s from prior values of 130s to 140s.
[2023-03-09 05:26] LABS: Basophils Absolute Auto 0.1 K/mm3 (0.0-0.1); Basophils Percent Auto 0.5 % (0.2-1.2); Eosinophils Absolute Auto 0.2 K/mm3 (0-0.3); Eosinophils Percent Auto 1.4 % (0-4.4); Hematocrit 29.3 % (42.0-52.0); Immature Granulocyte Absolute 0.14 K/mm3 (0.00-0.031); Immature Granulocyte Percent A 1.1 % (0-0.5); Lymphocytes Absolute Auto 1.06 K/mm3 (0.9-3.2); Lymphocytes Percent Auto 8.2 % (18.3-44.2); Mean Corpuscular HGB Conc 27.3 g/dl (32-36); Mean Corpuscular Volume 91.6 fl (80-100); Mean Platelet Volume 10.6 fl (7.4-10.4); Monocytes Absolute Auto 0.9 K/mm3 (0.1-0.6); Monocytes Percent Auto 6.9 % (2.6-8.5); Neutrophils Absolute Auto 10.7 K/mm3 (1.3-6.7); Neutrophils Percent Auto 81.9 % (45.5-73.1); Nucleated Red Blood Cells Absolute Auto 0.1 K/mm3 (0.0-0.012); Nucleated Red Blood Cells Perc 0.4 % (0.0-0.2); Platelet Count Result 396 k/mm3 (150-375)
--- NOTE | 2023-03-09 05:29 | ECG_ITS ---
Measurements Intervals [place] Rate: 33 P: VA: 0 QRS: 256 QRSD: 161 T: 268 QT: 467 QTc: 351 Interpretive Statements SINUS RHYTHM WITH SECOND DEGREE AV BLOCK, TYPE II (3:1 AV CONDUCTION) RIGHT AXIS DEVIATION RIGHT BUNDLE BRANCH BLOCK ABNORMAL ECG COMPARED TO ECG 03/08/2023 01:12:19 SINUS RHYTHM WITH SECOND DEGREE AV BLOCK, TYPE II NOW PRESENT Electronically Signed On 03-09-2023 12:07:33 BUSINESS ANALYTICS FACULTY MEMBER by Rodri Wilcox D.O.
[2023-03-09 05:37] LABS: Alanine Aminotransferase 86 U/L (6-50); Albumin Level 3.1 g/dL (3.5-5.1); Alkaline Phosphatase 238 U/L (38-126); Anion Gap 6 mmol/L (8-16); Aspartate Amino Transferase 70 U/L (17-59); Bilirubin,Total 0.3 mg/dL (0.2-1.3); Blood Urea Nitrogen 47 mg/dL (9-20); Calcium 7.9 mg/dL (8.4-10.2); Carbon Dioxide 28 mmol/L (22-30); Chloride 100 mmol/L (98-107); Estimated CRCL calculation 51 ml/min; Estimated Glomerular Filt Rate > 60; Glucose 108 mg/dL (65-110); Magnesium 1.9 mg/dL (1.6-2.3); Potassium 4.6 mmol/L (3.4-5.0); Sodium 134 mmol/L (137-145)
[2023-03-09 05:52] LABS: Lactic Acid Reflex 0.9 mmol/L (0.7-2.0)
--- NOTE | 2023-03-09 06:00 | PC.NURSE ---
ALVARO Singh was reached per sign writer hand. Patient rhythm changes and treatment options discussed. Michelle did not want patient to be externally paced, expressed desire for patient to be comfortable and remain DNR status. Michelle on way to hospital.
[2023-03-09 06:11] LABS: Anisocytosis 2+ (NORMAL); Hypochromasia 1+ (NORMAL); Schistocytes None Seen (NORMAL)
--- NOTE | 2023-03-09 06:29 | PC.NURSE ---
At 0513 the patient's telemetry showed asystole. Multiple Nurses immediately responded to patients room and found pt agonal breathing and eyes rolled in back of head. Patient is a DNR/DNI. Amiodarone drip discontinued. Patient was asystole and without pulse for 2 minutes when he spontaneously started breathing and pulse returned. Rhythm looked like 3rd degree block, then 2nd degree type 2, and then sinus rhythm. Patient alert and oriented. This scenario occurred multiple more times and each time patient would wake up alert and oriented. Spoke with patient about placing pads on chest to stop interruptions in heart beat but patient declined and wanted us to let him go if his heart stopped. Spoke with Dr Nunez at 0540 and she asked this RN to ask the patent again if he would be agreeable to external pacing and a transvenous pacer, as it could prolong his life. Attempted to have conversation with patient but episodes of asystole were happening more frequently to where the patient was continuously unresponsive. Jing Manuelgrace spoke with sister who was against external pacing. Dr Nunez made aware that the patient was unresponsive and the sister didn't want him paced. Patient passed at 0606; expiration witnessed and verified by Karissa An RN and Naomie Levi RN.
--- NOTE | 2023-03-09 06:32 | PC.NURSE ---
[id number]-Attempted to contact Pt's sister/ALVARO Martinez to update her on patient's critical condition. No answer received. Message left to return phone call.
--- NOTE | 2023-03-09 06:57 | PM.DDS ---
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 DM, pAFib, chronic Cheung for neurogenic bladder and chronic resp failure on home O2 here for altered mental status. Patient was found to be minimally responsive at the NH with agonal breathing and bradycardia. He was briefly bradycardic here but then developed tachycardia. Patient met sepsis criteria felt related to complicated UTI. He has a hx of ESBL EColi so he was started on broad spectrum IV antibiotics. Patient noted to be persistently tachycardic with hypotension. EKG showing probable atrial flutter. He was admitted for comfort care initially. Patient was AOx4 but deferred to his POA regarding level of care. The POA was contacted and she wanted patient treated so patient moved to the IMU. IV fluid boluses given. Metoprolol IV once given with benefits. Midodrine started. Cardiology consulted and Amiodarone started. His heart rate and blood pressure improved slightly but he remained tachycardic. 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 He was DNR so no CPR but he had spontaneous ROSC a short time later. Per RN, patient became awake, alert and oriented. Cardiology called and recommended external pacemaker but patient refused. 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 Family notified.
--- NOTE | 2023-03-09 07:16 | PC.NURSE ---
[facility] Nurse, Naomie ADAMSON, informed of patoients expiration. Security also called.
--- NOTE | 2023-03-09 12:53 | PC.NURSE ---
[facility] called and accepting patient for tissue donation. secuirty and data warehouse architect aware
== END 2023-03-09 06:06 | disposition expired ==
LOC: ANHED 03-08 01:51 → ANH2MED 03-08 02:40 → ANHIMU 03-11 10:23
PROVIDERS: Internal Medicine Critical Care Medicine; Admitting Provider Internal Medicine; Emergency Provider Emergency Medicine; PCP Family Medicine; Visit Provider Internal Medicine
DX: A41.9 Sepsis, unspecified organism (principal); N39.0 Urinary tract infection, site not specified; R00.0 Tachycardia, unspecified; F41.9 Anxiety disorder, unspecified; I10 Essential (primary) hypertension; N31.9 Neuromuscular dysfunction of bladder, unspecified; E11.9 Type 2 diabetes mellitus without complications; E55.9 Vitamin D deficiency, unspecified; E78.00 Pure hypercholesterolemia, unspecified; R94.31 Abnormal electrocardiogram [ECG] [EKG]; L89.154 Pressure ulcer of sacral region, stage 4; I48.0 Paroxysmal atrial fibrillation; I95.9 Hypotension, unspecified; J61 Pneumoconiosis due to asbestos and other mineral fibers; J96.10 Chronic respiratory failure, unspecified whether with hypoxia or hypercapnia; Z99.81 Dependence on supplemental oxygen; Z96.0 Presence of urogenital implants; G82.20 Paraplegia, unspecified; Z66 Do not resuscitate; Z86.14 Personal history of Methicillin resistant Staphylococcus aureus infection; Z87.828 Personal history of other (healed) physical injury and trauma; Z79.82 Long term (current) use of aspirin; Z79.51 Long term (current) use of inhaled steroids; Z79.899 Other long term (current) drug therapy
CPT/HCPCS: 36415; 71045; 80048; 80053; 81001; 82948; 83036; 83605; 83735; 84484; 85025; 85610; 85730; 87040; 87086; 87088; 93005; 96361; 96365; 96366; 96367; 96372; 96375; 99285; A9270; G0378; J0282; J1160; J1335; J1650; J2185; J3370; J7030; J7040